=== PATIENT | male | born 1950 | race Caucasian/White ===

== ENCOUNTER 2018-07-25 18:10 | Emergency (ER) | payer MEDICARE, MEDICAID, SELFPAY ==
[2018-07-25 18:01] VITALS: BP 102/68; PULSE 92; RESP 14; TEMP 36.3; O2SAT 98
--- NOTE | 2018-07-25 18:26 | DI.RAD_ITS ---
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 Question permeative process of the humeral diaphysis, correlation with known multiple myeloma or other malignancy requested.
--- NOTE | 2018-07-25 18:26 | DI.RAD_ITS ---
SYMPTOM/DIAGNOSIS: S/P FALL, R/O ACUTE FRACTURE RIGHT WRIST: 07/25 Three views were obtained. No acute fracture seen.
--- NOTE | 2018-07-25 18:26 | DI.COMBO_ITS ---
SYMPTOM/DIAGNOSIS: S/P FALL, R/O ACUTE FRACTURE RIGHT ELBOW: 07/25 Three views were obtained. Note is again made of question permeative lucencies of the distal humerus and to a lesser degree radius and ulnar diaphyses. No acute fracture seen. Correlation requested regarding any history of multiple myeloma or other neoplastic disease. RIGHT HAND: 07/25 Three views were obtained. There are degenerative changes at the greater multangular first metacarpal joint. No acute fracture identified.
--- NOTE | 2018-07-25 18:28 | W.ED.GENAD ---
Discharge Plan Disposition Patient Disposition: HOME Condition: Stable Discharge Details Chief Complaint: Orthopedic Clinical Impression: Contusion of right shoulder, Skin tear of hand without complication, Contusion of hand, Abrasion of elbow Reason For Visit: SONYA Primary Care Provider: Edwar Ortiz ED Provider: Anthony Porter [place] Meds and New Rx's Prescriptions: Continue nitroglycerin 0.4 MG tablet, sublingual 0.4 mg Sublingual PRN PRNRF: 0 trazodone 100 MG tablet 200 mg PO HS RF: 0 duloxetine [Cymbalta] 20 MG capsule,delayed release(DR/EC) 60 mg PO DAILY RF: 0 aspirin [Aspir-Low] 81 MG tablet,delayed release (DR/EC) 81 mg PO DAILY RF: 0 thiamine mononitrate (vit B1) [Vitamin B-1 (mononitrate)] 100 MG tablet 100 mg PO DAILY RF: 0 acetaminophen [Mapap Extra Strength] 500 MG tablet 1,000 mg PO TID PRN PRNRF: 0 folic acid 1 MG tablet 1 mg PO DAILY RF: 0 gabapentin 600 MG tablet 600 mg PO TID RF: 0 tamsulosin 0.4 MG capsule 0.4 mg PO BID RF: 0 phenazopyridine 100 MG tablet 200 mg PO TID RF: 0 promethazine 25 MG tablet 25 mg PO QID RF: 0 ipratropium bromide [Atrovent] 15 ML spray,non-aerosol 15 ml NS Q6H PRN PRNRF: 0 multivitamin with iron-mineral [Compete] 1 EACH tablet 1 ea PO DAILY RF: 0 albuterol sulfate [ProAir RespiClick] 90 MCG aerosol powdr breath activated 90 mcg Inhalation Q4H PRN PRNRF: 0 Discharge Instructions Instructions: Contusion in Adults (ED), Abrasion (ED), Skin Tear (ED) Additional Instructions: Rest, ice, elevate right upper extremity is much as possible. Keep right hand wound clean, dry and covered. Follow-up with your primary care doctor in 1 week for reevaluation and with orthopedics if symptoms persist or worsen. Return to the emergency department any worsening or new concerning symptoms. Referrals: Figueroa Kamara MD [ [facility] STAFF PHYSICIAN] - Discharge Data Discharge Date/Time-TO BE ENTERED AT DEPARTURE: 07/25/18 20:40 Discharge Physician: Leslie Brady Medical Decision Making <Leslie Brady DO - Last Filed: 07/26/18 23:44> 67-year-old male who presents with right hand skin tear, right hand pain, and right shoulder pain status post fall at home prior to arrival. Patient is an alcoholic and his frequent admissions for falls. Patient denies head injury, neck pain, chest pain, abdominal pain, back pain, left upper extremity or bilateral lower extremity pain. Family member is present and also endorses that patient did not hit his head. Patient is acting appropriate at baseline per family member. Vitals within normal limits. Patient appears nontoxic and in no acute distress. He does appear mildly intoxicated. His chest and abdomen are nontender. He has no C-spine/T-spine/L-spine tenderness. He has chronic right shoulder pain due to previous right shoulder surgeries and has a known chronic right shoulder deformity per family member who states that this appears no different than usual. He has some pain with range of motion at the right shoulder. He has an extensive skin tear on the right dorsal hand with no active bleeding. Tetanus up-to-date 2013. At this point in time, I do not see any indication for CT head, C-spine, chest abdomen pelvis. I will obtain a right shoulder, right elbow, right wrist and hand x-rays. Will irrigate right hand and attempt to close over skin tear with skin flap and cover with nonadherent dressings. 2019 --right hand x-ray notes a questionable area of the proximal phalanx of the second finger of the right hand x-ray. He has chronic deformities noted in the right shoulder x-ray which do not appear significantly different but will wait on the right shoulder xray. Overall, most likely xrays appears negative for acute fracture. Case endorsed to Dr. Porter to follow-up on imaging. HPI <Leslie Brady DO - Last Filed: 07/26/18 23:44> General Mode of arrival: ambulatory. Date/Time Provider Initiated Documentation: 07/25/18 18:26. Limitations to Documentation: no limitations. Information obtained by: patient. HPI Narrative: Patient is a 67-year-old male with history of alcoholism who presents for fall at home prior to arrival. States he drank 1 beer today. Patient states he tripped while walking and fell at standing height onto his right upper extremity. He is complaining of pain in his right hand and right shoulder. He denies head injury, neck pain, back pain, chest pain, abdominal pain, hip pain, left upper extremity pain. Past medical history: Alcohol abuse, OA, Asthma, CAD, COPD, Depression, GERD, [place] Surgical history: Cholecystectomy, Hernia repair, Knee Replacement, Shoulder surgery, Tonsillectomy, AC joint repair, Back surgery Social history: Daily ETOH, Smokes tobacco, Denies drugs Meds: See list, daily 81mg aspirin, no other anticoagulants Allergies: See list Related Data Home Medications Medication Instructions Recorded Confirmed nitroglycerin 0.4 mg SUBLINGUAL PRN PRN 12/20/13 03/30/18 duloxetine [Cymbalta] 60 mg PO DAILY 07/24/16 03/30/18 trazodone 200 mg PO HS 07/24/16 03/30/18 aspirin [Aspir-Low] 81 mg PO DAILY 12/02/16 03/30/18 acetaminophen [Mapap Extra 1,000 mg PO TID PRN PRN tab 06/05/17 03/30/18 Strength] folic acid 1 mg PO DAILY tab 06/05/17 03/30/18 thiamine mononitrate (vit B1) 100 mg PO DAILY tab 06/05/17 03/30/18 [Vitamin B-1 (mononitrate)] albuterol sulfate [ProAir 90 mcg INHALATION Q4H PRN PRN 08/28/17 03/30/18 RespiClick] gabapentin 600 mg PO TID 08/28/17 03/30/18 ipratropium bromide [Atrovent] 15 ml NS Q6H PRN PRN 08/28/17 03/30/18 multivitamin with iron-mineral 1 ea PO DAILY 08/28/17 03/30/18 [Compete] phenazopyridine 200 mg PO TID 08/28/17 03/30/18 promethazine 25 mg PO QID 08/28/17 03/30/18 tamsulosin 0.4 mg PO BID 08/28/17 03/30/18 Previous Rx's Medication Instructions Recorded acetaminophen [Mapap Extra 1,000 mg PO TID PRN PRN tab 06/05/17 Strength] folic acid 1 mg PO DAILY tab 06/05/17 thiamine mononitrate (vit B1) 100 mg PO DAILY tab 06/05/17 [Vitamin B-1 (mononitrate)] Allergies Allergy/AdvReac Type Severity Reaction Status Date / Time Penicillins Allergy Severe Anaphylaxsi Unverified 03/30/18 10:32 s cephalexin monohydrate Allergy Unverified 03/30/18 10:32 [From Keflex] meperidine HCl [From Demerol] Allergy Skin Rash Unverified 03/30/18 10:32 clindamycin HCl AdvReac Severe see note Unverified 03/30/18 10:32 [From Cleocin] clindamycin palmitate HCl AdvReac Severe see comment Unverified 03/30/18 10:32 [From Cleocin] clindamycin phosphate AdvReac Severe see note Unverified 03/30/18 10:32 [From Cleocin] ketorolac tromethamine AdvReac Intermediate vomiting Unverified 03/30/18 10:32 [From Toradol] NSAIDS (Non-Steroidal AdvReac Intermediate Nausea Unverified 03/30/18 10:32 Anti-Inflamma propoxyphene HCl AdvReac Intermediate vomiting Unverified 03/30/18 10:32 [From Darvon] tramadol HCl [From Ultram] AdvReac Intermediate vomiting Unverified 03/30/18 10:32 General Stated Complaint: Orthopedic THEODORE: 4 Review of Systems <Leslie Brady DO - Last Filed: 07/26/18 23:44> Review of Systems All systems reviewed & are unremarkable except as noted in HPI and below Constitutional Denies chills, Denies excessive sweating, Denies fatigue, Denies fever(s), Denies weakness and Denies weight loss Eyes Reports system reviewed and no additional complaints, except as docu and Denies blurry vision ENT Denies vertigo, Denies dizziness, Denies otalgia, Denies nasal congestion, Denies sore throat and Denies throat swelling Cardiovascular Denies chest pain, Denies syncope, Denies rapid heart rate and Denies dyspnea Respiratory Denies dyspnea Gastrointestinal Denies abdominal pain, Denies diarrhea and Denies vomiting Genitourinary Denies hematuria, Denies dysuria and Denies flank pain Musculoskeletal Reports other (Right shoulder, right hand) Integumentary/Breasts Denies lesions and Denies rash Neurologic Denies behavioral changes, Denies confusion, Denies vertigo, Denies dizziness, Denies syncope and Denies weakness Psychiatric Denies behavioral changes, Denies confusion and Denies depression Endocrine Denies excessive sweating and Denies fatigue Hematologic/Lymphatic Denies easy bruising and Denies lymphadenopathy Allergic/Immunologic Denies throat swelling Exam <Leslie Brady, - Last Filed: 07/26/18 23:44> Const General: cooperative, intoxicated appearing (mild, smells of alcohol ) and other (able to answer questions appropriately) Orientation: alert, awake and oriented x3 HENMT Head: normal to inspection, normocephalic and atraumatic Ears: hearing grossly normal bilaterally, external ears normal and TM's normal bilaterally General nose exam: external nose normal Face and sinus: normal facial exam Mouth: oral mucosae normal Teeth and gingiva: dentition normal Throat: posterior oropharynx normal Eyes General: appearance normal, both eyes and all related structures Eyelids: eyelids normal Pupils: PERRL EOM: EOM intact bilaterally Neck Neck: normal visual inspection Lymphatic: no lymphadenopathy noted Chest Chest: normal inspection of the chest (No evidence of trauma) Resp Effort & Inspection: normal respiratory effort and able to speak in complete sentences Auscultation: clear to auscultation bilaterally Cardio Rate: regular rate Rhythm: regular rhythm GI Inspection: normal to inspection (No evidence of trauma) Palpation: soft, not firm, no guarding, no hepatosplenomegaly, no masses and nontender Auscultation: normal bowel sounds Back/Spine/Pelvis Cervical Spine: No cervical spinal tenderness Thoracic/Lumbar Spine: No thoracic spinal tenderness and No lumbar spinal tenderness Pelvis: no pain with anterior-posterior compression and other Coccyx: other Skin General skin exam: no rashes or lesions noted Neuro General: alert and awake Cognition: normal cognition Speech: speech normal Motor: muscle tone normal throughout Sensory Exam: no sensory deficits noted Extrem Right upper extremity: shoulder/upper arm (Chronic right shoulder deformity due to previous surgeries. No acute trauma noted. Pain in right shoulder with range of motion which patient states is chronic.), elbow/forearm (2 cm superficial laceration to right elbow overlying right lateral epicondyle. No tenderness palpation of right elbow or right forearm), wrist (No tenderness palpation of right wrist. No right snuffbox tenderness.) and hand (Extensive right dorsal hand skin tear approximately 4 x 7 cm extending from just below right wrist down to right fourth MCP joint) Right lower extremity: full ROM Left lower extremity: full ROM Psych Appearance: grossly normal Mental Status: mental status grossly normal Speech and Movement: speech and movement normal Affect: normal affect Thought Process: normal Course <Leslie Brady DO - Last Filed: 07/26/18 23:44> Vital Signs Temperature 97.3 F L 07/25/18 18:01 Pulse 92 H 07/25/18 18:01 Respiratory Rate 14 07/25/18 18:01 Blood Pressure 102/68 07/25/18 18:01 Pulse Oximetry 98 07/25/18 18:01 Temperature 97.3 F L 07/25/18 18:01 Temperature Source Temporal Artery Scan 07/25/18 18:01 Pulse 92 H 07/25/18 18:01 Respiratory Rate 14 07/25/18 18:01 Blood Pressure 102/68 07/25/18 18:01 Blood Pressure Position Sitting 07/25/18 18:01 Pulse Oximetry 98 07/25/18 18:01 Oxygen Delivery Method Room Air 07/25/18 18:01 Oxygen Flow Rate 0 07/25/18 18:01 Pain Level 10 07/25/18 18:01 Sign Out <Leslie Brady DO - Last Filed: 07/26/18 23:44> Sign Out Data: Sign Out Comment: Follow up on imaging results. Last updated by Leslie Brady DO at 07/25/18 20:30 Post-Handoff Eval: Patient signed out pending prelim read of films by radiology. Discharge papers completed, but discharge held until reads done. X-rays read as negative for acute fractures. Chronic fractures/changes and demineralization. Patient discharged home.
[2018-07-25] MEDS: Acetaminophen 325 MG TAB 650 MG PO (18:33)
--- NOTE | 2018-07-25 20:30 | DI.VRAD_ITS ---
EXAM: XR Right Hand Complete, 3 or More Views CLINICAL HISTORY: 67 years old, male; Injury or trauma; Fall; Initial encounter; Blunt trauma (contusions or hematomas; Hand; Right; Patient HX: S/P fall; Additional info: R/O acute FX TECHNIQUE: Frontal, lateral and oblique views of the right hand. COMPARISON: CR RIGHT HAND COMPLETE 05/23/2017 10:39 PM FINDINGS: Bones/joints: First carpometacarpal degenerative changes. First metacarpophalangeal degenerative changes. The bones are demineralized. Scattered mild interphalangeal degenerative changes. No acute fracture. No dislocation. Soft tissues: Dorsal hand soft tissue swelling. IMPRESSION: No acute bony pathology. Dictated and Authenticated by: Melba Mejias MD. Ordering:STEPHANE FUNG MD
--- NOTE | 2018-07-25 20:31 | DI.VRAD_ITS ---
EXAM: XR Right Wrist Complete, 3 or More Views CLINICAL HISTORY: 67 years old, male; Injury or trauma; Fall; Initial encounter; Blunt trauma (contusions or hematomas; Wrist; Right; Patient HX: S/P fall; Additional info: R/O acute FX TECHNIQUE: Frontal, lateral and oblique views of the right wrist. COMPARISON: CR RIGHT HAND COMPLETE 05/23/2017 10:39 PM FINDINGS: Bones/joints: Subcentimeter hazy calcification projecting along the radial base of the second metacarpal, most likely chronic soft tissue calcification, avulsion fracture considered unlikely. First carpal metacarpal degenerative changes. No displaced fractures are seen. No dislocation. Soft tissues: Distal forearm and wrist soft tissue swelling. IMPRESSION: Subcentimeter hazy calcification projecting along the radial base of the second metacarpal, most likely chronic soft tissue calcification, avulsion fracture considered unlikely. Dictated and Authenticated by: Melba Mejias MD. Ordering:STEPHANE FUNG MD
--- NOTE | 2018-07-25 20:33 | DI.VRAD_ITS ---
EXAM: XR Right Elbow Complete, 3 or More Views CLINICAL HISTORY: 67 years old, male; Injury or trauma; Fall; Initial encounter; Blunt trauma (contusions or hematomas; Elbow; Right; Patient HX: S/P fall; Additional info: R/O acute FX TECHNIQUE: Frontal, lateral and oblique views of the right elbow. COMPARISON: CR RIGHT HUMERUS 08/28/2017 11:52 AM FINDINGS: Bones/joints: A somewhat permeative appearance of demineralization particularly in the humeral diaphysis. No acute fracture. No dislocation. Soft tissues: Unremarkable. IMPRESSION: 1. No acute bony pathology. 2. A somewhat permeative appearance of demineralization particularly in the humeral diaphysis. Please correlate as to any clinical concern for myeloma, lymphoma or other entity other than heterogeneous senile demineralization. Dictated and Authenticated by: Melba Mejias MD. Ordering:STEPHANE FUNG MD
--- NOTE | 2018-07-25 20:38 | DI.VRAD_ITS ---
EXAM: XR Right Shoulder Complete, 2 or More Views CLINICAL HISTORY: 67 years old, male; Injury or trauma; Fall; Initial encounter; Blunt trauma (contusions or hematomas; Shoulder; Right; Patient HX: S/P fall; Additional info: R/O acute FX TECHNIQUE: Two or more views of the right shoulder. COMPARISON: CR RIGHT SHOULDER COMPLETE 02/04/2017 9:58 AM FINDINGS: Bones/joints: Permeative appearance of demineralization in the mid right humeral diaphysis. Given appearance of the right shoulder this could be related to chronic nonuse. Please correlate as to any history of underlying malignancy. Old appearing right rib fractures. Chronic appearing diastases of the right acromioclavicular interval, chronic posterior matter changes in the distal right clavicle. Chronic, ununited proximal right humeral fracture with medial override of the diaphysis and surrounding heterotopic ossification. The lateral view is suboptimal due to obliquity and demineralization however there is no definite dislocation of the humeral head. The femoral head appears somewhat high riding. The glenoid is difficult to assess due to overlap. Soft tissues: Unremarkable. IMPRESSION: 1. Extensive chronic posterior matter changes in the right shoulder. No definite acute fractures are seen. 2. Permeative appearance of demineralization in the mid right humeral diaphysis. Given appearance of the right shoulder this could be related to chronic nonuse. Please correlate as to any history of underlying malignancy. Dictated and Authenticated by: Melba Mejias MD. Ordering:STEPHANE FUNG MD
== END 2018-07-25 20:40 | disposition home or self-care (01) ==
PROVIDERS: Emergency Provider Emergency Medicine; PCP Family Medicine
DX: S61.411A Laceration without foreign body of right hand, initial encounter (principal); S50.311A Abrasion of right elbow, initial encounter; S40.011A Contusion of right shoulder, initial encounter; W18.30XA Fall on same level, unspecified, initial encounter; F10.20 Alcohol dependence, uncomplicated; J44.9 Chronic obstructive pulmonary disease, unspecified; F17.210 Nicotine dependence, cigarettes, uncomplicated
CPT/HCPCS: 99284; 73030; 73080; 73110; 73130; 99285

== ENCOUNTER 2018-08-08 17:48 | Emergency (ER) | payer MEDICARE, MEDICAID, SELFPAY ==
[2018-08-08 17:48] VITALS: BP 135/83; PULSE 85; RESP 18; TEMP 36.4; O2SAT 98
--- NOTE | 2018-08-08 18:05 | DI.RAD_ITS ---
SYMPTOMS/DIAGNOSIS: PAIN S/P FALL RIGHT HAND: Three views were obtained. There are degenerative changes involving the joints of the hand and wrist. No acute fracture identified.
--- NOTE | 2018-08-08 18:09 | W.ED.GENAD ---
Discharge Plan Disposition Patient Disposition: AGAINST MEDICAL ADVICE Condition: Stable Discharge Details Chief Complaint: RashLesion Clinical Impression: Contusion of hand, right Reason For Visit: loy Primary Care Provider: Edwar Ortiz ED Provider: Calvin Orlando Home Meds and New Rx's Prescriptions: No Action nitroglycerin 0.4 MG tablet, sublingual 0.4 mg Sublingual PRN PRNRF: 0 trazodone 100 MG tablet 200 mg PO HS RF: 0 duloxetine [Cymbalta] 20 MG capsule,delayed release(DR/EC) 60 mg PO DAILY RF: 0 aspirin [Aspir-Low] 81 MG tablet,delayed release (DR/EC) 81 mg PO DAILY RF: 0 thiamine mononitrate (vit B1) [Vitamin B-1 (mononitrate)] 100 MG tablet 100 mg PO DAILY RF: 0 acetaminophen [Mapap Extra Strength] 500 MG tablet 1,000 mg PO TID PRN PRNRF: 0 folic acid 1 MG tablet 1 mg PO DAILY RF: 0 gabapentin 600 MG tablet 600 mg PO TID RF: 0 tamsulosin 0.4 MG capsule 0.4 mg PO BID RF: 0 phenazopyridine 100 MG tablet 200 mg PO TID RF: 0 promethazine 25 MG tablet 25 mg PO QID RF: 0 ipratropium bromide [Atrovent] 15 ML spray,non-aerosol 15 ml NS Q6H PRN PRNRF: 0 multivitamin with iron-mineral [Compete] 1 EACH tablet 1 ea PO DAILY RF: 0 albuterol sulfate [ProAir RespiClick] 90 MCG aerosol powdr breath activated 90 mcg Inhalation Q4H PRN PRNRF: 0 Medical Decision Making 67 yo male comes in with a large scab on the right posterior hand that he sustained after a mechanical fall 3 days ago and did not hit his head or have loc per pt. Has no fevers or surrounding ereythema to suggest cellulitis and no severe pain or cerpitus to suggest nec fasc at this time. Will xray to eval for possible fx I do not see any fractures on my read. Pt remains stable. He doesn't want to stay for the read and is leaving against my medical advise as I do not have an official read to eval for fx or other acutepathology. He is clinically sober and has capacity to make his own decisions and understands the risks of leaving including becoming disabled from missed radiological abnormalities. He left without his paperwork but does know he can return if he changes his mind Differential Diagnosis scab, skin tear, fx, contusion HPI General Mode of arrival: EMS. Date/Time Provider Initiated Documentation: 08/08/18 18:01. Limitations to Documentation: no limitations. Information obtained by: patient. History of Present Illness 67 year old M presents to the emergency department with the chief complaint of right hand pain, described as moderate, Patient started experiencing this day(s) (3) and it has been constant. No relieving factors improve symptom(s), No exacerbating factors reported . Related Data Home Medications Medication Instructions Recorded Confirmed nitroglycerin 0.4 mg SUBLINGUAL PRN PRN 12/20/13 03/30/18 duloxetine [Cymbalta] 60 mg PO DAILY 07/24/16 03/30/18 trazodone 200 mg PO HS 07/24/16 03/30/18 aspirin [Aspir-Low] 81 mg PO DAILY 12/02/16 03/30/18 acetaminophen [Mapap Extra 1,000 mg PO TID PRN PRN tab 06/05/17 03/30/18 Strength] folic acid 1 mg PO DAILY tab 06/05/17 03/30/18 thiamine mononitrate (vit B1) 100 mg PO DAILY tab 06/05/17 03/30/18 [Vitamin B-1 (mononitrate)] albuterol sulfate [ProAir 90 mcg INHALATION Q4H PRN PRN 08/28/17 03/30/18 RespiClick] gabapentin 600 mg PO TID 08/28/17 03/30/18 ipratropium bromide [Atrovent] 15 ml NS Q6H PRN PRN 08/28/17 03/30/18 multivitamin with iron-mineral 1 ea PO DAILY 08/28/17 03/30/18 [Compete] phenazopyridine 200 mg PO TID 08/28/17 03/30/18 promethazine 25 mg PO QID 08/28/17 03/30/18 tamsulosin 0.4 mg PO BID 08/28/17 03/30/18 Previous Rx's Medication Instructions Recorded acetaminophen [Mapap Extra 1,000 mg PO TID PRN PRN tab 06/05/17 Strength] folic acid 1 mg PO DAILY tab 06/05/17 thiamine mononitrate (vit B1) 100 mg PO DAILY tab 06/05/17 [Vitamin B-1 (mononitrate)] Allergies Allergy/AdvReac Type Severity Reaction Status Date / Time Penicillins Allergy Severe Anaphylaxsi Unverified 08/08/18 17:52 s cephalexin monohydrate Allergy Unverified 08/08/18 17:52 [From Keflex] meperidine HCl [From Demerol] Allergy Skin Rash Unverified 08/08/18 17:52 clindamycin HCl AdvReac Severe see note Unverified 08/08/18 17:52 [From Cleocin] clindamycin palmitate HCl AdvReac Severe see comment Unverified 08/08/18 17:52 [From Cleocin] clindamycin phosphate AdvReac Severe see note Unverified 08/08/18 17:52 [From Cleocin] ketorolac tromethamine AdvReac Intermediate vomiting Unverified 08/08/18 17:52 [From Toradol] NSAIDS (Non-Steroidal AdvReac Intermediate Nausea Unverified 08/08/18 17:52 Anti-Inflamma propoxyphene HCl AdvReac Intermediate vomiting Unverified 08/08/18 17:52 [From Darvon] tramadol HCl [From Ultram] AdvReac Intermediate vomiting Unverified 08/08/18 17:52 General Stated Complaint: RashLesion THEODORE: 4 Review of Systems Review of Systems All systems reviewed & are unremarkable except as noted in HPI and below Constitutional Denies chills, Denies fever(s) and Denies weakness Eyes Denies loss of vision ENT Denies change in voice Cardiovascular Denies chest pain and Denies dyspnea Respiratory Denies dyspnea Gastrointestinal Denies abdominal pain, Denies nausea and Denies vomiting Genitourinary Denies dysuria Musculoskeletal Denies joint swelling Neurologic Denies loss of vision and Denies weakness Psychiatric Denies depression Endocrine Denies cold intolerance and Denies heat intolerance Allergic/Immunologic Reports urticaria Exam Const General: no acute distress Orientation: alert HENAL Head: normal to inspection Ears: external ears normal General nose exam: external nose normal Mouth: moist mucous membranes Eyes General: appearance normal, both eyes and all related structures Neck Neck: normal visual inspection Resp Effort & Inspection: normal respiratory effort and able to speak in complete sentences Cardio Rate: regular rate Skin General skin exam: no rashes or lesions noted Neuro General: alert and oriented x3 Extrem General: full ROM, normal capillary refill and other (posterior right large scab on the hand where he had a skin jacob, no warmth or surrounding redness, no crepitus) Psych Mental Status: mental status grossly normal Course Vital Signs Temperature 36.4 C L 08/08/18 17:48 Pulse 85 08/08/18 17:48 Respiratory Rate 18 08/08/18 17:48 Blood Pressure 135/83 08/08/18 17:48 Pulse Oximetry 98 08/08/18 17:48 Temperature 36.4 C L 08/08/18 17:48 Temperature Source Temporal Artery Scan 08/08/18 17:48 Pulse 85 08/08/18 17:48 Respiratory Rate 18 08/08/18 17:48 Respiratory Effort Non-Labored 08/08/18 17:51 Blood Pressure 135/83 08/08/18 17:48 Pulse Oximetry 98 08/08/18 17:48 Oxygen Delivery Method Room Air 08/08/18 17:48 Oxygen Flow Rate 0 08/08/18 17:48 Pain Level 10 08/08/18 17:48
--- NOTE | 2018-08-08 18:12 | ED.GENADUL_ITS ---
Discharge Plan Disposition Patient Disposition: AGAINST MEDICAL ADVICE Condition: Stable Discharge Details Chief Complaint: RashLesion Clinical Impression: Contusion of hand, right Reason For Visit: loy Primary Care Provider: Edwar Ortiz ED Provider: Calvin Orlando Home Meds and New Rx's Prescriptions: No Action nitroglycerin 0.4 MG tablet, sublingual 0.4 mg Sublingual PRN PRNRF: 0 trazodone 100 MG tablet 200 mg PO HS RF: 0 duloxetine [Cymbalta] 20 MG capsule,delayed release(DR/EC) 60 mg PO DAILY RF: 0 aspirin [Aspir-Low] 81 MG tablet,delayed release (DR/EC) 81 mg PO DAILY RF: 0 thiamine mononitrate (vit B1) [Vitamin B-1 (mononitrate)] 100 MG tablet 100 mg PO DAILY RF: 0 acetaminophen [Mapap Extra Strength] 500 MG tablet 1,000 mg PO TID PRN PRNRF: 0 folic acid 1 MG tablet 1 mg PO DAILY RF: 0 gabapentin 600 MG tablet 600 mg PO TID RF: 0 tamsulosin 0.4 MG capsule 0.4 mg PO BID RF: 0 phenazopyridine 100 MG tablet 200 mg PO TID RF: 0 promethazine 25 MG tablet 25 mg PO QID RF: 0 ipratropium bromide [Atrovent] 15 ML spray,non-aerosol 15 ml NS Q6H PRN PRNRF: 0 multivitamin with iron-mineral [Compete] 1 EACH tablet 1 ea PO DAILY RF: 0 albuterol sulfate [ProAir RespiClick] 90 MCG aerosol powdr breath activated 90 mcg Inhalation Q4H PRN PRNRF: 0 Medical Decision Making 67 yo male comes in with a large scab on the right posterior hand that he sustained after a mechanical fall 3 days ago and did not hit his head or have loc per pt. Has no fevers or surrounding ereythema to suggest cellulitis and no severe pain or cerpitus to suggest nec fasc at this time. Will xray to eval for possible fx I do not see any fractures on my read. Pt remains stable. He doesn't want to stay for the read and is leaving against my medical advise as I do not have an official read to eval for fx or other acutepathology. He is clinically sober and has capacity to make his own decisions and understands the risks of leaving including becoming disabled from missed radiological abnormalities. He left without his paperwork but does know he can return if he changes his mind Differential Diagnosis scab, skin tear, fx, contusion HPI General Mode of arrival: EMS . Date/Time Provider Initiated Documentation: 08/08/18 18:01 . Limitations to Documentation: no limitations . Information obtained by: patient . History of Present Illness 67 year old M presents to the emergency department with the chief complaint of right hand pain, described as moderate, Patient started experiencing this day(s) (3) and it has been constant. No relieving factors improve symptom(s) , No exacerbating factors reported . Related Data Home Medications Medication Instructions Recorded Confirmed nitroglycerin 0.4 mg SUBLINGUAL PRN PRN 12/20/13 03/30/18 duloxetine [Cymbalta] 60 mg PO DAILY 07/24/16 03/30/18 trazodone 200 mg PO HS 07/24/16 03/30/18 aspirin [Aspir-Low] 81 mg PO DAILY 12/02/16 03/30/18 acetaminophen [Mapap Extra 1,000 mg PO TID PRN PRN tab 06/05/17 03/30/18 Strength] folic acid 1 mg PO DAILY tab 06/05/17 03/30/18 thiamine mononitrate (vit B1) 100 mg PO DAILY tab 06/05/17 03/30/18 [Vitamin B-1 (mononitrate)] albuterol sulfate [ProAir 90 mcg INHALATION Q4H PRN PRN 08/28/17 03/30/18 RespiClick] gabapentin 600 mg PO TID 08/28/17 03/30/18 ipratropium bromide [Atrovent] 15 ml NS Q6H PRN PRN 08/28/17 03/30/18 multivitamin with iron-mineral 1 ea PO DAILY 08/28/17 03/30/18 [Compete] phenazopyridine 200 mg PO TID 08/28/17 03/30/18 promethazine 25 mg PO QID 08/28/17 03/30/18 tamsulosin 0.4 mg PO BID 08/28/17 03/30/18 Previous Rx's Medication Instructions Recorded acetaminophen [Mapap Extra 1,000 mg PO TID PRN PRN tab 06/05/17 Strength] folic acid 1 mg PO DAILY tab 06/05/17 thiamine mononitrate (vit B1) 100 mg PO DAILY tab 06/05/17 [Vitamin B-1 (mononitrate)] Allergies Allergy/AdvReac Type Severity Reaction Status Date / Time Penicillins Allergy Severe Anaphylaxsi Unverified 08/08/18 17:52 s cephalexin monohydrate Allergy Unverified 08/08/18 17:52 [From Keflex] meperidine HCl [From Demerol] Allergy Skin Rash Unverified 08/08/18 17:52 clindamycin HCl AdvReac Severe see note Unverified 08/08/18 17:52 [From Cleocin] clindamycin palmitate HCl AdvReac Severe see comment Unverified 08/08/18 17:52 [From Cleocin] clindamycin phosphate AdvReac Severe see note Unverified 08/08/18 17:52 [From Cleocin] ketorolac tromethamine AdvReac Intermediate vomiting Unverified 08/08/18 17:52 [From Toradol] NSAIDS (Non-Steroidal AdvReac Intermediate Nausea Unverified 08/08/18 17:52 Anti-Inflamma propoxyphene HCl AdvReac Intermediate vomiting Unverified 08/08/18 17:52 [From Darvon] tramadol HCl [From Ultram] AdvReac Intermediate vomiting Unverified 08/08/18 17: 52 General Stated Complaint: RashLesion THEODORE: 4 Review of Systems Review of Systems All systems reviewed & are unremarkable except as noted in HPI and below Constitutional Denies chills, Denies fever(s) and Denies weakness Eyes Denies loss of vision ENT Denies change in voice Cardiovascular Denies chest pain and Denies dyspnea Respiratory Denies dyspnea Gastrointestinal Denies abdominal pain, Denies nausea and Denies vomiting Genitourinary Denies dysuria Musculoskeletal Denies joint swelling Neurologic Denies loss of vision and Denies weakness Psychiatric Denies depression Endocrine Denies cold intolerance and Denies heat intolerance Allergic/Immunologic Reports urticaria Exam Const General: no acute distress Orientation: alert HENMO Head: normal to inspection Ears: external ears normal General nose exam: external nose normal Mouth: moist mucous membranes Eyes General: appearance normal, both eyes and all related structures Neck Neck: normal visual inspection Resp Effort & Inspection: normal respiratory effort and able to speak in complete sentences Cardio Rate: regular rate Skin General skin exam: no rashes or lesions noted Neuro General: alert and oriented x3 Extrem General: full ROM, normal capillary refill and other (posterior right large scab on the hand where he had a skin jacob, no warmth or surrounding redness, no crepitus) Psych Mental Status: mental status grossly normal Course Vital Signs Temperature 36.4 C L 08/08/18 17:48 Pulse 85 08/08/18 17:48 Respiratory Rate 18 08/08/18 17:48 Blood Pressure 135/83 08/08/18 17:48 Pulse Oximetry 98 08/08/18 17:48 Temperature 36.4 C L 08/08/18 17:48 Temperature Source Temporal Artery Scan 08/08/18 17:48 Pulse 85 08/08/18 17:48 Respiratory Rate 18 08/08/18 17:48 Respiratory Effort Non-Labored 08/08/18 17:51 Blood Pressure 135/83 08/08/18 17:48 Pulse Oximetry 98 08/08/18 17:48 Oxygen Delivery Method Room Air 08/08/18 17:48 Oxygen Flow Rate 0 08/08/18 17:48 Pain Level 10 08/08/18 17:48
--- NOTE | 2018-08-08 19:17 | DI.VRAD_ITS ---
EXAM: XR Right Hand Complete, 3 or More Views CLINICAL HISTORY: 67 years old, male; Pain; Hand and other: S/P fall; Bilateral TECHNIQUE: Frontal, lateral and oblique views of the right hand. COMPARISON: CR XR hand RT complete 07/25/2018 6:59 PM FINDINGS: Bones/joints: First carpal metacarpal degenerative changes. First metacarpal phalangeal degenerative changes. Scattered interphalangeal degenerative changes. The bones are demineralized. No acute fracture. No dislocation. Soft tissues: Dorsal hand swelling. IMPRESSION: No acute bony pathology. Dictated and Authenticated by: Melba Mejias MD. Ordering:VALERIA SALAMANCA MD
== END 2018-08-08 19:04 | disposition left against medical advice (07) ==
PROVIDERS: Emergency Provider Emergency Medicine; PCP Family Medicine
DX: S60.221A Contusion of right hand, initial encounter (principal); W01.0XXA Fall on same level from slipping, tripping and stumbling without subsequent striking against object, initial encounter
CPT/HCPCS: 99283; 73130; 99282

== ENCOUNTER 2018-09-04 19:53 | Emergency (ER) | payer MEDICARE, MEDICAID, SELFPAY ==
[2018-09-04 19:55] VITALS: BP 106/68; PULSE 87; RESP 15; TEMP 36.5; O2SAT 98
[2018-09-04 20:07] VITALS: RESP 15
--- NOTE | 2018-09-04 20:21 | W.ED.GENAD ---
Discharge Plan Disposition Patient Disposition: HOME Discharge Details Chief Complaint: Orthopedic Clinical Impression: Chronic pain in right shoulder, Right leg swelling Primary Care Provider: Edwar Ortiz ED Provider: Isma Duong Home Meds and New Rx's Prescriptions: Continue nitroglycerin 0.4 MG tablet, sublingual 0.4 mg Sublingual PRN PRNRF: 0 trazodone 100 MG tablet 200 mg PO HS RF: 0 duloxetine [Cymbalta] 20 MG capsule,delayed release(DR/EC) 60 mg PO DAILY RF: 0 aspirin [Aspir-Low] 81 MG tablet,delayed release (DR/EC) 81 mg PO DAILY RF: 0 thiamine mononitrate (vit B1) [Vitamin B-1 (mononitrate)] 100 MG tablet 100 mg PO DAILY RF: 0 acetaminophen [Mapap Extra Strength] 500 MG tablet 1,000 mg PO TID PRN PRNRF: 0 folic acid 1 MG tablet 1 mg PO DAILY RF: 0 gabapentin 600 MG tablet 600 mg PO TID RF: 0 tamsulosin 0.4 MG capsule 0.4 mg PO BID RF: 0 phenazopyridine 100 MG tablet 200 mg PO TID RF: 0 promethazine 25 MG tablet 25 mg PO QID RF: 0 ipratropium bromide [Atrovent] 15 ML spray,non-aerosol 15 ml NS Q6H PRN PRNRF: 0 multivitamin with iron-mineral [Compete] 1 EACH tablet 1 ea PO DAILY RF: 0 albuterol sulfate [ProAir RespiClick] 90 MCG aerosol powdr breath activated 90 mcg Inhalation Q4H PRN PRNRF: 0 Discharge Instructions Instructions: Shoulder Pain (ED) Additional Instructions: Please follow up with your lean specialist. Call friday. You should have a right lower leg ultrasound as soon as possible. This study has been ordered. Please contact diagnostic radiology Friday to schedule: . Please contact your primary care physician to arrange follow-up. Return to the ER for any worsening or new concerning symptoms. Referrals: Edwar Ortiz [Primary Care Provider] - Medical Decision Making 67-year-old male with history of remote injury to his right shoulder, has chronic pain and deformity of the right shoulder, here with right shoulder pain exacerbation. Neurovascular intact. No signs of infection. I offered tylenol and he accepted. I recommended sling and lidocaine patch and he declined. Patient is here specifically requesting an opioid injection. I advised that I do not feel comfortable administering an opioid injection given the chronic nature of his pain, fall risk, and recent etoh use. Patient was recently seen by an lean specialist. He has no new injury. I do not think imaging studies at this point would be beneficial. I have encouraged him to follow-up with his lean specialist. Given his chronic intermittent right lower extremity swelling, there is a slight chance of DVT. Unfortunately ultrasound capability is not available at this time. Given chronic nature, I think it is appropriate for him to has as outpatient bonifacio. I considered starting anticoagulation and discussed this with the patient and patient provided informed refusal. He is a fall risk and I beleive the risk of treatment are greater than benefit at this point. Will order outpatient ultrasound for him to have as soon as possible in order to expedite this workup. Usual and customary discharge instructions were provided the patient. HPI General Mode of arrival: ambulatory. Date/Time Provider Initiated Documentation: 09/04/18 20:09. Limitations to Documentation: no limitations. Information obtained by: patient. HPI Narrative: 67-year-old male with multiple medical problems presents with chief complaint of shoulder pain. Patient notes that he had a traumatic event 3-1/2 years ago and sustained comminuted fracture to his right shoulder. Since this injury he has had right shoulder pain. Pain waxes and wanes and is severe at times. Pain is currently moderate to severe. Worse with movement of the shoulder. No associated numbness or weakness. Of note patient was seen by an lean specialist yesterday and there is plan for potential surgical correction. Pt denies new trauma. Also patient notes that he has intermittent right lower leg swelling. He denies pain in his calf. This is been going on for months to years. Past medical history: Alcohol abuse, OA, Asthma, CAD, COPD, Depression, GERD, [place] Surgical history: Cholecystectomy, Hernia repair, Knee Replacement, Shoulder surgery, Tonsillectomy, AC joint repair, Back surgery Social history: Daily ETOH, Smokes tobacco, Denies drugs Meds: See list, daily 81mg aspirin, no other anticoagulants Allergies: See list Related Data Home Medications Medication Instructions Recorded Confirmed nitroglycerin 0.4 mg SUBLINGUAL PRN PRN 12/20/13 09/04/18 duloxetine [Cymbalta] 60 mg PO DAILY 07/24/16 09/04/18 trazodone 200 mg PO HS 07/24/16 09/04/18 aspirin [Aspir-Low] 81 mg PO DAILY 12/02/16 09/04/18 acetaminophen [Mapap Extra 1,000 mg PO TID PRN PRN tab 06/05/17 09/04/18 Strength] folic acid 1 mg PO DAILY tab 06/05/17 09/04/18 thiamine mononitrate (vit B1) 100 mg PO DAILY tab 06/05/17 09/04/18 [Vitamin B-1 (mononitrate)] albuterol sulfate [ProAir 90 mcg INHALATION Q4H PRN PRN 08/28/17 09/04/18 RespiClick] gabapentin 600 mg PO TID 08/28/17 09/04/18 ipratropium bromide [Atrovent] 15 ml NS Q6H PRN PRN 08/28/17 09/04/18 multivitamin with iron-mineral 1 ea PO DAILY 08/28/17 09/04/18 [Compete] phenazopyridine 200 mg PO TID 08/28/17 09/04/18 promethazine 25 mg PO QID 08/28/17 09/04/18 tamsulosin 0.4 mg PO BID 08/28/17 09/04/18 Previous Rx's Medication Instructions Recorded acetaminophen [Mapap Extra 1,000 mg PO TID PRN PRN tab 06/05/17 Strength] folic acid 1 mg PO DAILY tab 06/05/17 thiamine mononitrate (vit B1) 100 mg PO DAILY tab 06/05/17 [Vitamin B-1 (mononitrate)] Allergies Allergy/AdvReac Type Severity Reaction Status Date / Time Penicillins Allergy Severe Anaphylaxsi Unverified 09/04/18 20:03 s cephalexin monohydrate Allergy Unverified 09/04/18 20:03 [From Keflex] meperidine HCl [From Demerol] Allergy Skin Rash Unverified 09/04/18 20:03 clindamycin HCl AdvReac Severe see note Unverified 09/04/18 20:03 [From Cleocin] clindamycin palmitate HCl AdvReac Severe see comment Unverified 09/04/18 20:03 [From Cleocin] clindamycin phosphate AdvReac Severe see note Unverified 09/04/18 20:03 [From Cleocin] ketorolac tromethamine AdvReac Intermediate vomiting Unverified 09/04/18 20:03 [From Toradol] NSAIDS (Non-Steroidal AdvReac Intermediate Nausea Unverified 09/04/18 20:03 Anti-Inflamma propoxyphene HCl AdvReac Intermediate vomiting Unverified 09/04/18 20:03 [From Darvon] tramadol HCl [From Ultram] AdvReac Intermediate vomiting Unverified 09/04/18 20:03 General Stated Complaint: Orthopedic THEODORE: 3 Review of Systems Constitutional Denies fever(s) Cardiovascular Denies chest pain and Denies dyspnea Respiratory Denies dyspnea Exam Const General: cooperative and no acute distress Other: smells of etoh HENMT Head: normocephalic and atraumatic Mouth: moist mucous membranes Eyes Conjunctivae: normal conjunctivae Sclera: normal sclerae EOM: EOM intact bilaterally Neck Neck: trachea midline and supple Resp Auscultation: clear to auscultation bilaterally, no rales, no rhonchi and no wheezes Cardio Jugular venous pressure: no JVD Rate: regular rate and not tachycardic Rhythm: regular rhythm GI Palpation: soft, not firm, no guarding, no masses, not rigid and nontender Skin General skin exam: no rashes or lesions noted Neuro General: alert, awake, oriented x3 and tone normal Extrem General: no calf tenderness and edema Laterality: right (foot and lower leg moderate, nonpitting) Right upper extremity: shoulder/upper arm (deformity noted to proximal humerus, no swelling, no erythema, no warmth) Details: axillary nerve sensory function normal and wrist Details: normal vascular exam Other: 1+ DP rt Psych Appearance: grossly normal Mental Status: mental status grossly normal Speech and Movement: speech and movement normal Course Vital Signs Temperature 36.5 C 09/04/18 19:55 Pulse 87 09/04/18 19:55 Respiratory Rate 15 09/04/18 19:55 Blood Pressure 106/68 09/04/18 19:55 Pulse Oximetry 98 09/04/18 19:55 Temperature 36.5 C 09/04/18 19:55 Temperature Source Temporal Artery Scan 09/04/18 19:55 Pulse 87 09/04/18 19:55 Respiratory Rate 15 09/04/18 20:07 Respiratory Effort Non-Labored 09/04/18 20:07 Respiratory Depth Normal 09/04/18 20:07 Respiratory Pattern Normal 09/04/18 20:07 Blood Pressure 106/68 09/04/18 19:55 Blood Pressure Position Supine 09/04/18 19:55 Pulse Oximetry 98 09/04/18 19:55 Oxygen Delivery Method Room Air 09/04/18 19:55 Oxygen Flow Rate 0 09/04/18 19:55 Pain Level 8 09/04/18 20:07
--- NOTE | 2018-09-04 20:30 | ED.GENADUL_ITS ---
Discharge Plan Disposition Patient Disposition: HOME Discharge Details Chief Complaint: Orthopedic Clinical Impression: Chronic pain in right shoulder, Right leg swelling Primary Care Provider: Edwar Ortiz ED Provider: Isma Duong Home Meds and New Rx's Prescriptions: Continue nitroglycerin 0.4 MG tablet, sublingual 0.4 mg Sublingual PRN PRNRF: 0 trazodone 100 MG tablet 200 mg PO HS RF: 0 duloxetine [Cymbalta] 20 MG capsule,delayed release(DR/EC) 60 mg PO DAILY RF: 0 aspirin [Aspir-Low] 81 MG tablet,delayed release (DR/EC) 81 mg PO DAILY RF: 0 thiamine mononitrate (vit B1) [Vitamin B-1 (mononitrate)] 100 MG tablet 100 mg PO DAILY RF: 0 acetaminophen [Mapap Extra Strength] 500 MG tablet 1,000 mg PO TID PRN PRNRF: 0 folic acid 1 MG tablet 1 mg PO DAILY RF: 0 gabapentin 600 MG tablet 600 mg PO TID RF: 0 tamsulosin 0.4 MG capsule 0.4 mg PO BID RF: 0 phenazopyridine 100 MG tablet 200 mg PO TID RF: 0 promethazine 25 MG tablet 25 mg PO QID RF: 0 ipratropium bromide [Atrovent] 15 ML spray,non-aerosol 15 ml NS Q6H PRN PRNRF: 0 multivitamin with iron-mineral [Compete] 1 EACH tablet 1 ea PO DAILY RF: 0 albuterol sulfate [ProAir RespiClick] 90 MCG aerosol powdr breath activated 90 mcg Inhalation Q4H PRN PRNRF: 0 Discharge Instructions Instructions: Shoulder Pain (ED) Additional Instructions: Please follow up with your resident program specialist. Call friday. You should have a right lower leg ultrasound as soon as possible. This study has been ordered. Please contact diagnostic radiology Friday to schedule: . Please contact your primary care physician to arrange follow-up. Return to the ER for any worsening or new concerning symptoms. Referrals: Edwar Ortiz [Primary Care Provider] - Medical Decision Making 67-year-old male with history of remote injury to his right shoulder, has chronic pain and deformity of the right shoulder, here with right shoulder pain exacerbation. Neurovascular intact. No signs of infection. I offered tylenol and he accepted. I recommended sling and lidocaine patch and he declined. Patient is here specifically requesting an opioid injection. I advised that I do not feel comfortable administering an opioid injection given the chronic nature of his pain, fall risk, and recent etoh use. Patient was recently seen by an resident program specialist. He has no new injury. I do not think imaging studies at this point would be beneficial. I have encouraged him to follow-up with his resident program specialist. Given his chronic intermittent right lower extremity swelling, there is a slight chance of DVT. Unfortunately ultrasound capability is not available at this time. Given chronic nature, I think it is appropriate for him to has as outpatient bonifacio. I considered starting anticoagulation and discussed this with the patient and patient provided informed refusal. He is a fall risk and I beleive the risk of treatment are greater than benefit at this point. Will order outpatient ultrasound for him to have as soon as possible in order to expedite this workup. Usual and customary discharge instructions were provided the patient. HPI General Mode of arrival: ambulatory . Date/Time Provider Initiated Documentation: 09/04/18 20:09 . Limitations to Documentation: no limitations . Information obtained by: patient . HPI Narrative: 67-year-old male with multiple medical problems presents with chief complaint of shoulder pain. Patient notes that he had a traumatic event 3 -1/2 years ago and sustained comminuted fracture to his right shoulder. Since this injury he has had right shoulder pain. Pain waxes and wanes and is severe at times. Pain is currently moderate to severe. Worse with movement of the shoulder. No associated numbness or weakness. Of note patient was seen by an resident program specialist yesterday and there is plan for potential surgical correction. Pt denies new trauma. Also patient notes that he has intermittent right lower leg swelling. He denies pain in his calf. This is been going on for months to years. Past medical history: Alcohol abuse, OA, Asthma, CAD, COPD, Depression, GERD, [place] Surgical history: Cholecystectomy, Hernia repair, Knee Replacement, Shoulder surgery, Tonsillectomy, AC joint repair, Back surgery Social history: Daily ETOH, Smokes tobacco, Denies drugs Meds: See list, daily 81mg aspirin, no other anticoagulants Allergies: See list Related Data Home Medications Medication Instructions Recorded Confirmed nitroglycerin 0.4 mg SUBLINGUAL PRN PRN 12/20/13 09/04/18 duloxetine [Cymbalta] 60 mg PO DAILY 07/24/16 09/04/18 trazodone 200 mg PO HS 07/24/16 09/04/18 aspirin [Aspir-Low] 81 mg PO DAILY 12/02/16 09/04/18 acetaminophen [Mapap Extra 1,000 mg PO TID PRN PRN tab 06/05/17 09/04/18 Strength] folic acid 1 mg PO DAILY tab 06/05/17 09/04/18 thiamine mononitrate (vit B1) 100 mg PO DAILY tab 06/05/17 09/04/18 [Vitamin B-1 (mononitrate)] albuterol sulfate [ProAir 90 mcg INHALATION Q4H PRN PRN 08/28/17 09/04/18 RespiClick] gabapentin 600 mg PO TID 08/28/17 09/04/18 ipratropium bromide [Atrovent] 15 ml NS Q6H PRN PRN 08/28/17 09/04/18 multivitamin with iron-mineral 1 ea PO DAILY 08/28/17 09/04/18 [Compete] phenazopyridine 200 mg PO TID 08/28/17 09/04/18 promethazine 25 mg PO QID 08/28/17 09/04/18 tamsulosin 0.4 mg PO BID 08/28/17 09/04/18 Previous Rx's Medication Instructions Recorded acetaminophen [Mapap Extra 1,000 mg PO TID PRN PRN tab 06/05/17 Strength] folic acid 1 mg PO DAILY tab 06/05/17 thiamine mononitrate (vit B1) 100 mg PO DAILY tab 06/05/17 [Vitamin B-1 (mononitrate)] Allergies Allergy/AdvReac Type Severity Reaction Status Date / Time Penicillins Allergy Severe Anaphylaxsi Unverified 09/04/18 20:03 s cephalexin monohydrate Allergy Unverified 09/04/18 20:03 [From Keflex] meperidine HCl [From Demerol] Allergy Skin Rash Unverified 09/04/18 20:03 clindamycin HCl AdvReac Severe see note Unverified 09/04/18 20:03 [From Cleocin] clindamycin palmitate HCl AdvReac Severe see comment Unverified 09/04/18 20:03 [From Cleocin] clindamycin phosphate AdvReac Severe see note Unverified 09/04/18 20:03 [From Cleocin] ketorolac tromethamine AdvReac Intermediate vomiting Unverified 09/04/18 20:03 [From Toradol] NSAIDS (Non-Steroidal AdvReac Intermediate Nausea Unverified 09/04/18 20:03 Anti-Inflamma propoxyphene HCl AdvReac Intermediate vomiting Unverified 09/04/18 20:03 [From Darvon] tramadol HCl [From Ultram] AdvReac Intermediate vomiting Unverified 09/04/18 20: 03 General Stated Complaint: Orthopedic THEODORE: 3 Review of Systems Constitutional Denies fever(s) Cardiovascular Denies chest pain and Denies dyspnea Respiratory Denies dyspnea Exam Const General: cooperative and no acute distress Other: smells of etoh HENMT Head: normocephalic and atraumatic Mouth: moist mucous membranes Eyes Conjunctivae: normal conjunctivae Sclera: normal sclerae EOM: EOM intact bilaterally Neck Neck: trachea midline and supple Resp Auscultation: clear to auscultation bilaterally, no rales, no rhonchi and no wheezes Cardio Jugular venous pressure: no JVD Rate: regular rate and not tachycardic Rhythm: regular rhythm GI Palpation: soft, not firm, no guarding, no masses, not rigid and nontender Skin General skin exam: no rashes or lesions noted Neuro General: alert, awake, oriented x3 and tone normal Extrem General: no calf tenderness and edema Laterality: right (foot and lower leg moderate, nonpitting) Right upper extremity: shoulder/upper arm (deformity noted to proximal humerus, no swelling, no erythema, no warmth) Details: axillary nerve sensory function normal and wrist Details: normal vascular exam Other: 1+ DP rt Psych Appearance: grossly normal Mental Status: mental status grossly normal Speech and Movement: speech and movement normal Course Vital Signs Temperature 36.5 C 09/04/18 19:55 Pulse 87 09/04/18 19:55 Respiratory Rate 15 09/04/18 19:55 Blood Pressure 106/68 09/04/18 19:55 Pulse Oximetry 98 09/04/18 19:55 Temperature 36.5 C 09/04/18 19:55 Temperature Source Temporal Artery Scan 09/04/18 19:55 Pulse 87 09/04/18 19:55 Respiratory Rate 15 09/04/18 20:07 Respiratory Effort Non-Labored 09/04/18 20:07 Respiratory Depth Normal 09/04/18 20:07 Respiratory Pattern Normal 09/04/18 20:07 Blood Pressure 106/68 09/04/18 19:55 Blood Pressure Position Supine 09/04/18 19:55 Pulse Oximetry 98 09/04/18 19:55 Oxygen Delivery Method Room Air 09/04/18 19:55 Oxygen Flow Rate 0 09/04/18 19:55 Pain Level 8 09/04/18 20:07
[2018-09-04 20:44] VITALS: BP 106/68; PULSE 87; RESP 15; TEMP 36.5; O2SAT 98
--- NOTE | 2018-09-08 10:19 | NUR.NOTE ---
Addendum entered by Gordon Landers 09/08/18 11:43: Spoke with Peri Palma RN at [facility]. They have also been attempting to reach him and will continue to do so re: ED visit. LP Original Note: Nursing Note: Notified by DI that they are unable to set up the US of his RLE because his phone number on file is not accepting voicemails and he has not contacted them about scheduling the US. Noted that his PCP is JENNIFER Ortiz for triage nurse about this issue, asked for call back with updated contact information, and to let PCP office know that he has this test ordered.
== END 2018-09-04 20:37 | disposition home or self-care (01) ==
LOC: ER 20:44
PROVIDERS: Emergency Provider Student in an Organized Health Care Education/Training Program; PCP Family Medicine
DX: M25.511 Pain in right shoulder (principal); G89.29 Other chronic pain; R60.0 Localized edema; J44.9 Chronic obstructive pulmonary disease, unspecified; F17.210 Nicotine dependence, cigarettes, uncomplicated
CPT/HCPCS: 99283

== ENCOUNTER 2019-02-19 02:16 | Outpatient (CLI) | payer MEDICARE, MEDICAID, SELFPAY ==
--- NOTE | 2019-02-19 09:32 | DI.US_ITS ---
SYMPTOM/DIAGNOSIS: LOCALIZED SWELLING RT LEG, R22.41 RIGHT LOWER EXTREMITY ULTRASOUND: There is a Doll's cyst measuring 3.4 by 2.5 by 0.6 cm. There is some edema in the medial calf. The femoral and popliteal veins as well as visualized calf veins are freely compressible. No thrombus is visible. No superficial thrombosis is seen. IMPRESSION: Small Doll's cyst. No evidence of DVT.
== END 2019-02-19 02:36 ==
PROVIDERS: PCP Family Medicine; Visit Provider Nurse Practitioner Family
DX: R22.41 Localized swelling, mass and lump, right lower limb (principal); M71.21 Synovial cyst of popliteal space [Baker], right knee; R60.0 Localized edema
CPT/HCPCS: 93971

== ENCOUNTER 2019-02-22 14:40 | Emergency (ER) | payer MEDICARE, MEDICAID, SELFPAY ==
[2019-02-22 14:41] VITALS: BP 115/67; PULSE 80; RESP 16; TEMP 36.5; O2SAT 93
--- NOTE | 2019-02-22 15:25 | W.ED.GENAD ---
Discharge Plan Disposition Patient Disposition: AGAINST MEDICAL ADVICE Condition: Stable Discharge Details Chief Complaint: Orthopedic Clinical Impression: Chronic pain in right shoulder Primary Care Provider: Edwar Ortiz ED Provider: Calvin Orlando Home Meds and New Rx's Prescriptions: New lidocaine 5 % adhesive patch,medicated 1 patch TP DAILY Qty: 15 RF: 0 No Action nitroglycerin 0.4 MG tablet, sublingual 0.4 mg Sublingual PRN PRNRF: 0 trazodone 100 MG tablet 200 mg PO HS RF: 0 duloxetine [Cymbalta] 20 MG capsule,delayed release(DR/EC) 60 mg PO DAILY RF: 0 aspirin [Aspir-Low] 81 MG tablet,delayed release (DR/EC) 81 mg PO DAILY RF: 0 thiamine mononitrate (vit B1) [Vitamin B-1 (mononitrate)] 100 MG tablet 100 mg PO DAILY RF: 0 acetaminophen [Mapap Extra Strength] 500 MG tablet 1,000 mg PO TID PRN PRNRF: 0 folic acid 1 MG tablet 1 mg PO DAILY RF: 0 gabapentin 600 MG tablet 600 mg PO TID RF: 0 tamsulosin 0.4 MG capsule 0.4 mg PO BID RF: 0 phenazopyridine 100 MG tablet 200 mg PO TID RF: 0 promethazine 25 MG tablet 25 mg PO QID RF: 0 ipratropium bromide [Atrovent] 15 ML spray,non-aerosol 15 ml NS Q6H PRN PRNRF: 0 multivitamin with iron-mineral [Compete] 1 EACH tablet 1 ea PO DAILY RF: 0 albuterol sulfate [ProAir RespiClick] 90 MCG aerosol powdr breath activated 90 mcg Inhalation Q4H PRN PRNRF: 0 Discharge Instructions Instructions: Shoulder Pain (ED) Additional Instructions: follow up with your primary care provider in 1-2 weeks if you develop high fevers or change your mind on the xray you can always return to the emergency department Medical Decision Making 68 yo male comes in with 4 years of right shoulder pain. Denies fevers, rashes, or recent falls. On exam she has no palpable or visible deformity. STates rom is limited due to pain but when I distract him I hable to fully range the shoulder. Given no fevers, erythema, swelling or warmth doubt septic joint. Will xray to eval for possible fx though I suspect his pain is due to his chronic shoulder pain. Pt refused xray and was demanding opiates. I advised I can't give opiates for chronic pain but would be happy to if I found something acute. He still declined xray and wants to leave. He has capacity to make his own decisions and understands risks of missing something on an xray like a fx/dislocation that could lead to possible disability permanently, and less likely . He is willing to accept these risks and is still demanding to go home. I will prescribe lidocaine patches and advised f/u with pcp and that he could return if he changes his mind Differential Diagnosis chronic shoulder pain, oa, ac injury HPI General Mode of arrival: wheelchair. Date/Time Provider Initiated Documentation: 02/22/19 15:02. Limitations to Documentation: no limitations. Information obtained by: patient. History of Present Illness 68 year old M presents to the emergency department with the chief complaint of right shoulder pain, described as moderate, Quality is described as aching, and is localized to the right and upper extremity. Patient reports no radiation. Patient started experiencing this year(s) (4) and it has been constant. Rest improves symptom(s), Movement worsens symptoms . Patient did receive the following treatments prior to arrival, none Related Data Home Medications Medication Instructions Recorded Confirmed nitroglycerin 0.4 mg SUBLINGUAL PRN PRN 12/20/13 09/04/18 duloxetine [Cymbalta] 60 mg PO DAILY 07/24/16 09/04/18 trazodone 200 mg PO HS 07/24/16 09/04/18 aspirin [Aspir-Low] 81 mg PO DAILY 12/02/16 09/04/18 acetaminophen [Mapap Extra 1,000 mg PO TID PRN PRN tab 06/05/17 09/04/18 Strength] folic acid 1 mg PO DAILY tab 06/05/17 09/04/18 thiamine mononitrate (vit B1) 100 mg PO DAILY tab 06/05/17 09/04/18 [Vitamin B-1 (mononitrate)] albuterol sulfate [ProAir 90 mcg INHALATION Q4H PRN PRN 08/28/17 09/04/18 RespiClick] gabapentin 600 mg PO TID 08/28/17 09/04/18 ipratropium bromide [Atrovent] 15 ml NS Q6H PRN PRN 08/28/17 09/04/18 multivitamin with iron-mineral 1 ea PO DAILY 08/28/17 09/04/18 [Compete] phenazopyridine 200 mg PO TID 08/28/17 09/04/18 promethazine 25 mg PO QID 08/28/17 09/04/18 tamsulosin 0.4 mg PO BID 08/28/17 09/04/18 lidocaine 1 patch TP DAILY #15 each 02/22/19 Previous Rx's Medication Instructions Recorded acetaminophen [Mapap Extra 1,000 mg PO TID PRN PRN tab 06/05/17 Strength] folic acid 1 mg PO DAILY tab 06/05/17 thiamine mononitrate (vit B1) 100 mg PO DAILY tab 06/05/17 [Vitamin B-1 (mononitrate)] lidocaine 1 patch TP DAILY #15 each 02/22/19 Allergies Allergy/AdvReac Type Severity Reaction Status Date / Time Penicillins Allergy Severe Anaphylaxsi Unverified 02/22/19 14:59 s cephalexin monohydrate Allergy Unverified 02/22/19 14:59 [From Keflex] meperidine HCl [From Demerol] Allergy Skin Rash Unverified 02/22/19 14:59 clindamycin HCl AdvReac Severe see note Unverified 02/22/19 14:59 [From Cleocin] clindamycin palmitate HCl AdvReac Severe see comment Unverified 02/22/19 14:59 [From Cleocin] clindamycin phosphate AdvReac Severe see note Unverified 02/22/19 14:59 [From Cleocin] ketorolac tromethamine AdvReac Intermediate vomiting Unverified 02/22/19 14:59 [From Toradol] NSAIDS (Non-Steroidal AdvReac Intermediate Nausea Unverified 02/22/19 14:59 Anti-Inflamma propoxyphene HCl AdvReac Intermediate vomiting Unverified 02/22/19 14:59 [From Darvon] tramadol HCl [From Ultram] AdvReac Intermediate vomiting Unverified 02/22/19 14:59 General Stated Complaint: Orthopedic THEODORE: 3 Review of Systems Review of Systems All systems reviewed & are unremarkable except as noted in HPI and below Constitutional Denies chills, Denies fever(s) and Denies weakness Eyes Denies loss of vision ENT Denies change in voice Cardiovascular Denies chest pain and Denies dyspnea Respiratory Denies cough and Denies dyspnea Gastrointestinal Denies abdominal pain, Denies nausea and Denies vomiting Integumentary/Breasts Denies rash Neurologic Denies loss of vision and Denies weakness Psychiatric Denies depression [facility] Social History Smoking/Tobacco Use Status: Current every day Drug use: Never Do you feel safe at home: Yes Do you feel safe in your relationship?: Yes Exam Const General: no acute distress Orientation: alert HENMT Head: normal to inspection Ears: external ears normal General nose exam: external nose normal Mouth: moist mucous membranes Eyes General: appearance normal, both eyes and all related structures Neck Neck: normal visual inspection Resp Effort & Inspection: normal respiratory effort and able to speak in complete sentences Cardio Rate: regular rate Skin General skin exam: no rashes or lesions noted Neuro General: alert and oriented x3 Extrem General: normal capillary refill Psych Mental Status: mental status grossly normal Course Vital Signs Temperature 36.5 C 02/22/19 14:41 Pulse 80 02/22/19 14:41 Respiratory Rate 16 02/22/19 14:41 Blood Pressure 115/67 02/22/19 14:41 Pulse Oximetry 93 L 02/22/19 14:41 Temperature 36.5 C 02/22/19 14:41 Temperature Source Skin 02/22/19 14:41 Pulse 80 02/22/19 14:41 Respiratory Rate 16 02/22/19 14:41 Respiratory Effort 02/22/19 15:00 Blood Pressure 115/67 02/22/19 14:41 Pulse Oximetry 93 L 02/22/19 14:41 Oxygen Delivery Method Room Air 02/22/19 14:41 Oxygen Flow Rate 0 02/22/19 14:41 Pain Level 10 02/22/19 14:41
[2019-02-22] MEDS: Lidocaine 5% Patch 1 PATCH TP (15:34)
[2019-02-22] MEDS: Lidocaine 5% Patch 1 PATCH (15:40)
== END 2019-02-22 15:49 | disposition left against medical advice (07) ==
LOC: ER 15:43
PROVIDERS: Emergency Provider Emergency Medicine; PCP Family Medicine
DX: M25.511 Pain in right shoulder (principal); Z53.29 Procedure and treatment not carried out because of patient's decision for other reasons
CPT/HCPCS: 99283

== ENCOUNTER 2019-02-25 16:45 | Outpatient (REF) | payer MEDICARE, MEDICAID, SELFPAY ==
[2019-02-25 21:01] LABS: HCT 44.6 % (40.0-50.0); HGB 15.2 g/dL (13.5-17.5); Mean Corp. HGB Concentration 34.1 g/dL (32.0-36.0); Mean Corpuscular Hemoglobin 36.4 pg (27.0-33.0); Mean Corpuscular Volume 106.7 fL (80-95); Mean Platelet Volume 9.3 fL (8.0-11.0); Platelet Count 268 x1000/uL (130-400); RBC 4.18 m/cumm (4.50-6.00); White Blood Cell Count 7.16 k/cumm (4.4-10.8)
[2019-02-25 21:26] LABS: ALT 27 U/L (12-78); AST 34 U/L (15-37); Albumin 3.5 g/dL (3.4-5.0); Alkaline Phosphatase 75 U/L (46-116); Anion Gap 7.3 mmol/L (3-11); BUN 8 mg/dL (7-18); Bilirubin, Total 0.4 mg/dL (0.2-1.0); CO2 32.7 mmol/L (21.0-32.0); CREATININE 0.66 mg/dL (0.70-1.30); Calcium 9.6 mg/dL (8.5-10.1); Chloride 101 mmol/L (98-107); Glucose 81 mg/dL (70-100); Potassium 4.3 mmol/L (3.5-5.1); Sodium 141 mmol/L (136-145)
[2019-02-25 22:13] LABS: NT-proBNP 68 pg/mL; Total Protein 7.2 g/dL (6.4-8.2)
== END 2019-02-25 17:05 ==
LOC: NCHCN 16:45
PROVIDERS: PCP Family Medicine; Visit Provider Nurse Practitioner Family
DX: R60.0 Localized edema (principal); I50.9 Heart failure, unspecified; Z76.89 Persons encountering health services in other specified circumstances
CPT/HCPCS: 80053; 85027; 83880

== ENCOUNTER 2019-03-02 17:50 | Emergency (ER) | payer MEDICARE, MEDICAID, SELFPAY ==
[2019-03-02 18:02] VITALS: BP 116/57; PULSE 90; RESP 21; TEMP 36.5; O2SAT 98
[2019-03-02 18:07] VITALS: RESP 16
--- NOTE | 2019-03-02 18:42 | ED.GENADUL_ITS ---
Discharge Plan Disposition Patient Disposition: AGAINST MEDICAL ADVICE Condition: Poor Discharge Details Chief Complaint: Chest Pain Clinical Impression: Chest pain Primary Care Provider: Edwar Ortiz ED Provider: Tiana Woodall Home Meds and New Rx's Prescriptions: No Action nitroglycerin 0.4 MG tablet, sublingual 0.4 mg Sublingual PRN PRNRF: 0 trazodone 100 MG tablet 200 mg PO HS RF: 0 duloxetine [Cymbalta] 20 MG capsule,delayed release(DR/EC) 60 mg PO DAILY RF: 0 aspirin [Aspir-Low] 81 MG tablet,delayed release (DR/EC) 81 mg PO DAILY RF: 0 thiamine mononitrate (vit B1) [Vitamin B-1 (mononitrate)] 100 MG tablet 100 mg PO DAILY RF: 0 acetaminophen [Mapap Extra Strength] 500 MG tablet 1,000 mg PO TID PRN PRNRF: 0 folic acid 1 MG tablet 1 mg PO DAILY RF: 0 lidocaine 5 % adhesive patch,medicated 1 patch TP DAILY Qty: 15 RF: 0 gabapentin 600 MG tablet 600 mg PO TID RF: 0 tamsulosin 0.4 MG capsule 0.4 mg PO BID RF: 0 phenazopyridine 100 MG tablet 200 mg PO TID RF: 0 promethazine 25 MG tablet 25 mg PO QID RF: 0 ipratropium bromide [Atrovent] 15 ML spray,non-aerosol 15 ml NS Q6H PRN PRNRF: 0 Compete 1 EACH tablet 1 ea PO DAILY RF: 0 ProAir RespiClick 90 MCG aerosol powdr breath activated 90 mcg Inhalation Q4H PRN PRNRF: 0 Discharge Instructions Instructions: Chest Pain (ED) Additional Instructions: You are leaving AGAINST MEDICAL ADVICE. Your laboratory evaluation has not yet been completed, including labs suggestive of heart attack. You may return at any time for further evaluation and treatment. Please follow-up with your primary care as soon as possible. Referrals: Edwar Ortiz [Primary Care Provider] - Medical Decision Making Patient is 68-year-old male, brought in via EMS, with chief complaint of chest pain. Patient has history of alcohol abuse, arthritis, asthma, anxiety, CAD, COPD, depression, GERD, hernia, MS, UTI. Patient reports that he has had 3 cardiac catheterizations historically, last was presently 3 to 4 years ago. States he began having chest pain 2 days ago and has been constant since that time. He denies any waxing or waning of the pain. Exertion does not worsen the pain. Pain does not radiate. Is indicating primarily the epigastric and left upper quadrant area as point of maximal pain. He denies any fevers or chills. Reports nausea. Pain does not radiate to the back. Patient reports that he has had one beer today, patient does smell of alcohol, appears disheveled and intoxicated. Has urinated on himself. He is tender in the left upper quadrant on exam. Does have bilateral lower extremity edema which patient reports is chronic no change. No posterior calf tenderness. No recent travel. Considered cardiac, pulmonary or abdominal source. Given patients EToh abuse and area of discomfort, I am primarily concerned for pancreatitis. Will obtain cxr, labs, ekg. EKG was reviewed by Dr. Brady. Normal sinus rhythm at rate of 94 with no ischemic findings noted Chest XR reviewed by radiologist: FINDINGS: Lungs: Lungs are hyperinflated with diffuse coarsening of the interstitial markings. No focal consolidation or pulmonary edema. Pleural space: No pleural effusion. No pneumothorax. Heart/Mediastinum: Cardiomediastinal contours within normal limits. Upper abdomen: Cholecystectomy clips are present. Bones/joints: Redemonstrated severe fracture deformity of the right shoulder with chronic posttraumatic change. Redemonstrated are multiple old healed bilateral rib fractures. Posterior spinal fixation hardware of the thoracolumbar spine is unchanged. Again noted is severe compression deformity of the T8 vertebral body. Soft tissues: No focal soft tissue abnormailty. IMPRESSION: 1. No focal consolidative airspace disease. 2. Hyperinflation with diffuse coarsening of the interstitial markings. 3. Severe posttraumatic changes of the right shoulder with several old healed bilateral rib fractures and chronic severe compression deformity of the T8 vertebra. Labs are still pending. Patient has frequently asked for narcotics, this seems to be primarily want in treatment thus far. He was given multiple doses of nitro prior to arrival without any alleviation of his discomfort. Hesitant at this time to give him any narcotics given his intoxicated state, and concerned that with his appearance, this may put him at risk for respiratory depression. We will hold off and wait for labs at this time. EKG is reassuring for no STEMI. Alcohol 314. Lipase 89. Chemistries and troponin are still pending. Patient is requesting discharge. He is very frustrated that he is not receiving narcotics. I discussed with him why I was not dosing him with narcotics. Offered non-narcotic therapies which he is refusing. He reports he is anticoagulated. He does not appear uncomfortable, moving about well, does not appear SOB, VS WNL. Patient demanding discharge. I advised this is AMA. Advised that he stay in the event he is having cardiac event. No evidence of STEMI, no mediastinal widening, no evidence of infection. Lipase normal. Advised he may be having NSTEMI and encouraged he stay for results which he is refusing. While patient has alcohol on board, he is appropriate at this time and appears able to make cognitive decisions for himself. He is accompanied by his significant other who will monitor him and seek care urgently for him once again should worsening symptoms develop. I advised he may return at any point for further evaluation and treatment. Advised f/u WILLIAM with PCP. HPI General Mode of arrival: EMS . Date/Time Provider Initiated Documentation: 03/02/19 18:17 . Limitations to Documentation: no limitations . Information obtained by: patient, EMS and RN notes reviewed . History of Present Illness 68 year old M presents to the emergency department with the chief complaint of chest pain, described as severe, with intensity rated at 10. Quality is described as sharp, and is localized to the chest. Patient reports no radiation. Patient started experiencing this day(s) (2) and it has been constant. No relieving factors improve symptom(s), No exacerbating factors reported . Patient notes chest pain and shortness of breath; denies cough, diaphoresis, fever/chills, headaches, loss of appetite, malaise, nausea/vomiting, rash, syncope and weakness. Patient did receive the following treatments prior to arrival, none Related Data Home Medications Medication Instructions Recorded Confirmed nitroglycerin 0.4 mg SUBLINGUAL PRN PRN 12/20/13 03/02/19 duloxetine [Cymbalta] 60 mg PO DAILY 07/24/16 03/02/19 trazodone 200 mg PO HS 07/24/16 03/02/19 aspirin [Aspir-Low] 81 mg PO DAILY 12/02/16 03/02/19 acetaminophen [Mapap Extra 1,000 mg PO TID PRN PRN tab 06/05/17 03/02/19 Strength] folic acid 1 mg PO DAILY tab 06/05/17 03/02/19 thiamine mononitrate (vit B1) 100 mg PO DAILY tab 06/05/17 03/02/19 [Vitamin B-1 (mononitrate)] Compete 1 ea PO DAILY 08/28/17 03/02/19 ProAir RespiClick 90 mcg INHALATION Q4H PRN PRN 08/28/17 03/02/19 gabapentin 600 mg PO TID 08/28/17 03/02/19 ipratropium bromide [Atrovent] 15 ml NS Q6H PRN PRN 08/28/17 03/02/19 phenazopyridine 200 mg PO TID 08/28/17 03/02/19 promethazine 25 mg PO QID 08/28/17 03/02/19 tamsulosin 0.4 mg PO BID 08/28/17 03/02/19 lidocaine 1 patch TP DAILY #15 each 02/22/19 03/02/19 Previous Rx's Medication Instructions Recorded acetaminophen [Mapap Extra 1,000 mg PO TID PRN PRN tab 06/05/17 Strength] folic acid 1 mg PO DAILY tab 06/05/17 thiamine mononitrate (vit B1) 100 mg PO DAILY tab 06/05/17 [Vitamin B-1 (mononitrate)] lidocaine 1 patch TP DAILY #15 each 02/22/19 Allergies Allergy/AdvReac Type Severity Reaction Status Date / Time Penicillins Allergy Severe Anaphylaxsi Unverified 02/22/19 14:59 s cephalexin monohydrate Allergy Unverified 02/22/19 14:59 [From Keflex] meperidine HCl [From Demerol] Allergy Skin Rash Unverified 02/22/19 14:59 clindamycin HCl AdvReac Severe see note Unverified 02/22/19 14:59 [From Cleocin] clindamycin palmitate HCl AdvReac Severe see comment Unverified 02/22/19 14:59 [From Cleocin] clindamycin phosphate AdvReac Severe see note Unverified 02/22/19 14:59 [From Cleocin] ketorolac tromethamine AdvReac Intermediate vomiting Unverified 02/22/19 14:59 [From Toradol] NSAIDS (Non-Steroidal AdvReac Intermediate Nausea Unverified 02/22/19 14:59 Anti-Inflamma propoxyphene HCl AdvReac Intermediate vomiting Unverified 02/22/19 14:59 [From Darvon] tramadol HCl [From Ultram] AdvReac Intermediate vomiting Unverified 02/22/19 14:59 General Stated Complaint: Chest Pain THEODORE: 3 Review of Systems Constitutional Reports as per HPI, Denies chills, Denies fever(s), Denies headache(s), Denies lethargy and Denies poor appetite Eyes Denies change in vision ENT Denies dizziness and Denies headache(s) Cardiovascular Reports as per HPI, Reports chest pain, Reports chest pain at rest, Reports chest pain with activity, Denies diaphoresis, Denies syncope, Denies claudication, Reports leg edema, Denies lightheadedness, Denies radiating jaw, neck or arm pain, Denies palpitations, Reports dyspnea and Denies dyspnea on exertion (reports that dyspnea is constant and unchanged) Respiratory Reports as per HPI, Denies chest congestion, Denies cough, Denies pain on inspiration, Denies pain with cough, Reports dyspnea, Denies dyspnea on exertion (reports that dyspnea is constant and unchanged) and Denies wheezing Gastrointestinal Reports as per HPI, Denies abdominal pain, Denies diarrhea, Denies nausea and Denies vomiting Genitourinary Denies system reviewed and no additional complaints, except as docu (denies change in urinary habits) Musculoskeletal Reports as per HPI and Denies back pain Integumentary/Breasts Reports as per HPI and Denies rash Neurologic Reports as per HPI, Denies dizziness, Denies syncope and Denies headache(s) Endocrine Denies palpitations Allergic/Immunologic Denies wheezing [facility] Social History Smoking/Tobacco Use Status: Current every day Drug use: Never Do you feel safe at home: Yes Do you feel safe in your relationship?: Yes Exam Const General: cooperative, healthy appearing, comfortable, no acute distress, well developed, disheveled and intoxicated appearing Nutritional Appearance: average body habitus and well nourished Orientation: alert, awake and oriented x3 HENMT Head: normal to inspection Ears: hearing grossly normal bilaterally Mouth: moist mucous membranes Chest Chest: normal inspection of the chest, normal palpation of entire chest wall and no crepitus Resp Effort & Inspection: normal respiratory effort, able to speak in complete sentences and no respiratory distress Auscultation: clear to auscultation bilaterally, no rales, no rhonchi and no wheezes Cardio Rate: regular rate Rhythm: regular rhythm Heart Sounds: S1 normal and S2 normal GI Inspection: normal to inspection, no edema and non-distended Palpation: soft, no hepatosplenomegaly, not firm, no guarding, not rigid and tender in the epigastrum and in the LUQ Auscultation: normal bowel sounds Back/Spine/Pelvis Back: no CVA tenderness Thoracic/Lumbar Spine: thoracic and lumbar spine normal to inspection Skin General skin exam: no rashes or lesions noted Trauma: no lacerations or abrasions Neuro General: alert, awake and oriented x3 Cognition: normal cognition Speech: speech normal Gait: normal gait Extrem General: normal to inspection, normal capillary refill, no calf tenderness, normal gait and pedal edema bilaterally Psych Appearance: grossly normal and well kempt Mental Status: mental status grossly normal Speech and Movement: speech and movement normal Course Vital Signs Temperature 36.5 C 03/02/19 18:02 Pulse 90 03/02/19 18:02 Respiratory Rate 21 03/02/19 18:02 Blood Pressure 116/57 L 03/02/19 18:02 Pulse Oximetry 98 03/02/19 18:02 Temperature 36.5 C 03/02/19 18:02 Temperature Source Temporal Artery Scan 03/02/19 18:02 Pulse 90 03/02/19 18:02 Respiratory Rate 16 03/02/19 18:07 Respiratory Effort Non-Labored 03/02/19 18:07 Respiratory Depth Normal 03/02/19 18:07 Respiratory Pattern Normal 03/02/19 18:07 Blood Pressure 116/57 L 03/02/19 18:02 Blood Pressure Position Sitting 03/02/19 18:02 Pulse Oximetry 98 03/02/19 18:02 Oxygen Delivery Method Nasal Cannula 03/02/19 18:02 Oxygen Flow Rate 2 03/02/19 18:02 Pain Level 10 03/02/19 18:07
[2019-03-02 18:57] LABS: Abs Immature Grans 0.02 k/cumm (0.0-0.09); Absolute Basophil Count 0.02 k/cumm (0.0-0.2); Absolute Eosinophil Count 0.18 k/cumm (0.0-0.7); Absolute Lymphocyte Count 1.86 k/cumm (1.2-3.4); Absolute Neutrophil Count 3.67 k/cumm (1.2-6.7); Basophils % 0.3; Eosinophils % 2.8; HCT 44.1 % (40.0-50.0); HGB 15.9 g/dL (13.5-17.5); Immature Grans % 0.3; Lymphocytes % 28.8; Mean Corp. HGB Concentration 36.1 g/dL (32.0-36.0); Mean Corpuscular Hemoglobin 36.9 pg (27.0-33.0); Mean Corpuscular Volume 102.3 fL (80-95); Mean Platelet Volume 8.7 fL (8.0-11.0); Monocytes % 10.9; Neutrophils % 56.9; Platelet Count 192 x1000/uL (130-400); RBC 4.31 m/cumm (4.50-6.00); RBC Distribution Width 12.7 % (11.8-14.1); White Blood Cell Count 6.45 k/cumm (4.4-10.8)
[2019-03-02 19:12] LABS: Lipase 89 U/L (73-393)
--- NOTE | 2019-03-02 19:12 | DI.RAD_ITS ---
SYMPTOM/DIAGNOSIS: CHEST PAIN FRONTAL AND LATERAL CHEST: Comparison is made with 07/04/17. Heart size and pulmonary vasculature are within normal limits. The lungs show no focal consolidating infiltrates, effusions or pneumothoraces. Chronic appearing interstitial fibrotic changes are present. There are old fracture deformities involving ribs bilaterally, the right humerus and thoracic spine. Posterior spinal fixation hardware is seen in the lower thoracic and upper lumbar spine. IMPRESSION: No acute pulmonary process.
--- NOTE | 2019-03-02 19:18 | DI.VRAD_ITS ---
EXAM: XR Chest, 2 Views EXAM DATE/TIME: 03/02/2019 6:18 PM CLINICAL HISTORY: 68 years old, male; Chest pain; Type not specified TECHNIQUE: Imaging protocol: XR of the chest, 2 views. COMPARISON: CR CHEST 2 VIEWS PA,LAT 07/04/2017 2:07 PM FINDINGS: Lungs: Lungs are hyperinflated with diffuse coarsening of the interstitial markings. No focal consolidation or pulmonary edema. Pleural space: No pleural effusion. No pneumothorax. Heart/Mediastinum: Cardiomediastinal contours within normal limits. Upper abdomen: Cholecystectomy clips are present. Bones/joints: Redemonstrated severe fracture deformity of the right shoulder with chronic posttraumatic change. Redemonstrated are multiple old healed bilateral rib fractures. Posterior spinal fixation hardware of the thoracolumbar spine is unchanged. Again noted is severe compression deformity of the T8 vertebral body. Soft tissues: No focal soft tissue abnormailty. IMPRESSION: 1. No focal consolidative airspace disease. 2. Hyperinflation with diffuse coarsening of the interstitial markings. 3. Severe posttraumatic changes of the right shoulder with several old healed bilateral rib fractures and chronic severe compression deformity of the T8 vertebra. Dictated and Authenticated by: George Dye MD. Ordering:STEPHANE Nelson MD
[2019-03-02 19:47] LABS: ALT 29 U/L (12-78); AST 45 U/L (15-37); Albumin 3.6 g/dL (3.4-5.0); Alkaline Phosphatase 85 U/L (46-116); Anion Gap 12.1 mmol/L (3-11); BUN 8 mg/dL (7-18); Bilirubin, Total 0.4 mg/dL (0.2-1.0); CO2 26.9 mmol/L (21.0-32.0); CREATININE 0.64 mg/dL (0.70-1.30); Calcium 8.6 mg/dL (8.5-10.1); Chloride 94 mmol/L (98-107); Glucose 93 mg/dL (70-100); Magnesium 1.9 mg/dL (1.8-2.4); Potassium 4.1 mmol/L (3.5-5.1); Sodium 133 mmol/L (136-145)
[2019-03-02 19:48] LABS: Troponin I < 0.02 ng/mL (0.00-0.06)
== END 2019-03-02 19:56 | disposition left against medical advice (07) ==
PROVIDERS: Physician Assistant; Emergency Provider Physician Assistant; PCP Family Medicine
DX: R07.9 Chest pain, unspecified (principal); R10.13 Epigastric pain; R11.0 Nausea; Z98.61 Coronary angioplasty status; I50.9 Heart failure, unspecified; F41.8 Other specified anxiety disorders; J44.9 Chronic obstructive pulmonary disease, unspecified; Z79.01 Long term (current) use of anticoagulants; F17.210 Nicotine dependence, cigarettes, uncomplicated
CPT/HCPCS: 36410; 80053; 83690; 93005; 99285; 71046; 80320; 83735; 84484; 85025; 93010

== ENCOUNTER 2019-04-08 00:41 | Inpatient (IN) | payer MEDICARE, MEDICAID, SELFPAY ==
[2019-04-08] VITALS (134 sets, daily range): BP systolic 85–151; BP diastolic 58–87; PULSE 66–129; RESP 12–29; TEMP 36.2–36.6; O2SAT 70–100
--- NOTE | 2019-04-08 00:48 | W.ED.GENAD ---
Discharge Plan Disposition Patient Disposition: [facility] INPATIENT Condition: Serious Discharge Details Chief Complaint: ETOHWithdr Clinical Impression: Alcohol withdrawal, Alcohol withdrawal seizure Primary Care Provider: Edwar Ortiz ED Provider: Anthony Porter [place] Meds and New Rx's Prescriptions: No Action nitroglycerin 0.4 MG tablet, sublingual 0.4 mg Sublingual PRN PRNRF: 0 trazodone 100 MG tablet 300 mg PO HS RF: 0 duloxetine [Cymbalta] 20 MG capsule,delayed release(DR/EC) 60 mg PO DAILY RF: 0 aspirin [Aspir-Low] 81 MG tablet,delayed release (DR/EC) 81 mg PO DAILY RF: 0 thiamine mononitrate (vit B1) [Vitamin B-1 (mononitrate)] 100 MG tablet 100 mg PO DAILY RF: 0 folic acid 1 MG tablet 1 mg PO DAILY RF: 0 gabapentin 600 MG tablet 600 mg PO TID RF: 0 tamsulosin 0.4 MG capsule 0.4 mg PO BID RF: 0 phenazopyridine 100 MG tablet 200 mg PO TID RF: 0 promethazine 25 MG tablet 25 mg PO QID RF: 0 ipratropium bromide [Atrovent] 15 ML spray,non-aerosol 15 ml NS Q6H PRN PRNRF: 0 Compete 1 EACH tablet 1 ea PO DAILY RF: 0 ProAir RespiClick 90 MCG aerosol powdr breath activated 90 mcg Inhalation Q4H PRN PRNRF: 0 multivitamin Tablet 1 tab PO DAILY RF: 0 mirtazapine 15 mg Tablet 15 mg PO HS RF: 0 Medical Decision Making Patient arrives postictal after tonic-clonic seizure at home. History of alcohol withdrawal seizures in the past. Has not drank for 3 days now. He is mildly tachycardic and hypertensive. IV is established here. Laboratory studies sent. Fluids, thiamine, Ativan ordered. Just prior to the patient getting Ativan he had another tonic-clonic seizure. Lasted less than 5 minutes and resolved after the IV Ativan. Blood sugar is fine. Laboratory studies show a normal white count and hemoglobin. He does have hyponatremia as well as anion gap. Kidney function is normal. Potassium and magnesium are normal. Liver function normal. Alcohol level 0. Patient is sent to CT to rule out any acute pathology such as subdural. Will need admission for alcohol withdrawal and alcohol withdrawal seizures. CT scan is negative. Patient heart rate and blood pressure down after Ativan. Mental status seems a little better. Case discussed with hospitalist, Dr. Darby. Patient will be admitted to ICU for further management of alcohol withdrawal and alcohol withdrawal seizures. Medical Records Medical records reviewed: Yes I reviewed the patient's medical records. Lab Data Lab results reviewed: Yes I reviewed the patient's lab results. HPI General Mode of arrival: EMS. Date/Time Provider Initiated Documentation: 04/08/19 00:42. Limitations to Documentation: altered mental status. Information obtained by: patient, family, EMS and old records reviewed. HPI Narrative: Patient is brought in by EMS after grand mal seizure at home. He has history of same whenever he abstained from alcohol. He is postictal on arrival. He is unable to provide significant history. His significant other reports that he has not drank in the last 3 days. She has not had money in her account to buy him alcohol. He does not use drugs. There is no report of trauma. He drinks both liquor and beer. Related Data Home Medications Medication Instructions Recorded Confirmed nitroglycerin 0.4 mg SUBLINGUAL PRN PRN 12/20/13 04/08/19 duloxetine [Cymbalta] 60 mg PO DAILY 07/24/16 04/08/19 trazodone 300 mg PO HS 07/24/16 04/08/19 aspirin [Aspir-Low] 81 mg PO DAILY 12/02/16 04/08/19 folic acid 1 mg PO DAILY tab 06/05/17 04/08/19 thiamine mononitrate (vit B1) 100 mg PO DAILY tab 06/05/17 04/08/19 [Vitamin B-1 (mononitrate)] Compete 1 ea PO DAILY 08/28/17 03/02/19 ProAir RespiClick 90 mcg INHALATION Q4H PRN PRN 08/28/17 04/08/19 gabapentin 600 mg PO TID 08/28/17 04/08/19 ipratropium bromide [Atrovent] 15 ml NS Q6H PRN PRN 08/28/17 04/08/19 phenazopyridine 200 mg PO TID 08/28/17 03/02/19 promethazine 25 mg PO QID 08/28/17 04/08/19 tamsulosin 0.4 mg PO BID 08/28/17 04/08/19 mirtazapine 15 mg PO HS 04/08/19 04/08/19 multivitamin 1 tab PO DAILY 04/08/19 04/08/19 Previous Rx's Medication Instructions Recorded folic acid 1 mg PO DAILY tab 06/05/17 thiamine mononitrate (vit B1) 100 mg PO DAILY tab 06/05/17 [Vitamin B-1 (mononitrate)] Allergies Allergy/AdvReac Type Severity Reaction Status Date / Time Penicillins Allergy Severe Anaphylaxsi Unverified 04/08/19 02:02 s cephalexin monohydrate Allergy Unverified 04/08/19 02:02 [From Keflex] meperidine HCl [From Demerol] Allergy Skin Rash Unverified 04/08/19 02:02 clindamycin HCl AdvReac Severe see note Unverified 04/08/19 02:02 [From Cleocin] clindamycin palmitate HCl AdvReac Severe see comment Unverified 04/08/19 02:02 [From Cleocin] clindamycin phosphate AdvReac Severe see note Unverified 04/08/19 02:02 [From Cleocin] ketorolac tromethamine AdvReac Intermediate vomiting Unverified 04/08/19 02:02 [From Toradol] NSAIDS (Non-Steroidal AdvReac Intermediate Nausea Unverified 04/08/19 02:02 Anti-Inflamma propoxyphene HCl AdvReac Intermediate vomiting Unverified 04/08/19 02:02 [From Darvon] tramadol HCl [From Ultram] AdvReac Intermediate vomiting Unverified 04/08/19 02:02 General Stated Complaint: ETOHWithdr THEODORE: 2 Review of Systems Review of Systems Unobtainable due to mental status [facility] Medical History Anxiety (Chronic) CAD (coronary artery disease) (Chronic) COPD (chronic obstructive pulmonary disease) (Chronic) Depression (Chronic) GERD (gastroesophageal reflux disease) (Chronic) Surgical History Previous back surgery (Chronic) S/P TKR (total knee replacement) (Chronic) S/P cholecystectomy (Chronic) S/P hernia repair (Chronic) Social History Smoking/Tobacco Use Status: Current every day Tobacco: How many years used: 50 Alcohol Intake: current Alcohol Intake frequency: 0-2 drinks per day Alcohol type: beer Drug use: Never Substance use type: does not use Do you feel safe at home: Yes Do you feel safe in your relationship?: Yes Exam Narrative Exam Narrative: Vitals: Afebrile. Mildly tachycardic and hypertensive. Const: WDWN male who appears older than stated age who is confused but awake and alert. HEENT: NC/AT. Normal facial exam. Eyes: Normal conjunctiva and sclera. Neck: Supple. Trachea midline. Lungs: Normal respiratory effort. Lungs are clear. Cor: RRR without murmur/gallop. Mildly tachy. Good radial pulses. GI: Soft. NT/ND. No guarding or rebound. Back: Neuro: Awake and alert but confused. CN grossly in tact. Equal strength in all four extremities. No sensory deficit. Ext: No C/C/E. No deformity or tenderness. Skin: Warm and dry. Old ecchymosis on right anterior chest wall. Course Vital Signs Temperature 97.2 F L 04/08/19 00:41 Pulse 103 H 04/08/19 00:41 Respiratory Rate 22 04/08/19 00:41 Blood Pressure 151/87 H 04/08/19 00:41 Pulse Oximetry 98 04/08/19 00:41 Temperature 97.2 F L 04/08/19 00:41 Temperature Source Skin 04/08/19 00:41 Pulse 103 H 04/08/19 00:41 Respiratory Rate 22 04/08/19 00:41 Blood Pressure 151/87 H 04/08/19 00:41 Blood Pressure Position Sitting 04/08/19 00:41 Pulse Oximetry 98 04/08/19 00:41 Oxygen Delivery Method Room Air 04/08/19 00:41 Oxygen Flow Rate 0 04/08/19 00:41 Critical Care Time Critical Care Time: Yes Total Critical Care Time: 60 Attestation: alcohol withdrawal
[2019-04-08] MEDS: Lactated Ringers 1,000 ML 1000 ML IV (01:00)
[2019-04-08] MEDS: LORazepam 2 MG/ML VIAL 1 MG IVP (01:05)
[2019-04-08] MEDS: THIAMINE 100 MG in Normal Saline 100 ML 200 MG IVPB (01:06)
[2019-04-08 01:10] LABS: Abs Immature Grans 0.04 k/cumm (0.0-0.09); Absolute Basophil Count 0.03 k/cumm (0.0-0.2); Absolute Eosinophil Count 0.27 k/cumm (0.0-0.7); Absolute Lymphocyte Count 2.27 k/cumm (1.2-3.4); Absolute Monocyte Count 1.22 k/cumm (0.11-0.7); Basophils % 0.4; Eosinophils % 3.2; HCT 46.5 % (40.0-50.0); HGB 16.6 g/dL (13.5-17.5); Immature Grans % 0.5; Lymphocytes % 27.3; Mean Corp. HGB Concentration 35.7 g/dL (32.0-36.0); Mean Corpuscular Hemoglobin 36.4 pg (27.0-33.0); Mean Platelet Volume 9.3 fL (8.0-11.0); Monocytes % 14.6; Platelet Count 183 x1000/uL (130-400); RBC 4.56 m/cumm (4.50-6.00); RBC Distribution Width 12.6 % (11.8-14.1); White Blood Cell Count 8.33 k/cumm (4.4-10.8)
[2019-04-08 01:20] LABS: Lipase 119 U/L (73-393)
[2019-04-08 01:21] LABS: INR 1.1 (0.9-1.1); Prothrombin Time 10.9 sec (9.3-11.0)
[2019-04-08 01:25] LABS: ETHANOL BLOOD < 3.0 mg/dL (<3)
[2019-04-08 01:27] LABS: ALT 37 U/L (12-78); AST 37 U/L (15-37); Albumin 4.3 g/dL (3.4-5.0); Alkaline Phosphatase 99 U/L (46-116); Anion Gap 17.9 mmol/L (3-11); BUN 8 mg/dL (7-18); Bilirubin, Total 1.1 mg/dL (0.2-1.0); CO2 23.1 mmol/L (21.0-32.0); CREATININE 0.96 mg/dL (0.70-1.30); Calcium 10.2 mg/dL (8.5-10.1); Chloride 89 mmol/L (98-107); Glucose 134 mg/dL (70-100); Magnesium 2.1 mg/dL (1.8-2.4); Potassium 3.9 mmol/L (3.5-5.1); Sodium 130 mmol/L (136-145); Total Protein 8.2 g/dL (6.4-8.2); Troponin I < 0.02 ng/mL (0.00-0.06)
--- NOTE | 2019-04-08 01:50 | DI.CT_ITS ---
SYMPTOM/DIAGNOSIS: SEIZURE CRANIAL CT: The study was carried out without contrast enhancement. Atrophic changes consistent with age are demonstrated. There is no evidence of an intra or extra axial hemorrhage. There is nothing to suggest a territorial infarct. The ventricles are unremarkable. There is no skull fracture . The sinuses are unremarkable. There is no mastoid effusion. Soft tissues are intact. SUMMARY: No acute intracranial abnormality is demonstrated.
--- NOTE | 2019-04-08 02:01 | DI.VRAD_ITS ---
EXAM: CT Head Without Contrast EXAM DATE/TIME: 04/08/2019 12:54 AM CLINICAL HISTORY: 68 years old, male; Signs and symptoms; Other: Seizure TECHNIQUE: Imaging protocol: Axial computed tomography images of the head without contrast. Coronal and sagittal reformatted images were created and reviewed. Radiation optimization: All CT scans at this facility use at least one of these dose optimization techniques: automated exposure control; mA and/or kV adjustment per patient size (includes targeted exams where dose is matched to clinical indication); or iterative reconstruction. COMPARISON: CT HEAD AND CSPINE W/O CONTRAST 08/28/2017 11:32 AM FINDINGS: Brain: Typical for age. No hemorrhage. No evidence of acute infarct. No mass. Ventricles: No ventriculomegaly. Bones/joints: Unremarkable. Sinuses: No sinus fluid. Mastoid air cells: Unremarkable. Soft tissues: Unremarkable. IMPRESSION: No acute intracranial abnormality. Dictated and Authenticated by: Raul Dawson MD. Ordering:RAMILA Cruz MD
[2019-04-08] MEDS: Normal Saline Flush 10 ML SYR IVP (02:10)
--- NOTE | 2019-04-08 02:20 | W.PM.HP.N ---
Date of service: 04/08/19 Time of Service: 02:20 Assessment and Plan (1) Alcohol withdrawal seizure: Current visit: Yes Status: Acute admit for acute alcohol withdrawal protocol, monitor in ICU overnight and begin scheduled benzodiazepines, thiamine, folic acid, iv fluids; give additional iv benzodiazepines on prn basis per [facility] protocol Qualifiers: Complication of substance-induced condition: uncomplicated Qualified Code(s): F10.230 - Alcohol dependence with withdrawal, uncomplicated History of Present Illness Chief Complaint: alcohol withdrawal seizure Narrative: 68 yr old male w/ PMH of alcohol abuse, BPH, smoker and 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 Upon arrival to the ER he was post ictal and initally could not contribute any history. His girlfriend indicated that they ran out of money and he quit drinking 3 days prior. After arrival to the ER he had a second tonic-clonic seizure witnessed by the ER staff. He was given Ativan 1 mg IVP and further workup was performed including CT head non-contrast (no acute intracranial pathology), labs (CBC, CMP, UDS, UA, P.T.), Labs were remarkable for macrocytosis changes in his red cells w/out anemia or leukocytosis or leukopenia, normal platelets, normal protime, mild hyponatramia of 130 and mild AG of 17 but normal BUN, creatinine, liver transaminases, normal troponin and normal lipase. He is admitted to ICU for treatment of acute alcohol withdrawal with seizures. Review of Systems Constitutional Reports system reviewed and no additional complaints, except as docu [facility] Medical History Depression (Chronic) Chronic back pain (Chronic) Osteoarthritis (Chronic) Alcoholism (Chronic) BPH (benign prostatic hyperplasia) (Chronic) History of myocardial infarction (Resolved) Anxiety (Chronic) CAD (coronary artery disease) (Chronic) COPD (chronic obstructive pulmonary disease) (Chronic) Depression (Chronic) GERD (gastroesophageal reflux disease) (Chronic) Prostatitis (Resolved 06/04/17) Surgical History Previous back surgery (Chronic) S/P TKR (total knee replacement) (Chronic) S/P cholecystectomy (Chronic) S/P hernia repair (Chronic) H/O bilateral inguinal hernia repair (Resolved) History of bilateral knee replacement (Resolved) History of cholecystectomy (Resolved) S/P tonsillectomy and adenoidectomy (Resolved) Social History Smoking/Tobacco Use Status: Current every day Tobacco Type: cigarettes Smoking cigarettes per day: 6 Tobacco: How many years used: 50 Alcohol Intake: current Alcohol Intake frequency: 0-2 drinks per day Alcohol type: beer Drug use: Never Substance use type: does not use Do you feel safe at home: Yes Do you feel safe in your relationship?: Yes Meds Home Medications Medication Instructions Recorded Confirmed Type nitroglycerin 0.4 mg SUBLINGUAL PRN PRN 12/20/13 04/08/19 History duloxetine [Cymbalta] 60 mg PO DAILY 07/24/16 04/08/19 History trazodone 300 mg PO HS 07/24/16 04/08/19 History aspirin [Aspir-Low] 81 mg PO DAILY 12/02/16 04/08/19 History folic acid 1 mg PO DAILY tab 06/05/17 04/08/19 Rx thiamine mononitrate (vit B1) 100 mg PO DAILY tab 06/05/17 04/08/19 Rx [Vitamin B-1 (mononitrate)] Compete 1 ea PO DAILY 08/28/17 03/02/19 History ProAir RespiClick 90 mcg INHALATION Q4H PRN PRN 08/28/17 04/08/19 History gabapentin 600 mg PO TID 08/28/17 04/08/19 History ipratropium bromide [Atrovent] 15 ml NS Q6H PRN PRN 08/28/17 04/08/19 History phenazopyridine 200 mg PO TID 08/28/17 03/02/19 History promethazine 25 mg PO QID 08/28/17 04/08/19 History tamsulosin 0.4 mg PO BID 08/28/17 04/08/19 History mirtazapine 15 mg PO HS 04/08/19 04/08/19 History multivitamin 1 tab PO DAILY 04/08/19 04/08/19 History Allergies Allergy/AdvReac Type Severity Reaction Status Date / Time Penicillins Allergy Severe Anaphylaxsi Unverified 04/08/19 02:02 s cephalexin monohydrate Allergy Unverified 04/08/19 02:02 [From Keflex] meperidine HCl [From Demerol] Allergy Skin Rash Unverified 04/08/19 02:02 clindamycin HCl AdvReac Severe see note Unverified 04/08/19 02:02 [From Cleocin] clindamycin palmitate HCl AdvReac Severe see comment Unverified 04/08/19 02:02 [From Cleocin] clindamycin phosphate AdvReac Severe see note Unverified 04/08/19 02:02 [From Cleocin] ketorolac tromethamine AdvReac Intermediate vomiting Unverified 04/08/19 02:02 [From Toradol] NSAIDS (Non-Steroidal AdvReac Intermediate Nausea Unverified 04/08/19 02:02 Anti-Inflamma propoxyphene HCl AdvReac Intermediate vomiting Unverified 04/08/19 02:02 [From Darvon] tramadol HCl [From Ultram] AdvReac Intermediate vomiting Unverified 04/08/19 02:02 Exam Const General: cooperative, disheveled and ill appearing chronically Nutritional Appearance: average body habitus Orientation: alert, awake and oriented x3 HENMT Head: normal to inspection, no palpable skull fracture, normocephalic and atraumatic Face and sinus: normal facial exam and sinuses nontender Mouth: oral mucosae normal, lip normal, tongue normal and oropharynx normal Teeth and gingiva: edentulous Throat: posterior oropharynx normal Neck Neck: normal visual inspection, full ROM, no lymphadenopathy, trachea midline, supple and no JVD Carotids: normal carotid upstroke Chest Chest: abnormal inspection of the chest scar (sternal surgical scar) Resp Effort & Inspection: normal respiratory effort and able to speak in complete sentences Auscultation: wheezes scattered wheezes Percussion: percussion normal Cardio Jugular venous pressure: no JVD Palpation: normal PMI Rate: regular rate Rhythm: regular rhythm Heart Sounds: S1 normal, S2 normal and normal, physiologic split S2 Pulses: posterior tibial pulses present bilaterally diminished and dorsalis pedis pulses present bilaterally diminished GI Inspection: normal to inspection Palpation: soft and no hepatosplenomegaly Percussion: normal to percussion Auscultation: normal bowel sounds Back/Spine/Pelvis Back: no CVA tenderness Cervical Spine: normal cervical lordosis Thoracic/Lumbar Spine: thoracic and lumbar spine normal to inspection Skin General skin exam: other (mulitple tatoos over both shoulders, arms, back) Neuro General: alert, oriented x3, moves all extremities and no focal motor deficits Cognition: normal cognition Speech: speech normal Extrem General: normal to inspection, full ROM, no joint enlargement and no clubbing, cyanosis or edema Psych Appearance: disheveled Mental Status: mental status grossly normal Speech and Movement: speech and movement normal Mood: congruent mood Affect: normal affect Attitude: cooperative Thought Process: normal Thought Content: normal Insight: fair Judgment: fair Results Labs : 04/08/19 00:45 04/08/19 00:45 Laboratory Results - last 24 hr 04/08/19 04/08/19 04/08/19 00:45 00:45 00:45 WBC RBC Hgb Hct MCV MCH MCHC RDW Plt Count MPV Immature Gran % Neutrophils % Lymphocytes % Monocytes % Eosinophils % Basophils % Absolute Neutrophils Absolute Lymphocytes Absolute Monocytes Absolute Eosinophils Absolute Basophils PT 10.9 INR 1.1 Sodium 130 L Potassium 3.9 Chloride 89 L Carbon Dioxide 23.1 Anion Gap 17.9 H BUN 8 Creatinine 0.96 Estimated GFR/1.73 m2 >= 60.00 Glucose 134 H Calcium 10.2 H Magnesium 2.1 Total Bilirubin 1.1 H AST 37 ALT 37 Alkaline Phosphatase 99 Troponin I < 0.02 Total Protein 8.2 Albumin 4.3 Lipase 119 Ethyl Alcohol < 3.0 04/08/19 00:45 WBC 8.33 RBC 4.56 Hgb 16.6 Hct 46.5 MCV 102.0 H MCH 36.4 H MCHC 35.7 RDW 12.6 Plt Count 183 MPV 9.3 Immature Gran % 0.5 Neutrophils % 54.0 Lymphocytes % 27.3 Monocytes % 14.6 Eosinophils % 3.2 Basophils % 0.4 Absolute Neutrophils 4.50 Absolute Lymphocytes 2.27 Absolute Monocytes 1.22 H Absolute Eosinophils 0.27 Absolute Basophils 0.03 PT INR Sodium Potassium Chloride Carbon Dioxide Anion Gap BUN Creatinine Estimated GFR/1.73 m2 Glucose Calcium Magnesium Total Bilirubin AST ALT Alkaline Phosphatase Troponin I Total Protein Albumin Lipase Ethyl Alcohol Last Vital Signs Temp 36.2 C L 04/08/19 00:41 Pulse 95 H 04/08/19 02:00 Resp 19 04/08/19 02:01 BP 120/68 04/08/19 02:00 Pulse Ox 95 04/08/19 02:01
[2019-04-08] MEDS: Acetaminophen 325 MG TAB 650 MG PO (02:27)
[2019-04-08 03:57] LABS: Bilirubin Small (Negative); Blood Negative (Negative); Clarity Clear; Glucose Negative (Negative); Ketones 40 mg/dL (Negative); Leukocyte Esterase Negative (Negative); Nitrite Negative (Negative)
[2019-04-08 04:05] LABS: Bacteria Rare HPF (Negative); Crystals Negative HPF (Negative); Epithelial Cells Many HPF (Negative); Mucus Negative (Negative); RBC 0-2 (0-2); WBC 0-2 HPF (0-5)
[2019-04-08 04:06] LABS: C & S Indicated? No/Sq. Contamination; Casts 0-2 Coarse Granular LPF (Negative)
[2019-04-08 05:32] LABS: *AMPHETAMINES SCREEN URINE Negative (Negative); *BARBITURATES SCREEN URINE Negative (Negative); *BENZODIAZEPINES SCREEN URINE POSITIVE (Negative); Cannabinoids THC Negative (Negative); Cocaine Screen,Urine Negative (Negative); METHADONE URINE SCREEN Negative (Negative); OPIATES URINE SCREEN Negative (Negative)
[2019-04-08 05:34] LABS: Tricyclic Antidepressants Negative (Negative)
[2019-04-08 07:01] LABS: Abs Immature Grans 0.02 k/cumm (0.0-0.09); Absolute Basophil Count 0.02 k/cumm (0.0-0.2); Absolute Eosinophil Count 0.08 k/cumm (0.0-0.7); Absolute Monocyte Count 1.01 k/cumm (0.11-0.7); Anion Gap 7.9 mmol/L (3-11); BUN 8 mg/dL (7-18); Basophils % 0.3; CO2 28.1 mmol/L (21.0-32.0); CREATININE 0.57 mg/dL (0.70-1.30); Calcium 8.8 mg/dL (8.5-10.1); Chloride 95 mmol/L (98-107); Eosinophils % 1.2; Glucose 138 mg/dL (70-100); HCT 38.8 % (40.0-50.0); HGB 13.7 g/dL (13.5-17.5); Immature Grans % 0.3; Lymphocytes % 16.6; Mean Corp. HGB Concentration 35.3 g/dL (32.0-36.0); Mean Corpuscular Hemoglobin 36.1 pg (27.0-33.0); Mean Corpuscular Volume 102.4 fL (80-95); Mean Platelet Volume 9.4 fL (8.0-11.0); Monocytes % 15.2; Neutrophils % 66.4; Platelet Count 153 x1000/uL (130-400); Potassium 3.8 mmol/L (3.5-5.1); RBC 3.79 m/cumm (4.50-6.00); RBC Distribution Width 12.4 % (11.8-14.1); Sodium 131 mmol/L (136-145); White Blood Cell Count 6.63 k/cumm (4.4-10.8)
[2019-04-08] MEDS: Enoxaparin 40 MG/0.4 ML SYR SC (08:07)
[2019-04-08] MEDS: Tamsulosin 0.4 MG CAPCR PO ×2 (08:08→20:52)
[2019-04-08] MEDS: Aspirin E.C. 81 MG TABEC PO (08:08)
[2019-04-08] MEDS: DULoxetine 20 MG CAP 60 MG PO (08:08)
[2019-04-08] MEDS: Folic Acid 1 MG TAB PO (08:08)
[2019-04-08] MEDS: Multivitamin TAB 1 TAB PO (08:08)
[2019-04-08] MEDS: Thiamine 100 MG TAB PO (08:08)
[2019-04-08] MEDS: Gabapentin 600 MG TAB PO ×3 (08:08→20:52)
--- NOTE | 2019-04-08 10:23 | PDOC.CMIN ---
- If Service Date Differs Date of service: 04/08/19 Time of Service: 10:23 Care Management Initial Assess REASON FOR HOSPITALIZATION:: ETOH r/t seizure and withdrawal PAST MEDICAL HISTORY/PAST SURGICAL HISTORY:: Depression (Chronic). Chronic back pain (Chronic). Osteoarthritis (Chronic). Alcoholism (Chronic). BPH (benign prostatic hyperplasia) (Chronic). History of myocardial infarction (Resolved). Anxiety (Chronic). CAD (coronary artery disease) (Chronic). COPD (chronic obstructive pulmonary disease) (Chronic). Depression (Chronic). GERD (gastroesophageal reflux disease) (Chronic). Prostatitis (Resolved 06/04/17). Surgical History. Previous back surgery (Chronic). S/P TKR (total knee replacement) (Chronic). S/P cholecystectomy (Chronic). S/P hernia repair (Chronic). H/O bilateral inguinal hernia repair (Resolved). History of bilateral knee replacement (Resolved). History of cholecystectomy (Resolved). S/P tonsillectomy and adenoidectomy (Resolved) PREVIOUS FUNCTIONAL STATUS/SOCIAL/FAMILY SUPPORTS:: Errol River) is a 68 year old male that lives in [place], [place] with his SO Nikki. He reports 6 grown children that live out of the area one son and six daughters. He states that he had back surgery abour 6 years ago and he uses a wheelchair and walker for mobility. He states that he is disabled and has a history of being in the [employer]. CM [facility] with the [facility] he was in the [employer] from 1970 thru 1972 and served [place]. He reports that he receives a non-service connected pension through the [facility]. 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 He reports he has chronic pain in his back and his legs are weak which make it difficult for him to complete ADL's. Errol River) did have choices for care moderate need in the past however he fired most of them and is not able to enroll back in the program due to high risk behaviors [facility] staff. Gareth states that his SO helps him at home, and that he has been with her for the past 11 years. Gareth states he uses alcohol everyday at least 4 tall boys a day for least the past 10 years. He reports multiple falls related to his alcohol use. CURRENT FUNCTIONAL STATUS:: Gareth is engaged in conversation [facility] during assessment. He does state that he stopped drinking about 4 days prior to his seizure. He reports he did not have the finanical resources to continue drinking. Gareth reports that he is insterested in meeting with a recovery unit operator and CM will coordinate. Gareth has several complaints related to his health. He states that he has been having chest pain everyday it is worse when he awakes. He reports it is on the left side of his chest and he is taking his Nitro daily. He reports sometimes he tries to drink soda to burp it up in case its his stomach. He also complains of intermintant left upper quadrant pain which he describes as sharp stabbing. CM reviewed the risk of continuing to use alcohol excessivley every day, including liver disease and poor nutrition. ADVANCE DIRECTIVES:: None on file patient states he has a DNR. CM to follow up. Has patient been provided with information about the portal?: Yes Did the patient sign up for the portal?: No CODE STATUS:: Full Code INSURANCE COVERAGE / FINANCIAL ISSUES:: Medicare and Medicaid CURRENT HOME/COMMUNITY SERVICES/EQUIPMENT:: He has no current services he did have Moderate needs in the past however he lost services due to inappropiate behaviors per [facility] agency. He does have a wheelchair, and walker in the home. He denies any additional equipment. PRIMARY CARE PHYSICIAN:: Daija Rubalcava APRN [facility] POTENTIAL DISCHARGE NEEDS:: Referral to community substance abuse services. recovery center, and recovery unit operator. Follow up appointment with primary care provider. PATIENT/FAMILY EDUCATION NEEDS:: Discharge education, limitations and follow up plan of care includng substance abuse treatment and services through recovery unit operator and [facility] for [facility]. ANTICIPATED BARRIERS TO DISCHARGE:: Alcohol withdrawal treatment and substance abuse services. Access to community resources based on past experiances. TRANSPORTATION:: Via private car with family at time of discharge vs RCT PLAN:: Errol is currently receiving care in the ICU status post seizure r/t alcohol withdrawal. He continues to be monitored on telemtry. CIWA scores have been 8 or less per report. CM has contacted cider press operator in [place] and the [place], awaiting records from [facility] for history of cardiac cath. CM provided information related to local substance abuse services including the recovery unit operator through the center. Gareth states he wants to stop using alcohol. CM to continue to provide support to patient ongoing discharge planning and disposition.
--- NOTE | 2019-04-08 10:41 | INITIAL_ITS ---
- If Service Date Differs Date of service: 04/08/19 Time of Service: 10:23 Care Management Initial Assess REASON FOR HOSPITALIZATION:: ETOH r/t seizure and withdrawal PAST MEDICAL HISTORY/PAST SURGICAL HISTORY:: Depression (Chronic). Chronic back pain (Chronic). Osteoarthritis (Chronic). Alcoholism (Chronic). BPH (benign prostatic hyperplasia) (Chronic). History of myocardial infarction (Resolved). Anxiety (Chronic). CAD (coronary artery disease) (Chronic). COPD (chronic obstructive pulmonary disease) (Chronic). Depression (Chronic). GERD (gastroesophageal reflux disease) (Chronic). Prostatitis (Resolved 06/04/17). Surgical History. Previous back surgery (Chronic). S/P TKR (total knee replacement) (Chronic). S/P cholecystectomy (Chronic). S/P hernia repair (Chronic). H/O bilateral inguinal hernia repair (Resolved). History of bi lateral knee replacement (Resolved). History of cholecystectomy (Resolved). S/P tonsillectomy and adenoidectomy (Resolved) PREVIOUS FUNCTIONAL STATUS/SOCIAL/FAMILY SUPPORTS:: Errol River) is a 68 year old male that lives in [place], [place] with his SO Nikki. He reports 6 grown children that live out of the area one son and six daughters. He states that he had back surgery abour 6 years ago and he uses a wheelchair and walker for mobility. He states that he is disabled and has a history of being in the [employer]. CM confirmed with the [facility] he was in the [employer] from 1970 thru 1972 and served [place]. He reports that he receives a non-service connected pension through the [facility]. 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 He reports he has chronic pain in his back and his legs are weak which make it difficult for him to complete ADL's. Errol River) did have choices for care moderate need in the past however he fired most of them and is not able to enroll back in the program due to high risk behaviors [facility] staff. Gareth states that his SO helps him at home, and that he has been with her for the past 11 years. Gareth states he uses alcohol everyday at least 4 tall boys a day for least the past 10 years. He reports multiple falls related to his alcohol use. CURRENT FUNCTIONAL STATUS:: Gareth is engaged in conversation wtih CM during assessment. He does state that he stopped drinking about 4 days prior to his seizure. He reports he did not have the finanical resources to continue drinking. Gareth reports that he is insterested in meeting with a swim coach and CM will coordinate. Gareth has several complaints related to his health. He states that he has been having chest pain everyday it is worse when he awakes. He reports it is on the left side of his chest and he is taking his Nitro daily. He reports sometimes he tries to drink soda to burp it up in case its his stomach. He also complains of intermintant left upper quadrant pain which he describes as sharp stabbing. CM reviewed the risk of continuing to use alcohol excessivley every day, including liver disease and poor nutrition. ADVANCE DIRECTIVES:: None on file patient states he has a DNR. CM to follow up. Has patient been provided with information about the portal?: Yes Did the patient sign up for the portal?: No CODE STATUS:: Full Code INSURANCE COVERAGE / FINANCIAL ISSUES:: Medicare and Medicaid CURRENT HOME/COMMUNITY SERVICES/EQUIPMENT:: He has no current services he did have Moderate needs in the past however he lost services due to inappropiate behaviors per [facility] agency. He does have a wheelchair, and walker in the home. He denies any additional equipment. PRIMARY CARE PHYSICIAN:: Daija Rubalcava APRN [facility] POTENTIAL DISCHARGE NEEDS:: Referral to community substance abuse services. recovery center, and swim coach. Follow up appointment with primary care provider. PATIENT/FAMILY EDUCATION NEEDS:: Discharge education, limitations and follow up plan of care includng substance abuse treatment and services through swim coach and the [facility] for [facility]. ANTICIPATED BARRIERS TO DISCHARGE:: Alcohol withdrawal treatment and substance abuse services. Access to community resources based on past experiances. TRANSPORTATION:: Via private car with family at time of discharge vs RCT PLAN:: Errol is currently receiving care in the ICU status post seizure r/t alcohol withdrawal. He continues to be monitored on telemtry. CIWA scores have been 8 or less per report. CM has contacted [employer] attendant in [place] and [facility], awaiting records from [facility] for history of cardiac cath. CM provided information related to local substance abuse services including the swim coach through the center. Gareth states he wants to stop using alcohol. CM to continue to provide support to patient ongoing discharge planning and disposition.
[2019-04-08] MEDS: Pantoprazole 40 MG TABCR PO (12:15)
[2019-04-08] MEDS: Metoprolol 12.5 MG TAB PO ×2 (12:15→21:45)
--- NOTE | 2019-04-08 14:42 | PHARADMIT ---
Admission Pharmacy Clinical Review alcohol withdrawal Code Status Full Code Current Weight Wgt-64.3 kg Renally Cleared and Narrow Therapeutic Index Meds CrCl~ 82mL/min Meds-OK QTc Value / Action Taken QTs-438 (in February 2019) NA BP Control, Fever BP- 102/68 Tmax- 36.6C Electrolytes reviewed Na-131 K+3..8 Mag- 2.1 DVT Prophylaxis Lovenox 40mg ASA Opiate Usage / Scheduled Bowel Regimen Ordered No Yes Plt/SCr for Heparin / Enoxaparin Plts-153 SCr-0.57 INR for Warfarin inr-1.1 H/H stable, WBC/Bands H&H- 13.7/38.8 WBC- 6.63 Antibiotic appropriateness NONE Cultures and SensitivitiesNA none Surgical ABX d/c within 24 hr NA DM control / Insulin Dosing BG- 138 Heart Failure (Check EF%) (KAREN's, B-Block, Diuretics) Lopressor, NTG, IV to PO Switch No Home Meds Reviewed Yes Home Meds Not Ordered Pyridium, Phenergan, Multi-M Comments
--- NOTE | 2019-04-08 17:39 | NUR.NOTE ---
[facility] med reconciliation in Summary now represents what the patient is currently taking per [facility] and patient's report. Nursing Note:
[2019-04-08] MEDS: Nystatin CREAM 15 GM TUBE TP (20:53)
[2019-04-08] MEDS: traZODone 100 MG TAB 300 MG PO (21:44)
[2019-04-08] MEDS: Mirtazapine 15 MG TAB PO (21:44)
[2019-04-09] VITALS (68 sets, daily range): BP systolic 75–117; BP diastolic 48–70; PULSE 54–95; RESP 12–31; TEMP 36.4–36.7; O2SAT 95–99
[2019-04-09] MEDS: Acetaminophen 325 MG TAB PO (05:20)
[2019-04-09 07:13] LABS: Anion Gap 6.9 mmol/L (3-11); BUN 8 mg/dL (7-18); CO2 28.1 mmol/L (21.0-32.0); CREATININE 0.72 mg/dL (0.70-1.30); Calcium 9.3 mg/dL (8.5-10.1); Chloride 104 mmol/L (98-107); Glucose 108 mg/dL (70-100); Potassium 4.3 mmol/L (3.5-5.1); Sodium 139 mmol/L (136-145)
[2019-04-09] MEDS: Metoprolol 12.5 MG TAB PO (08:09)
[2019-04-09] MEDS: Thiamine 100 MG TAB PO (08:09)
[2019-04-09] MEDS: Aspirin E.C. 81 MG TABEC PO (08:09)
[2019-04-09] MEDS: Tamsulosin 0.4 MG CAPCR PO (08:10)
[2019-04-09] MEDS: Gabapentin 600 MG TAB PO (08:10)
[2019-04-09] MEDS: Multivitamin TAB 1 TAB PO (08:10)
[2019-04-09] MEDS: Folic Acid 1 MG TAB PO (08:10)
[2019-04-09] MEDS: DULoxetine 20 MG CAP 60 MG PO (08:10)
[2019-04-09] MEDS: Enoxaparin 40 MG/0.4 ML SYR SC (08:11)
--- NOTE | 2019-04-09 08:18 | W.PM.DS.N ---
Date of service: 04/09/19 Time of Service: 08:19 DS: Diagnosis Discharge Diagnosis (1) Alcohol withdrawal seizure: Status: Acute Asessment and Plan: By history and witness in the ER, generalized seizure responsive to low-dose lorazepam. No recurrent seizures since admission. CT scan negative for any acute bleed or mass. He did not have any focal neurologic deficit following this. No impairment of cognition from baseline perceived. No anticonvulsants prescribed and he was counseled on the risks of recurrence with further alcohol use. (2) Alcoholism: Status: Chronic Asessment and Plan: Patient recognized that alcohol is a problem and states that he will stop drinking but declines any assistance through counseling or medication. States that he was successful maintaining sobriety for 14 years on his own in the past. (3) CAD (coronary artery disease), [place] coronary artery: Status: Acute Asessment and Plan: Past records received indicating last catheterization in 2007 showing single-vessel (circumflex first diagonal) disease with recommendations by director commercial sales then of medical management. Vague chest discomfort nonexertional during hospitalization. Did not recur after nitroglycerin x1. Being discharged on beta-ladonna and statin for secondary prevention. He had been on beta-ldaonna and statin over 10 years ago, none for many years with no apparent change in his chest pain complaints. Recommendation for outpatient stress test. (4) Hyponatremia: Status: Acute Asessment and Plan: Mild hyponatremia on admission that resolved during hospitalization with normal saline infusion. Discharge Plan Disposition Patient Disposition: HOME Condition: Good Discharge Details Reason For Visit: ALCOHOL WITHDRAWAL Admit Date/Time: 04/08/19 02:12 Admit Provider: Gaetano Darby Attending Provider: Gaetano Darby Primary Care Provider: Edwar Ortiz [facility] Course Hospital Course: 68-year-old man with a history of alcohol abuse admitted after generalized seizure at home and another witnessed seizure in the emergency room that resolved after 1 mg of lorazepam. Last drink about 3 days prior to presentation. Nonfocal exam in the emergency room other than being confused postictal. No evidence of acute bleed, stroke or mass on noncontrast head CT and no significant metabolic problems identified other than a slightly depressed sodium at 130. No history or physical findings to suggest meningitis. His seizure was attributed to alcohol withdrawal and he was admitted to the hospital for continued monitoring. He had no further seizures. His sensorium cleared promptly and he was appropriate and without significant alcohol withdrawal symptoms throughout his hospitalization. He had no cardiac dysrhythmias. He did complain of chest pain stating it was a chronic problem, described as sometimes sharp, sometimes achy sometimes pressure-like, left upper chest. Investigation of past cardiac work-up found old records from 2007 and earlier indicating single-vessel coronary artery disease. He reports being on no beta-ladonna statin for many years and use nitroglycerin as needed. He did receive nitroglycerin once which was helpful. He was started on low-dose metoprolol and is being discharged with metoprolol and atorvastatin for secondary prevention. No changes were made to any of his medications for his chronic mood disorder. His sodium corrected with IV fluids. He was informed that his seizure was likely due to alcohol withdrawal and that I was concerned about his alcohol consumption. He acknowledges that his alcohol has been a problem but declined any referral, inpatient or outpatient, for alcohol treatment. He was discharged in good condition, with follow-up planned in about 2 weeks with his PCP. I do not have a follow-up date for his mental health provider, Jyothi Hernández. Home Meds and New Rx's Prescriptions: New metoprolol succinate 25 mg tablet extended release 24 hr 25 mg PO DAILY Qty: 30 RF: 0 atorvastatin 40 mg tablet 40 mg PO QHS Qty: 30 RF: 0 Continued nitroglycerin 0.4 MG tablet, sublingual 0.4 mg Sublingual PRN PRNRF: 0 trazodone 100 MG tablet 250 mg PO HS RF: 0 duloxetine [Cymbalta] 20 MG capsule,delayed release(DR/EC) 60 mg PO BID RF: 0 aspirin [Aspir-Low] 81 MG tablet,delayed release (DR/EC) 81 mg PO DAILY RF: 0 gabapentin 600 MG tablet 600 mg PO TID RF: 0 promethazine 25 MG tablet 25 mg PO QID PRNRF: 0 ipratropium bromide [Atrovent] 15 ML spray,non-aerosol 15 ml NS Q6H PRN PRNRF: 0 Compete 1 EACH tablet 1 ea PO DAILY RF: 0 ProAir RespiClick 90 MCG aerosol powdr breath activated 90 mcg Inhalation Q4H PRN PRNRF: 0 mirtazapine 15 mg Tablet 15 mg PO HS RF: 0 zolpidem [Ambien] 10 mg Tablet 10 mg PO HS RF: 0 cholecalciferol (vitamin D3) [Vitamin D3] 1,000 unit Capsule 2,000 unit PO DAILY RF: 0 spironolactone 100 mg Tablet 100 mg PO DAILY RF: 0 clonazepam [Klonopin] 0.5 mg Tablet 0.5 mg PO BID RF: 0 Discharge Instructions Instructions: Angina (DC), Abuse of Alcohol (DC), Alcohol Withdrawal (DC) Additional Instructions: The following appointment has been scheduled for you: [facility] (Daija Rubalcava) April 22 at 2:15 PM. You can reach their office at [phone] with any questions. Return to the hospital if you feel like you are going to faint, or have another seizure. It is very important to avoid all alcohol. Activity:: Activity as Tolerated Equipment/Supplies:: No Equipment Needed Diet:: As Tolerated Discharge Orders Discharge Orders: Discharge Order (Routine); Ordered 04/09/19 Ordered By: Raul Miller Discharge Data Discharge Date/Time-TO BE ENTERED AT DEPARTURE: 04/09/19 11:08 Exam Narrative Exam Narrative: On the morning of discharge he is in good spirits, no complaints of pain anywhere. His lungs have a few faint expiratory wheezes in the lower lung thompson are clear after a cough. The heart rhythm without murmur S3 or S4. Soft abdomen with active bowel sounds. 1+ pulses distally with no edema. He has a bruise on the right upper chest otherwise no bruises or petechiae noted. He sits up unassisted. Oriented x4. DS: Data Vitals/I&O Vitals and I&O: Vital Signs Temperature 36.4 C L 04/09/19 07:02 Temperature Source Temporal Artery Scan 04/09/19 07:02 Pulse 77 04/09/19 06:01 Pulse 66 04/09/19 07:10 Respiratory Rate 19 04/09/19 07:10 Respiratory Effort Non-Labored 04/09/19 07:02 Respiratory Depth Shallow 04/09/19 07:02 Respiratory Pattern Normal 04/09/19 07:02 Blood Pressure 114/70 04/09/19 06:01 Blood Pressure Mean 81 04/09/19 06:01 Blood Pressure Position Supine 04/09/19 03:02 Pulse Oximetry 99 04/09/19 03:02 Oxygen Delivery Method Room Air 04/09/19 03:02 Oxygen Flow Rate 0 04/09/19 03:02 Pain Level 0 04/09/19 07:02 Intake & Output 04/08/19 04/08/19 04/09/19 11:59 23:59 11:59 Intake Total 2025 / 3986 2252.5 / 2252.5 Output Total 640 / 1465 825 / 1465 2100 / 2100 Balance 1386 / 2522 1136 / 2522 152.5 / 152.5 Weight 64.3 kg 70.8 kg Intake: IV 2025 1000 / 3026 1772.5 / 1772.5 Oral 961 / 961 480 / 480 Output: Urine 640 / 1465 825 / 1465 2099 / 2100 Other: Urine Color Light Siomara Light Siomara Pale Yellow Urine Appearance Clear Clear Clear Urine Odor None None None Comment Pt reports he has urinary incontinence when sleeping has hx BPH. wears brief. voids in urinal Pt urinated over 2,000ml in the last 12 hours Voiding Methods Urinal Urinal Urinal Diaper Diaper Labs on day of discharge: Labs from last 24 hours 04/09/19 06:23 Sodium 139 Potassium 4.3 Chloride 104 Carbon Dioxide 28.1 Anion Gap 6.9 BUN 8 Creatinine 0.72 Estimated GFR/1.73 m2 >= 60.00 Glucose 108 H Calcium 9.3 Transaminase levels normal during hospitalization. Troponin below level of detection. Sodium 130 on admission 139 the day of discharge. PFSH Medical History Depression (Chronic) Chronic back pain (Chronic) Osteoarthritis (Chronic) Alcoholism (Chronic) BPH (benign prostatic hyperplasia) (Chronic) Anxiety (Chronic) CAD (coronary artery disease) (Chronic) COPD (chronic obstructive pulmonary disease) (Chronic) Depression (Chronic) GERD (gastroesophageal reflux disease) (Chronic) History of myocardial infarction (Resolved) Prostatitis (Resolved 06/04/17) Surgical History Previous back surgery (Chronic) S/P TKR (total knee replacement) (Chronic) S/P cholecystectomy (Chronic) S/P hernia repair (Chronic) H/O bilateral inguinal hernia repair (Resolved) History of bilateral knee replacement (Resolved) History of cholecystectomy (Resolved) S/P tonsillectomy and adenoidectomy (Resolved) Social History Smoking/Tobacco Use Status: Current every day Tobacco Type: cigarettes Smoking cigarettes per day: 6 Tobacco: How many years used: 50 Alcohol Intake: current Alcohol Intake frequency: 0-2 drinks per day Alcohol type: beer Drug use: Never Substance use type: does not use Do you feel safe at home: Yes Do you feel safe in your relationship?: Yes
--- NOTE | 2019-04-09 14:18 | PDOC.CMDIS ---
- If Service Date Differs Date of service: 04/09/19 Time of Service: 14:19 LACE Index Scoring Tool - Questions: Length of Stay (in days): 3 Acuity (Admit via E.D.?): Yes E.D. Visits: 7 - Answers: Total Score: 10 Risk of Readmission: High Risk Care Management Discharge Reason for Hospitalization: ETOH r/t seizure and withdrawal Discharge Plan: Errol is beign discharge home today. He does not meet home health level of care however CM did provide resources for substance abuse services [facility] as [facility] CM faxed a [facility] referral and [facility] for options servcies. Errol feels he is ready to be discharged he states that he has been sober before and will do it again. CM offered to contact recovery services he states he can handle it is on. He would like a follow up call to ensure services contacted him by CM. CM coordianted RCT for time of discharge. Patient/Family Education Needs: Discharge education, limitations and follow up plan of care including ask me three and self management. Services Needed at Discharge: Transportation
--- NOTE | 2019-04-09 14:24 | CMDISCH_ITS ---
- If Service Date Differs Date of service: 04/09/19 Time of Service: 14:19 LACE Index Scoring Tool - Questions: Length of Stay (in days): 3 Acuity (Admit via E.D.?): Yes E.D. Visits: 7 - Answers: Total Score: 10 Risk of Readmission: High Risk Care Management Discharge Reason for Hospitalization: ETOH r/t seizure and withdrawal Discharge Plan: Errol is beign discharge home today. He does not meet home health level of care however CM did provide resources for substance abuse services through [facility]. CM faxed a [facility] referral and [facility] for options servcies. Errol feels he is ready to be discharged he states that he has been sober before and will do it again. CM offered to contact recovery services he states he can handle it is on. He would like a follow up call to ensure services contacted him by CM. CM coordianted RCT for time of discharge. Patient/Family Education Needs: Discharge education, limitations and follow up plan of care including ask me three and self management. Services Needed at Discharge: Transportation
== END 2019-04-09 11:08 | disposition home or self-care (01) | DRG 897 ==
LOC: ER 02:21 → ICU 03:10
PROVIDERS: Admitting Provider Internal Medicine; Emergency Provider Emergency Medicine; PCP Family Medicine; Visit Provider Internal Medicine
DX: F10.239 Alcohol dependence with withdrawal, unspecified (principal); E87.1 Hypo-osmolality and hyponatremia; R56.9 Unspecified convulsions; I25.10 Atherosclerotic heart disease of native coronary artery without angina pectoris; F17.210 Nicotine dependence, cigarettes, uncomplicated; N40.0 Benign prostatic hyperplasia without lower urinary tract symptoms; J44.9 Chronic obstructive pulmonary disease, unspecified
CPT/HCPCS: 36415; 80048; 80053; 80307; 83690; 96361; 96365; 96375; 99223; 99238; 99285; J1650; 70450; 80320; 81003; 81015; 83735; 84484; 85025; 85610; 99284; J2060; J3490

== ENCOUNTER 2019-04-29 16:41 | Emergency (ER) | payer MEDICARE, MEDICAID, SELFPAY ==
[2019-04-29 16:43] VITALS: BP 132/87; PULSE 89; RESP 18; TEMP 36.9; O2SAT 94
--- NOTE | 2019-04-29 16:55 | DI.RAD_ITS ---
SYMPTOM/DIAGNOSIS: PAIN, INJURY LEFT TIBIA, FIBULA: There is a total knee prosthesis. No fracture or bony erosions are seen. The bones appear osteopenic. Knee prosthesis appears intact. No abnormality is seen of the ankle. IMPRESSION: No acute abnormality.
[2019-04-29] MEDS: oxyCODONE 5 MG TAB PO (17:18)
--- NOTE | 2019-04-29 17:22 | DI.VRAD_ITS ---
EXAM: XR Left Tibia and Fibula EXAM DATE/TIME: 04/29/2019 5:14 PM CLINICAL HISTORY: 68 years old, male; Injury or trauma; Injury history: No specified; Initial encounter; Blunt trauma; Lower leg; Left; Injury details: Bruising medial calf TECHNIQUE: Imaging protocol: XR Left tibia and fibula. Views: 2 views. COMPARISON: No relevant prior studies available. FINDINGS: Prior total knee replacement in anatomic alignment. No acute fracture. Soft tissues unremarkable. Mild vascular calcification. IMPRESSION: No acute bony abnormality. Dictated and Authenticated by: Vishal Cabrera MD. Ordering:GLADYS Ashby MD
--- NOTE | 2019-04-29 17:25 | W.ED.GENAD ---
Discharge Plan Disposition Patient Disposition: HOME Discharge Details Chief Complaint: Orthopedic Clinical Impression: Contusion of left lower leg Primary Care Provider: Edwar Ortiz ED Provider: Isma Duong Home Meds and New Rx's Prescriptions: Continued nitroglycerin 0.4 MG tablet, sublingual 0.4 mg Sublingual PRN PRNRF: 0 trazodone 100 MG tablet 250 mg PO HS RF: 0 duloxetine [Cymbalta] 20 MG capsule,delayed release(DR/EC) 60 mg PO BID RF: 0 aspirin [Aspir-Low] 81 MG tablet,delayed release (DR/EC) 81 mg PO DAILY RF: 0 gabapentin 600 MG tablet 600 mg PO TID RF: 0 promethazine 25 MG tablet 25 mg PO QID PRNRF: 0 ipratropium bromide [Atrovent] 15 ML spray,non-aerosol 15 ml NS Q6H PRN PRNRF: 0 Compete 1 EACH tablet 1 ea PO DAILY RF: 0 ProAir RespiClick 90 MCG aerosol powdr breath activated 90 mcg Inhalation Q4H PRN PRNRF: 0 mirtazapine 15 mg Tablet 15 mg PO HS RF: 0 zolpidem [Ambien] 10 mg Tablet 10 mg PO HS RF: 0 cholecalciferol (vitamin D3) [Vitamin D3] 1,000 unit Capsule 2,000 unit PO DAILY RF: 0 spironolactone 100 mg Tablet 100 mg PO DAILY RF: 0 clonazepam [Klonopin] 0.5 mg Tablet 0.5 mg PO BID RF: 0 atorvastatin 40 mg tablet 40 mg PO QHS Qty: 30 RF: 0 Discharge Instructions Instructions: Contusion in Adults (ED) Additional Instructions: Please take acetaminophen (tylenol) - 650mg every 6 hours by mouth as needed for pain. Please take ibuprofen over the counter. Take 600mg by mouth every 6 hours as needed for pain. Apply ice to your lower leg a few times a day to reduce inflammation. Keep leg elevated. Use wheelchair. Please contact your primary care physician to arrange follow-up. Return to the ER for any worsening or new concerning symptoms. Referrals: Edwar Ortiz [Primary Care Provider] - Medical Decision Making 68-year-old male here with injury to his left lower extremity after rolling out of bed last night. Patient has swelling and tenderness proximal to mid anterior medial lower leg. Neurovascular intact distally. No signs of compartment syndrome. X-ray of the left tib-fib reviewed and interpreted by me: No fracture, proximal tibial knee hardware intact. Patient provided ice. I advised Tylenol and continued wheelchair use. Usual and customary discharge instructions were provided and reviewed with the patient. HPI General Mode of arrival: EMS. Date/Time Provider Initiated Documentation: 04/29/19 16:55. Limitations to Documentation: no limitations. Information obtained by: EMS. HPI Narrative: 68-year-old male with multiple medical problems presents after fall from his bed last night with chief complaint of left lower leg injury. Patient notes he fell getting out of his bed and hit his leg on portable commode next to his bed. He said persistent pain anterior proximal left lower extremity with associated swelling. Symptoms have worsened today. No associated numbness or tingling. No other injury. Patient requesting pain medication. Related Data Home Medications Medication Instructions Recorded Confirmed nitroglycerin 0.4 mg SUBLINGUAL PRN PRN 12/20/13 04/29/19 duloxetine [Cymbalta] 60 mg PO BID 07/24/16 04/29/19 trazodone 250 mg PO HS 07/24/16 04/29/19 aspirin [Aspir-Low] 81 mg PO DAILY 12/02/16 04/29/19 Compete 1 ea PO DAILY 08/28/17 03/02/19 ProAir RespiClick 90 mcg INHALATION Q4H PRN PRN 08/28/17 04/29/19 gabapentin 600 mg PO TID 08/28/17 04/29/19 ipratropium bromide [Atrovent] 15 ml NS Q6H PRN PRN 08/28/17 04/08/19 promethazine 25 mg PO QID PRN 08/28/17 04/29/19 cholecalciferol (vitamin D3) 2,000 unit PO DAILY 04/08/19 04/29/19 [Vitamin D3] clonazepam [Klonopin] 0.5 mg PO BID 04/08/19 04/29/19 mirtazapine 15 mg PO HS 04/08/19 04/29/19 spironolactone 100 mg PO DAILY 04/08/19 04/29/19 zolpidem [Ambien] 10 mg PO HS 04/08/19 04/29/19 atorvastatin 40 mg PO QHS #30 tab 04/09/19 04/29/19 Previous Rx's Medication Instructions Recorded atorvastatin 40 mg PO QHS #30 tab 04/09/19 Allergies Allergy/AdvReac Type Severity Reaction Status Date / Time Penicillins Allergy Severe Anaphylaxsi Unverified 04/08/19 02:02 s cephalexin monohydrate Allergy Unverified 04/08/19 02:02 [From Keflex] meperidine HCl [From Demerol] Allergy Skin Rash Unverified 04/08/19 02:02 clindamycin HCl AdvReac Severe see note Unverified 04/08/19 02:02 [From Cleocin] clindamycin palmitate HCl AdvReac Severe see comment Unverified 04/08/19 02:02 [From Cleocin] clindamycin phosphate AdvReac Severe see note Unverified 04/08/19 02:02 [From Cleocin] ketorolac tromethamine AdvReac Intermediate vomiting Unverified 04/08/19 02:02 [From Toradol] NSAIDS (Non-Steroidal AdvReac Intermediate Nausea Unverified 04/08/19 02:02 Anti-Inflamma propoxyphene HCl AdvReac Intermediate vomiting Unverified 04/08/19 02:02 [From Darvon] tramadol HCl [From Ultram] AdvReac Intermediate vomiting Unverified 04/08/19 02:02 General Stated Complaint: Orthopedic THEODORE: 4 Review of Systems Cardiovascular Denies chest pain and Denies dyspnea Respiratory Denies dyspnea Gastrointestinal Denies abdominal pain Musculoskeletal Reports as per HPI and Reports other (Chronic back) Neurologic Reports as per HPI [facility] Medical History Depression (Chronic) Chronic back pain (Chronic) Osteoarthritis (Chronic) Alcoholism (Chronic) BPH (benign prostatic hyperplasia) (Chronic) Anxiety (Chronic) CAD (coronary artery disease) (Chronic) COPD (chronic obstructive pulmonary disease) (Chronic) Depression (Chronic) GERD (gastroesophageal reflux disease) (Chronic) History of myocardial infarction (Resolved) Prostatitis (Resolved 06/04/17) Surgical History Previous back surgery (Chronic) S/P TKR (total knee replacement) (Chronic) S/P cholecystectomy (Chronic) S/P hernia repair (Chronic) H/O bilateral inguinal hernia repair (Resolved) History of bilateral knee replacement (Resolved) History of cholecystectomy (Resolved) S/P tonsillectomy and adenoidectomy (Resolved) Social History Smoking/Tobacco Use Status: Current every day Tobacco Type: cigarettes Tobacco: How many years used: 50 Alcohol Intake: current Alcohol Intake frequency: a few times a week Alcohol type: beer Drug use: Never Substance use type: does not use Do you feel safe at home: Yes Do you feel safe in your relationship?: Yes Exam Const General: cooperative and healthy appearing Orientation: alert and awake HENMT Head: normocephalic and atraumatic Cardio Rate: regular rate Rhythm: regular rhythm Pulses: posterior tibial pulses present on the left 2+ Neuro General: alert and awake Motor: other (Motor intact distal left lower extremity) Sensory Exam: no sensory deficits noted (Distal left lower extremity) Extrem Left lower extremity: lower leg Details: tenderness Location: of the proximal tibia, localized swelling Location: of the proximal lower leg and ecchymosis Course Vital Signs Temperature 36.9 C 04/29/19 16:43 Pulse 89 04/29/19 16:43 Respiratory Rate 18 04/29/19 16:43 Blood Pressure 132/87 04/29/19 16:43 Pulse Oximetry 94 L 04/29/19 16:43 Temperature 36.9 C 04/29/19 16:43 Temperature Source Skin 04/29/19 16:43 Pulse 89 04/29/19 16:43 Respiratory Rate 18 04/29/19 16:43 Respiratory Effort Non-Labored 04/29/19 16:43 Blood Pressure 132/87 04/29/19 16:43 Pulse Oximetry 94 L 04/29/19 16:43 Oxygen Delivery Method Room Air 04/29/19 16:43 Oxygen Flow Rate 0 04/29/19 16:43
[2019-04-29 17:39] VITALS: BP 103/62; PULSE 90; RESP 16; O2SAT 97
[2019-04-29] MEDS: Ibuprofen 600 MG TAB PO (17:45)
[2019-04-29 19:05] VITALS: BP 106/59; PULSE 89; RESP 18
== END 2019-04-29 18:43 | disposition home or self-care (01) ==
LOC: ER 18:03
PROVIDERS: Emergency Provider Student in an Organized Health Care Education/Training Program; PCP Family Medicine
DX: S80.12XA Contusion of left lower leg, initial encounter (principal); W01.190A Fall on same level from slipping, tripping and stumbling with subsequent striking against furniture, initial encounter; J44.9 Chronic obstructive pulmonary disease, unspecified; F17.210 Nicotine dependence, cigarettes, uncomplicated
CPT/HCPCS: 99283; 73590

== ENCOUNTER 2019-05-22 00:02 | Emergency (ER) | payer MEDICARE, MEDICAID, SELFPAY ==
[2019-05-22 00:04] VITALS: BP 106/82; PULSE 84; RESP 18; TEMP 36.5; O2SAT 96
--- NOTE | 2019-05-22 00:34 | ED.GENADUL_ITS ---
Discharge Plan Disposition Patient Disposition: HOME Condition: Good Discharge Details Chief Complaint: Orthopedic Clinical Impression: Injury of right shoulder Primary Care Provider: Daija Rubalcava ED Provider: Anthony Porter [place] Meds and New Rx's Prescriptions: New ibuprofen 600 mg tablet 600 mg PO Q8H PRN (Reason: pain) Qty: 20 RF: 0 lidocaine 5 % adhesive patch,medicated 1 patch TP DAILY Qty: 15 RF: 0 Continued nitroglycerin 0.4 MG tablet, sublingual 0.4 mg Sublingual PRN PRNRF: 0 trazodone 100 MG tablet 250 mg PO HS RF: 0 duloxetine [Cymbalta] 20 MG capsule,delayed release(DR/EC) 60 mg PO BID RF: 0 aspirin [Aspir-Low] 81 MG tablet,delayed release (DR/EC) 81 mg PO DAILY RF: 0 gabapentin 600 MG tablet 600 mg PO TID RF: 0 promethazine 25 MG tablet 25 mg PO QID PRNRF: 0 ipratropium bromide [Atrovent] 15 ML spray,non-aerosol 15 ml NS Q6H PRN PRNRF: 0 Compete 1 EACH tablet 1 ea PO DAILY RF: 0 ProAir RespiClick 90 MCG aerosol powdr breath activated 90 mcg Inhalation Q4H PRN PRNRF: 0 mirtazapine 15 mg Tablet 15 mg PO HS RF: 0 zolpidem [Ambien] 10 mg Tablet 10 mg PO HS RF: 0 cholecalciferol (vitamin D3) [Vitamin D3] 1,000 unit Capsule 2,000 unit PO DAILY RF: 0 spironolactone 100 mg Tablet 100 mg PO DAILY RF: 0 clonazepam [Klonopin] 0.5 mg Tablet 0.5 mg PO BID RF: 0 atorvastatin 40 mg tablet 40 mg PO QHS Qty: 30 RF: 0 Discharge Instructions Additional Instructions: There is significant chronic change related to the old fracture with demineralization of your bone. There may be a new acute fracture of the distal clavicle. Please use ice, ibuprofen, Lidoderm patches over the weekend for pain. Wear the sling for comfort. Follow-up with primary care next week and contact orthopedics at [facility] for next available appointment. Return to ED for worsening pain, difficulty breathing, neurologic changes, other concerns. Referrals: [facility] [Provider Group] Daija Rubalcava [Primary Care Provider] - Medical Decision Making Patient here with acute complaint of right shoulder pain status post fall. He does have an alcohol problem. He denies striking his head, having loss of consciousness, having any neurologic symptoms. Spine is cleared clinically as his mental status and sensorium are clear despite him admitting to drinking alcohol today. Lungs are clear with no chest wall tenderness. Previous fracture of the right shoulder with no repair 6 years ago. Neurovascularly intact distally. Is asking for pain medication. Because of his history of alcohol abuse I would like to avoid narcotics. His stated allergy to nonsteroidals is nausea and vomiting. Patient is given Zofran ODT. He will the n be given Toradol IM. He will then go for x-ray of the right shoulder and chest. 02:15 -x-ray of the right shoulder shows the chronic fracture of the humerus and humeral head. There appears to possibly be a new fragment of bone off the right distal clavicle. Preliminary radiology read cannot rule out an acute fracture. There is a lot of demineralization of the humerus and humeral head from the previous unrepaired fracture. Chest x-ray is unremarkable. Patient reports little relief with Toradol. He does have bruising appearing at the area of the distal clavicle. Lidoderm patch applied in this area. He seems more comfortable. He will be placed in a sling. We will give prescriptions for ibuprofen and Lidoderm patches. Will refer back to primary care as well as [facility] orthopedics for follow-up. Return to ED for any new or worsening pain, shortness of breath, neurologic changes. HPI General Mode of arrival: EMS . Date/Time Provider Initiated Documentation: 05/22/19 00:20 . Limitations to Documentation: no limitations . Information obtained by: patient and family . HPI Narrative: [facility] with complaint of right shoulder pain. Patient has a history of alcohol abuse. He has a history of falls. By his report he has only had a beer today. However, he lost his balance and fell into a door jam [facility]. He did not strike his head. He did not have loss of consciousness. He has no neck pain. He has shoulder pain that is worse than his usual chronic pain from previous injury. He denies chest pain or shortness of breath. He denies injury to his lower extremities or left upper extremity. He is brought in by EMS for evaluation. Related Data Home Medications Medication Instructions Recorded Confirmed nitroglycerin 0.4 mg SUBLINGUAL PRN PRN 12/20/13 05/22/19 duloxetine [Cymbalta] 60 mg PO BID 07/24/16 05/22/19 trazodone 250 mg PO HS 07/24/16 05/22/19 aspirin [Aspir-Low] 81 mg PO DAILY 12/02/16 05/22/19 Compete 1 ea PO DAILY 08/28/17 05/22/19 ProAir RespiClick 90 mcg INHALATION Q4H PRN PRN 08/28/17 05/22/19 gabapentin 600 mg PO TID 08/28/17 05/22/19 ipratropium bromide [Atrovent] 15 ml NS Q6H PRN PRN 08/28/17 05/22/19 promethazine 25 mg PO QID PRN 08/28/17 05/22/19 cholecalciferol (vitamin D3) 2,000 unit PO DAILY 04/08/19 05/22/19 [Vitamin D3] clonazepam [Klonopin] 0.5 mg PO BID 04/08/19 05/22/19 mirtazapine 15 mg PO HS 04/08/19 05/22/19 spironolactone 100 mg PO DAILY 04/08/19 05/22/19 zolpidem [Ambien] 10 mg PO HS 04/08/19 05/22/19 atorvastatin 40 mg PO QHS #30 tab 04/09/19 05/22/19 ibuprofen 600 mg PO Q8H PRN #20 tab 05/22/19 lidocaine 1 patch TP DAILY #15 each 05/22/19 Previous Rx's Medication Instructions Recorded atorvastatin 40 mg PO QHS #30 tab 04/09/19 ibuprofen 600 mg PO Q8H PRN #20 tab 05/22/19 lidocaine 1 patch TP DAILY #15 each 05/22/19 Allergies Allergy/AdvReac Type Severity Reaction Status Date / Time Penicillins Allergy Severe Anaphylaxsi Unverified 05/22/19 00:12 s cephalexin monohydrate Allergy Unverified 05/22/19 00:12 [From Keflex] meperidine HCl [From Demerol] Allergy Skin Rash Unverified 05/22/19 00:12 clindamycin HCl AdvReac Severe see note Unverified 05/22/19 00:12 [From Cleocin] clindamycin palmitate HCl AdvReac Severe see comment Unverified 05/22/19 00:12 [From Cleocin] clindamycin phosphate AdvReac Severe see note Unverified 05/22/19 00:12 [From Cleocin] ketorolac tromethamine AdvReac Intermediate vomiting Unverified 05/22/19 00:12 [From Toradol] NSAIDS (Non-Steroidal AdvReac Intermediate Nausea Unverified 05/22/19 00:12 Anti-Inflamma propoxyphene HCl AdvReac Intermediate vomiting Unverified 05/22/19 00:12 [From Darvon] tramadol HCl [From Ultram] AdvReac Intermediate vomiting Unverified 05/22/19 00:12 General Stated Complaint: Orthopedic THEODORE: 3 Review of Systems Review of Systems As documented in HPI otherwise negative as below. Const: no fever, chills, weakness Resp: no cough, SOB, pleuritic pain CV: no CP, diaphoresis, edema, syncope GI: no abdominal pain, nausea, vomiting, diarrhea Neuro: no headache, numbness, focal weakness, confusion PFSH Medical History Alcoholism (Chronic) Anxiety (Chronic) BPH (benign prostatic hyperplasia) (Chronic) CAD (coronary artery disease) (Chronic) Chronic back pain (Chronic) COPD (chronic obstructive pulmonary disease) (Chronic) Depression (Chronic) GERD (gastroesophageal reflux disease) (Chronic) History of myocardial infarction (Resolved) Osteoarthritis (Chronic) Prostatitis (Resolved 06/04/17) Surgical History H/O bilateral inguinal hernia repair (Resolved) History of bilateral knee replacement (Resolved) History of cholecystectomy (Resolved) Previous back surgery (Chronic) S/P tonsillectomy and adenoidectomy (Resolved) Social History Smoking/Tobacco Use Status: Current every day Tobacco Type: cigarettes Tobacco: How many years used: 50 Alcohol Intake: current Alcohol Intake frequency: a few times a week Alcohol type: beer Drug use: Never Substance use type: does not use Do you feel safe at home: Yes Do you feel safe in your relationship?: Yes Exam Narrative Exam Narrative: Vitals: Afebrile with normal vitals and pulse ox. Const: Older appearing than stated age male in NAD. HEENT: NC/AT. Normal facial exam. Eyes: Normal conjunctiva and sclera. Neck: Supple. Trachea midline. No cervical spine tenderness. Lungs: Normal respiratory effort. Lungs are clear. No chest wall pain. Cor: RRR without murmur/gallop. Good radial pulses. GI: Soft. NT/ND. No guarding or rebound. Back: No TLS spine tenderness. Neuro: A+O x 3. CN grossly in tact. Mental status, speech, strength and sensation normal. Ext: Pain and decreased ROM of right shoulder. Tenderness over AC joint on right. NVI distal of the RUE. LUE and BLE normal ROM. Large old hematoma noted left proximal/medial barron. Skin: Warm and dry without rash. No lacerations. Old incision into the hematoma of left leg reportedly made by PCP. No erythema or pus. Course Vital Signs Temperature 97.7 F 05/22/19 00:04 Pulse 84 05/22/19 00:04 Respiratory Rate 18 05/22/19 00:04 Blood Pressure 106/82 05/22/19 00:04 Pulse Oximetry 96 05/22/19 00:04 Temperature 97.7 F 05/22/19 00:04 Temperature Source Temporal Artery Scan 05/22/19 00:04 Pulse 84 05/22/19 00:04 Respiratory Rate 18 05/22/19 00:04 Respiratory Effort 05/22/19 00:04 Blood Pressure 106/82 05/22/19 00:04 Pulse Oximetry 96 05/22/19 00:04 Pain Level 10 05/22/19 00:09
[2019-05-22] MEDS: Ondansetron O.D.T. 4 MG TABEF PO (00:42)
[2019-05-22] MEDS: Ketorolac 30 MG/ML VIAL IM (00:53)
--- NOTE | 2019-05-22 01:35 | DI.RAD_ITS ---
SYMPTOM/DIAGNOSIS: TRAUMA/FALL RIGHT SHOULDER: Four views. Comparison 07/25/18 There is an acute fracture of the distal right clavicle. There is displacement of the distal fracture on shaft's width. There is an old non-united fracture involving the proximal right humerus. This is stable. The bones appear osteopenic. Old right rib fractures are noted. IMPRESSION: Acute displaced distal right clavicular fracture. Results were discussed with Tiana Woodall of the Emergency Department on
--- NOTE | 2019-05-22 01:35 | DI.RAD_ITS ---
SYMPTOM/DIAGNOSIS : TRAUMA, FALL CHEST: AP lateral. Comparison 03/02/19 Heart size and pulmonary vasculature are within normal limits The lungs are clear. No effusions or pneumothoraces are identified. There are old bilateral healed rib fractures. IMPRESSION: No acute pulmonary process.
[2019-05-22] MEDS: Lidocaine 5% Patch 1 PATCH TP (02:01)
--- NOTE | 2019-05-22 02:06 | DI.VRAD_ITS ---
EXAM: XR Chest, 2 Views EXAM DATE/TIME: 05/22/2019 12:37 AM CLINICAL HISTORY: 68 years old, male; Injury or trauma; Initial encounter; Blunt trauma (contusions or hematomas); Injury date: 05/22/2019; Injury details: Fall in home TECHNIQUE: Imaging protocol: XR of the chest, 2 views. COMPARISON: SC XR CHEST 2V PA LATERAL 03/02/2019 7:06 PM FINDINGS: Lungs: Unremarkable. No consolidation. Pleural space: Unremarkable. No evidence of pneumothorax. Heart/Mediastinum: Unremarkable. Heart size within normal limits for technique. Bones/joints: Unremarkable. IMPRESSION: No acute findings. Dictated and Authenticated by: Raul Dawson MD. Ordering:RAMILA Cruz MD
--- NOTE | 2019-05-22 02:06 | DI.VRAD_ITS ---
EXAM: XR Right Shoulder EXAM DATE/TIME: 05/22/2019 12:37 AM CLINICAL HISTORY: 68 years old, male; Injury or trauma; Fall; Initial encounter; Blunt trauma (contusions or hematomas; Shoulder; Right; Injury date: 05/22/2019; Injury details: Fell in home; Prior surgery TECHNIQUE: Imaging protocol: XR Right shoulder. Views: 2 or more views. COMPARISON: No relevant prior studies available. FINDINGS: Bones/joints: Old humeral head and neck fracture deformity. Underlying acute fracture not excluded. Old rib fracture deformities. Soft tissues: Unremarkable. IMPRESSION: Old humeral head and neck fracture. Possible acute component. Dictated and Authenticated by: Raul Dawson MD. Ordering:RAMILA Cruz MD
== END 2019-05-22 02:40 | disposition home or self-care (01) ==
PROVIDERS: Emergency Provider Emergency Medicine; PCP Nurse Practitioner Family
DX: M25.511 Pain in right shoulder (principal); F10.20 Alcohol dependence, uncomplicated; J44.9 Chronic obstructive pulmonary disease, unspecified; W01.0XXA Fall on same level from slipping, tripping and stumbling without subsequent striking against object, initial encounter; F17.210 Nicotine dependence, cigarettes, uncomplicated
CPT/HCPCS: 96372; 99284; 71046; 73030; J1885; L3650

== ENCOUNTER 2019-05-25 12:07 | Emergency (ER) | payer MEDICARE, MEDICAID, SELFPAY ==
[2019-05-25 12:05] VITALS: BP 101/61; PULSE 84; RESP 14; TEMP 36.7; O2SAT 99
--- NOTE | 2019-05-25 12:24 | ED.GENADUL_ITS ---
Discharge Plan Disposition Patient Disposition: AGAINST MEDICAL ADVICE Discharge Details Chief Complaint: GenMedical Clinical Impression: Fall Primary Care Provider: Daija Rubalcava ED Provider: Tiana Woodall Home Meds and New Rx's Prescriptions: No Action nitroglycerin 0.4 MG tablet, sublingual 0.4 mg Sublingual PRN PRNRF: 0 trazodone 100 MG tablet 250 mg PO HS RF: 0 duloxetine [Cymbalta] 20 MG capsule,delayed release(DR/EC) 60 mg PO BID RF: 0 aspirin [Aspir-Low] 81 MG tablet,delayed release (DR/EC) 81 mg PO DAILY RF: 0 gabapentin 600 MG tablet 600 mg PO TID RF: 0 promethazine 25 MG tablet 25 mg PO QID PRNRF: 0 ipratropium bromide [Atrovent] 15 ML spray,non-aerosol 15 ml NS Q6H PRN PRNRF: 0 Compete 1 EACH tablet 1 ea PO DAILY RF: 0 ProAir RespiClick 90 MCG aerosol powdr breath activated 90 mcg Inhalation Q4H PRN PRNRF: 0 mirtazapine 15 mg Tablet 15 mg PO HS RF: 0 zolpidem [Ambien] 10 mg Tablet 10 mg PO HS RF: 0 cholecalciferol (vitamin D3) [Vitamin D3] 1,000 unit Capsule 2,000 unit PO DAILY RF: 0 spironolactone 100 mg Tablet 100 mg PO DAILY RF: 0 clonazepam [Klonopin] 0.5 mg Tablet 0.5 mg PO BID RF: 0 atorvastatin 40 mg tablet 40 mg PO QHS Qty: 30 RF: 0 ibuprofen 600 mg tablet 600 mg PO Q8H PRN (Reason: pain) Qty: 20 RF: 0 lidocaine 5 % adhesive patch,medicated 1 patch TP DAILY Qty: 15 RF: 0 Discharge Data Discharge Date/Time-TO BE ENTERED AT DEPARTURE: 05/25/19 13:10 Medical Decision Making Patient is 68-year-old male presenting today with chief complaint of right shoulder and right hand pain. He reports a prior to arrival, he was standing from his commode when he lost his balance and fell landing on his right shoulder. Patient was recently diagnosed with a right clavicular fracture and states that when pushing off the commode to the right arm this arm gave out causing him to lose his balance and fall. Does not appear to have been using sling provided for him at the time of his last visit. States he landed on the right shoulder, has severe pain over the fractured clavicle. Has ecchymosis and skin tear to the dorsal ulnar side of the right hand which is also painful for the patient. The ecchymosis is very dark, concerned for the age of the wound, patient reports that this happen just moments prior to EMS arrival. He denies any altered sensation. Did not strike his head. Loss of consciousness. Denies feeling presyncopal. Denies any chest pain, shortness of breath. Denies other injury the time of the incident. On exam, he is a disheveled elderly gentleman that smells of alcohol, he has yellow ecchymosis over the superior aspect of the right shoulder consistent with recent diagnosis of clavicular fracture. Ecchymosis and abrasion to the dorsal ulnar side of the right hand, I am concerned for possible boxer's fracture given location and severity of pain. No palpable defect. Will obtain imagings of the right shoulder and right hand. I am hesitant to use narcotics given his history of alcoholism and that he has been drinking already today. He only endorses one drink thus far today. He is requesting pain medication. Will give Tylenol and Lidoderm patch. Patient allergic to NSAIDS. Skin tear berhane benefit from cleansing and dressing. The skin does not appear to be able to tolerate sutures, deep structures intact. Plan to place a mepelex over the wound. Nursing staff offered the patient the Lidoderm patch and Tylenol to help with his discomfort and patient refused. He got very angry and is demanding to be discharged. Patient does endorse alcohol use today, he does seem clinically appropriate and is at the patient's baseline for my exam historically. I believe that this is the patient's typical consumption for the day thus far and feel that he is clinically appropriate to make this decision. His is with him. He will be going home via [facility]. He is now moving much better, is able to leave the department with his . Reported at the time of discharge to nursing staff that I will go to [place] and get 90 Percocet for my pain. I again examined [facility] patient and expressed my concern for possible hand fracture, worsening of the right shoulder injury and advised that wound should be addressed. Patient continues to refuse and has eloped the department. HPI General Mode of arrival: EMS . Date/Time Provider Initiated Documentation: 05/25/19 12:15 . Limitations to Documentation: no limitations . Information obtained by: patient, family (significant other), EMS and RN notes reviewed . History of Present Illness 68 year old M presents to the emergency department with the chief complaint of right shoulder and right hand pain, described as severe, with intensity rated at >10. Quality is described as sharp, and is localized to the right and upper extremity. Patient reports no radiation. Patient started experiencing this minute(s) and it has been con stant. No relieving factors improve symptom(s), Movement worsens symptoms . Patient notes no other symptoms.. Patient did receive the following treatments prior to arrival, none Related Data Home Medications Medication Instructions Recorded Confirmed nitroglycerin 0.4 mg SUBLINGUAL PRN PRN 12/20/13 05/22/19 duloxetine [Cymbalta] 60 mg PO BID 07/24/16 05/22/19 trazodone 250 mg PO HS 07/24/16 05/22/19 aspirin [Aspir-Low] 81 mg PO DAILY 12/02/16 05/22/19 Compete 1 ea PO DAILY 08/28/17 05/22/19 ProAir RespiClick 90 mcg INHALATION Q4H PRN PRN 08/28/17 05/22/19 gabapentin 600 mg PO TID 08/28/17 05/22/19 ipratropium bromide [Atrovent] 15 ml NS Q6H PRN PRN 08/28/17 05/22/19 promethazine 25 mg PO QID PRN 08/28/17 05/22/19 cholecalciferol (vitamin D3) 2,000 unit PO DAILY 04/08/19 05/22/19 [Vitamin D3] clonazepam [Klonopin] 0.5 mg PO BID 04/08/19 05/22/19 mirtazapine 15 mg PO HS 04/08/19 05/22/19 spironolactone 100 mg PO DAILY 04/08/19 05/22/19 zolpidem [Ambien] 10 mg PO HS 04/08/19 05/22/19 atorvastatin 40 mg PO QHS #30 tab 04/09/19 05/22/19 ibuprofen 600 mg PO Q8H PRN #20 tab 05/22/19 lidocaine 1 patch TP DAILY #15 each 05/22/19 Previous Rx's Medication Instructions Recorded atorvastatin 40 mg PO QHS #30 tab 04/09/19 ibuprofen 600 mg PO Q8H PRN #20 tab 05/22/19 lidocaine 1 patch TP DAILY #15 each 05/22/19 Allergies Allergy/AdvReac Type Severity Reaction Status Date / Time Penicillins Allergy Severe Anaphylaxsi Unverified 05/22/19 00:12 s cephalexin monohydrate Allergy Unverified 05/22/19 00:12 [From Keflex] meperidine HCl [From Demerol] Allergy Skin Rash Unverified 05/22/19 00:12 clindamycin HCl AdvReac Severe see note Unverified 05/22/19 00:12 [From Cleocin] clindamycin palmitate HCl AdvReac Severe see comment Unverified 05/22/19 00:12 [From Cleocin] clindamycin phosphate AdvReac Severe see note Unverified 05/22/19 00:12 [From Cleocin] ketorolac tromethamine AdvReac Intermediate vomiting Unverified 05/22/19 00:12 [From Toradol] NSAIDS (Non-Steroidal AdvReac Intermediate Nausea Unverified 05/22/19 00:12 Anti-Inflamma propoxyphene HCl AdvReac Intermediate vomiting Unverified 05/22/19 00:12 [From Darvon] tramadol HCl [From Ultram] AdvReac Intermediate vomiting Unverified 05/22/19 00:12 General Stated Complaint: Trauma THEODORE: 3 Review of Systems Constitutional Reports as per HPI, Denies chills, Denies fatigue, Denies fever(s), Denies headache(s) and Denies weakness Eyes Reports as per HPI, Denies blurry vision, Denies change in vision and Denies loss of vision ENT Denies headache(s) Cardiovascular Reports as per HPI Respiratory Reports as per HPI and Denies cough Gastrointestinal Reports as per HPI, Denies abdominal pain, Denies nausea and Denies vomiting Genitourinary Reports as per HPI and Denies urinary incontinence Musculoskeletal Reports as per HPI and Denies tingling Integumentary/Breasts Reports as per HPI, Denies rash and Reports wounds (ecchymosis right shoulder, s kin tear right hand) Neurologic Reports as per HPI, Denies headache(s), Denies loss of vision, Denies tingling, Denies paresthesias and Denies weakness Endocrine Denies fatigue [facility] Medical History Alcoholism (Chronic) Anxiety (Chronic) BPH (benign prostatic hyperplasia) (Chronic) CAD (coronary artery disease) (Chronic) Chronic back pain (Chronic) COPD (chronic obstructive pulmonary disease) (Chronic) Depression (Chronic) GERD (gastroesophageal reflux disease) (Chronic) History of myocardial infarction (Resolved) Osteoarthritis (Chronic) Prostatitis (Resolved 06/04/17) Surgical History H/O bilateral inguinal hernia repair (Resolved) History of bilateral knee replacement (Resolved) History of cholecystectomy (Resolved) Previous back surgery (Chronic) S/P tonsillectomy and adenoidectomy (Resolved) Social History Smoking/Tobacco Use Status: Current every day Tobacco Type: cigarettes Tobacco: How many years used: 50 Alcohol Intake: current Alcohol Intake frequency: a few times a week Alcohol type: beer Drug use: Never Substance use type: does not use Do you feel safe at home: Yes Do you feel safe in your relationship?: Yes Exam Const General: cooperative, comfortable, no acute distress, well developed, No well groomed (patient is disheveled, smells of ETOH) and disheveled Nutritional Appearance: well nourished and overweight Orientation: alert and awake [facility] Head: normal to inspection, no palpable skull fracture, normocephalic and atraumatic Ears: hearing grossly normal bilaterally General nose exam: external nose normal Mouth: oral mucosae normal, lip normal and tongue normal Throat: posterior oropharynx normal Eyes General: appearance normal, both eyes and all related structures Visual Harper: normal visual harper by confrontation Alignment and Position: alignment normal Periorbital: periorbital findings normal Eyelids: eyelids normal Conjunctivae: conjunctivae normal Pupils: PERRL EOM: EOM intact bilaterally Neck Neck: normal visual inspection, full ROM, no lymphadenopathy, no meningeal signs, trachea midline and supple Chest Chest: normal inspection of the chest, normal palpation of entire chest wall, no crepitus and no localized rib tenderness Resp Effort & Inspection: normal respiratory effort, able to speak in complete sentences and no respiratory distress Auscultation: clear to auscultation bilaterally, no rales, no rhonchi and no wheezes Cardio Rate: regular rate Rhythm: regular rhythm Heart Sounds: S1 normal and S2 normal GI Inspection: normal to inspection, no abdominal wall ecchymosis, no edema and non-distended Palpation: soft, no hepatosplenomegaly, not firm, no guarding, no pulsatile masses, not rigid and nontender Auscultation: normal bowel sounds Back/Spine/Pelvis Back: no CVA tenderness Cervical Spine: normal cervical lordosis and cervical ROM normal Thoracic/Lumbar Spine: thoracic and lumbar spine normal to inspection, thoraco- lumbar ROM normal, No thoraco-lumbar ROM limited, No thoraco-lumbar spasm and No thoracic spinal tenderness Pelvis: no pain with anterior-posterior compression and no pain with lateral compression Skin General skin exam: ecchymosis (yellowed ecchymosis right superior shoulder. Dark ecchymotic right hand) Trauma: laceration (skin tear to dorsal ulnar side of right hand) Neuro General: alert and awake Cranial Nerves: CN's II-XI intact bilaterally Cognition: normal cognition Speech: speech normal Gait: normal gait (baseline for patient, he reprots he is weak at baseline, unchanged since fa) Motor: muscle tone normal throughout Sensory Exam: no sensory deficits noted Extrem General: normal capillary refill, no pedal edema and no calf tenderness Right upper extremity: normal capillary refill, shoulder/upper arm Details: tenderness Location: of the clavicle (entire length); not of the proximal humerus, not of the scapula and not of the mid-shaft humerus, swelling (over distal clavicle) and axillary nerve sensory function normal; ROM limited (will not move shoulder), elbow/forearm Details: normal to inspection and normal ROM; no tenderness, no swelling and no unusual warmth, wrist Details: normal to inspection and normal ROM; no tenderness and no swelling and hand (2cm skin tear ulnar side dorsal hand); abnormal to inspection, ROM limited (will not move righ shoulder) and no edema Left upper extremity: normal to inspection Hand/finger images: 1. skin tear, deep structures intact 2. area of ecchymosis, very deep shade of purple, associated swelling. No palpable deformity. Right lower extremity: normal to inspection Left lower extremity: lower leg (swelling laterally, patient states from old wound) Psych Appearance: grossly normal and well kempt Mental Status: mental status grossly normal Speech and Movement: speech and movement normal Course Vital Signs Temperature 36.7 C 05/25/19 12:05 Pulse 84 05/25/19 12:05 Respiratory Rate 14 05/25/19 12:05 Blood Pressure 101/61 05/25/19 12:05 Pulse Oximetry 99 05/25/19 12:05 Temperature 36.7 C 05/25/19 12:05 Temperature Source Temporal Artery Scan 05/25/19 12:05 Pulse 84 05/25/19 12:05 Respiratory Rate 14 05/25/19 12:05 Blood Pressure 101/61 05/25/19 12:05 Blood Pressure Position Sitting 05/25/19 12:05 Pulse Oximetry 99 05/25/19 12:05 Oxygen Delivery Method Room Air 05/25/19 12:05 Oxygen Flow Rate 0 05/25/19 12:05 Pain Level 10 05/25/19 12:05
[2019-05-25 13:00] VITALS: RESP 16
--- NOTE | 2019-05-25 13:00 | NUR.NOTE ---
Nursing Note: PT refused lidocaine patch and Tylenol.
[2019-05-25 13:09] VITALS: BP 99/62; PULSE 91; RESP 16; TEMP 36.8; O2SAT 92
== END 2019-05-25 13:10 | disposition left against medical advice (07) ==
LOC: ER 13:19
PROVIDERS: Emergency Provider Physician Assistant; PCP Nurse Practitioner Family
DX: M25.511 Pain in right shoulder (principal); S60.511A Abrasion of right hand, initial encounter; S42.031D Displaced fracture of lateral end of right clavicle, subsequent encounter for fracture with routine healing; W18.11XA Fall from or off toilet without subsequent striking against object, initial encounter; F10.10 Alcohol abuse, uncomplicated; J44.9 Chronic obstructive pulmonary disease, unspecified; Z53.29 Procedure and treatment not carried out because of patient's decision for other reasons
CPT/HCPCS: 99282

== ENCOUNTER 2019-06-14 00:56 | Outpatient (CLI) | payer MEDICARE, MEDICAID, SELFPAY ==
--- NOTE | 2019-06-14 13:00 | DI.RAD_ITS ---
SYMPTOM/DIAGNOSIS: HAND PAIN, M79.641, SHOULDER PAIN, M25.511 RIGHT SHOULDER: Four views were obtained and show previously noted fractures of the distal clavicle and proximal humerus. Allowing for differences in projection, there has been no gross interval change in alignment of the fracture fragments in comparison with the examination of 05/22/19. These fractures appear ununited at this time. RIGHT HAND: Three views were obtained. There is mild narrowing of the cartilaginous joint spaces of the IP joints. Minimal hypertrophic spurring noted involving greater multangular first metacarpal joint. No other significant bony abnormality is seen. CONCLUSION: Findings consistent with mild degenerative changes as described above.
[2019-06-14] MEDS: Omnipaque 350 MG/ML 100 ML BTL IJ (13:52)
--- NOTE | 2019-06-14 13:57 | DI.CT_ITS ---
SYMPTOM/DIAGNOSIS: SKIN ABSCESS, L02.[address]: CT examination of the leg was performed with scanning from the proximal to mid tibia. The patient reportedly has a skin abscess and a marker is placed at the site of the presumed abscess. There is an area of low to intermediate attenuation which is fairly well circumscribed and ellipsoid and which measures about 10 by 35 mm. in transaxial scanning. This has an appearance consistent with abscess. The abscess does lie against the anteromedial surface of the tibia. No definite underlying bony abnormality is seen. The bones of the leg appear somewhat demineralized which is a nonspecific finding. No additional abscess identified. CONCLUSION: Findings consistent with localized abscess which extends from the skin to the periosteal layer without evidence of gross bony involvement of the anteromedial surface of the tibia. If there is a clinical suspicion of osteomyelitis, additional evaluation with MRI would be recommended.
== END 2019-06-14 01:16 ==
PROVIDERS: PCP Nurse Practitioner Family; Visit Provider Nurse Practitioner Family
DX: M79.641 Pain in right hand (principal); M25.511 Pain in right shoulder; S42.031D Displaced fracture of lateral end of right clavicle, subsequent encounter for fracture with routine healing; M18.11 Unilateral primary osteoarthritis of first carpometacarpal joint, right hand; L02.416 Cutaneous abscess of left lower limb
CPT/HCPCS: 73030; 73130; 73701; J3490

== ENCOUNTER 2019-06-14 22:52 | Observation (INO) | payer MEDICARE, MEDICAID, SELFPAY ==
[2019-06-14] VITALS (13 sets, daily range): BP systolic 89–104; BP diastolic 59–66; PULSE 72–86; RESP 15–25; TEMP 37.2; O2SAT 91–96
--- NOTE | 2019-06-14 22:47 | ED.GENADUL_ITS ---
Discharge Plan Disposition Patient Disposition: [facility] INPATIENT Condition: Stable Discharge Details Chief Complaint: Chest Pain Clinical Impression: Chest pain, Alcoholism, Chronic back pain Primary Care Provider: Daija Rubalcava ED Provider: Javi Padilla Home Meds and New Rx's Prescriptions: No Action nitroglycerin 0.4 MG tablet, sublingual 0.4 mg Sublingual PRN PRNRF: 0 trazodone 100 MG tablet 200 mg PO HS RF: 0 duloxetine [Cymbalta] 20 MG capsule,delayed release(DR/EC) 60 mg PO DAILY RF: 0 aspirin [Aspir-Low] 81 MG tablet,delayed release (DR/EC) 81 mg PO DAILY RF: 0 gabapentin 600 MG tablet 600 mg PO TID RF: 0 promethazine 25 MG tablet 25 mg PO QID PRNRF: 0 ipratropium bromide [Atrovent] 15 ML spray,non-aerosol 15 ml NS Q6H PRN PRNRF: 0 Compete 1 EACH tablet 1 ea PO DAILY RF: 0 ProAir RespiClick 90 MCG aerosol powdr breath activated 90 mcg Inhalation Q4H PRN PRNRF: 0 mirtazapine 15 mg Tablet 15 mg PO HS RF: 0 zolpidem [Ambien] 10 mg Tablet 10 mg PO HS RF: 0 cholecalciferol (vitamin D3) [Vitamin D3] 1,000 unit Capsule 2,000 unit PO DAILY RF: 0 clonazepam [Klonopin] 0.5 mg Tablet 0.5 mg PO HS RF: 0 atorvastatin 40 mg tablet 40 mg PO QHS Qty: 30 RF: 0 ibuprofen 600 mg tablet 600 mg PO Q8H PRN (Reason: pain) Qty: 20 RF: 0 lidocaine 5 % adhesive patch,medicated 1 patch TP DAILY Qty: 15 RF: 0 acetaminophen 500 mg Tablet 500 mg PO Q6H PRN PRNRF: 0 ketorolac 10 mg Tablet 10 mg PO Q6H PRNRF: 0 albuterol sulfate [Ventolin HFA] 90 mcg/actuation Hfa Aerosol Inhaler 2 puff INHALATION QID PRNRF: 0 Medical Decision Making 68-year-old male with a past medical history of notable COPD, cardiac disease with stents, alcoholism, previous back surgeries. He presents today for evaluation of chest heaviness. Patient states that earlier today he received a CT scan of his left lower extremity for evaluation of potential abscess versus soft tissue abnormality. Roughly 20 to 30 minutes after that he developed what he describes as chest heaviness going from his sternum to the back of his chest. States that this is atypical from his normal IL-like symptoms as that related to shortness of breath. Symptoms have continued throughout the day, unrelieved by anything. He has not taken a home nitroglycerin. Upon arrival patient demonstrated a relatively benign exam aside for coarse breath sounds mild wheeze. He was given some breathing treatments. His blood pressure was mildly soft in the low 100s to mid 90s because of this we have held off on additional nitroglycerin here. Patient refuses to take aspirin secondary to a self- proclaimed allergy. At this time differential is broad but includes ACS, atypical pneumonia, dissection less likely in potential PE as well. We will get a d-dimer, gently rehydrate, evaluate for cardiac abnormalities, and reassess. We will start with Ofirmev and Toradol for pain. Of notes in regards to the patient's lower extremity CT scan that he received today the results state that there is potential abscess, with questionable periosteal involvement but no evidence of osteomyelitis. Clinically on exam the area is nontender, near non-erythematous, normal temperature throughout, no fluctuance. It honestly feels more like a soft tissue abnormality rather than an infection. We will hold off on additional antibiotics at this time as he denies any fever chills or pain in the area 1:15 AM Laboratory work-up has returned, no evidence of elevated white count, hemoglobin stable, platelets normal. No left shift, renal function normal, electrolytes normal, proBNP benign, troponin less than 0.05, alcohol slightly elevated at 163. D-dimer notably elevated at 1274. CT scan was ordered, per virtual radiology no evidence of pulmonary embolism or dissection. No evidence of significant pneumonia. He does have the evidence of known chronic rib fracture distal clavicular fracture, and proximal humerus fracture. Blood pressure is currently 100 systolic. We will still hold off on nitroglycerin. Pain is unchanged after ofirmev. No evidence of dissection or PE I do feel that he is stable for admission here. With his continued pain, notable cardiac risk factors, I do feel that he would benefit from admission, serial troponins, further cardiac evaluation. I discussed the case with the hospitalist , he agrees with the assessment and plan. I have extensively reviewed the treatment plan with the patient. I have addressed all patient concerns at this time. I have also discussed the plan with the admitting physician and they agree with the current assessment and plan and have agreed to assume responsibility for the patient. All parties demonstrate verbal understanding and agreement with our assessment and plan at this time. Because of the patient's slightly soft blood pressures with 100 systolic, I do feel that as a precaution admission to the ICU is certainly reasonable to start with, then he can be transitioned to regular MedSurg with telemetry if he continues to show unchanged stability. EKG 22: 59 Rate 82, intervals normal, sinus rhythm, no significant ST elevations or depressions, no T wave inversions, no Q waves. HPI General Date/Time Provider Initiated Documentation: 06/14/19 23:03 . HPI Narrative: This is a 68-year-old male with a past medical history of coronary artery disease and 3 stents, COPD who still smokes, chronic alcoholism, who presents today for evaluation of chest pain. Patient states that he had a CT scan of his lower extremity earlier today about 20 to 30 minutes afterwards while he was riding back in the car he developed some mild chest pain. The pain went from his chest to his back. He described it as an achy heavy-like sensation. No radiation to his arm neck or shoulder. Of note he does have a notable history of chronic right shoulder pain secondary to previous injuries and fractures. He states this is unchanged. He denies any tearing sensation in his chest, he denies any pleuritic chest pain. He denies any recent cough aside for his chronic cough from his COPD. He states that this pain is notably atypical from his previous MIs for which he states he had significant shortness of breath. Patient denies any history of PEs. He denies any recent long trips surgeries or procedures. He denies any fever or chills. Patient denies any other complaints at this time. Related Data Home Medications Medication Instructions Recorded Confirmed nitroglycerin 0.4 mg SUBLINGUAL PRN PRN 12/20/13 06/15/19 duloxetine [Cymbalta] 60 mg PO DAILY 07/24/16 06/15/19 trazodone 200 mg PO HS 07/24/16 06/15/19 aspirin [Aspir-Low] 81 mg PO DAILY 12/02/16 06/15/19 Compete 1 ea PO DAILY 08/28/17 05/22/19 ProAir RespiClick 90 mcg INHALATION Q4H PRN PRN 08/28/17 05/22/19 gabapentin 600 mg PO TID 08/28/17 06/15/19 ipratropium bromide [Atrovent] 15 ml NS Q6H PRN PRN 08/28/17 05/22/19 promethazine 25 mg PO QID PRN 08/28/17 05/22/19 cholecalciferol (vitamin D3) 2,000 unit PO DAILY 04/08/19 06/15/19 [Vitamin D3] clonazepam [Klonopin] 0.5 mg PO HS 04/08/19 06/15/19 mirtazapine 15 mg PO HS 04/08/19 06/15/19 zolpidem [Ambien] 10 mg PO HS 04/08/19 06/15/19 atorvastatin 40 mg PO QHS #30 tab 04/09/19 05/22/19 ibuprofen 600 mg PO Q8H PRN #20 tab 05/22/19 lidocaine 1 patch TP DAILY #15 each 05/22/19 acetaminophen 500 mg PO Q6H PRN PRN 06/15/19 06/15/19 albuterol sulfate [Ventolin HFA] 2 puff INHALATION QID PRN 06/15/19 06/15/19 ketorolac 10 mg PO Q6H PRN 06/15/19 06/15/19 Previous Rx's Medication Instructions Recorded atorvastatin 40 mg PO QHS #30 tab 04/09/19 ibuprofen 600 mg PO Q8H PRN #20 tab 05/22/19 lidocaine 1 patch TP DAILY #15 each 05/22/19 Allergies Allergy/AdvReac Type Severity Reaction Status Date / Time Penicillins Allergy Severe Anaphylaxsi Unverified 05/22/19 00:12 s cephalexin monohydrate Allergy Unverified 05/22/19 00:12 [From Keflex] meperidine HCl [From Demerol] Allergy Skin Rash Unverified 05/22/19 00:12 clindamycin HCl AdvReac Severe see note Unverified 05/22/19 00:12 [From Cleocin] clindamycin palmitate HCl AdvReac Severe see comment Unverified 05/22/19 00:12 [From Cleocin] clindamycin phosphate AdvReac Severe see note Unverified 05/22/19 00:12 [From Cleocin] ketorolac tromethamine AdvReac Intermediate vomiting Unverified 05/22/19 00:12 [From Toradol] NSAIDS (Non-Steroidal AdvReac Intermediate Nausea Unverified 05/22/19 00:12 Anti-Inflamma propoxyphene HCl AdvReac Intermediate vomiting Unverified 05/22/19 00:12 [From Darvon] tramadol HCl [From Ultram] AdvReac Intermediate vomiting Unverified 05/22/19 00:12 General THEODORE: 3 Review of Systems Review of Systems All systems reviewed & are unremarkable except as noted in HPI and below PFSH Social History Smoking/Tobacco Use Status: Current every day Tobacco Type: cigarettes Tobacco: How many years used: 50 Alcohol Intake: current Alcohol Intake frequency: a few times a week Alcohol type: beer Drug use: Never Substance use type: does not use Do you feel safe at home: Yes Do you feel safe in your relationship?: Yes Exam Narrative Exam Narrative: 1.Const: Well-nourished, Well-developed, appearing stated age 2.Eyes: PERRL, no conjunctival injection, and symmetrical lids. 3.ENT: Atraumatic external nose and ears. Moist MM. Neck: Symmetric, trachea midline, No thyromegaly. 4.CVS: +S1/S2, No murmurs or gallops. Peripheral pulses 2+ and equal in all extremities. Brisk capillary refill in all extremities. Radial pulses +2 bilaterally 5.RESP: Unlabored respiratory effort. Coarse breath sounds throughout, mild wheezes throughout. Mild crackles in the bases bilaterally. 6.GI: Soft, Nontender/Nondistended, No hepatosplenomegaly. No guarding or tammy ound. 7.MSK: Normocephalic/Atraumatic, Extremities w/o deformity or ttp No cyanosis or clubbing, Normal movement of all extremities. Patient does demonstrate a small area on his left anterior barron that is slightly more firm and does feel similar to a lipoma. No evidence of fluctuance. No erythema or warmth. No active drainage. 8.Skin: Warm, Dry. No rashes or lesions. Please see musculoskeletal for review of the left lower externa 9.Neuro: cattle knocker II-XII grossly intact. Sensation grossly intact, no focal neurologic deficits. 10.Psych: (AAO) x3. Appropriate mood and affect
[2019-06-14] MEDS: Normal Saline 500 ML 1000 ML IV (23:09)
[2019-06-14] MEDS: methylPREDNISolone SUCC 125 MG VIAL IVP (23:11)
[2019-06-14] MEDS: ACETAMINOPHEN 1,000 MG/100 ML BTL 400 MG IVPB (23:12)
[2019-06-14] MEDS: Albuterol/Ipratropium 3 ML UPD VIAL 6 ML UPD (23:13)
[2019-06-14 23:15] LABS: Abs Immature Grans 0.03 k/cumm (0.0-0.09); Absolute Basophil Count 0.02 k/cumm (0.0-0.2); Absolute Monocyte Count 0.77 k/cumm (0.11-0.7); Absolute Neutrophil Count 2.06 k/cumm (1.2-6.7); Basophils % 0.4; Eosinophils % 5.3; HCT 36.7 % (40.0-50.0); HGB 12.5 g/dL (13.5-17.5); Immature Grans % 0.5; Mean Corp. HGB Concentration 34.1 g/dL (32.0-36.0); Mean Corpuscular Hemoglobin 36.4 pg (27.0-33.0); Mean Platelet Volume 8.5 fL (8.0-11.0); Monocytes % 13.6; Neutrophils % 36.2; Platelet Count 258 x1000/uL (130-400); RBC 3.43 m/cumm (4.50-6.00); RBC Distribution Width 14.2 % (11.8-14.1); White Blood Cell Count 5.68 k/cumm (4.4-10.8)
--- NOTE | 2019-06-14 23:30 | DI.CT_ITS ---
SYMPTOM/DIAGNOSIS: CP, ELEVATED DIMER CT ANGIOGRAPHY CHEST: 06/14 CT angiography was performed with multi slice acquisition and multi planar and 3D reconstruction. CT angiography of the chest was performed with a bolus infusion of 64 cc Omnipaque 350. Note is made of old healed rib fractures bilaterally as well as chronic T-8 vertebral body compression fracture. There is fixation hardware which appears to be Mclean rods positioned at the inferior border of the imaging field with previously noted L-1 compression fracture treated with ORIF. Thoracic aorta is unremarkable in appearance apart from some mild atheromatous calcifications. No aortic aneurysm or dissection. No evidence of pulmonary embolus. There are chronic bulla and calcific scarring present in the lung apices bilaterally consistent with healed granulomatous disease and COPD. No acute consolidation. No pleural effusion. Scanning of the upper abdomen shows unremarkable appearance of visualized portions of liver, spleen, pancreas, adrenals and kidneys. CONCLUSION: No evidence of pulmonary embolic disease. Chronic skeletal and pulmonary changes as described above. Previously noted right clavicular fracture also seen.
[2019-06-14 23:37] LABS: ALT 31 U/L (12-78); AST 27 U/L (15-37); Alkaline Phosphatase 57 U/L (46-116); Anion Gap 10.2 mmol/L (3-11); BUN 5 mg/dL (7-18); Bilirubin, Total 0.3 mg/dL (0.2-1.0); CO2 23.8 mmol/L (21.0-32.0); CREATININE 0.67 mg/dL (0.70-1.30); Calcium 8.4 mg/dL (8.5-10.1); Chloride 101 mmol/L (98-107); Diff Comment Diff Reviewed; ETHANOL BLOOD 163.7 mg/dL (<3); Glucose 89 mg/dL (70-100); NT-proBNP 383 pg/mL; Potassium 3.6 mmol/L (3.5-5.1); Sodium 135 mmol/L (136-145); Total Protein 6.6 g/dL (6.4-8.2)
[2019-06-14 23:38] LABS: Macrocytosis 2+
[2019-06-14 23:40] LABS: Troponin I < 0.05 ng/mL (0.00-0.06)
--- NOTE | 2019-06-14 23:40 | DI.RAD_ITS ---
SYMPTOM/DIAGNOSIS: CHEST PAIN, SOB PORTABLE AP CHEST: 06/14 The heart is not enlarged. The lungs are grossly clear and well expanded. CONCLUSION: No evidence of acute process. Please see accompanying CTA chest.
[2019-06-14 23:44] LABS: D-Dimer 1274 ng/mlFEU (<500)
[2019-06-15] VITALS (55 sets, daily range): BP systolic 89–143; BP diastolic 56–91; PULSE 48–81; RESP 9–25; TEMP 36.6–36.8; O2SAT 91–98
--- NOTE | 2019-06-15 00:06 | DI.VRAD_ITS ---
EXAM: XR Chest, 1 View EXAM DATE/TIME: 06/14/2019 11:03 PM CLINICAL HISTORY: 68 years old, male; Shortness of breath; Prior surgery; Surgery date: 6+ months; Surgery type: Back; Patient HX: Copd; Additional info: SOB TECHNIQUE: Imaging protocol: XR of the chest, 1 view. COMPARISON: CR XR CHEST 2V PA LATERAL 05/22/2019 1:09 AM FINDINGS: Lungs: Hyperinflation of the lungs. Emphysema suspected. Pleural space: Unremarkable. No pleural effusion. No pneumothorax. Heart/Mediastinum: Unremarkable. No cardiomegaly. Bones/joints: Chronic right humerus fracture. Subacute distal right clavicle fracture. Healed rib fractures. Prior spine surgery. IMPRESSION: 1. No acute findings on single view the chest. 2. Emphysema suspected. Dictated and Authenticated by: Alireza Monge MD. Ordering:YANELY Caldwell MD
[2019-06-15 00:24] LABS: PTT Activated 25.4 sec (21.0-31.4); Prothrombin Time 10.3 sec (9.3-11.0)
[2019-06-15] MEDS: Omnipaque 350 MG/ML 100 ML BTL IJ (00:34)
[2019-06-15] MEDS: Normal Saline 500 ML 1000 ML IV (00:38)
--- NOTE | 2019-06-15 00:53 | DI.VRAD_ITS ---
EXAM: CT Angiography Chest With Contrast EXAM DATE/TIME: 06/14/2019 11:50 PM CLINICAL HISTORY: 68 years old, male; Type not specified; Prior surgery; Surgery date: 6+ months; Surgery type: Back surgery; Patient HX: Chest pain, pressure, elevated d-dimer; Additional info: SOB TECHNIQUE: Imaging protocol: Axial computed tomographic angiography images of the chest with intravenous contrast using CT angiography protocol. Coronal and sagittal reformatted images were created and reviewed. 3D rendering: MIP reconstructed images were created and reviewed. Radiation optimization: All CT scans at this facility use at least one of these dose optimization techniques: automated exposure control; mA and/or kV adjustment per patient size (includes targeted exams where dose is matched to clinical indication); or iterative reconstruction. Contrast material: OMNIPAQUE 350;Contrast volume: 64 ml;Contrast route: IV; COMPARISON: CT CHEST ABD PELVIS WITH CONTRAST 08/28/2017 11:41 AM FINDINGS: Pulmonary arteries: No pulmonary artery filling defects. Aorta: Unremarkable. No aortic aneurysm. No aortic dissection. Lungs: Chronic biapical parenchymal scarring with bullous disease. Associated calcifications or surgical material in affected portion of apical right lung. Appearance is unchanged. Mild upper lobe emphysema. Pleural space: Unremarkable. No pneumothorax. No pleural effusion. Heart: There are coronary artery calcifications. Gallbladder and bile ducts: Insert cholecystectomy. Lymph nodes: Calcified periportal lymph nodes. Bones/joints: Prior spine surgery. Chronic right proximal humerus fracture. Distal right clavicular fracture. Healed rib fractures. Chronic T8 vertebral body compression fracture. Soft tissues: Unremarkable. IMPRESSION: 1. No pulmonary embolism demonstrated. 2. Emphysema. 3. Coronary artery disease. 4. Subacute right clavicular fracture. Dictated and Authenticated by: Alireza Monge MD. Ordering:YANELY Caldwell MD
[2019-06-15] MEDS: Ketorolac 30 MG/ML VIAL IVP (02:16)
[2019-06-15] MEDS: Normal Saline Flush 10 ML SYR IVP ×2 (02:16→05:57)
[2019-06-15 03:20] LABS: Troponin I < 0.05 ng/mL (0.00-0.06)
--- NOTE | 2019-06-15 03:31 | HPE_ITS ---
Date of service: 06/15/19 Time of Service: 03:31 Assessment and Plan (1) Atypical chest pain: Current visit: Yes Status: Acute his chest pain has persisted all day and all night and without EKG or troponin changes. This did not merit hospitalization for a rule out for ACS. He should be discharged today for outpatient stress MPI and he needs treated for his costochondritis and his shoulder and clavicular pains from his fractures. He has no PE on his CTA. As for his left leg abscess, I think that he probably had a hematoma and developed some localized phlegmon or venous willett. He says that when it was incised at the [facility] that it shot out blood. It appears to be self contained now. The CT reading suggests abscess yet he denies any purulent material, just blood clots when he would squeeze it. He has no fever or leukocytosis. I will check an ESR and CRP but I doubt that this is an infection and furthermore can be treated as an outpatient anyway. As for his shoulder fracture and clavicle fracture, this is being handled by Dr. Galindo and being referred to [facility] in [place], [place]. History of Present Illness Chief Complaint: chest pain Narrative: 68 yr old male w/ PMH alcohol abuse, alcoholic seizures, BPH s/p multiple TURP, smoker and reported CAD s/p stent over 10 yr ago who was having CT scan of his left leg to evaluate possible abscess of the left medial tibia after sustaining hematoma from injury caused by picnic table that fell on it several weeks ago. After his CT scan he noted some chest pains that he describes as a heaviness from his sternum to his back. This continued all day long. There has been no diaphoresis, nausea or vomiting with this. He has not had any more dyspnea than his usual from his COPD. Nothing has relieved his CP. His CP is reproducible w/ palpation of his chest wall. He has a notable hx of repeated soft tissue and bony injuries sustained from falls. He had a severe fall down 18 stairs 6 yrs ago that left him with vertebral fr actures and fractured left shoulder and more recently he had a fall a few weeks ago tripping over a doorway threshold. He had xrays earlier in the day of his left hand, left shoulder in addition to his CT of his leg. The xrays of his shoulder demonstrate left proximal humerus and distal clavicle fracture. He has been seeing Dr. Galindo about his shoulder but is being referred to the [facility] in [facility]. There has been no exertional component to his CP. Workup of his CP in the ER consisted of routine labs ( troponin, BNP, CBC, CMP, d-dimer), CXR and CT of his chest and EKG. His labs showed normal BNP and troponin but elevated d-dimer of 1274 which led to the CTA of his chest which showed emphysema but no PE, subacute right clavicle fracture and coronary artery calcifications. CXR demonstrated emphysema but no acute findings. EKG SR and low voltage in limb leads but otherwise normal. Dr. Padilla recommended overnight observation for serial troponins d/t his prior CAD, however, his CP really seems to be more chest wall pain. The patient has refused any trial of NTG d/t it causes him to have migraine headaches. Review of Systems Review of Systems All systems reviewed & are unremarkable except as noted in HPI and below Cardiovascular Reports as per HPI Respiratory Reports as per HPI Gastrointestinal Denies abdominal pain and Denies nausea Musculoskeletal Reports back pain, Reports arthralgias and Reports limited range of motion (right arm and shoulder) Integumentary/Breasts Reports wounds (left medial tibia; says that it drains blood when he squeezes it; no pus) [facility] Medical History Alcoholism (Chronic) Anxiety (Chronic) BPH (benign prostatic hyperplasia) (Chronic) CAD (coronary artery disease) (Chronic) Chronic back pain (Chronic) COPD (chronic obstructive pulmonary disease) (Chronic) Depression (Chronic) GERD (gastroesophageal reflux disease) (Chronic) History of myocardial infarction (Resolved) Osteoarthritis (Chronic) Prostatitis (Resolved 06/04/17) Surgical History H/O bilateral inguinal hernia repair (Resolved) History of bilateral knee replacement (Resolved) History of cholecystectomy (Resolved) Previous back surgery (Chronic) S/P tonsillectomy and adenoidectomy (Resolved) Social History Smoking/Tobacco Use Status: Current every day Tobacco Type: cigarettes Tobacco: How many years used: 50 Alcohol Intake: current Alcohol Intake frequency: a few times a week Alcohol type: beer Drug use: Never Substance use type: does not use Do you feel safe at home: Yes Do you feel safe in your relationship?: Yes Meds Home Medications Medication Instructions Recorded Confirmed Type nitroglycerin 0.4 mg SUBLINGUAL PRN PRN 12/20/13 06/15/19 History duloxetine [Cymbalta] 60 mg PO DAILY 07/24/16 06/15/19 History trazodone 200 mg PO HS 07/24/16 06/15/19 History aspirin [Aspir-Low] 81 mg PO DAILY 12/02/16 06/15/19 History ProAir RespiClick 90 mcg INHALATION Q4H PRN PRN 08/28/17 06/15/19 History gabapentin 600 mg PO TID 08/28/17 06/15/19 History ipratropium bromide [Atrovent] 15 ml NS Q6H PRN PRN 08/28/17 06/15/19 History cholecalciferol (vitamin D3) 2,000 unit PO DAILY 04/08/19 06/15/19 History [Vitamin D3] clonazepam [Klonopin] 0.5 mg PO HS 04/08/19 06/15/19 History mirtazapine 15 mg PO HS 04/08/19 06/15/19 History zolpidem [Ambien] 10 mg PO HS 04/08/19 06/15/19 History atorvastatin 40 mg PO QHS #30 tab 04/09/19 06/15/19 Rx ibuprofen 600 mg PO Q8H PRN #20 tab 05/22/19 06/15/19 Rx acetaminophen 500 mg PO Q6H PRN PRN 06/15/19 06/15/19 History albuterol sulfate [Ventolin HFA] 2 puff INHALATION QID PRN 06/15/19 06/15/19 History ketorolac 10 mg PO Q6H PRN 06/15/19 06/15/19 History multivitamin 1 tab PO DAILY 06/15/19 06/15/19 History Allergies Allergy/AdvReac Type Severity Reaction Status Date / Time Penicillins Allergy Severe Anaphylaxsi Unverified 05/22/19 00:12 s cephalexin monohydrate Allergy Unverified 06/15/19 01:34 [From Keflex] meperidine HCl [From Demerol] Allergy Skin Rash Unverified 06/15/19 01:34 clindamycin HCl AdvReac Severe see note Unverified 06/15/19 01:34 [From Cleocin] clindamycin palmitate HCl AdvReac Severe see comment Unverified 06/15/19 01:34 [From Cleocin] clindamycin phosphate AdvReac Severe see note Unverified 06/15/19 01:34 [From Cleocin] ketorolac tromethamine AdvReac Intermediate vomiting Unverified 05/22/19 00:12 [From Toradol] NSAIDS (Non-Steroidal AdvReac Intermediate Nausea Unverified 05/22/19 00:12 Anti-Inflamma propoxyphene HCl AdvReac Intermediate vomiting Unverified 06/15/19 01:34 [From Darvon] tramadol HCl [From Ultram] AdvReac Intermediate vomiting Unverified 06/15/19 01:34 Exam Const General: cooperative, no acute distress, disheveled and ill appearing chronically Nutritional Appearance: underweight Orientation: alert, awake and oriented x3 HENMT Teeth and gingiva: edentulous Neck Neck: normal visual inspection, full ROM, trachea midline and no JVD Chest Chest: localized rib tenderness with anteroposterior compression left anterior- axillary line involving the 4th rib and involving the 5th rib Resp Effort & Inspection: normal respiratory effort, able to speak in complete sentences and prolonged expiratory phase Auscultation: wheezes scattered wheezes Cardio Jugular venous pressure: no JVD Palpation: normal PMI Rate: regular rate Rhythm: regular rhythm Heart Sounds: S1 normal, S2 normal, normal, physiologic split S2, no gallops, no murmurs and no rubs Pulses: posterior tibial pulses present bilaterally diminished and dorsalis pedis pulses present bilaterally diminished GI Inspection: normal to inspection Palpation: soft, no hepatosplenomegaly and nontender Percussion: normal to percussion Auscultation: normal bowel sounds Skin Lesions: lesion noted (soft tissue swelling over medial mid left tibia w/ central eschar/scab) left mid lower leg size (approx. 5 cm), borders well- defined, consistency soft, morphology oval and surface indurated Nails: yellow and thickened Neuro General: alert, awake, oriented x3, moves all extremities and no focal motor deficits Cognition: normal cognition Speech: speech normal Motor: muscle tone normal throughout and no movement abnormalities noted Sensory Exam: no sensory deficits noted Extrem Left lower extremity: lower leg (see above under skin description) Details: localized swelling Location: of the mid lower leg; no erythema and no unusual warmth Results Imaging Chest x-ray: report reviewed CT scan - chest: report reviewed EKG: image reviewed Labs : 06/14/19 23:04 06/14/19 23:04 Laboratory Results - last 24 hr 06/14/19 06/14/19 06/14/19 23:04 23:04 23:04 WBC 5.68 RBC 3.43 L Hgb 12.5 L Hct 36.7 L MCV 107.0 H MCH 36.4 H MCHC 34.1 RDW 14.2 H Plt Count 258 MPV 8.5 Immature Gran % 0.5 Neutrophils % 36.2 Lymphocytes % 44.0 Monocytes % 13.6 Eosinophils % 5.3 Basophils % 0.4 Absolute Neutrophils 2.06 Absolute Lymphocytes 2.50 Absolute Monocytes 0.77 H Absolute Eosinophils 0.30 Absolute Basophils 0.02 Differential Comment Diff reviewed RBC Morphology See below Macrocytosis 2+ PT 10.3 INR 1.0 APTT 25.4 D-Dimer 1274 H Sodium 135 L Potassium 3.6 Chloride 101 Carbon Dioxide 23.8 Anion Gap 10.2 BUN 5 L Creatinine 0.67 L Estimated GFR/1.73 m2 >= 60.00 Glucose 89 Calcium 8.4 L Total Bilirubin 0.3 AST 27 ALT 31 Alkaline Phosphatase 57 Troponin I < 0.05 NT-Pro-B Natriuret Pep 383 H Total Protein 6.6 Albumin 3.0 L Ethyl Alcohol 163.7 06/15/19 02:55 WBC RBC Hgb Hct MCV MCH MCHC RDW Plt Count MPV Immature Gran % Neutrophils % Lymphocytes % Monocytes % Eosinophils % Basophils % Absolute Neutrophils Absolute Lymphocytes Absolute Monocytes Absolute Eosinophils Absolute Basophils Differential Comment RBC Morphology Macrocytosis PT INR APTT D-Dimer Sodium Potassium Chloride Carbon Dioxide Anion Gap BUN Creatinine Estimated GFR/1.73 m2 Glucose Calcium Total Bilirubin AST ALT Alkaline Phosphatase Troponin I < 0.05 NT-Pro-B Natriuret Pep Total Protein Albumin Ethyl Alcohol Last Vital Signs Temp 36.6 C 06/15/19 02:35 Pulse 71 06/15/19 01:47 Resp 18 06/15/19 02:40 BP 97/59 L 06/15/19 01:47 Pulse Ox 91 L 06/15/19 02:40
[2019-06-15] MEDS: ALPRAZolam 0.25 MG TAB PO (04:30)
[2019-06-15] MEDS: ACETAMINOPHEN 1,000 MG/100 ML BTL 400 MG IVPB ×2 (04:30→09:51)
[2019-06-15 07:22] LABS: C-Reactive Protein 0.36 mg/dL (0.0-0.3)
[2019-06-15 07:31] LABS: Troponin I < 0.05 ng/mL (0.00-0.06)
[2019-06-15 07:48] LABS: ESR 24 mm/hr (1-20)
--- NOTE | 2019-06-15 09:31 | W.PM.DS.N ---
Date of service: 06/15/19 Time of Service: 09:32 DS: Diagnosis Discharge Diagnosis (1) Atypical chest pain: Status: Acute Discharge Plan Disposition Patient Disposition: HOME Condition: Stable Discharge Details Chief Complaint: Chest Pain Clinical Impression: Chest pain, Alcoholism, Chronic back pain Reason For Visit: CHEST PAIN Admit Date/Time: 06/15/19 01:06 Admit Provider: Gaetano Darby Attending Provider: Gaetano Darby Primary Care Provider: Daija Rubalcava ED Provider: Javi Padilla Hospital Course Hospital Course: For details of Mr. Chaudhari's initial admission, please see in-depth History & Physical performed earlier this morning by Dr. Gerald Darby. In short, Mr. Chaudhari is an alcohol gentlemen with a prior history of tobacco use and CAD with prior stenting over a decade ago who reported chest pain while having outpatient ordered imaging of his leg. The pain was felt to be reproducible, with CXR and CT of the chest that were pertinent for emphysema, Coronary Artery Calcifications, and a subacute right clavicular fracture. His ECG was non-ischemic, and he has ruled out for ACS with serial cardiac biomarkers. Unfortunately Stress testing and cardiology consultation are not available today. Mr. Chaudhari does have a known history of CAD and with coronary calcifications by CT, but currentl symptoms appears to be musculoskeletal as opposed to cardiac in nature. As his EKG has been non-ischemic, telemetry without events, and troponins undetectable he will be discharged with plans for an outpatient nuclear stress test to be performed, with follow-up with PCP later this week. Mr. Chaudhari was encouraged to return to the hospital if his symptoms changed, accelerated, or failed to nikki. Of note, Mr. Chaudhari CT showed evidence of possible abscess in his lower extremity. There is a palpable area of concern, resulted from hitting his leg on a picnic table. Apparent prior attempt at I&D yielded blood, and he verbally reports expressing 'blood clots' and no purulent drainage from the area. On exam his leg is without warmth, erythema, or other signs of infection. He is also afebrile and without leukocytosis. Discussed with interpreting radiologist who reports that this may also represent a hematoma - This likely represents a hematoma, but needs to be monitored closely for any signs of developing infection. Home Meds and New Rx's Prescriptions: Continued nitroglycerin 0.4 MG tablet, sublingual 0.4 mg Sublingual PRN PRNRF: 0 trazodone 100 MG tablet 200 mg PO HS RF: 0 duloxetine [Cymbalta] 20 MG capsule,delayed release(DR/EC) 60 mg PO DAILY RF: 0 aspirin [Aspir-Low] 81 MG tablet,delayed release (DR/EC) 81 mg PO DAILY RF: 0 gabapentin 600 MG tablet 600 mg PO TID RF: 0 ipratropium bromide [Atrovent] 15 ML spray,non-aerosol 15 ml NS Q6H PRN PRNRF: 0 ProAir RespiClick 90 MCG aerosol powdr breath activated 90 mcg Inhalation Q4H PRN PRNRF: 0 mirtazapine 15 mg Tablet 15 mg PO HS RF: 0 zolpidem [Ambien] 10 mg Tablet 10 mg PO HS RF: 0 cholecalciferol (vitamin D3) [Vitamin D3] 1,000 unit Capsule 2,000 unit PO DAILY RF: 0 clonazepam [Klonopin] 0.5 mg Tablet 0.5 mg PO HS RF: 0 atorvastatin 40 mg tablet 40 mg PO QHS Qty: 30 RF: 0 ibuprofen 600 mg tablet 600 mg PO Q8H PRN (Reason: pain) Qty: 20 RF: 0 acetaminophen 500 mg Tablet 500 mg PO Q6H PRN PRNRF: 0 ketorolac 10 mg Tablet 10 mg PO Q6H PRNRF: 0 albuterol sulfate [Ventolin HFA] 90 mcg/actuation Hfa Aerosol Inhaler 2 puff INHALATION QID PRNRF: 0 multivitamin Tablet 1 tab PO DAILY RF: 0 Discharge Instructions Activity:: No strenuous activity Equipment/Supplies:: No Equipment Needed Diet:: Low Sodium Discharge Orders Discharge Orders: Discharge Order (Routine); Ordered 06/15/19 Ordered By: Franki Brunner Other Ambulatory Orders: Nuclear Medicine Stress Test (Outpt) (ONCE) Timeframe: [id number] Location: None Selected Ordered By: Franki Brunner DS: Data Vitals/I&O Vitals and I&O: Vital Signs Temperature 36.8 C 06/15/19 03:05 Temperature Source Temporal Artery Scan 06/15/19 08:24 Pulse 48 L 06/15/19 07:30 Pulse 49 L 06/15/19 07:30 Respiratory Rate 20 06/15/19 07:30 Respiratory Effort Splinting 06/15/19 08:24 Respiratory Depth Normal 06/15/19 08:24 Respiratory Pattern Normal 06/15/19 08:24 Blood Pressure 137/71 06/15/19 07:30 Blood Pressure Mean 88 06/15/19 07:30 Blood Pressure Position Supine 06/15/19 08:24 Pulse Oximetry 95 06/15/19 07:30 Oxygen Delivery Method Room Air 06/15/19 08:24 Oxygen Flow Rate 0 06/15/19 08:24 Pain Level 9 06/15/19 03:05 Intake & Output 06/14/19 06/14/19 06/15/19 11:59 23:59 11:59 Intake Total 100 / 100 1600 / 1600 Output Total 500 / 500 Balance 100 / 100 1100 / 1100 Weight 69.4 kg 69.4 kg Intake: IV 100 / 100 1600 / 1600 Output: Urine 500 / 500 Other: Urine Color Yellow Urine Appearance Clear Urine Odor None Completed studies during hospitalization [Text1]: Exam(s) 06/14/2019 a RAD:XR hand RT complete a RAD:XR shoulder RT complete 2+V SYMPTOM/DIAGNOSIS: HAND PAIN, M79.641, SHOULDER PAIN, M25.511 RIGHT SHOULDER: Four views were obtained and show previously noted fractures of the distal clavicle and proximal humerus. Allowing for differences in projection, there has been no gross interval change in alignment of the fracture fragments in comparison with the examination of 05/22/19. These fractures appear ununited at this time. RIGHT HAND: Three views were obtained. There is mild narrowing of the cartilaginous joint spaces of the IP joints. Minimal hypertrophic spurring noted involving greater multangular first metacarpal joint. No other significant bony abnormality is seen. CONCLUSION: Findings consistent with mild degenerative changes as described above. Exam(s) 06/14/[address]:CT lower extremity LT w SYMPTOM/DIAGNOSIS: SKIN ABSCESS, L02.[address]: CT examination of the leg was performed with scanning from the proximal to mid tibia. The patient reportedly has a skin abscess and a marker is placed at the site of the presumed abscess. There is an area of low to intermediate attenuation which is fairly well circumscribed and ellipsoid and which measures about 10 by 35 mm. in transaxial scanning. This has an appearance consistent with abscess. The abscess does lie against the anteromedial surface of the tibia. No definite underlying bony abnormality is seen. The bones of the leg appear somewhat demineralized which is a nonspecific finding. No additional abscess identified. CONCLUSION: Findings consistent with localized abscess which extends from the skin to the periosteal layer without evidence of gross bony involvement of the anteromedial surface of the tibia. If there is a clinical suspicion of osteomyelitis, additional evaluation with MRI would be recommended. Exam(s) 06/14/[address]:CT chest PE CTA SYMPTOM/DIAGNOSIS: CP, ELEVATED DIMER CT ANGIOGRAPHY CHEST: 06/14 CT angiography was performed with multi slice acquisition and multi planar and 3D reconstruction. CT angiography of the chest was performed with a bolus infusion of 64 cc Omnipaque 350. Note is made of old healed rib fractures bilaterally as well as chronic T-8 vertebral body compression fracture. There is fixation hardware which appears to be Mclean rods positioned at the inferior border of the imaging field with previously noted L-1 compression fracture treated with ORIF. Thoracic aorta is unremarkable in appearance apart from some mild atheromatous calcifications. No aortic aneurysm or dissection. No evidence of pulmonary embolus. There are chronic bulla and calcific scarring present in the lung apices bilaterally consistent with healed granulomatous disease and COPD. No acute consolidation. No pleural effusion. Scanning of the upper abdomen shows unremarkable appearance of visualized portions of liver, spleen, pancreas, adrenals and kidneys. CONCLUSION: No evidence of pulmonary embolic disease. Chronic skeletal and pulmonary changes as described above. Previously noted right clavicular fracture also seen. --------- Exam(s) 06/14/2019 a RAD:XR portable chest AP SYMPTOM/DIAGNOSIS: CHEST PAIN, SOB PORTABLE AP CHEST: 06/14 The heart is not enlarged. The lungs are grossly clear and well expanded. CONCLUSION: No evidence of acute process. Please see accompanying CTA chest. --------- EXAM: CT Angiography Chest With Contrast EXAM DATE/TIME: 06/14/2019 11:50 PM CLINICAL HISTORY: 68 years old, male; Type not specified; Prior surgery; Surgery date: 6+ months; Surgery type: Back surgery; Patient HX: Chest pain, pressure, elevated d-dimer; Additional info: SOB COMPARISON: CT CHEST ABD PELVIS WITH CONTRAST 08/28/2017 11:41 AM FINDINGS: Pulmonary arteries: No pulmonary artery filling defects. Aorta: Unremarkable. No aortic aneurysm. No aortic dissection. Lungs: Chronic biapical parenchymal scarring with bullous disease. Associated calcifications or surgical material in affected portion of apical right lung. Appearance is unchanged. Mild upper lobe emphysema. Pleural space: Unremarkable. No pneumothorax. No pleural effusion. Heart: There are coronary artery calcifications. Gallbladder and bile ducts: Insert cholecystectomy. Lymph nodes: Calcified periportal lymph nodes. Bones/joints: Prior spine surgery. Chronic right proximal humerus fracture. Distal right clavicular fracture. Healed rib fractures. Chronic T8 vertebral body compression fracture. Soft tissues: Unremarkable. IMPRESSION: 1. No pulmonary embolism demonstrated. 2. Emphysema. 3. Coronary artery disease. 4. Subacute right clavicular fracture. Labs on day of discharge: Labs from last 24 hours 06/15/19 06/15/19 06/15/19 06:15 06:15 06:15 WBC RBC Hgb Hct MCV MCH MCHC RDW Plt Count MPV Immature Gran % Neutrophils % Lymphocytes % Monocytes % Eosinophils % Basophils % Absolute Neutrophils Absolute Lymphocytes Absolute Monocytes Absolute Eosinophils Absolute Basophils Differential Comment RBC Morphology Macrocytosis ESR 24 H PT INR APTT D-Dimer Sodium Potassium Chloride Carbon Dioxide Anion Gap BUN Creatinine Estimated GFR/1.73 m2 Glucose Calcium Total Bilirubin AST ALT Alkaline Phosphatase Troponin I < 0.05 C-Reactive Protein 0.36 H NT-Pro-B Natriuret Pep Total Protein Albumin Ethyl Alcohol 06/15/19 06/14/19 06/14/19 02:55 23:04 23:04 WBC 5.68 RBC 3.43 L Hgb 12.5 L Hct 36.7 L MCV 107.0 H MCH 36.4 H MCHC 34.1 RDW 14.2 H Plt Count 258 MPV 8.5 Immature Gran % 0.5 Neutrophils % 36.2 Lymphocytes % 44.0 Monocytes % 13.6 Eosinophils % 5.3 Basophils % 0.4 Absolute Neutrophils 2.06 Absolute Lymphocytes 2.50 Absolute Monocytes 0.77 H Absolute Eosinophils 0.30 Absolute Basophils 0.02 Differential Comment Diff reviewed RBC Morphology See below Macrocytosis 2+ ESR PT 10.3 INR 1.0 APTT 25.4 D-Dimer 1274 H Sodium Potassium Chloride Carbon Dioxide Anion Gap BUN Creatinine Estimated GFR/1.73 m2 Glucose Calcium Total Bilirubin AST ALT Alkaline Phosphatase Troponin I < 0.05 C-Reactive Protein NT-Pro-B Natriuret Pep Total Protein Albumin Ethyl Alcohol 06/14/19 23:04 WBC RBC Hgb Hct MCV MCH MCHC RDW Plt Count MPV Immature Gran % Neutrophils % Lymphocytes % Monocytes % Eosinophils % Basophils % Absolute Neutrophils Absolute Lymphocytes Absolute Monocytes Absolute Eosinophils Absolute Basophils Differential Comment RBC Morphology Macrocytosis ESR PT INR APTT D-Dimer Sodium 135 L Potassium 3.6 Chloride 101 Carbon Dioxide 23.8 Anion Gap 10.2 BUN 5 L Creatinine 0.67 L Estimated GFR/1.73 m2 >= 60.00 Glucose 89 Calcium 8.4 L Total Bilirubin 0.3 AST 27 ALT 31 Alkaline Phosphatase 57 Troponin I < 0.05 C-Reactive Protein NT-Pro-B Natriuret Pep 383 H Total Protein 6.6 Albumin 3.0 L Ethyl Alcohol 163.7 PFSH Medical History Alcoholism (Chronic) Anxiety (Chronic) BPH (benign prostatic hyperplasia) (Chronic) CAD (coronary artery disease) (Chronic) Chronic back pain (Chronic) COPD (chronic obstructive pulmonary disease) (Chronic) Depression (Chronic) GERD (gastroesophageal reflux disease) (Chronic) History of myocardial infarction (Resolved) Osteoarthritis (Chronic) Prostatitis (Resolved 06/04/17) Surgical History H/O bilateral inguinal hernia repair (Resolved) History of bilateral knee replacement (Resolved) History of cholecystectomy (Resolved) Previous back surgery (Chronic) S/P tonsillectomy and adenoidectomy (Resolved) Social History Smoking/Tobacco Use Status: Current every day Tobacco Type: cigarettes Tobacco: How many years used: 50 Alcohol Intake: current Alcohol Intake frequency: a few times a week Alcohol type: beer Drug use: Never Substance use type: does not use Do you feel safe at home: Yes Do you feel safe in your relationship?: Yes
[2019-06-15] MEDS: Potassium Chloride 20 MEQ TABCR 40 MEQ PO (09:50)
--- NOTE | 2019-06-15 14:23 | NUR.NOTE ---
Nursing Note: Pt called after discharged. Pt said Can you mail me the lidocaine patches? I replied that There wasn't a prescription for home for the lidocaine patches. Pt replied God almighty and hung up before I could respond.
== END 2019-06-15 11:03 | disposition home or self-care (01) ==
LOC: ER 06-15 01:19 → ICU 06-15 09:35
PROVIDERS: Admitting Provider Internal Medicine; Emergency Provider Student in an Organized Health Care Education/Training Program; PCP Nurse Practitioner Family; Visit Provider Internal Medicine
DX: R07.89 Other chest pain (principal); F10.10 Alcohol abuse, uncomplicated; I25.10 Atherosclerotic heart disease of native coronary artery without angina pectoris; F17.210 Nicotine dependence, cigarettes, uncomplicated; J44.9 Chronic obstructive pulmonary disease, unspecified
CPT/HCPCS: 36415; 71275; 80053; 85652; 93005; 96361; 96374; 96375; 96376; 99217; 99220; 99285; 71045; 73030; 73130; 73701; 80320; 83880; 84484; 85025; 85379; 85610; 85730; 86140; 93010; G0378; J0131; J1885; J2930; J3490; J7620

== ENCOUNTER 2019-12-09 16:43 | Emergency (ER) | payer MEDICARE, MEDICAID, SELFPAY ==
[2019-12-09] VITALS (21 sets, daily range): BP systolic 107–141; BP diastolic 61–91; PULSE 67–109; RESP 11–21; TEMP 36.5; O2SAT 91–97
--- NOTE | 2019-12-09 17:07 | W.ED.GENAD ---
Discharge Plan Disposition Patient Disposition: HOME Condition: Stable Discharge Details Chief Complaint: GenMedical Clinical Impression: Right leg swelling, Chronic pain of right hip, Chronic cough, Smoker Primary Care Provider: Daija Rubalcava ED Provider: Leslie Brady Home Meds and New Rx's Prescriptions: Continued hydroxyzine HCl 25 mg tablet 25 mg PO QID PRN (Reason: itching) Qty: 30 RF: 0 nitroglycerin 0.4 MG tablet, sublingual 0.4 mg Sublingual PRN PRNRF: 0 trazodone 100 MG tablet 200 mg PO HS RF: 0 duloxetine [Cymbalta] 20 MG capsule,delayed release(DR/EC) 60 mg PO DAILY RF: 0 aspirin [Aspir-Low] 81 MG tablet,delayed release (DR/EC) 81 mg PO DAILY RF: 0 celecoxib [Celebrex] 100 mg Capsule 100 mg PO BID RF: 0 cyclobenzaprine 5 mg Tablet 5 mg PO TID PRNRF: 0 gabapentin 600 MG tablet 300 mg PO TID RF: 0 ipratropium bromide [Atrovent] 15 ML spray,non-aerosol 15 ml NS Q6H PRN PRNRF: 0 ProAir RespiClick 90 MCG aerosol powdr breath activated 90 mcg Inhalation Q4H PRN PRNRF: 0 mirtazapine 15 mg Tablet 15 mg PO HS RF: 0 cholecalciferol (vitamin D3) [Vitamin D3] 1,000 unit Capsule 2,000 unit PO DAILY RF: 0 clonazepam [Klonopin] 0.5 mg Tablet 0.5 mg PO HS RF: 0 atorvastatin 40 mg tablet 40 mg PO QHS Qty: 30 RF: 0 ibuprofen 600 mg tablet 600 mg PO Q8H PRN (Reason: pain) Qty: 20 RF: 0 acetaminophen 500 mg Tablet 500 mg PO Q6H PRN PRNRF: 0 albuterol sulfate [Ventolin HFA] 90 mcg/actuation Hfa Aerosol Inhaler 2 puff INHALATION QID PRNRF: 0 multivitamin Tablet 1 tab PO DAILY RF: 0 Discharge Instructions Instructions: Chronic Pain (ED), Chronic Cough (ED) Additional Instructions: Return to the hospital tomorrow morning for a right lower extremity ultrasound to rule out a blood clot in your leg. Call Sangeetha in the radiology department tomorrow morning after 7:30 AM at [phone] to schedule this ultrasound for tomorrow morning. Take caution when walking due to risk of serious head injury with falls when taking blood thinners. Return to the emergency department at any time if you develop any worsening or new concerning symptoms. Discharge Data Discharge Physician: Leslie Brady Medical Decision Making 69-year-old male with a history of alcohol abuse, COPD, coronary artery disease, depression, chronic back pain and right hip pain presents with right leg pain worsening over the last 5 months and even more over the last few days as well as intermittent cough. Patient states he feels like he has a chronic smoker's cough. Ex- and girlfriend are concerned about his cough as he can cough so forcefully that his face turns red . Patient denies any fever, shortness of breath or chest pain at any time. Patient states that he has had intermittent right hip pain for several years after he had a back fracture requiring surgery. He states it is been more constant over the past 5 months and is hurt more over the past few days. He has stairs at home which she traverses using a cane. He mainly tries to stay on 1 level due to the worsening pain over the last few days. He cannot take NSAIDs and denies any relief with Tylenol. Patient is a drinker and states he drinks 3 forty ounce beers daily. Girlfriend also admits to recent falls. They state he has had his right knee and also head but denies any history of LOC and states he has been acting appropriately. Patient has right lower extremity edema extending from proximal right leg down to foot. Skin appears dusky in color but he is neurovascular intact. Concern for possible DVT. We are unable to obtain an ultrasound at this time. History and presentation not consistent with PE, ACS. Will check screening labs, chest x-ray and check a d-dimer. We will give a dose of 2 mg morphine. Labs and imaging reviewed --white blood cell count 8. Troponin negative. D-dimer 11/03/2007. Alcohol 372. Patient is a daily drinker and I suspect this is his baseline as he is alert and oriented x3 and answering questions appropriately. Right hip x-ray negative. Chest x-ray negative for acute findings. 1919 --patient reassessed -he admitted to return of pain. He was given a dose of 4 mg morphine. He was able to ambulate with his cane and states this is better than his norm using his cane. Suspicion for right leg DVT. Patient has no signs of respiratory distress. He feels much better and is requesting to go home. Dose of Lovenox given here. An outpatient order was placed for right lower extremity ultrasound for patient to obtain in radiology tomorrow. 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 Patient is also complaining of right knee pain. He does admit to recent knee injury. There is some anterior ecchymosis with superficial abrasion but there is full range of motion and no obvious bony deformity or ligamentous laxity. He was offered a knee x-ray at this time but declined stating he can obtain this tomorrow if needed. Patient advised to take caution ambulating due to his history of alcohol with falls and a dose of anticoagulation. Medical Records Medical records reviewed: Yes I reviewed the patient's medical records. Imaging Data Radiologic Study: Radiologist's impression: XR Chest, 2 Views Exam date and time: 12/09/2019 6:27 PM Age: 69 years old Clinical indication: Pain; Other: Hip TECHNIQUE: Imaging protocol: XR of the chest Views: 2 views. COMPARISON: CR XR PORTABLE CHEST AP 06/14/2019 11:33 PM FINDINGS: Lungs: Hyperinflation suggesting COPD. Areas of lung scarring. Right apical linear scarring. No acute lung infiltrates or consolidation. A density over the left lower hemithorax appears to represent prominence of the costochondral junction. Pleural space: Unremarkable. No pleural effusion. No pneumothorax. Heart/Mediastinum: Normal heart size and mediastinal silhouette. Bones/joints: There is a lower thoracic near vertebral planum compression fracture which appears chronic. Upper lumbar fusion hardware is noted. Old right humeral neck fracture is suggested. Old right clavicle fracture. IMPRESSION: 1. COPD. 2. Right upper lobe scarring. 3. No acute infiltrates or edema. 4. Chronic skeletal changes. Old fractures. XR Right Hip with Pelvis when Performed Exam date and time: 12/09/2019 6:29 PM Age: 69 years old Clinical indication: Hip pain; Right hip TECHNIQUE: Imaging protocol: XR Right hip with pelvis 9 0 thank you performed. Views: 2 or 3 views. COMPARISON: No relevant prior studies available. FINDINGS: Bones/joints: Osteopenia. No acute fractures. No suspicious focal bone lesions. Bilateral uniform hip joint space narrowing consistent with arthritis. No erosions. Soft tissues: Surgical clips over the left inguinal region suggesting a previous hernia repair. Vasculature: Atherosclerotic aortoiliac calcifications. IMPRESSION: 1. Degenerative hip joint changes bilaterally. 2. No acute fracture or dislocation. 3. Lower lumbar spine degenerative disease. Lab Data Lab results reviewed: Yes I reviewed the patient's lab results. Labs: Laboratory Tests Range/Units 12/09/19 12/09/19 12/09/19 17:35 17:35 17:35 WBC (4.4-10.8) k/cumm 8.56 RBC (4.50-6.00) m/cumm 3.97 L Hgb (13.5-17.5) g/dL 15.5 Hct (40.0-50.0) % 43.0 MCV (80-95) fL 108.3 H MCH (27.0-33.0) pg 39.0 H MCHC (32.0-36.0) g/dL 36.0 RDW (11.8-14.1) % 13.1 Plt Count (130-400) x1000/uL 245 MPV (8.0-11.0) fL 8.9 Immature Gran % % 0.2 Neutrophils % 54.2 Lymphocytes % 31.5 Monocytes % 8.6 Eosinophils % 4.9 Basophils % 0.6 Absolute Neutrophils (1.2-6.7) k/cumm 4.63 Absolute Lymphocytes (1.2-3.4) k/cumm 2.70 Absolute Monocytes (0.11-0.7) k/cumm 0.74 H Absolute Eosinophils (0.0-0.7) k/cumm 0.42 Absolute Basophils (0.0-0.2) k/cumm 0.05 Differential Comment Rbc morph reviewed RBC Morphology See below Macrocytosis 2+ D-Dimer (<500) ng/mlFEU 1808 H Sodium (136-145) mmol/L 139 Potassium (3.5-5.1) mmol/L 3.4 L Chloride (98-107) mmol/L 101 Carbon Dioxide (21.0-32.0) mmol/L 23.8 Anion Gap (3-11) mmol/L 14.2 H BUN (7-18) mg/dL 3 L Creatinine (0.70-1.30) mg/dL 0.77 Estimated GFR/1.73 m2 (mL/min/1.73m2) >= 60.00 Glucose (74-106) mg/dL 133 H Calcium (8.5-10.1) mg/dL 8.1 L Magnesium (1.8-2.4) mg/dL 1.8 Total Bilirubin (0.2-1.0) mg/dL 0.3 AST (15-37) U/L 33 ALT (16-63) U/L 18 Alkaline Phosphatase (46-116) U/L 61 Troponin I (<0.06) ng/Ml < 0.05 Total Protein (6.4-8.2) g/dL 7.3 Albumin (3.4-5.0) g/dL 3.7 Ethyl Alcohol (<3) mg/dL Range/Units 12/09/19 17:35 WBC (4.4-10.8) k/cumm RBC (4.50-6.00) m/cumm Hgb (13.5-17.5) g/dL Hct (40.0-50.0) % MCV (80-95) fL MCH (27.0-33.0) pg MCHC (32.0-36.0) g/dL RDW (11.8-14.1) % Plt Count (130-400) x1000/uL MPV (8.0-11.0) fL Immature Gran % % Neutrophils % Lymphocytes % Monocytes % Eosinophils % Basophils % Absolute Neutrophils (1.2-6.7) k/cumm Absolute Lymphocytes (1.2-3.4) k/cumm Absolute Monocytes (0.11-0.7) k/cumm Absolute Eosinophils (0.0-0.7) k/cumm Absolute Basophils (0.0-0.2) k/cumm Differential Comment RBC Morphology Macrocytosis D-Dimer (<500) ng/mlFEU Sodium (136-145) mmol/L Potassium (3.5-5.1) mmol/L Chloride (98-107) mmol/L Carbon Dioxide (21.0-32.0) mmol/L Anion Gap (3-11) mmol/L BUN (7-18) mg/dL Creatinine (0.70-1.30) mg/dL Estimated GFR/1.73 m2 (mL/min/1.73m2) Glucose (74-106) mg/dL Calcium (8.5-10.1) mg/dL Magnesium (1.8-2.4) mg/dL Total Bilirubin (0.2-1.0) mg/dL AST (15-37) U/L ALT (16-63) U/L Alkaline Phosphatase (46-116) U/L Troponin I (<0.06) ng/Ml Total Protein (6.4-8.2) g/dL Albumin (3.4-5.0) g/dL Ethyl Alcohol (<3) mg/dL 372.9 HPI General Mode of arrival: wheelchair. Date/Time Provider Initiated Documentation: 12/09/19 16:49. Limitations to Documentation: no limitations. Information obtained by: patient and family. History of Present Illness 69 year old M presents to the emergency department with the chief complaint of Right leg pain, cough, Quality is described as aching and sharp, Patient started experiencing this month(s) (5 months, worse over the past few days) and it has been constant. No relieving factors improve symptom(s), Movement worsens symptoms . Patient notes cough; denies confusion, chest pain, fever/chills, headaches, loss of appetite, malaise, nausea/vomiting, rash, seizure, shortness of breath, syncope and weakness. Patient did receive the following treatments prior to arrival, none Related Data Home Medications Medication Instructions Recorded Confirmed nitroglycerin 0.4 mg SUBLINGUAL PRN PRN 12/20/13 12/09/19 duloxetine [Cymbalta] 60 mg PO DAILY 07/24/16 12/09/19 trazodone 200 mg PO HS 07/24/16 12/09/19 aspirin [Aspir-Low] 81 mg PO DAILY 12/02/16 12/09/19 ProAir RespiClick 90 mcg INHALATION Q4H PRN PRN 08/28/17 12/09/19 gabapentin 300 mg PO TID 08/28/17 12/09/19 ipratropium bromide [Atrovent] 15 ml NS Q6H PRN PRN 08/28/17 12/09/19 cholecalciferol (vitamin D3) 2,000 unit PO DAILY 04/08/19 12/09/19 [Vitamin D3] clonazepam [Klonopin] 0.5 mg PO HS 04/08/19 12/09/19 mirtazapine 15 mg PO HS 04/08/19 12/09/19 atorvastatin 40 mg PO QHS #30 tab 04/09/19 12/09/19 ibuprofen 600 mg PO Q8H PRN #20 tab 05/22/19 12/09/19 acetaminophen 500 mg PO Q6H PRN PRN 06/15/19 12/09/19 albuterol sulfate [Ventolin HFA] 2 puff INHALATION QID PRN 06/15/19 12/09/19 multivitamin 1 tab PO DAILY 06/15/19 12/09/19 hydroxyzine HCl 25 mg tablet 25 mg PO QID PRN #30 tab 07/04/19 12/09/19 celecoxib [Celebrex] 100 mg PO BID 12/09/19 12/09/19 cyclobenzaprine 5 mg PO TID PRN 12/09/19 12/09/19 Previous Rx's Medication Instructions Recorded atorvastatin 40 mg PO QHS #30 tab 04/09/19 ibuprofen 600 mg PO Q8H PRN #20 tab 05/22/19 hydroxyzine HCl 25 mg tablet 25 mg PO QID PRN #30 tab 07/04/19 Allergies Allergy/AdvReac Type Severity Reaction Status Date / Time Penicillins Allergy Severe Anaphylaxsi Unverified 12/09/19 17:02 s cephalexin monohydrate Allergy Unverified 12/09/19 17:02 [From Keflex] meperidine HCl [From Demerol] Allergy Skin Rash Unverified 12/09/19 17:02 clindamycin HCl AdvReac Severe see note Unverified 12/09/19 17:02 [From Cleocin] clindamycin palmitate HCl AdvReac Severe see comment Unverified 12/09/19 17:02 [From Cleocin] clindamycin phosphate AdvReac Severe see note Unverified 12/09/19 17:02 [From Cleocin] ketorolac tromethamine AdvReac Intermediate vomiting Unverified 12/09/19 17:02 [From Toradol] NSAIDS (Non-Steroidal AdvReac Intermediate Nausea Unverified 12/09/19 17:02 Anti-Inflamma propoxyphene HCl AdvReac Intermediate vomiting Unverified 12/09/19 17:02 [From Darvon] tramadol HCl [From Ultram] AdvReac Intermediate vomiting Unverified 12/09/19 17:02 General Stated Complaint: GenMedical THEODORE: 3 Review of Systems All systems reviewed & are unremarkable except as noted in HPI and below Constitutional Constitutional: Reports as per HPI, Denies chills and Denies fever(s) Eyes Eyes: Denies blurry vision ENT Ears, Nose, Mouth, and Throat: Denies dizziness, Denies sore throat and Denies throat swelling Cardiovascular Cardiovascular: Denies chest pain and Denies dyspnea Respiratory Respiratory: Reports cough and Denies dyspnea Gastrointestinal Gastrointestinal: Denies abdominal pain, Denies diarrhea and Denies vomiting Genitourinary Genitourinary: Denies hematuria and Denies dysuria Musculoskeletal Musculoskeletal: Denies back pain, Denies numbness and Reports other (Right leg pain extending from right hip to foot) Integumentary/Breasts Skin/Breast: Denies lesions and Denies rash Neurologic Neurologic: Denies dizziness, Denies focal weakness and Denies numbness Allergic/Immunologic Allergic/Immunologic: Denies throat swelling [facility] Medical History Alcoholism (Chronic) Anxiety (Chronic) BPH (benign prostatic hyperplasia) (Chronic) CAD (coronary artery disease) (Chronic) Chronic back pain (Chronic) COPD (chronic obstructive pulmonary disease) (Chronic) Depression (Chronic) GERD (gastroesophageal reflux disease) (Chronic) History of myocardial infarction (Resolved) Osteoarthritis (Chronic) Prostatitis (Resolved 06/04/17) Surgical History H/O bilateral inguinal hernia repair (Resolved) History of bilateral knee replacement (Resolved) History of cholecystectomy (Resolved) Previous back surgery (Chronic) S/P tonsillectomy and adenoidectomy (Resolved) Social History Smoking/Tobacco Use Status: Current every day Tobacco Type: cigarettes Smoking packs per day: 3 Smoking cigarettes per day: 60.0 Tobacco: How many years used: 50 Alcohol Intake: current Alcohol Intake frequency: 0-2 drinks per day Alcohol type: beer Drug use: Never Substance use type: does not use Details: 40oz beer Do you feel safe at home: Yes Do you feel safe in your relationship?: Yes Exam Const General: cooperative, no acute distress, disheveled and intoxicated appearing (minimal, at baseline) Orientation: alert, awake and oriented x3 [facility] Head: normal to inspection Face and sinus: normal facial exam Eyes General: appearance normal, both eyes and all related structures Pupils: PERRL EOM: EOM intact bilaterally Neck Neck: normal visual inspection and No submandibular swelling Lymphatic: no lymphadenopathy noted Chest Chest: normal inspection of the chest and no tenderness Resp Effort & Inspection: normal respiratory effort and able to speak in complete sentences Auscultation: clear to auscultation bilaterally Cardio Rate: regular rate Rhythm: regular rhythm GI Inspection: normal to inspection Palpation: soft, not firm, not rigid and nontender Auscultation: normal bowel sounds Back/Spine/Pelvis Thoracic/Lumbar Spine: thoracic and lumbar spine normal to inspection Pelvis: no pain with anterior-posterior compression Skin General skin exam: no rashes or lesions noted Neuro General: alert, awake and oriented x3 Cognition: normal cognition Speech: speech normal Motor: muscle tone normal throughout Sensory Exam: no sensory deficits noted Extrem Other: Pain in right hip with range of motion. No deformities noted. No ecchymosis or edema noted to right hip. Superficial abrasion noted to right anterior knee. No signs of infection. Moderate 2+ pitting edema and duskiness of skin noted to distal right lower extremity extending from proximal leg down to foot. Right PT and DP pulses intact. No left lower extremity edema. Left DP and PT pulses intact. Full range of motion of bilateral upper extremities without pain or obvious trauma. Normal range of motion left lower extremity without pain or evidence of trauma. Psych Appearance: grossly normal Mental Status: mental status grossly normal Speech and Movement: speech and movement normal Affect: normal affect Course Vital Signs Vital signs: Vital Signs Temperature 97.7 F 12/09/19 16:56 Pulse 108 H 12/09/19 16:56 Respiratory Rate 12/09/19 16:56 Blood Pressure 128/65 12/09/19 16:56 Pulse Oximetry 96 12/09/19 16:56 Temperature 97.7 F 12/09/19 16:56 Temperature Source Oral 12/09/19 16:56 Pulse 108 H 12/09/19 16:56 Respiratory Rate 20 12/09/19 16:56 Respiratory Effort 12/09/19 16:56 Blood Pressure 128/65 12/09/19 16:56 Blood Pressure Position Supine 12/09/19 16:56 Pulse Oximetry 96 12/09/19 16:56 Oxygen Delivery Method Room Air 12/09/19 16:56 Oxygen Flow Rate 0 12/09/19 16:56 Pain Level 10 12/09/19 16:56
--- NOTE | 2019-12-09 17:30 | DI.RAD_ITS ---
EXAM: XR CHEST 2V PA LATERAL INDICATION: cough, r/o pneumonia. COMPARISON: XR CHEST 2V PA LATERAL from 05/22/2019 XR PORTABLE CHEST AP from 06/14/2019 TECHNIQUE: 2D digital imaging was performed. FINDINGS: The heart size and pulmonary vasculature are stable and within normal limits. There is pulmonary sca rring which appears stable. No acute infiltrates, effusions or pneumothoraces are identified. There are old bilateral rib fractures. There is an old right humeral fracture. Old thoracic spine fractu re is again noted. Superior aspect of the spinal surgery is seen in the upper lumbar spine. The lung s are hyperinflated consistent with underlying COPD. IMPRESSION: No acute pulmonary process.
[2019-12-09 17:47] LABS: Abs Immature Grans 0.02 k/cumm (0.0-0.09); Absolute Basophil Count 0.05 k/cumm (0.0-0.2); Absolute Eosinophil Count 0.42 k/cumm (0.0-0.7); Absolute Monocyte Count 0.74 k/cumm (0.11-0.7); Absolute Neutrophil Count 4.63 k/cumm (1.2-6.7); Basophils % 0.6; Eosinophils % 4.9; HGB 15.5 g/dL (13.5-17.5); Immature Grans % 0.2 %; Lymphocytes % 31.5; Mean Corpuscular Volume 108.3 fL (80-95); Mean Platelet Volume 8.9 fL (8.0-11.0); Monocytes % 8.6; Neutrophils % 54.2; Platelet Count 245 x1000/uL (130-400); RBC 3.97 m/cumm (4.50-6.00); RBC Distribution Width 13.1 % (11.8-14.1); White Blood Cell Count 8.56 k/cumm (4.4-10.8)
[2019-12-09 18:01] LABS: ETHANOL BLOOD 372.9 mg/dL (<3)
[2019-12-09 18:03] LABS: ALT 18 U/L (16-63); AST 33 U/L (15-37); Albumin 3.7 g/dL (3.4-5.0); Alkaline Phosphatase 61 U/L (46-116); Anion Gap 14.2 mmol/L (3-11); BUN 3 mg/dL (7-18); Bilirubin, Total 0.3 mg/dL (0.2-1.0); CO2 23.8 mmol/L (21.0-32.0); CREATININE 0.77 mg/dL (0.70-1.30); Calcium 8.1 mg/dL (8.5-10.1); Chloride 101 mmol/L (98-107); Glucose 133 mg/dL (74-106); Magnesium 1.8 mg/dL (1.8-2.4); Potassium 3.4 mmol/L (3.5-5.1); Sodium 139 mmol/L (136-145); Total Protein 7.3 g/dL (6.4-8.2)
[2019-12-09 18:04] LABS: Diff Comment RBC Morph Reviewed; Macrocytosis 2+; Troponin I < 0.05 ng/Ml (<0.06)
--- NOTE | 2019-12-09 18:15 | DI.RAD_ITS ---
EXAM: XR HIP RT COMPLETE AP PELVIS INDICATION: R hip pain, r/o acute process. COMPARISON: No previous for comparison. TECHNIQUE: 2D digital imaging was performed. FINDINGS: No acute fracture or dislocation is seen in the right hip. Mild degenerative changes are seen in the hips bilaterally. The sacroiliac joints and symphysis pubis appear intact. Vascular calcifications are seen in the soft tissues. IMPRESSION: No acute abnormality.
[2019-12-09 18:25] LABS: D-Dimer 1808 ng/mlFEU (<500)
--- NOTE | 2019-12-09 18:35 | DI.VRAD_ITS ---
PROCEDURE INFORMATION: Exam: XR Chest, 2 Views Exam date and time: 12/09/2019 6:27 PM Age: 69 years old Clinical indication: Pain; Other: Hip TECHNIQUE: Imaging protocol: XR of the chest Views: 2 views. COMPARISON: CR XR PORTABLE CHEST AP 06/14/2019 11:33 PM FINDINGS: Lungs: Hyperinflation suggesting COPD. Areas of lung scarring. Right apical linear scarring. No acute lung infiltrates or consolidation. A density over the left lower hemithorax appears to represent prominence of the costochondral junction. Pleural space: Unremarkable. No pleural effusion. No pneumothorax. Heart/Mediastinum: Normal heart size and mediastinal silhouette. Bones/joints: There is a lower thoracic near vertebral planum compression fracture which appears chronic. Upper lumbar fusion hardware is noted. Old right humeral neck fracture is suggested. Old right clavicle fracture. IMPRESSION: 1. COPD. 2. Right upper lobe scarring. 3. No acute infiltrates or edema. 4. Chronic skeletal changes. Old fractures. Dictated and Authenticated by: Harry Lopez MD. Ordering:STEPHANE Nelson MD
--- NOTE | 2019-12-09 18:37 | DI.VRAD_ITS ---
PROCEDURE INFORMATION: Exam: XR Right Hip with Pelvis when Performed Exam date and time: 12/09/2019 6:29 PM Age: 69 years old Clinical indication: Hip pain; Right hip TECHNIQUE: Imaging protocol: XR Right hip with pelvis 9 0 thank you performed. Views: 2 or 3 views. COMPARISON: No relevant prior studies available. FINDINGS: Bones/joints: Osteopenia. No acute fractures. No suspicious focal bone lesions. Bilateral uniform hip joint space narrowing consistent with arthritis. No erosions. Soft tissues: Surgical clips over the left inguinal region suggesting a previous hernia repair. Vasculature: Atherosclerotic aortoiliac calcifications. IMPRESSION: 1. Degenerative hip joint changes bilaterally. 2. No acute fracture or dislocation. 3. Lower lumbar spine degenerative disease. Dictated and Authenticated by: Harry Lopez MD. Ordering:STEPHANE Nelson MD
--- NOTE | 2019-12-09 19:48 | NUR.NOTE ---
Nursing Note:1930- Pt ambulated from room into [facility] using cane and stand by assist of 2. Tolerated well. Pt states I usually don't walk this good. Denies increase in pain with ambulation.
[2019-12-09] MEDS: Enoxaparin 80 MG/0.8 ML SYR 70 MG SC (20:12)
[2019-12-09 20:35] LABS: PTT Activated 28.3 sec (21.0-31.4); Prothrombin Time 10.4 sec (9.3-11.0)
== END 2019-12-09 20:40 | disposition home or self-care (01) ==
PROVIDERS: Emergency Provider Physician Assistant; PCP Nurse Practitioner Family
DX: R60.0 Localized edema (principal); M25.551 Pain in right hip; G89.29 Other chronic pain; R05 Cough; J44.9 Chronic obstructive pulmonary disease, unspecified; F17.210 Nicotine dependence, cigarettes, uncomplicated; F10.220 Alcohol dependence with intoxication, uncomplicated; Y90.8 Blood alcohol level of 240 mg/100 ml or more
CPT/HCPCS: 36415; 80053; 96372; 96374; 96376; 99284; 71046; 73502; 80320; 83735; 84484; 85025; 85379; 85610; 85730; 99285; J1650

== ENCOUNTER 2020-01-28 18:27 | Emergency (ER) | payer MEDICARE, MEDICAID, SELFPAY ==
[2020-01-28] VITALS (15 sets, daily range): BP systolic 106–121; BP diastolic 59–67; PULSE 97–111; RESP 14–23; O2SAT 91–95
--- NOTE | 2020-01-28 18:30 | ED.GENADUL_ITS ---
Discharge Plan Disposition Patient Disposition: HOME Condition: Stable Discharge Details Chief Complaint: GenMedical Clinical Impression: Right leg swelling Primary Care Provider: Daija Rubalcava ED Provider: Gaetano Boggs Home Meds and New Rx's Prescriptions: No Action hydroxyzine HCl 25 mg tablet 25 mg PO QID PRN (Reason: itching) Qty: 30 RF: 0 nitroglycerin 0.4 MG tablet, sublingual 0.4 mg Sublingual PRN PRNRF: 0 trazodone 100 MG tablet 200 mg PO HS RF: 0 duloxetine [Cymbalta] 20 MG capsule,delayed release(DR/EC) 60 mg PO DAILY RF: 0 aspirin [Aspir-Low] 81 MG tablet,delayed release (DR/EC) 81 mg PO DAILY RF: 0 celecoxib [Celebrex] 100 mg Capsule 100 mg PO BID RF: 0 gabapentin 600 MG tablet 300 mg PO TID RF: 0 ipratropium bromide [Atrovent] 15 ML spray,non-aerosol 15 ml NS Q6H PRN PRNRF: 0 ProAir RespiClick 90 MCG aerosol powdr breath activated 90 mcg Inhalation Q4H PRN PRNRF: 0 mirtazapine 15 mg Tablet 15 mg PO HS RF: 0 cholecalciferol (vitamin D3) [Vitamin D3] 1,000 unit Capsule 2,000 unit PO DAILY RF: 0 clonazepam [Klonopin] 0.5 mg Tablet 0.5 mg PO HS RF: 0 atorvastatin 40 mg tablet 40 mg PO QHS Qty: 30 RF: 0 ibuprofen 600 mg tablet 600 mg PO Q8H PRN (Reason: pain) Qty: 20 RF: 0 acetaminophen 500 mg Tablet 500 mg PO Q6H PRN PRNRF: 0 albuterol sulfate [Ventolin HFA] 90 mcg/actuation Hfa Aerosol Inhaler 2 puff INHALATION QID PRNRF: 0 multivitamin Tablet 1 tab PO DAILY RF: 0 Discharge Instructions Instructions: Leg Edema (ED) Additional Instructions: Work-up in the ER this evening has been unremarkable for emergent process. A single dose of Lovenox was given this evening and I have set you up for an ultrasound tomorrow of your right lower extremity to rule out DVT. Recommend going to radiology registration at 9:45 AM. Wait for results, they will be given to you from the ER. Please watch for new or worsening symptoms and return to the ER for any concerns. Otherwise I recommend contacting your primary care provider first thing Friday morning for prompt outpatient reevaluation Medical Decision Making 69-year-old gentleman reporting increased right leg pain and swelling when compared to his baseline discomfort for the past 6-7 years. Denies any chest pain or shortness of breath. He actually had a very similar visit back in November however the following day did not get his ultrasound of his right lower extremity rule out DVT. He presents with tachycardia, given his noncompliance of ultrasound, will obtain chest CTA this evening to rule out PE. In the meantime will obtain routine laboratory values including cardiac work-up, BNP given the edema and to assess for possible heart strain. Patient will be given 1 mg IV morphine. Upon reevaluation patient is resting comfortably, heart rate of 92. He is requesting more pain medication however with an alcohol over 250 I am hesitant to give additional medication that may cause sedation. Patient is aware and agreeable to this. ER work-up reveals WBC 6.02, hemoglobin 14.3, hematocrit 41.7, MCV 109.7, d-dimer 1148, calcium 8.3. Troponin is less than 0.05, BNP of 63. CTA read by virtual radiology as no pulmonary emboli. Upon reevaluation patient is using the telephone talking to his significant other without difficulty. He was witnessed ambulating to the restroom without difficulty. I was able to set him up for an ultrasound tomorrow at 945 of his right lower extremity rule out DVT. In the meantime will give a single dose of Lovenox now. Patient will have ultrasound tomorrow and receive results afterward from the ER. We also discussed the importance of outpatient follow-up through his primary care provider especially if they are in the process of setting him up with a vascular specialist at [facility]. Patient has no additional questions or concerns and is comfortable discharge at this time. HPI General Mode of arrival: EMS . Date/Time Provider Initiated Documentation: 01/28/20 18:29 . Limitations to Documentation: no limitations . Information obtained by: patient and EMS . HPI Narrative: This is a 69-year-old gentleman with a history of chronic hip pain, chronic right leg swelling, smoker, hyponatremia, CAD, alcoholism, presenting to the ER today via EMS for what he describes as increased chronic right lower leg pain and swelling. Denies recent illness or trauma. Patient was seen what he describes roughly 1 month ago, never followed up to have his outpatient ultrasound to rule out DVT. He denies any chest pain or shortness of breath. He describes a dry chronic cough, no change whatsoever. Denies fever. Patient currently reports that his pain is a 10 out of 10 and requesting IV pain medication. He reports that he spoke with his primary care provider today, who subsequently spoke with a vascular specialist in [facility], and they will come up with a plan however the patient cannot give me much additional information. Related Data Home Medications Medication Instructions Recorded Confirmed nitroglycerin 0.4 mg SUBLINGUAL PRN PRN 12/20/13 01/28/20 duloxetine [Cymbalta] 60 mg PO DAILY 07/24/16 01/28/20 trazodone 200 mg PO HS 07/24/16 01/28/20 aspirin [Aspir-Low] 81 mg PO DAILY 12/02/16 01/28/20 ProAir RespiClick 90 mcg INHALATION Q4H PRN PRN 08/28/17 01/28/20 gabapentin 300 mg PO TID 08/28/17 01/28/20 ipratropium bromide [Atrovent] 15 ml NS Q6H PRN PRN 08/28/17 01/28/20 cholecalciferol (vitamin D3) 2,000 unit PO DAILY 04/08/19 01/28/20 [Vitamin D3] clonazepam [Klonopin] 0.5 mg PO HS 04/08/19 01/28/20 mirtazapine 15 mg PO HS 04/08/19 01/28/20 atorvastatin 40 mg PO QHS #30 tab 04/09/19 01/28/20 ibuprofen 600 mg PO Q8H PRN #20 tab 05/22/19 01/28/20 acetaminophen 500 mg PO Q6H PRN PRN 06/15/19 01/28/20 albuterol sulfate [Ventolin HFA] 2 puff INHALATION QID PRN 06/15/19 01/28/20 multivitamin 1 tab PO DAILY 06/15/19 01/28/20 hydroxyzine HCl 25 mg tablet 25 mg PO QID PRN #30 tab 07/04/19 01/28/20 celecoxib [Celebrex] 100 mg PO BID 12/09/19 01/28/20 Previous Rx's Medication Instructions Recorded atorvastatin 40 mg PO QHS #30 tab 04/09/19 ibuprofen 600 mg PO Q8H PRN #20 tab 05/22/19 hydroxyzine HCl 25 mg tablet 25 mg PO QID PRN #30 tab 07/04/19 Allergies Allergy/AdvReac Type Severity Reaction Status Date / Time Penicillins Allergy Severe Anaphylaxsi Unverified 01/28/20 18:30 s cephalexin monohydrate Allergy Unverified 01/28/20 18:30 [From Keflex] meperidine HCl [From Demerol] Allergy Skin Rash Unverified 01/28/20 18:30 clindamycin HCl AdvReac Severe see note Unverified 01/28/20 18:30 [From Cleocin] clindamycin palmitate HCl AdvReac Severe see comment Unverified 01/28/20 18:30 [From Cleocin] clindamycin phosphate AdvReac Severe see note Unverified 01/28/20 18:30 [From Cleocin] ketorolac tromethamine AdvReac Intermediate vomiting Unverified 01/28/20 18:30 [From Toradol] NSAIDS (Non-Steroidal AdvReac Intermediate Nausea Unverified 01/28/20 18:30 Anti-Inflamma propoxyphene HCl AdvReac Intermediate vomiting Unverified 01/28/20 18:30 [From Darvon] tramadol HCl [From Ultram] AdvReac Intermediate vomiting Unverified 01/28/20 18:30 General Stated Complaint: GenMedical THEODORE: 3 Review of Systems Constitutional Constitutional: Denies fatigue, Denies fever(s) and Denies weakness Eyes Eyes: Denies change in vision ENT Ears, Nose, Mouth, and Throat: Denies sore throat Cardiovascular Cardiovascular: Denies chest pain and Denies dyspnea Respiratory Respiratory: Reports cough (Chronic, dry) and Denies dyspnea Gastrointestinal Gastrointestinal: Denies abdominal pain, Denies nausea and Denies vomiting Genitourinary Genitourinary: Denies dysuria Musculoskeletal Musculoskeletal: Reports back pain (Chronic), Denies numbness and Denies tingling Integumentary/Breasts Skin/Breast: Denies rash Neurologic Neurologic: Denies numbness, Denies tingling and Denies weakness Endocrine Endocrine: Denies fatigue [facility] Medical History Alcoholism (Chronic) Anxiety (Chronic) BPH (benign prostatic hyperplasia) (Chronic) CAD (coronary artery disease) (Chronic) Chronic back pain (Chronic) COPD (chronic obstructive pulmonary disease) (Chronic) Depression (Chronic) GERD (gastroesophageal reflux disease) (Chronic) History of myocardial infarction (Resolved) Osteoarthritis (Chronic) Prostatitis (Resolved 06/04/17) Surgical History H/O bilateral inguinal hernia repair (Resolved) History of bilateral knee replacement (Resolved) History of cholecystectomy (Resolved) Previous back surgery (Chronic) S/P tonsillectomy and adenoidectomy (Resolved) Social History Smoking/Tobacco Use Status: Current every day Tobacco Type: cigarettes Smoking packs per day: 3 Smoking cigarettes per day: 60.0 Tobacco: How many years used: 50 Alcohol Intake: current Alcohol Intake frequency: 0-2 drinks per day Alcohol type: beer Drug use: Never Substance use type: does not use Details: 40oz beer Do you feel safe at home: Yes Do you feel safe in your relationship?: Yes Exam Const General: cooperative, healthy appearing, comfortable and no acute distress Orientation: alert, awake and oriented x3 HENMT Head: normal to inspection, normocephalic and atraumatic Mouth: moist mucous membranes Throat: posterior oropharynx normal Eyes Conjunctivae: conjunctivae normal Neck Neck: normal visual inspection, full ROM, trachea midline and supple Chest Chest: normal inspection of the chest and normal palpation of entire chest wall Resp Effort & Inspection: normal respiratory effort, able to speak in complete sentences and no cough Auscultation: clear to auscultation bilaterally Cardio Rate: bradycardic (Rate of 104) Rhythm: regular rhythm GI Inspection: normal to inspection Palpation: soft, not firm, no guarding and nontender Skin General skin exam: no rashes or lesions noted Neuro General: patient alert, patient awake, patient oriented x3, moves all extremities and no focal motor deficits Motor: muscle tone normal throughout and strength 5/5 throughout Sensory Exam: no sensory deficits noted Extrem Right lower extremity: full ROM and normal capillary refill; no cyanosis and joint enlargement noted Other: Right lower extremity distal to the knee with diffuse mild-moderate swelling, worse over the dorsum of the foot. There is no point tenderness. There is no warmth, erythema. Normal capillary refill. Normal dorsalis pedal pulse. Neuro, vascular, tendon intact Psych Appearance: grossly normal Mental Status: mental status grossly normal Course Vital Signs Vital signs: Vital Signs Pulse 108 H 01/28/20 18:25 Respiratory Rate 16 01/28/20 18:25 Blood Pressure 121/67 01/28/20 18:25 Pulse Oximetry 95 01/28/20 18:25 Pulse 108 H 01/28/20 18:25 Respiratory Rate 16 01/28/20 18:25 Respiratory Effort Non-Labored 01/28/20 18:28 Blood Pressure 121/67 01/28/20 18:25 Blood Pressure Position Sitting 01/28/20 18:25 Pulse Oximetry 95 01/28/20 18:25 Oxygen Delivery Method Room Air 01/28/20 18:25 Oxygen Flow Rate 0 01/28/20 18:25 Pain Level 10 01/28/20 18:25
--- NOTE | 2020-01-28 18:45 | DI.CT_ITS ---
EXAM: CT CHEST PE CTA CLINICAL HISTORY: Right leg swelling, tachycardia. TECHNIQUE: Imaging Protocol: Axial CT angiography was performed with multi-slice acquisition and mu lti-planar and/or 3D reconstructions. CONTRAST MATERIAL: Intravenous: Omnipaque 350 Contrast volume:63 ml COMPARISON: XR shoulder RT complete 2+V from 06/14/2019 CT CHEST PE CTA from 06/15/2019 FINDINGS: Pulmonary Arteries: No evidence of filling defect to suggest pulmonary emboli. Tracheobronchial tree: Patent where visualized. Mediastinum and Tiff: No dominant adenopathy or fluid collection. Pulmonary parenchyma: No consolidation or dominant measurable mass. Stable emphysematous changes are seen in the lungs bilaterally. Parenchymal calcifications are again seen in the right lung apex and are stable. Pleura: No effusion or pneumothorax. Heart: The heart is not dilated. Moderately severe coronary artery calcifications are present. No pe ricardial effusion. Aorta: Thoracic aorta non-dilated. No evidence of thoracic aortic dissection. Upper abdomen: Status post cholecystectomy. Bones: Old bilateral healed rib fractures. Stable T8 and L1 compression fracture deformities. Poste rior spinal instrumentation in the lower thoracic and upper lumbar spine.Old right proximal humeral f racture. Limitations: There is patient motion artifact. IMPRESSION: No evidence of pulmonary embolism, thoracic aortic dissection or aneurysm. DATA REPOSITORY: All CT scans at this facility are submitted to the National Radiology Data Registry (NRDR) Dose Index Registry (DIR) with the [employer] (ACR). RADIATION OPTIMIZATION: All CT scans at this facility use at least one of these dose optimization te chniques: automated exposure control; mA and/or kV adjustment per patient size (includes targeted exa ms where dose is matched to clinical indication); or iterative reconstruction.
[2020-01-28 19:04] LABS: Abs Immature Grans 0.03 k/cumm (0.0-0.09); Absolute Basophil Count 0.01 k/cumm (0.0-0.2); Absolute Eosinophil Count 0.39 k/cumm (0.0-0.7); Absolute Lymphocyte Count 2.44 k/cumm (1.2-3.4); Absolute Monocyte Count 0.93 k/cumm (0.11-0.7); Absolute Neutrophil Count 2.22 k/cumm (1.2-6.7); Basophils % 0.2; Eosinophils % 6.5; HCT 41.7 % (40.0-50.0); HGB 14.3 g/dL (13.5-17.5); Immature Grans % 0.5 %; Lymphocytes % 40.5; Mean Corp. HGB Concentration 34.3 g/dL (32.0-36.0); Mean Corpuscular Hemoglobin 37.6 pg (27.0-33.0); Mean Corpuscular Volume 109.7 fL (80-95); Monocytes % 15.4; Neutrophils % 36.9; Platelet Count 229 x1000/uL (130-400); RBC Distribution Width 13.4 % (11.8-14.1); White Blood Cell Count 6.02 k/cumm (4.4-10.8)
[2020-01-28 19:16] LABS: ETHANOL BLOOD 255.9 mg/dL (<3)
[2020-01-28 19:23] LABS: Prothrombin Time 10.4 sec (9.3-11.0)
[2020-01-28 19:27] LABS: ALT 32 U/L (16-63); AST 41 U/L (15-37); Albumin 3.6 g/dL (3.4-5.0); Alkaline Phosphatase 73 U/L (46-116); Anion Gap 9.8 mmol/L (3-11); BUN 8 mg/dL (7-18); Bilirubin, Total 0.2 mg/dL (0.2-1.0); CO2 26.2 mmol/L (21.0-32.0); CREATININE 0.83 mg/dL (0.70-1.30); Calcium 8.3 mg/dL (8.5-10.1); Chloride 107 mmol/L (98-107); Glucose 90 mg/dL (74-106); NT-proBNP 63 pg/mL (<300); Potassium 3.6 mmol/L (3.5-5.1); Sodium 143 mmol/L (136-145); Total Protein 7.4 g/dL (6.4-8.2)
[2020-01-28 19:28] LABS: Troponin I < 0.05 ng/Ml (<0.06)
[2020-01-28 19:53] LABS: D-Dimer 1148 ng/mlFEU (<500)
[2020-01-28] MEDS: Omnipaque 350 MG/ML 100 ML BTL IJ (20:06)
[2020-01-28] MEDS: Normal Saline - Diluent 50 ML VIAL IV (20:07)
[2020-01-28] MEDS: Normal Saline Flush 10 ML SYR IVP (20:07)
--- NOTE | 2020-01-28 20:29 | DI.VRAD_ITS ---
PROCEDURE INFORMATION: Exam: CT Angiography Chest With Contrast Exam date and time: 01/28/2020 8:07 PM Age: 69 years old Clinical indication: Other: RT leg swelling, tachycardia TECHNIQUE: Imaging protocol: Computed tomographic angiography of the chest with intravenous contrast. 3D rendering: MIP and/or 3D reconstructed images were created by the technologist. Radiation optimization: All CT scans at this facility use at least one of these dose optimization techniques: automated exposure control; mA and/or kV adjustment per patient size (includes targeted exams where dose is matched to clinical indication); or iterative reconstruction. Contrast material: OMNIPAQUE 350; Contrast volume: 63 ml; Contrast route: IV; COMPARISON: CT CHEST PE CTA 06/15/2019 12:15 AM FINDINGS: Pulmonary arteries: No pulmonary emboli. Aorta: No aortic aneurysm. No aortic dissection. Lungs: Motion artifact limits evaluation of the lungs. Paraseptal emphysema within the apices bilaterally. Pleural space: No pneumothorax. No pleural effusion. Heart: Coronary arterial calcifications. Gallbladder and bile ducts: Status post cholecystectomy. Lymph nodes: Calcified peripancreatic lymph nodes. Bones/joints: Right proximal humerus deformity, fracture of indeterminate chronicity. Deformities of healed rib fractures on the right. Status post posterior spinal instrumentation and fusion at the lower thoracic /upper lumbar spine level. Compression fracture, approximately T8 level, chronic. Chronic compression fracture, approximately L1 level. Soft tissues: Unremarkable. Other findings: Calcified granuloma at the right apex. IMPRESSION: No pulmonary emboli. Dictated and Authenticated by: Shahab Garcia MD. Ordering:JASON Salter MD
[2020-01-28] MEDS: Enoxaparin 80 MG/0.8 ML SYR 70 MG SC (20:52)
== END 2020-01-28 21:55 | disposition home or self-care (01) ==
LOC: ER 20:52
PROVIDERS: Emergency Provider Physician Assistant; PCP Nurse Practitioner Family
DX: R60.0 Localized edema (principal); R00.0 Tachycardia, unspecified; Z91.19 Patient's noncompliance with other medical treatment and regimen; J44.9 Chronic obstructive pulmonary disease, unspecified; F17.210 Nicotine dependence, cigarettes, uncomplicated; M79.604 Pain in right leg
CPT/HCPCS: 71275; 80053; 93005; 96374; 99285; 80320; 83880; 84484; 85025; 85379; 85610; 85730; 93010; J1650; J3490

== ENCOUNTER 2020-02-16 19:58 | Emergency (ER) | payer MEDICARE, MEDICAID, SELFPAY ==
[2020-02-16] VITALS (8 sets, daily range): BP systolic 119–140; BP diastolic 76–91; PULSE 91–108; RESP 21–29; TEMP 36.5; O2SAT 95–97
[2020-02-16] MEDS: Normal Saline Flush 10 ML SYR IVP (20:00)
--- NOTE | 2020-02-16 20:06 | ED.GENADUL_ITS ---
Discharge Plan Disposition Patient Disposition: HOME Condition: Stable Discharge Details Chief Complaint: Seizure Clinical Impression: Seizure Primary Care Provider: Daija Rubalcava ED Provider: Calvin Orlando Home Meds and New Rx's Prescriptions: Continued nitroglycerin 0.4 MG tablet, sublingual 0.4 mg Sublingual PRN PRNRF: 0 trazodone 100 MG tablet 250 mg PO HS RF: 0 duloxetine [Cymbalta] 60 mg Capsule,Delayed Release(Dr/Ec) 60 mg PO RF: 0 clonazepam [Klonopin] 0.5 mg Tablet 0.5 mg PO ONCE HS RF: 0 zolpidem 10 mg Tablet 10 mg PO HS RF: 0 atorvastatin 40 mg Tablet 40 mg PO DAILY RF: 0 celecoxib [Celebrex] 100 mg Capsule 100 mg PO DAILY RF: 0 mirtazapine 15 mg Tablet 30 mg PO HS RF: 0 albuterol sulfate [Ventolin HFA] 90 mcg/actuation Hfa Aerosol Inhaler 2 puff INHALATION QID PRNRF: 0 Discharge Instructions Instructions: Recurrent Seizures in Adults (ED) Additional Instructions: follow up with your primary care provider within 1 week Do not bathe/swim alone or drive any motor vehicle until cleared by your primary care provider return to the emergency department if you have multiple seizures with no return to baseline in between, high fevers or if you feel more ill Medical Decision Making 69 yo male with hx of cad, alcoholic withdrawal seizures in the past who states he has a few cans of beers every few days denies other drug use, who comes in with chief complaint of seizures. He apparently was feeling well and had a tonic clonic seizure witnessed by his girlfriend earlier today lasting a few minutes. EMS evaluated him and he declined transfer to the hospital. He then again this evening had another tonic clonic seizure per report again reportedly witnessed by girlfriend again and ems brought him here for an eval. He arrives caox4 without any complains feels well. Denies headaches, fevers, chills, cough, dyspnea, abdominal pain, has NIH of 0 on my exam speaking in full sentences without tremors. Suspect seizure disorder vs alcoholic withdrawal seizure though he doesn't show any other current evidence of alcohol withdrawal. Will obtain ct head to eval for possible ich, and evaluate for electrolyte abnormalities and monitor. labs and imaging shows no acute findings noted some occlusion of left auditory canal but I am able to visualize the TM does have some wax build up. Remains without any indication of alcohol withdrawal on exam and has no compalints. I did recommend admission for observation given 2 seizures but he declines as he feels well. HE has the capacity to make his own decisions and understands the risks of leaving including and disability and is willing to accept these risks. He is advised to not swim/bathe niru and not drive which he already doesn't do. Will have him f/u with pcp and return precautions given Differential Diagnosis Differential Diagnosis: seizure disorder, alcoholic seizures, hyponatremia Medical Records Medical records reviewed: Yes I reviewed the patient's medical records. Imaging Data Radiologic Study: Attestation: I personally reviewed and interpreted this imaging study as follows: Imaging: CT Scan Radiologist's impression: IMPRESSION: 1. No acute intracranial abnormality. 2. Debris occluding the left auditory canal. Patient could benefit from removal of the debris for improved tearing and balance. Lab Data Lab results reviewed: Yes I reviewed the patient's lab results. ECG Data Attestation: I personally reviewed and interpreted this ECG (s) as follows: Prior ECG tracings: not available for review Interpretation: sinus rhtyhm, rate of 99, pr 128, qtc 488, no acute st t wave ischemic findings HPI General Mode of arrival: EMS . Date/Time Provider Initiated Documentation: 02/16/20 20:04 . Limitations to Documentation: no limitations . Information obtained by: patient . History of Present Illness 69 year old M presents to the emergency department with the chief complaint of seizure, described as moderate, Patient started experiencing this day(s) (1) and it has been intermittent. No relieving factors improve symptom(s), No exacerbating factors reported . Patient notes no other symptoms.. Patient did receive the following treatments prior to arrival, none Related Data Home Medications Medication Instructions Recorded Confirmed nitroglycerin 0.4 mg SUBLINGUAL PRN PRN 12/20/13 02/16/20 trazodone 250 mg PO HS 07/24/16 02/16/20 mirtazapine 30 mg PO HS 04/08/19 02/16/20 albuterol sulfate [Ventolin HFA] 2 puff INHALATION QID PRN 06/15/19 02/16/20 atorvastatin 40 mg PO DAILY 02/16/20 02/16/20 celecoxib [Celebrex] 100 mg PO DAILY 02/16/20 02/16/20 clonazepam [Klonopin] 0.5 mg PO ONCE HS 02/16/20 02/16/20 duloxetine [Cymbalta] 60 mg PO 02/16/20 zolpidem 10 mg PO HS 02/16/20 02/16/20 Allergies Allergy/AdvReac Type Severity Reaction Status Date / Time Penicillins Allergy Severe Anaphylaxsi Unverified 02/16/20 20:26 s cephalexin monohydrate Allergy Unverified 02/16/20 20:26 [From Keflex] meperidine HCl [From Demerol] Allergy Skin Rash Unverified 02/16/20 20:26 clindamycin HCl AdvReac Severe see note Unverified 02/16/20 20:26 [From Cleocin] clindamycin palmitate HCl AdvReac Severe see comment Unverified 02/16/20 20:26 [From Cleocin] clindamycin phosphate AdvReac Severe see note Unverified 02/16/20 20:26 [From Cleocin] ketorolac tromethamine AdvReac Intermediate vomiting Unverified 02/16/20 20:26 [From Toradol] NSAIDS (Non-Steroidal AdvReac Intermediate Nausea Unverified 02/16/20 20:26 Anti-Inflamma propoxyphene HCl AdvReac Intermediate vomiting Unverified 02/16/20 20:26 [From Darvon] tramadol HCl [From Ultram] AdvReac Intermediate vomiting Unverified 02/16/20 20:26 General Stated Complaint: Seizure THEODORE: 3 Review of Systems All systems reviewed & are unremarkable except as noted in HPI and below Constitutional Constitutional: Denies chills, Denies fever(s) and Denies weakness Cardiovascular Cardiovascular: Denies chest pain and Denies dyspnea Respiratory Respiratory: Denies cough and Denies dyspnea Gastrointestinal Gastrointestinal: Denies abdominal pain, Denies nausea and Denies vomiting Musculoskeletal Musculoskeletal: Denies joint swelling Neurologic Neurologic: Denies weakness Psychiatric Psychiatric: Denies depression [facility] Social History Smoking/Tobacco Use Status: Current every day Tobacco Type: cigarettes Smoking packs per day: 3 Smoking cigarettes per day: 60.0 Tobacco: How many years used: 50 Alcohol Intake: current Alcohol Intake frequency: 0-2 drinks per day Alcohol type: beer Drug use: Never Substance use type: does not use Details: pt states 1/2 beer every other day last intake 2 days ago Do you feel safe at home: Yes Do you feel safe in your relationship?: Yes Exam Const General: no acute distress Orientation: alert HENMT Head: normal to inspection Ears: external ears normal General nose exam: external nose normal Mouth: moist mucous membranes Eyes General: appearance normal, both eyes and all related structures Neck Neck: normal visual inspection Resp Effort & Inspection: normal respiratory effort and able to speak in complete sentences Cardio Rate: regular rate Skin General skin exam: no rashes or lesions noted Neuro General: patient alert and patient oriented x3 Extrem General: normal to inspection Psych Mental Status: mental status grossly normal Course Vital Signs Vital signs: Vital Signs Temperature 36.5 C 02/16/20 19:43 Pulse 104 H 02/16/20 19:43 Pulse Oximetry 97 02/16/20 19:43 Temperature 36.5 C 02/16/20 19:43 Temperature Source Skin 02/16/20 19:43 Pulse 104 H 02/16/20 19:43 Respiratory Effort 02/16/20 19:51 Respiratory Depth Normal 02/16/20 19:51 Respiratory Pattern Normal 02/16/20 19:51 Pulse Oximetry 97 02/16/20 19:43 Oxygen Delivery Method Room Air 02/16/20 19:43 Oxygen Flow Rate 0 02/16/20 19:43 Pain Level 8 02/16/20 19:43 Comment 02/16/20 19:43
--- NOTE | 2020-02-16 20:21 | DI.CT_ITS ---
EXAM: CT HEAD WO CLINICAL HISTORY: seizure. TECHNIQUE: Imaging Protocol: Axial computed tomography images with coronal and sagittal reformatted images were created and reviewed COMPARISON: CT HEAD WO from 04/08/2019 FINDINGS: There is mild generalized cerebral atrophy.. No evidence of acute intracranial hemorrhage, mass effect, or midline shift. The orbital structures are unremarkable. The temporal bone structures appear intact. Calvarium: Normal. Visualized Paranasal sinuses/Mastoids: Clear. IMPRESSION: Normal cranial CT except for mild atrophy.. RADIATION DOSE DELIVERED: DATA REPOSITORY: All CT scans at this facility are submitted to the National Radiology Data Registry (NRDR) Dose Index Registry (DIR) with the [employer] (ACR). RADIATION OPTIMIZATION: All CT scans at this facility use at least one of these dose optimization te chniques: automated exposure control; mA and/or kV adjustment per patient size (includes targeted exa ms where dose is matched to clinical indication); or iterative reconstruction.
[2020-02-16 20:34] LABS: Abs Immature Grans 0.03 k/cumm (0.0-0.09); Absolute Basophil Count 0.01 k/cumm (0.0-0.2); Absolute Eosinophil Count 0.03 k/cumm (0.0-0.7); Absolute Lymphocyte Count 0.93 k/cumm (1.2-3.4); Absolute Monocyte Count 1.05 k/cumm (0.11-0.7); Absolute Neutrophil Count 7.28 k/cumm (1.2-6.7); Basophils % 0.1; Eosinophils % 0.3; HCT 44.9 % (40.0-50.0); HGB 15.5 g/dL (13.5-17.5); Immature Grans % 0.3 %; Mean Corp. HGB Concentration 34.5 g/dL (32.0-36.0); Mean Corpuscular Hemoglobin 36.1 pg (27.0-33.0); Mean Corpuscular Volume 104.7 fL (80-95); Mean Platelet Volume 10.3 fL (8.0-11.0); Monocytes % 11.3; Platelet Count 121 x1000/uL (130-400); RBC 4.29 m/cumm (4.50-6.00); RBC Distribution Width 12.6 % (11.8-14.1); White Blood Cell Count 9.33 k/cumm (4.4-10.8)
[2020-02-16 20:35] LABS: ALT 123 U/L (16-63); AST 194 U/L (15-37); Alkaline Phosphatase 83 U/L (46-116); Anion Gap 12.3 mmol/L (3-11); BUN 5 mg/dL (7-18); Bilirubin, Direct 0.56 mg/dL (0.00-0.20); Bilirubin, Total 1.3 mg/dL (0.2-1.0); CO2 27.7 mmol/L (21.0-32.0); CREATININE 0.92 mg/dL (0.70-1.30); Calcium 9.5 mg/dL (8.5-10.1); Chloride 95 mmol/L (98-107); Glucose 102 mg/dL (74-106); Lipase 87 U/L (73-393); Magnesium 1.9 mg/dL (1.8-2.4); Potassium 3.3 mmol/L (3.5-5.1); Sodium 135 mmol/L (136-145); Total Protein 8.4 g/dL (6.4-8.2)
[2020-02-16 20:39] LABS: ETHANOL BLOOD < 3.0 mg/dL (<3)
[2020-02-16 20:40] LABS: INR 1.1 (0.9-1.1); PTT Activated 25.2 sec (21.0-31.4); Prothrombin Time 10.9 sec (9.3-11.0)
--- NOTE | 2020-02-16 21:07 | DI.VRAD_ITS ---
PROCEDURE INFORMATION: Exam: CT Head Without Contrast Exam date and time: 02/16/2020 8:22 PM Age: 69 years old Clinical indication: Other: Seizure TECHNIQUE: Imaging protocol: Computed tomography of the head without contrast. Radiation optimization: All CT scans at this facility use at least one of these dose optimization techniques: automated exposure control; mA and/or kV adjustment per patient size (includes targeted exams where dose is matched to clinical indication); or iterative reconstruction. COMPARISON: CT HEAD WO 08/04/2019 01:37 FINDINGS: Brain: Unremarkable. No intracranial hemorrhage. Unremarkable white matter. No mass effect. Ventricles: Mild ventriculomegaly. Bones/joints: Unremarkable. No acute fracture. Sinuses: Visualized sinuses are unremarkable. No fluid levels. Mastoid air cells: Visualized mastoid air cells are well aerated. Auditory system: There is debris occluding the left auditory canal. Patient could benefit from removal of the debris. Soft tissues: Unremarkable. IMPRESSION: 1. No acute intracranial abnormality. 2. Debris occluding the left auditory canal. Patient could benefit from removal of the debris for improved tearing and balance. Dictated and Authenticated by: Lashanda Marin MD. Ordering:VALERIA Simpson MD
--- NOTE | 2020-02-18 11:16 | PDOC.ERCMACT ---
- If Service Date Differs Date of service: 02/18/20 Time of Service: 11:16 Care Management Activity Note Errol is seen in the ED for seizures and requires a 1 week follow-up appointment with his primary care physician at [facility]. CM contacts [facility] to confirm patient has a f/u appointment and is advised that he is being seen by his PCP next , February 24, 2020.
== END 2020-02-16 21:40 | disposition home or self-care (01) ==
PROVIDERS: Emergency Provider Emergency Medicine; PCP Nurse Practitioner Family
DX: G40.409 Other generalized epilepsy and epileptic syndromes, not intractable, without status epilepticus (principal); I25.10 Atherosclerotic heart disease of native coronary artery without angina pectoris
CPT/HCPCS: 80053; 83690; 93005; 99284; 70450; 80320; 82248; 83735; 85025; 85610; 85730; 93010

== ENCOUNTER 2020-06-18 12:21 | Observation (INO) | payer MEDICARE, MEDICAID, SELFPAY ==
[2020-06-18 12:22] VITALS: BP 106/70; PULSE 74; RESP 20; TEMP 36.7; O2SAT 94
--- NOTE | 2020-06-18 12:35 | ED.GENADUL_ITS ---
Discharge Plan Disposition Patient Disposition: [facility] INPATIENT Condition: Stable Discharge Details Chief Complaint: Cellulitis Clinical Impression: Cellulitis of hand, right, Leg edema, right Admit Date/Time: 06/18/20 16:22 Admit Provider: Gaetano Daryb Attending Provider: Gaetano Darby Primary Care Provider: Unknown,Unknown ED Provider: Leslie Brady Hospital Course Hospital Course: Errol Chaudhari is a 69 year old man, currently being treated for cellulitis of the right hand. He has been treated with Vancomycin with improvement. He is being monitored for alcohol withdrawal, his CIWA scores have been 4-5. He is leaving the hospital today against medical advice. He was advised that his blood cultures are still pending and that we do not have cultures to guide his antibiotic therapy at this point. He is adamant that he is leaving despite education this education. He is advised to return for fever, shaking, chills, nausea, vomiting, worsening of the cellulitis, or any other symptoms. He is also advised to follow up with his PCP as soon as possible. He is leaving AMA. Rx sent to pharmacy for Bactrim DS for one week, he will need to follow up with his PCP prior to the end of the antibiotic course, sooner if he has problems. He will need to be notified if his blood cultures are positive. Discharge Instructions Instructions: Cellulitis (DC) Additional Instructions: You are leaving against medical advice. Follow up with your PCP as soon as possible. Return to the ED for worsening symptoms as discussed. Discharge Data Discharge Date/Time-TO BE ENTERED AT DEPARTURE: 06/18/20 18:00 Medical Decision Making 1240 -- 69-year-old male presents with right hand swelling and pain after he sustained an abrasion to his right dorsal hand after cutting his hand on the wooden part of his bed a few days ago. Vitals within normal limits. He appears nontoxic. 2 healing excoriations to R dorsal hand. Right hand 2+ pitting edema extending from fingertips up to mid volar forearm. Neurovascularly intact. Does not appear c/w cellulitis but rather fluid. Wll check labs and CT hand to r/o abscess vs gas. Will start vancomycin for possible cellulitis. 1430 --labs and imaging reviewed. White blood cell count 4.28. Lactate 1.6. CT limited technically but no gross abscess or gas noted. Patient also complained of right lower extremity edema for the past several months. No evidence of cellulitis to the right lower extremity. He is neurovascular intact. Attempted to obtain ultrasound of right upper extremity to rule out DVT but ultrasound unavailable. Patient is right-handed and states he will have difficulty at home with ambulating using his cane. Will admit patient for observation, IV antibiotics with plan for ultrasound in the a.m. to rule out DVT. Case discussed with hospitalist service who accepts patient for admission. Medical Records Medical records reviewed: Yes I reviewed the patient's medical records. Imaging Data Radiologic Study: Radiologist's impression: CT UPPER EXTREMITY RT W CLINICAL HISTORY: abrasion R hand, r/o abscess TECHNIQUE: COMPARISON: CT CT LOWER EXTREMITY LT W from 06/14/2019 FINDINGS: CT examination was obtained with intravenous infusion of 100 cc of Omnipaque 350 with scanning from the level of the proximal forearm through the hand. The patient was unable to extend his upper extremity above his head and there is significant artifact from positioning next to the patient's abdomen and there is significant motion artifact as well. No gross enhancing lesion seen. No gross destructive bony lesion apart from severe degenerative changes of the joints of hand and wrist. No definite abscess seen but small abscess might not be appreciated due to the degree artifact on this scan. IMPRESSION: Technically limited examination. No gross abscess identified. Additional evalua tion with MRI may be obtained if there is clinical suspicion of abscess or bony destruction. Lab Data Lab results reviewed: Yes I reviewed the patient's lab results. Labs: 06/18/20 13:37 Blood Blood Culture - Pending 06/18/20 13:10 Blood Blood Culture - Pending Laboratory Tests Range/Units 06/18/20 06/18/20 06/18/20 13:15 13:15 13:15 WBC (4.4-10.8) 10^3/uL 4.28 L RBC (4.36-5.78) 10^6/uL 3.57 L Hgb (13.5-17.5) g/dL 12.9 L Hct (40.0-50.0) % 38.4 L MCV (80-95) fL 107.6 H MCH (27.0-33.0) pg 36.1 H MCHC (32.0-36.0) % 33.6 RDW (11.8-14.1) % 13.2 Plt Count (130-400) 10^3/uL 190 MPV (8.0-11.0) fL 8.8 Immature Gran % 0.2 Neutrophils % 49.8 Lymphocytes % 35.7 Monocytes % 10.3 Eosinophils % 3.3 Basophils % 0.7 Nucleated RBC % % 0 Absolute Neutrophils (1.2-6.7) 10^3/uL 2.13 Absolute Lymphocytes (1.2-3.4) 10^3/uL 1.53 Absolute Monocytes (0.1-0.8) 10^3/uL 0.44 Absolute Eosinophils (0.0-0.7) 10^3/uL 0.14 Absolute Basophils (0.0-0.2) 10^3/uL 0.03 RBC Morphology See below Macrocytosis 2+ Sodium (136-145) mmol/L 141 Potassium (3.5-5.1) mmol/L 3.7 Chloride (98-107) mmol/L 105 Carbon Dioxide (21.0-32.0) mmol/L 29.3 Anion Gap (3-11) mmol/L 6.7 BUN (7-18) mg/dL 7 Creatinine (0.70-1.30) mg/dL 0.72 Estimated GFR/1.73 m2 (mL/min/1.73m2) >= 60.00 Glucose (74-106) mg/dL 79 Lactate (0.6-1.4) mmol/L 1.6 H Calcium (8.5-10.1) mg/dL 8.3 L Total Bilirubin (0.2-1.0) mg/dL 0.3 AST (15-37) U/L 23 ALT (16-63) U/L 17 Alkaline Phosphatase (46-116) U/L 39 L Total Protein (6.4-8.2) g/dL 6.1 L Albumin (3.4-5.0) g/dL 2.6 L HPI General Mode of arrival: ambulatory . Date/Time Provider Initiated Documentation: 06/18/20 12:31 . Limitations to Documentation: no limitations . Information obtained by: patient . HPI Narrative: Patient is a 69-year-old male with a history of chronic alcoholism, coronary artery disease, COPD, CAD who pr esents with right hand pain and swelling after he sustained an abrasion to his right hand several days ago. Patient states he fell off his commode and sustained an abrasion to his right hand which then led to diffuse hand swelling and pain. He denies any known fever. He states he was able to express yellow pus drainage a few days ago. Related Data Home Medications Medication Instructions Recorded Confirmed nitroglycerin 0.4 mg SUBLINGUAL PRN PRN 12/20/13 06/18/20 albuterol sulfate [Ventolin HFA] 2 puff INHALATION QID PRN 06/15/19 06/18/20 atorvastatin 40 mg PO DAILY 02/16/20 06/18/20 zolpidem 10 mg PO HS 02/16/20 06/18/20 acetaminophen 500 mg tablet 500 mg PO Q6H PRN 03/01/20 06/18/20 duloxetine 60 mg capsule,delayed 60 mg PO BID 03/01/20 06/18/20 release mirtazapine 15 mg tablet 15 mg PO HS tab 03/01/20 06/18/20 miscellaneous medical supply each 03/01/20 miscellaneous medical supply each 03/01/20 nystatin 100,000 unit/gram topical 1 applic TP BID 03/01/20 06/18/20 cream trazodone 100 mg tablet 250 mg PO QHS tab 03/01/20 06/18/20 wheelchair #1 03/01/20 lorazepam 0.5 mg tablet 0.5 mg PO QHS 03/27/20 06/18/20 potassium chloride 10 mEq 10 meq PO DAILY #30 tab 03/27/20 06/18/20 tablet,extended release sulfamethoxazole-trimethoprim 1 tab PO BID #14 tab 06/19/20 [Bactrim DS] Previous Rx's Medication Instructions Recorded potassium chloride 10 mEq 10 meq PO DAILY #30 tab 03/27/20 tablet,extended release sulfamethoxazole-trimethoprim 1 tab PO BID #14 tab 06/19/20 [Bactrim DS] Allergies Allergy/AdvReac Type Severity Reaction Status Date / Time lactase [From Dairy Aid] Allergy Severe Verified 06/18/20 12:25 Penicillins Allergy Severe Anaphylaxsi Unverified 06/18/20 12:25 s ciprofloxacin [From Cipro] Allergy Intermediate Verified 06/18/20 12:25 ibuprofen Allergy Intermediate Verified 06/18/20 12:25 fentanyl Allergy Mild Verified 06/18/20 12:25 cephalexin monohydrate Allergy Unverified 06/18/20 12:25 [From Keflex] meperidine HCl [From Demerol] Allergy Skin Rash Unverified 06/18/20 12:25 clindamycin HCl AdvReac Severe see note Unverified 06/18/20 12:25 [From Cleocin] clindamycin palmitate HCl AdvReac Severe see comment Unverified 06/18/20 12:25 [From Cleocin] clindamycin phosphate AdvReac Severe see note Unverified 06/18/20 12:25 [From Cleocin] ketorolac tromethamine AdvReac Intermediate vomiting Unverified 06/18/20 12:25 [From Toradol] NSAIDS (Non-Steroidal AdvReac Intermediate Nausea Unverified 06/18/20 12:25 Anti-Inflamma propoxyphene HCl AdvReac Intermediate vomiting Unverified 06/18/20 12:25 [From Darvon] tramadol HCl [From Ultram] AdvReac Intermediate vomiting Unverified 06/18/20 12:25 General Stated Complaint: Cellulitis THEODORE: 4 Review of Systems All systems reviewed & are unremarkable except as noted in HPI and below Constitutional Constitutional: Reports as per HPI, Denies chills and Denies fever(s) Eyes Eyes: Denies blurry vision ENT Ears, Nose, Mouth, and Throat: Denies dizziness, Denies sore throat and Denies throat swelling Cardiovascular Cardiovascular: Denies chest pain and Denies dyspnea Respiratory Respiratory: Denies cough and Denies dyspnea Gastrointestinal Gastrointestinal: Denies abdominal pain, Denies diarrhea and Denies vomiting Genitourinary Genitourinary: Denies hematuria and Denies dysuria Musculoskeletal Musculoskeletal: Denies back pain and Denies numbness Integumentary/Breasts Skin/Breast: Denies lesions and Denies rash Neurologic Neurologic: Denies dizziness, Denies localized weakness and Denies numbness Allergic/Immunologic Allergic/Immunologic: Denies throat swelling [facility] Medical History Abscess (Acute) Alcoholic dependence syndrome (Acute) Alcoholic hepatitis (Acute) Alcoholism (Chronic) Anxiety (Chronic) Anxiety with depression (Acute) Apical lung scarring (Acute) BPH (benign prostatic hyperplasia) (Chronic) CAD (coronary artery disease) (Chronic) Candidal intertrigo (Acute) Chronic back pain (Chronic) Chronic pain syndrome (Chronic) Closed fracture of right humerus (Acute) Compression fracture of lumbar vertebra (Acute) COPD (chronic obstructive pulmonary disease) (Chronic) Depression (Chronic) Fatigue (Acute) Frequent falls (Acute) GERD (gastroesophageal reflux disease) (Chronic) Hand pain, right (Acute) Headache (Acute) History of myocardial infarction (Resolved) History of seizures (Acute) Hx of deep venous thrombosis (Acute) Localized swelling of right lower leg (Acute) Osteoarthritis (Chronic) Pedal edema (Acute) Polypharmacy (Acute) Prostatitis (Resolved 06/04/17) Right shoulder pain (Acute) Skin ulcer (Acute) Thoracic compression fracture (Acute) Tobacco dependence (Acute) Tremor (Acute) Urinary incontinence (Acute) Venous insufficiency of right leg (Acute) Surgical History H/O bilateral inguinal hernia repair (Resolved) History of bilateral knee replacement (Resolved) History of cholecystectomy (Resolved) Previous back surgery (Chronic) S/P coronary artery stent placement (Acute) S/P tonsillectomy and adenoidectomy (Resolved) Social History Smoking/Tobacco Use Status: Current every day Tobacco Type: cigarettes Smoking packs per day: 3 Smoking cigarettes per day: 60.0 Tobacco: How many years used: 50 Alcohol Intake: current Alcohol Intake frequency: 0-2 drinks per day Alcohol type: beer Drug use: Never Substance use type: does not use Details: pt states a few beers daily last intake 2 days ago Do you feel safe at home: Yes Do you feel safe in your relationship?: Yes Exam Const General: cooperative, healthy appearing and no acute distress HENMT Head: normal to inspection Mouth: oral mucosae normal Eyes General: appearance normal, both eyes and all related structures Neck Neck: normal visual inspection Resp Effort & Inspection: normal respiratory effort and able to speak in complete sentences Cardio Rate: regular rate Skin General skin exam: no rashes or lesions noted Neuro General: patient alert, patient awake and patient oriented x3 Motor: muscle tone normal throughout Extrem Hand/finger images: 1. Diffuse right hand edema extending to down to fingertips and up to right mid volar forearm. There is 1-2+ pitting. There is minimal erythema appears more consistent with dependent edema. 2. 3 x 3 cm abrasion with healing excoriation. 3. 4cm by 1 mm linear abrasion w/ healing excoriation. Other: Right radial and ulnar pulses intact. Psych Appearance: grossly normal Affect: normal affect Course Vital Signs Vital signs: Vital Signs Temperature 98.1 F 06/18/20 12:22 Pulse 74 06/18/20 12:22 Respiratory Rate 20 06/18/20 12:22 Blood Pressure 106/70 06/18/20 12:22 Pulse Oximetry 94 L 06/18/20 12:22 Temperature 98.1 F 06/18/20 12:22 Temperature Source Skin 06/18/20 12:22 Pulse 74 06/18/20 12:22 Respiratory Rate 20 06/18/20 12:22 Respiratory Effort Non-Labored 06/18/20 12:28 Blood Pressure 106/70 06/18/20 12:22 Blood Pressure Position Sitting 06/18/20 12:22 Pulse Oximetry 94 L 06/18/20 12:22 Oxygen Delivery Method Room Air 06/18/20 12:22 Oxygen Flow Rate 0 06/18/20 12:22 Pain Level 10 06/18/20 12:22
[2020-06-18] MEDS: ACETAMINOPHEN 1,000 MG/100 ML BTL 400 MG IVPB (13:27)
[2020-06-18] MEDS: Normal Saline Flush 10 ML SYR IVP ×7 (13:28→22:21)
[2020-06-18 13:31] LABS: Lactate 1.6 mmol/L (0.6-1.4)
[2020-06-18 13:33] LABS: Abs Immature Grans 0.01 10^3/uL (0.0-0.06); Absolute Basophil Count 0.03 10^3/uL (0.0-0.2); Absolute Eosinophil Count 0.14 10^3/uL (0.0-0.7); Absolute Lymphocyte Count 1.53 10^3/uL (1.2-3.4); Absolute Monocyte Count 0.44 10^3/uL (0.1-0.8); Absolute Neutrophil Count 2.13 10^3/uL (1.2-6.7); Basophils % 0.7; Eosinophils % 3.3; HCT 38.4 % (40.0-50.0); HGB 12.9 g/dL (13.5-17.5); Immature Grans % 0.2; Lymphocytes % 35.7; MCH 36.1 pg (27.0-33.0); MCHC 33.6 % (32.0-36.0); MCV 107.6 fL (80-95); MPV 8.8 fL (8.0-11.0); Monocytes % 10.3; Neutrophils % 49.8; Nucleated RBC 0 %; Platelet Count 190 10^3/uL (130-400); RBC 3.57 10^6/uL (4.36-5.78); RDW 13.2 % (11.8-14.1); RDW-SD 52.6 fL; WBC 4.28 10^3/uL (4.4-10.8)
[2020-06-18 13:46] LABS: ALT 17 U/L (16-63); AST 23 U/L (15-37); Albumin 2.6 g/dL (3.4-5.0); Alkaline Phosphatase 39 U/L (46-116); Anion Gap 6.7 mmol/L (3-11); BUN 7 mg/dL (7-18); Bilirubin, Total 0.3 mg/dL (0.2-1.0); CO2 29.3 mmol/L (21.0-32.0); CREATININE 0.72 mg/dL (0.70-1.30); Calcium 8.3 mg/dL (8.5-10.1); Chloride 105 mmol/L (98-107); Glucose 79 mg/dL (74-106); Potassium 3.7 mmol/L (3.5-5.1); Sodium 141 mmol/L (136-145); Total Protein 6.1 g/dL (6.4-8.2)
[2020-06-18 13:52] LABS: Diff Comment RBC Morph Reviewed; Macrocytosis 2+
[2020-06-18] MEDS: Omnipaque 350 MG/ML 100 ML BTL IJ (14:24)
[2020-06-18] MEDS: Normal Saline - Diluent 50 ML VIAL IV (14:25)
[2020-06-18] MEDS: Normal Saline 500 ML IV (14:32)
--- NOTE | 2020-06-18 14:40 | DI.CT_ITS ---
EXAM: CT UPPER EXTREMITY RT W CLINICAL HISTORY: abrasion R hand, r/o abscess TECHNIQUE: COMPARISON: CT CT LOWER EXTREMITY LT W from 06/14/2019 FINDINGS: CT examination was obtained with intravenous infusion of 100 cc of Omnipaque 350 with scanning from t he level of the proximal forearm through the hand. The patient was unable to extend his upper extrem ity above his head and there is significant artifact from positioning next to the patient's abdomen a nd there is significant motion artifact as well. No gross enhancing lesion seen. No gross destructi ve bony lesion apart from severe degenerative changes of the joints of hand and wrist. No definite a bscess seen but small abscess might not be appreciated due to the degree artifact on this scan. IMPRESSION: Technically limited examination. No gross abscess identified. Additional evaluation with MRI may be o btained if there is clinical suspicion of abscess or bony destruction. RADIATION DOSE DELIVERED: Total DLP
[2020-06-18 15:13] VITALS: BP 148/91; PULSE 77; RESP 16; O2SAT 96
--- NOTE | 2020-06-18 16:52 | W.PM.HP.N ---
Date of service: 06/18/20 Time of Service: 16:52 Assessment and Plan Assessment and plan (1) Cellulitis: Start date: 06/18/20 Start time: 17:26 Status: Acute Assessment and plan: States 3 mornings ago fell off commode, had to have EMS pick him up upon picking him up they tore his skin on his bed frame, it was swollen slight erythema with abrasion, draining clear fluid. CT limited exam, will obtain u/s of hand for better visualization, at this time do not feel he needs MRI, localized to abrasion. Will treat with vanco due to allergies, when cultures returned narrow antibiotics to regimen patient will be able to tolerate without reaction. Will give tylenol 3 for pain with morphine q 6 hours. Qualifiers: Site of cellulitis: extremity Site of cellulitis of extremity: upper extremity Laterality: right Qualified Code(s): L03.113 - Cellulitis of right upper limb (2) Alcoholism: Start date: 06/18/20 Start time: 17:28 Status: Chronic Assessment and plan: Last drink last night. He does have tremors which he states are normal however, last drink was last night and he does have a history of alcoholic siezure withdrawal. Placed on CIWA, ativan po QID prn and CIWA ativan for w/d. He does endorse 48 oz alcohol last night, will order Ethyl level (3) Smoker: Start date: 06/18/20 Start time: 17:31 Status: Chronic Assessment and plan: Current every day. Nicotine replacement prn (4) CAD (coronary artery disease), [place] coronary artery: Start date: 06/18/20 Start time: 17:31 Status: Chronic Assessment and plan: Non compliant with medications, will continue atorvastatin was going to place on asa but allergy to nsaid (5) Peripheral edema: Start date: 06/18/20 Start time: 17:32 Status: Chronic Assessment and plan: Edema to RLE, present for 5 years. Refuses to wear mal wrap, refuses to wear aisha stockings. Has agreed to take lasix, per ED nursing he was suppose to take lasix daily but has not picked up prescription in over a month. This appears to be a chronic condition. (6) DVT prophylaxis: Start date: 06/18/20 Start time: 17:34 Status: Acute Assessment and plan: Heparin subcu q 8 hours Above case discussed with Dr. Darby who is in agreement. History of Present Illness History of Present Illness Chief Complaint: Cellulitis, Edema Narrative: 69 y.o male with PMH of CAD, Depression, NE, OA, BPH, ETOH presents to [facility] ED after sustaining abrasion to right dorsal hand a couple of days ago. He cut his hand on the wooden part of bed, he states to ED provider that it had swelled up and he pushed on it getting pus out. It then proceeded to swell up worse prompting him to visit the ED today. WBC 4.28, Lactate 1.6, CT with limited exam no gross abscess identified, additional eval with MRI recommended. Afebrile, he has been asked to be admitted to m/s for IV antibiotics. Will obtain stat CRP, procalcitionin, am labs, vanco, due to limited exam from movement will order u/s of hand for am and r/o DVT. Review of Systems All systems reviewed & are unremarkable except as noted in HPI and below [facility] Medical History Abscess (Acute) Alcoholic dependence syndrome (Acute) Alcoholic hepatitis (Acute) Alcoholism (Chronic) Anxiety (Chronic) Anxiety with depression (Acute) Apical lung scarring (Acute) BPH (benign prostatic hyperplasia) (Chronic) CAD (coronary artery disease) (Chronic) Candidal intertrigo (Acute) Chronic back pain (Chronic) Chronic pain syndrome (Chronic) Closed fracture of right humerus (Acute) Compression fracture of lumbar vertebra (Acute) COPD (chronic obstructive pulmonary disease) (Chronic) Depression (Chronic) Fatigue (Acute) Frequent falls (Acute) GERD (gastroesophageal reflux disease) (Chronic) Hand pain, right (Acute) Headache (Acute) History of myocardial infarction (Resolved) History of seizures (Acute) Hx of deep venous thrombosis (Acute) Localized swelling of right lower leg (Acute) Osteoarthritis (Chronic) Pedal edema (Acute) Polypharmacy (Acute) Prostatitis (Resolved 06/04/17) Right shoulder pain (Acute) Skin ulcer (Acute) Thoracic compression fracture (Acute) Tobacco dependence (Acute) Tremor (Acute) Urinary incontinence (Acute) Venous insufficiency of right leg (Acute) Surgical History H/O bilateral inguinal hernia repair (Resolved) History of bilateral knee replacement (Resolved) History of cholecystectomy (Resolved) Previous back surgery (Chronic) S/P coronary artery stent placement (Acute) S/P tonsillectomy and adenoidectomy (Resolved) Social History Smoking/Tobacco Use Status: Current every day Tobacco Type: cigarettes Smoking packs per day: 3 Smoking cigarettes per day: 60.0 Tobacco: How many years used: 50 Alcohol Intake: current Alcohol Intake frequency: 0-2 drinks per day Alcohol type: beer Drug use: Never Substance use type: does not use Details: pt states a few beers daily last intake 2 days ago Do you feel safe at home: Yes Do you feel safe in your relationship?: Yes Meds Home Medications and Allergies Home Medications Medication Instructions Recorded Confirmed Type nitroglycerin 0.4 mg SUBLINGUAL PRN PRN 12/20/13 06/18/20 History albuterol sulfate [Ventolin HFA] 2 puff INHALATION QID PRN 06/15/19 06/18/20 History atorvastatin 40 mg PO DAILY 02/16/20 06/18/20 History zolpidem 10 mg PO HS 02/16/20 06/18/20 History acetaminophen 500 mg tablet 500 mg PO Q6H PRN 03/01/20 06/18/20 History duloxetine 60 mg capsule,delayed 60 mg PO BID 03/01/20 06/18/20 History release mirtazapine 15 mg tablet 15 mg PO HS tab 03/01/20 06/18/20 History miscellaneous medical supply each 03/01/20 History miscellaneous medical supply each 03/01/20 History nystatin 100,000 unit/gram topical 1 applic TP BID 03/01/20 06/18/20 History cream trazodone 100 mg tablet 250 mg PO QHS tab 03/01/20 06/18/20 History wheelchair #1 03/01/20 History lorazepam 0.5 mg tablet 0.5 mg PO QHS 03/27/20 06/18/20 History potassium chloride 10 mEq 10 meq PO DAILY #30 tab 03/27/20 06/18/20 Rx tablet,extended release Allergies Allergy/AdvReac Type Severity Reaction Status Date / Time lactase [From Dairy Aid] Allergy Severe Verified 06/18/20 12:25 Penicillins Allergy Severe Anaphylaxsi Unverified 06/18/20 12:25 s ciprofloxacin [From Cipro] Allergy Intermediate Verified 06/18/20 12:25 ibuprofen Allergy Intermediate Verified 06/18/20 12:25 fentanyl Allergy Mild Verified 06/18/20 12:25 cephalexin monohydrate Allergy Unverified 06/18/20 12:25 [From Keflex] meperidine HCl [From Demerol] Allergy Skin Rash Unverified 06/18/20 12:25 clindamycin HCl AdvReac Severe see note Unverified 06/18/20 12:25 [From Cleocin] clindamycin palmitate HCl AdvReac Severe see comment Unverified 06/18/20 12:25 [From Cleocin] clindamycin phosphate AdvReac Severe see note Unverified 06/18/20 12:25 [From Cleocin] ketorolac tromethamine AdvReac Intermediate vomiting Unverified 06/18/20 12:25 [From Toradol] NSAIDS (Non-Steroidal AdvReac Intermediate Nausea Unverified 06/18/20 12:25 Anti-Inflamma propoxyphene HCl AdvReac Intermediate vomiting Unverified 06/18/20 12:25 [From Darvon] tramadol HCl [From Ultram] AdvReac Intermediate vomiting Unverified 06/18/20 12:25 Exam Const General: cooperative and ill appearing chronically Nutritional Appearance: overweight Orientation: alert, awake and oriented x3 Other: pale HENMT Head: normocephalic and atraumatic Teeth and gingiva: poor dentition Eyes Eyelids: eyelids normal Conjunctivae: conjunctivae normal Sclera: sclerae normal Cornea: corneas normal Pupils: PERRL EOM: EOM intact bilaterally Neck Neck: full ROM and no JVD Lymphatic: no lymphadenopathy noted and no lymphedema noted Chest Chest: normal inspection of the chest Resp Effort & Inspection: normal respiratory effort Auscultation: rhonchi Cardio Jugular venous pressure: no JVD Rate: regular rate Rhythm: regular rhythm GI Palpation: soft and no hepatosplenomegaly General: deferred Back/Spine/Pelvis Back: no CVA tenderness Thoracic/Lumbar Spine: No thoraco-lumbar ROM normal Skin Wounds: wounds noted (to right ) Other: edema to right wrist with slight erythema and clear drainage. Neuro General: patient alert, patient awake and patient oriented x3 Cognition: normal cognition Speech: other (slightly slurred due to poor dentition) Extrem General: clubbing, cyanosis or edema noted and edema (RLE edema PV, chronic refusing wraps ) Laterality: right Right upper extremity: edema and hand Details: abnormal to inspection, warmth and swelling Location: of the dorsal hand Psych Appearance: disheveled Results Labs Result diagrams: 06/18/20 13:15 06/18/20 13:15 Labs: Laboratory Results - last 24 hr 06/18/20 06/18/20 06/18/20 13:15 13:15 13:15 WBC 4.28 L RBC 3.57 L Hgb 12.9 L Hct 38.4 L MCV 107.6 H MCH 36.1 H MCHC 33.6 RDW 13.2 Plt Count 190 MPV 8.8 Immature Gran % 0.2 Neutrophils % 49.8 Lymphocytes % 35.7 Monocytes % 10.3 Eosinophils % 3.3 Basophils % 0.7 Nucleated RBC % 0 Absolute Neutrophils 2.13 Absolute Lymphocytes 1.53 Absolute Monocytes 0.44 Absolute Eosinophils 0.14 Absolute Basophils 0.03 RBC Morphology See below Macrocytosis 2+ Sodium 141 Potassium 3.7 Chloride 105 Carbon Dioxide 29.3 Anion Gap 6.7 BUN 7 Creatinine 0.72 Estimated GFR/1.73 m2 >= 60.00 Glucose 79 Lactate 1.6 H Calcium 8.3 L Total Bilirubin 0.3 AST 23 ALT 17 Alkaline Phosphatase 39 L Total Protein 6.1 L Albumin 2.6 L Last Vital Signs Temp 36.7 C 06/18/20 12:22 Pulse 77 06/18/20 15:13 Resp 16 06/18/20 15:13 BP 148/91 H 06/18/20 15:13 Pulse Ox 96 06/18/20 15:13 COVID-19 Screening Have you,or household,traveled outside [place] in last 14 days?: No Had IN PERSON contact w/suspected or confirmed C-19 person: No
[2020-06-18 16:59] VITALS: BP 137/84; PULSE 80; RESP 16; TEMP 36.6; O2SAT 95
[2020-06-18 17:53] LABS: ETHANOL BLOOD 128.6 mg/dL (<3)
[2020-06-18 18:02] LABS: C-Reactive Protein 0.44 mg/dL (0.0-0.3)
[2020-06-18 18:22] VITALS: BP 133/87; PULSE 78; RESP 16; TEMP 36.1; O2SAT 94
[2020-06-18 18:35] LABS: Procalcitonin < 0.1 ng/mL
[2020-06-18] MEDS: oxyCODONE 5 MG TAB PO ×2 (19:04→23:04)
[2020-06-18] MEDS: Heparin 5,000 UNITS/ML VIAL 5000 UNITS SC (20:29)
[2020-06-18] MEDS: Furosemide 20 MG TAB PO (20:30)
[2020-06-18] MEDS: Zolpidem 10 MG TAB PO (22:21)
[2020-06-18] MEDS: LORazepam 0.5 MG TAB PO (22:21)
[2020-06-19 00:16] VITALS: BP 137/94; PULSE 76; RESP 18; TEMP 36.9; O2SAT 96
[2020-06-19] MEDS: Normal Saline Flush 10 ML SYR IVP ×2 (03:43→11:48)
[2020-06-19] MEDS: Heparin 5,000 UNITS/ML VIAL 5000 UNITS SC (05:13)
[2020-06-19] MEDS: oxyCODONE 5 MG TAB PO ×2 (05:25→11:47)
--- NOTE | 2020-06-19 06:30 | DI.US_ITS ---
EXAM: US SOFT TISSUE EXTREMITY CLINICAL HISTORY: swelling and edema, r/o abscess TECHNIQUE: Ultrasound performed using standard protocol. COMPARISON: US US lower extremity venous RT from 02/19/2019 FINDINGS: Ultrasound examination of the right forearm and wrist region was performed. There is diffuse soft ti ssue edema. No focal abscess identified. No solid mass identified. IMPRESSION: DATA REPOSITORY:
[2020-06-19 07:21] VITALS: BP 129/83; PULSE 74; RESP 18; TEMP 36.3; O2SAT 98
[2020-06-19 08:01] LABS: HCT 41.7 % (40.0-50.0); HGB 13.9 g/dL (13.5-17.5); MCHC 33.3 % (32.0-36.0); MPV 9.6 fL (8.0-11.0); Platelet Count 182 10^3/uL (130-400); RBC 3.86 10^6/uL (4.36-5.78); RDW 12.9 % (11.8-14.1); RDW-SD 51.3 fL; WBC 5.12 10^3/uL (4.4-10.8)
[2020-06-19 08:06] LABS: Anion Gap 4.6 mmol/L (3-11); BUN 5 mg/dL (7-18); CO2 33.4 mmol/L (21.0-32.0); CREATININE 0.75 mg/dL (0.70-1.30); Calcium 8.6 mg/dL (8.5-10.1); Chloride 99 mmol/L (98-107); Glucose 78 mg/dL (74-106); Magnesium 1.6 mg/dL (1.8-2.4); Potassium 3.2 mmol/L (3.5-5.1); Sodium 137 mmol/L (136-145)
--- NOTE | 2020-06-19 10:12 | INITIAL_ITS ---
- If Service Date Differs Date of service: 06/19/20 Time of Service: 14:12 Care Management Initial Assess REASON FOR HOSPITALIZATION:: R Hand Cellulitis and edema, R Leg edema PAST MEDICAL HISTORY/PAST SURGICAL HISTORY:: Absess, alcohol use disorder, alcoholic hepatitis, alchoholism, anxiety (with depression), apical lung scarring, BPH, CAD, candidal intertrigo, chronic back pain, right humerus fracture, compression fracture lumbar vertebra, COPD, Depression, fatigue, frequent falls, GERD, right hand pain, headache, [place], seizures, deep vein thrombosis, localized swelling of right lower leg, osteoarthritis, pedal edema, polypharmacy, h/o prostatitis, right shoulder pain, skin ulcer, thoracic compression fracture, tobacco dependence, tremor, urinary incontinence, venous insufficiency of right leg, bilat inguinal hernia repair, cholecystectomy, back surgery, coronary artery stent placement, T&A, current everyday smoker 3x/pk a day PREVIOUS FUNCTIONAL STATUS/SOCIAL/FAMILY SUPPORTS:: Errol River) is a 68 year old male that lives in [place], [place] with his SO Nikki. He reports 6 grown children that live out of the area one son and six daughters. He states that he had back surgery abour 6 years ago and he uses a wheelchair and walker for mobility. He states that he is disabled and has a history of being in the [employer]. CM confirmed with the [facility] he was in the [employer] from 1970 thru 1972 and served [place]. He reports that he receives a non-service connected pension through the [facility]. 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 He reports he has chronic pain in his back and his legs are weak which make it difficult for him to complete ADL's. Errol River) did have choices for care moderate need in the past however he fired most of them and is not able to enroll back in the program due to high risk behaviors [facility] staff. Gareth states that his SO helps him at home, and that he has been with her for the past 11 years. Gareth states he uses alcohol everyday at least 4 tall boys a day for least the past 10 years. He reports multiple falls related to his alcohol use. Has patient been provided with info about the portal/API?: Yes Did the patient sign up for the portal?: No CODE STATUS:: Full Code INSURANCE COVERAGE / FINANCIAL ISSUES:: Medicare. Medicaid CURRENT HOME/COMMUNITY SERVICES/EQUIPMENT:: W/C, FWW PRIMARY CARE PHYSICIAN:: Prior: Daija Rubalcava, appears now Robbi Roe POTENTIAL DISCHARGE NEEDS:: Referral to community substance abuse services. recovery center, and cost recovery technician. Follow up appointment with primary care provider. PATIENT/FAMILY EDUCATION NEEDS:: Review discharge instructions, discuss Ask Me Three. ANTICIPATED BARRIERS TO DISCHARGE:: None identified at this time. TRANSPORTATION:: Via private vehicle with family at time of discharge vs RCT PLAN:: Errol continues to be closely monitored on CIWA protocol at this time. CM will continue to provide support to patient ongoing discharge planning and disposition.
[2020-06-19] MEDS: Atorvastatin 40 MG TAB PO (11:40)
[2020-06-19] MEDS: Multivitamin TAB 1 TAB PO (11:40)
[2020-06-19] MEDS: Folic Acid 1 MG TAB PO (11:41)
[2020-06-19] MEDS: Potassium Chloride 10 MEQ TABCR PO (11:41)
[2020-06-19] MEDS: Thiamine 100 MG TAB PO (11:41)
[2020-06-19] MEDS: Magnesium Oxide 400 MG TAB PO (12:25)
[2020-06-19] MEDS: Potassium Chloride 20 MEQ TABCR PO (12:28)
[2020-06-19 13:36] LABS: Vancomycin, Trough 20.6 ug/mL (10.0-20.0)
[2020-06-19 14:47] LABS: COVID-19 RT-PCR UVMMC Result Negative (Negative)
--- NOTE | 2020-06-19 15:12 | DSE_ITS ---
DS: Diagnosis Discharge Diagnosis (1) Cellulitis: Status: Acute (2) Alcoholism: Status: Chronic (3) Smoker: Status: Chronic (4) CAD (coronary artery disease), [place] coronary artery: Status: Chronic (5) Peripheral edema: Status: Chronic (6) DVT prophylaxis: Status: Acute Discharge Plan Disposition Patient Disposition: AGAINST MEDICAL ADVICE Condition: Stable Discharge Details Chief Complaint: Cellulitis Clinical Impression: Cellulitis of hand, right, Leg edema, right Reason For Visit: R HAND CELLULITIS AND EDEMA, R LEG EDEMA Admit Date/Time: 06/18/20 16:22 Admit Provider: Gaetano Darby Attending Provider: Gaetano Darby Primary Care Provider: Seven,Unknown ED Provider: Leslie Brady Hospital Course Hospital Course: Errol Chaudhari is a 69 year old man, currently being treated for cellulitis of the right hand. He has been treated with Vancomycin with improvement. He is being monitored for alcohol withdrawal, his CIWA scores have been 4-5. He is leaving the hospital today against medical advice. He was advised that his blood cultures are still pending and that we do not have cultures to guide his antibiotic therapy at this point. He is adamant that he is leaving despite education this education. He is advised to return for fever, shaking, chills, nausea, vomiting, worsening of the cellulitis, or any other symptoms. He is also advised to follow up with his PCP as soon as possible. He is leaving [place]. Rx sent to pharmacy for Bactrim DS for one week, he will need to follow up with his PCP prior to the end of the antibiotic course, sooner if he has problems. He will need to be notified if his blood cultures are positive. Home Meds and New Rx's Prescriptions: New sulfamethoxazole-trimethoprim [Bactrim DS] 800-160 mg tablet 1 tab PO BID Qty: 14 RF: 0 Continued lorazepam [Ativan] 0.5 mg tablet 0.5 mg PO QHS RF: 0 potassium chloride 10 mEq tablet extended release 10 meq PO DAILY Qty: 30 RF: 1 miscellaneous medical supply [facility] RF: 0 nystatin 100,000 unit/gram cream 1 applic TP BID RF: 0 acetaminophen 500 mg tablet 500 mg PO Q6H PRNRF: 0 mirtazapine 15 mg tablet 15 mg PO HS RF: 0 duloxetine [Cymbalta] 60 mg capsule,delayed release(DR/EC) 60 mg PO BID RF: 0 trazodone 100 mg tablet 250 mg PO QHS RF: 0 miscellaneous medical supply [facility] RF: 0 (DME) wheelchair Device See Rx Instructions .ROUTE .MEDSUPPLY Qty: 1 RF: 0 nitroglycerin 0.4 MG tablet, sublingual 0.4 mg Sublingual PRN PRNRF: 0 zolpidem 10 mg Tablet 10 mg PO HS RF: 0 atorvastatin 40 mg Tablet 40 mg PO DAILY RF: 0 albuterol sulfate [Ventolin HFA] 90 mcg/actuation Hfa Aerosol Inhaler 2 puff INHALATION QID PRNRF: 0 Discharge Instructions Instructions: Cellulitis (DC) Additional Instructions: You are leaving against medical advice. Follow up with your PCP as soon as possible. Return to the ED for worsening symptoms as discussed. Activity:: Activity as Tolerated Equipment/Supplies:: No Equipment Needed Diet:: As Tolerated Discharge Orders Discharge Orders: Discharge Order (Routine); Ordered 06/19/20 Ordered By: Ary Gonzáles DS: Summary Status at Discharge Functional status at discharge: independent ambulation Overall status at discharge: patient is not back to baseline Mental Status: mental status grossly normal Speech and Movement: speech and movement normal Mood: anxious mood (agitated.) Affect: normal affect Exam Narrative Exam Narrative: Sitting up in bed, alert and oriented, agitated, stating that he cannot be held against his will. Right hand with skin tear, no active drainage, erythema and mild edema surrounding the site on the dorsal aspect of his hand. Psych Mental Status: mental status grossly normal Speech and Movement: speech and movement normal Mood: anxious mood (agitated.) Affect: normal affect DS: Data Vitals/I&O Vitals and I&O: Vital Signs Temperature 36.3 C L 06/19/20 07:21 Temperature Source Temporal Artery Scan 06/19/20 07:21 Pulse 74 06/19/20 07:21 Pulse Rhythm Regular 06/19/20 09:45 Respiratory Rate 18 06/19/20 07:21 Respiratory Effort 06/19/20 00:25 Respiratory Depth Normal 06/19/20 00:25 Respiratory Pattern Normal 06/19/20 00:25 Blood Pressure 129/83 06/19/20 07:21 Blood Pressure Position Sitting 06/18/20 12:22 Pulse Oximetry 98 06/19/20 07:21 Oxygen Delivery Method Room Air 06/19/20 07:21 Oxygen Flow Rate 0 06/19/20 07:21 Pain Level 4 06/19/20 11:47 Comment 06/19/20 00:16 Intake & Output 06/18/20 06/19/20 06/19/20 23:59 11:59 23:59 Intake Total 1060 / 1060 620 / 620 Output Total 950 / 950 2425 / 2425 Balance 110 / 110 -1805 / -1805 Weight 68.039 kg Intake: IV 1060 / 1060 250 / 250 Oral 370 / 370 Output: Urine 950 / 950 2425 / 2425 Other: Urine Color Yellow Urine Appearance Clear Clear Urine Odor None Stool Size Large Stool Characteristics Formed Voiding Methods Urinal # Voids 3 Data Completed and Pending Completed studies during hospitalization [Text1]: CT RUE: IMPRESSION: Technically limited examination. No gross abscess identified. Additional evaluation with MRI may be obtained if there is clinical suspicion of abscess or bony destruction. US soft tissue R hand: FINDINGS: Ultrasound examination of the right forearm and wrist region was performed. There is diffuse soft tissue edema. No focal abscess identified. No solid mass identified. Labs on day of discharge: Labs from last 24 hours 06/19/20 06/19/20 06/19/20 13:00 07:30 07:30 WBC 5.12 RBC 3.86 L Hgb 13.9 Hct 41.7 MCV 108.0 H MCH 36.0 H MCHC 33.3 RDW 12.9 Plt Count 182 MPV 9.6 Sodium 137 Potassium 3.2 L Chloride 99 Carbon Dioxide 33.4 H Anion Gap 4.6 BUN 5 L Creatinine 0.75 Estimated GFR/1.73 m2 >= 60.00 Glucose 78 Calcium 8.6 Magnesium 1.6 L C-Reactive Protein Procalcitonin Vancomycin Trough 20.6 H* Ethyl Alcohol COVID-19 PCR Nasopharyn COVID-19 PCR Ref Test Perform Site 06/18/20 06/18/20 06/18/20 16:30 13:15 13:15 WBC RBC Hgb Hct MCV MCH MCHC RDW Plt Count MPV Sodium Potassium Chloride Carbon Dioxide Anion Gap BUN Creatinine Estimated GFR/1.73 m2 Glucose Calcium Magnesium C-Reactive Protein 0.44 H Procalcitonin < 0.1 Vancomycin Trough Ethyl Alcohol COVID-19 PCR Negative Nasopharyn COVID-19 PCR Not Applicable Ref Test Perform Site [facility] 06/18/20 13:15 WBC RBC Hgb Hct MCV MCH MCHC RDW Plt Count MPV Sodium Potassium Chloride Carbon Dioxide Anion Gap BUN Creatinine Estimated GFR/1.73 m2 Glucose Calcium Magnesium C-Reactive Protein Procalcitonin Vancomycin Trough Ethyl Alcohol 128.6 COVID-19 PCR Nasopharyn COVID-19 PCR Ref Test Perform Site 06/18/20 13:37 Blood Blood Culture - Pending 06/18/20 13:10 Blood Blood Culture - Pending Preliminary micro results at discharge 06/18/20 13:37 Blood Culture - Pending Blood 06/18/20 13:10 Blood Culture - Pending Blood [facility] Medical History Abscess (Acute) Alcoholic dependence syndrome (Acute) Alcoholic hepatitis (Acute) Alcoholism (Chronic) Anxiety (Chronic) Anxiety with depression (Acute) Apical lung scarring (Acute) BPH (benign prostatic hyperplasia) (Chronic) CAD (coronary artery disease) (Chronic) Candidal intertrigo (Acute) Chronic back pain (Chronic) Chronic pain syndrome (Chronic) Closed fracture of right humerus (Acute) Compression fracture of lumbar vertebra (Acute) COPD (chronic obstructive pulmonary disease) (Chronic) Depression (Chronic) Fatigue (Acute) Frequent falls (Acute) GERD (gastroesophageal reflux disease) (Chronic) Hand pain, right (Acute) Headache (Acute) History of myocardial infarction (Resolved) History of seizures (Acute) Hx of deep venous thrombosis (Acute) Localized swelling of right lower leg (Acute) Osteoarthritis (Chronic) Pedal edema (Acute) Polypharmacy (Acute) Prostatitis (Resolved 06/04/17) Right shoulder pain (Acute) Skin ulcer (Acute) Thoracic compression fracture (Acute) Tobacco dependence (Acute) Tremor (Acute) Urinary incontinence (Acute) Venous insufficiency of right leg (Acute) Surgical History H/O bilateral inguinal hernia repair (Resolved) History of bilateral knee replacement (Resolved) History of cholecystectomy (Resolved) Previous back surgery (Chronic) S/P coronary artery stent placement (Acute) S/P tonsillectomy and adenoidectomy (Resolved) Social History Smoking/Tobacco Use Status: Current every day Tobacco Type: cigarettes Smoking packs per day: 3 Smoking cigarettes per day: 60.0 Tobacco: How many years used: 50 Alcohol Intake: current Alcohol Intake frequency: 0-2 drinks per day Alcohol type: beer Drug use: Never Substance use type: does not use Details: pt states a few beers daily last intake 2 days ago Do you feel safe at home: Yes Do you feel safe in your relationship?: Yes
--- NOTE | 2020-06-19 16:15 | CHAPLAIN ---
When I visited Errol this morning, he said he was feeling crappy. He was not interested in further discussion. According to Care Management notes, he left AMA this afternoon.
== END 2020-06-19 15:43 | disposition left against medical advice (07) ==
LOC: ER 12:31 → MS 18:02
PROVIDERS: Nurse Practitioner Family; Admitting Provider Internal Medicine; Emergency Provider Physician Assistant; Visit Provider Internal Medicine
DX: L03.113 Cellulitis of right upper limb (principal); F10.20 Alcohol dependence, uncomplicated; F17.210 Nicotine dependence, cigarettes, uncomplicated; I25.10 Atherosclerotic heart disease of native coronary artery without angina pectoris; J44.9 Chronic obstructive pulmonary disease, unspecified; Z79.899 Other long term (current) drug therapy; F41.8 Other specified anxiety disorders; N40.0 Benign prostatic hyperplasia without lower urinary tract symptoms; G89.29 Other chronic pain; M54.9 Dorsalgia, unspecified; K21.9 Gastro-esophageal reflux disease without esophagitis; I25.2 Old myocardial infarction; G40.909 Epilepsy, unspecified, not intractable, without status epilepticus; Z86.718 Personal history of other venous thrombosis and embolism; M19.90 Unspecified osteoarthritis, unspecified site; R60.0 Localized edema
CPT/HCPCS: 36415; 76881; 80048; 80053; 84145; 85027; 87040; 96361; 96365; 96366; 96367; 96375; 99223; 99239; 99285; U0003; 73201; 80202; 80320; 83605; 83735; 85025; 86140; 99217; 99220; G0378; J0131; J1644; J3370; J3490

== ENCOUNTER 2020-08-04 13:39 | Inpatient (IN) | payer OTHER, MEDICAID, SELFPAY ==
[2020-08-04] VITALS (114 sets, daily range): BP systolic 86–142; BP diastolic 54–96; PULSE 66–108; RESP 11–30; TEMP 36–36.7; O2SAT 90–100
--- NOTE | 2020-08-04 13:30 | RT.EKG_ITS ---
APPROVED REPORT Exam: Resting ECG Patient Location: E HR:93 bpm ECG Measurements Heart Rate 93 AXIS PA 148 P 87 QRSd 89 QRS 53 QT 405 T 75 QTc 503 Conclusion Sinus rhythm...normal P axis, V-rate 60- 99 Low voltage, extremity leads...all extremity leads <0.5mV Prolonged QT interval...QTc >500mS I have reviewed and interpreted ECG and agree with software generated interpretation.
[2020-08-04 14:03] LABS: Bilirubin Negative (Negative); Blood Negative (Negative); Clarity Sl Cloudy (Clear); Glucose Negative (Negative); Ketones 80 mg/dL (Negative); Leukocyte Esterase Negative (Negative); Nitrite Negative (Negative)
--- NOTE | 2020-08-04 14:09 | W.ED.GENAD ---
Discharge Plan Disposition Condition: Improving Discharge Details Chief Complaint: Seizure Admit Date/Time: 08/04/20 16:31 Admit Provider: Gaetano Darby Attending Provider: Gaetano Darby Primary Care Provider: Daija Rubalcava ED Provider: Tiana Woodall Home Meds and New Rx's Prescriptions: New levetiracetam [Keppra] 500 mg Tablet 500 mg PO BID Qty: 60 RF: 0 Therems-M 27-0.4 mg Tablet 1 tab PO DAILY Qty: 0 RF: 0 magnesium oxide 400 mg (241.3 mg magnesium) Tablet 400 mg PO DAILY Qty: 0 RF: 0 Continued potassium chloride 10 mEq tablet extended release 10 meq PO DAILY Qty: 30 RF: 1 miscellaneous medical supply [facility] RF: 0 nystatin 100,000 unit/gram cream 1 applic TP BID RF: 0 acetaminophen 500 mg tablet 500 mg PO Q6H PRNRF: 0 mirtazapine 15 mg tablet 30 mg PO HS RF: 0 duloxetine [Cymbalta] 60 mg capsule,delayed release(DR/EC) 60 mg PO BID RF: 0 trazodone 100 mg tablet 300 mg PO QHS RF: 0 miscellaneous medical supply [facility] RF: 0 nitroglycerin 0.4 MG tablet, sublingual 0.4 mg Sublingual PRN PRNRF: 0 zolpidem 10 mg Tablet 10 mg PO HS RF: 0 atorvastatin 40 mg Tablet 40 mg PO DAILY RF: 0 albuterol sulfate [Ventolin HFA] 90 mcg/actuation Hfa Aerosol Inhaler 2 puff INHALATION QID PRNRF: 0 No Action (DME) wheelchair Device See Rx Instructions .ROUTE .MEDSUPPLY Qty: 1 RF: 0 Discharge Instructions Activity:: Activity as Tolerated Equipment/Supplies:: No Equipment Needed Diet:: Normal Diet Discharge Orders Discharge Orders: Discharge Order (Routine); Ordered 08/06/20 Ordered By: Wayne Chamberlain Discharge Data Discharge Date/Time-TO BE ENTERED AT DEPARTURE: 08/04/20 17:47 Medical Decision Making Patient 69-year-old male presents today with chief complaint of seizure. He reports he is at 8 seizures since 11:00 today. Patient has had seizures in the past, typically associated alcohol withdrawal. EMS reports that when the girlfriend reported for tall drinks daily. However, patient is now reporting only has 1 beer per day. States he began seizing around 11 AM. He did have a small amount of alcohol in between his seizures but states there is only a few steps. He states that while seizing he never lost consciousness but instead was shaking. There was no postictal period. This was witnessed by EMS. Patient denies falling or injury during these episodes. He reports that he was lying in bed at the time that he had a seizures. He denies any head injury, visual changes, new weakness. Patient does report that he is chronically weak and has difficulty getting out of bed at baseline. Patient has b een here twice for this that I can see, both times he has had low EToh levls and seizures were thought to be from alcohol withdrawal. Neuro exam is intact at this time. No evidence of acute trauma. Patient does have difficulty moving the left arm secondary to injury to left shoulder. Strength is equal to the contralateral side otherwise. Contacted by nursing staff patient having tonic-clonic seizure. Patient did become hypoxic briefly. Pulse maintained. 2 mg of Ativan delivered. Entirety of seizure time was less than a minute. Patient does seem postictal at this point. Based on history, this event does sound much different. Patient had a brief postictal state, feels at baseline currently. Contacted by radiologist who advises prominent atrophy for age but no acute abnormality otherwise. Consulted with hospitalist who advised transitioning to phenobarbitol. He accepts the patient in admission to ICU for ETOH withdrawalseizures. He advised loading dose of phenobarbitol. He recommended between 10-15mg/kg loading dose. No further benzos will be given. Discussed plan with patient. He agrees to admission. Also contacted signifciant other. She states that she is not sure how to promote ETOH avoidance athome as patient isists on drinking even when she encourages avoidance. She states that even today, since his recent seizures, he called and asked that she save the drink he was currently consuming. Care management aware of this situation. HPI General Mode of arrival: EMS. Date/Time Provider Initiated Documentation: 08/04/20 14:08. Limitations to Documentation: no limitations. Information obtained by: patient, EMS, RN notes reviewed and old records reviewed. HPI Narrative: Patient is a 69 year old male brought in via EMS with c/c of seizures. He reports that he had a number of seizures this morning while in bed. Reprots no LOC, remembers the events but describes shaking uncontrolably. Did not have urinary incontinence, no tongue biting. States that he has had this previously. Drinks regularly, states he typically starts around 1pm. Reports drinking 1 beer daily, significant other told EMS that he has 4 daily. He reports feeling at baseline now. No known trauma. Denies recent illness. No fevers/chills. No rash. Related Data Home Medications Medication Instructions Recorded Confirmed nitroglycerin 0.4 mg SUBLINGUAL PRN PRN 12/20/13 08/04/20 albuterol sulfate [Ventolin HFA] 2 puff INHALATION QID PRN 06/15/19 08/04/20 atorvastatin 40 mg PO DAILY 02/16/20 08/04/20 zolpidem 10 mg PO HS 02/16/20 08/04/20 acetaminophen 500 mg tablet 500 mg PO Q6H PRN 03/01/20 08/04/20 duloxetine 60 mg capsule,delayed 60 mg PO BID 03/01/20 08/04/20 release mirtazapine 15 mg tablet 30 mg PO HS tab 03/01/20 08/04/20 miscellaneous medical supply each 03/01/20 miscellaneous medical supply each 03/01/20 nystatin 100,000 unit/gram topical 1 applic TP BID 03/01/20 08/04/20 cream trazodone 100 mg tablet 300 mg PO QHS tab 03/01/20 08/04/20 wheelchair #1 03/01/20 potassium chloride 10 mEq 10 meq PO DAILY #30 tab 03/27/20 08/04/20 tablet,extended release levetiracetam [Keppra] 500 mg PO BID #60 tab 08/06/20 magnesium oxide 400 mg PO DAILY #0 tab 08/06/20 multivitamin,[id number] 1 tab PO DAILY #0 tab 08/06/20 [Therems-M] Previous Rx's Medication Instructions Recorded potassium chloride 10 mEq 10 meq PO DAILY #30 tab 03/27/20 tablet,extended release levetiracetam [Keppra] 500 mg PO BID #60 tab 08/06/20 magnesium oxide 400 mg PO DAILY #0 tab 08/06/20 multivitamin,[id number]-[id number]-[id number] 1 tab PO DAILY #0 tab 08/06/20 [Therems-M] Allergies Allergy/AdvReac Type Severity Reaction Status Date / Time lactase [From Dairy Aid] Allergy Severe Verified 08/04/20 16:07 Penicillins Allergy Severe Anaphylaxsi Unverified 08/04/20 16:07 s ciprofloxacin [From Cipro] Allergy Intermediate Verified 08/04/20 16:07 ibuprofen Allergy Intermediate Verified 08/04/20 16:07 fentanyl Allergy Mild Verified 08/04/20 16:07 cephalexin monohydrate Allergy Unverified 08/04/20 16:07 [From Keflex] meperidine HCl [From Demerol] Allergy Skin Rash Unverified 08/04/20 16:07 clindamycin HCl AdvReac Severe see note Unverified 08/04/20 16:07 [From Cleocin] clindamycin palmitate HCl AdvReac Severe see comment Unverified 08/04/20 16:07 [From Cleocin] clindamycin phosphate AdvReac Severe see note Unverified 08/04/20 16:07 [From Cleocin] ketorolac tromethamine AdvReac Intermediate vomiting Unverified 08/04/20 16:07 [From Toradol] NSAIDS (Non-Steroidal AdvReac Intermediate Nausea Unverified 08/04/20 16:07 Anti-Inflamma propoxyphene HCl AdvReac Intermediate vomiting Unverified 08/04/20 16:07 [From Darvon] tramadol HCl [From Ultram] AdvReac Intermediate vomiting Unverified 08/04/20 16:07 General Stated Complaint: Seizure THEODORE: 3 Review of Systems Constitutional Constitutional: Reports as per HPI, Denies chills, Reports fatigue, Denies fever(s), Denies frequent falls, Denies headache(s), Denies snoring and Reports weakness (states difficulty getting out of bed at baseline) Eyes Eyes: Reports as per HPI, Denies blurry vision and Denies change in vision ENT Ears, Nose, Mouth, and Throat: Denies vertigo, Denies headache(s) and Denies neck pain Cardiovascular Cardiovascular: Reports as per HPI, Denies chest pain, Denies lightheadedness, Denies radiating jaw, neck or arm pain, Denies dyspnea and Denies dyspnea on exertion Respiratory Respiratory: Reports as per HPI, Denies chest congestion, Denies cough, Denies dyspnea, Denies dyspnea on exertion, Denies snoring, Denies stridor and Denies wheezing Gastrointestinal Gastrointestinal: Reports as per HPI, Denies abdominal pain, Denies change in bowel habits, Denies nausea and Denies vomiting Genitourinary Genitourinary: Reports system reviewed and no additional complaints, except as documented (denies change in urinary habits) Musculoskeletal Musculoskeletal: Reports as per HPI, Denies back pain, Denies myalgias, Denies muscle cramps, Denies neck pain and Denies numbness Integumentary/Breasts Skin/Breast: Reports as per HPI and Denies rash Neurologic Neurologic: Reports as per HPI, Denies abnormal movements, Denies abnormal speech, Denies behavioral changes, Denies confusion, Denies vertigo, Denies frequent falls, Denies headache(s), Denies localized weakness, Denies numbness, Reports convulsions, Denies sensory deficit and Reports weakness (states difficulty getting out of bed at baseline) Psychiatric Psychiatric: Denies behavioral changes and Denies confusion Endocrine Endocrine: Reports fatigue Allergic/Immunologic Allergic/Immunologic: Denies wheezing PFSH Medical History Abscess Alcoholic dependence syndrome Alcoholic hepatitis Alcoholism Anxiety Anxiety with depression Apical lung scarring BPH (benign prostatic hyperplasia) CAD (coronary artery disease) Candidal intertrigo Chronic back pain Chronic pain syndrome Closed fracture of right humerus Compression fracture of lumbar vertebra COPD (chronic obstructive pulmonary disease) Depression Fatigue Frequent falls GERD (gastroesophageal reflux disease) Hand pain, right Headache History of myocardial infarction History of seizures Hx of deep venous thrombosis Localized swelling of right lower leg Osteoarthritis Pedal edema Polypharmacy Prostatitis (06/04/17) Right shoulder pain Skin ulcer Thoracic compression fracture Tobacco dependence Tremor Urinary incontinence Venous insufficiency of right leg Surgical History H/O bilateral inguinal hernia repair History of bilateral knee replacement History of cholecystectomy Previous back surgery S/P coronary artery stent placement S/P tonsillectomy and adenoidectomy Social History Smoking/Tobacco Use Status: Current every day Tobacco Type: cigarettes Smoking packs per day: 3 Smoking cigarettes per day: 60.0 Tobacco: How many years used: 50 Alcohol Intake: current Alcohol Intake frequency: 0-2 drinks per day Alcohol type: beer Drug use: Never Substance use type: does not use Details: pt states a few beers daily last intake 2 days ago Do you feel safe at home: Yes Do you feel safe in your relationship?: Yes Exam Const General: cooperative, no acute distress, well developed and disheveled Nutritional Appearance: average body habitus and well nourished Orientation: alert, awake and oriented x3 [facility] Head: normal to inspection, no palpable skull fracture, normocephalic and atraumatic Ears: hearing grossly normal bilaterally, external ears normal and TM's normal bilaterally General nose exam: external nose normal Mouth: oral mucosae normal and moist mucous membranes Throat: posterior oropharynx normal Eyes General: appearance normal, both eyes and all related structures Alignment and Position: alignment normal Periorbital: periorbital findings normal Eyelids: eyelids normal Sclera: sclerae normal Cornea: corneas normal Pupils: PERRL EOM: EOM intact bilaterally Neck Neck: normal visual inspection, full ROM, no lymphadenopathy and no meningeal signs Resp Effort & Inspection: normal respiratory effort, able to speak in complete sentences and no respiratory distress Auscultation: clear to auscultation bilaterally, no rales, no rhonchi and no wheezes Cardio Rate: regular rate Rhythm: regular rhythm Heart Sounds: S1 normal and S2 normal GI Inspection: normal to inspection and non-distended Palpation: soft, no hepatosplenomegaly, not firm, no guarding, not rigid and nontender Percussion: normal to percussion Auscultation: normal bowel sounds Back/Spine/Pelvis Cervical Spine: normal cervical lordosis and cervical ROM normal Skin General skin exam: no rashes or lesions noted Neuro General: patient alert, patient awake and patient oriented x3 Cranial Nerves: CN's II-XI intact bilaterally Cognition: normal cognition Speech: speech normal Gait: gait abnormal (ifficulty with ambulation at baseline, patient has not ambulated in [facility]) Motor: muscle tone normal throughout, strength 5/5 throughout, no pronator drift, no movement abnormalities noted and no fasciculations Sensory Exam: no sensory deficits noted Coordination: [id number] test normal Extrem General: normal to inspection, capillary refill normal, no pedal edema and no calf tenderness Psych Appearance: grossly normal and well kempt Mental Status: mental status grossly normal Speech and Movement: speech and movement normal Course Vital Signs Vital signs: Vital Signs Temperature 36.6 C 08/04/20 13:39 Pulse 101 H 08/04/20 13:39 Blood Pressure 142/95 H 08/04/20 13:39 Pulse Oximetry 99 08/04/20 13:39 Temperature 36.6 C 08/04/20 13:39 Temperature Source Temporal Artery Scan 08/04/20 13:39 Pulse 101 H 08/04/20 13:39 Respiratory Effort Non-Labored 08/04/20 13:45 Blood Pressure 142/95 H 08/04/20 13:39 Blood Pressure Position Sitting 08/04/20 13:39 Pulse Oximetry 99 08/04/20 13:39 Oxygen Delivery Method Room Air 08/04/20 13:39 Oxygen Flow Rate 0 08/04/20 13:39 Pain Level 0 08/04/20 13:39 Lab/Test Results Lab/Test Results: Laboratory Tests Range/Units 08/04/20 13:50 Urine Color (Yellow) Yellow Urine Clarity (Clear) Sl cloudy Urine pH (5-8) 7.0 Ur Specific Massey (1.005-1.025) 1.020 Urine Protein (Negative) mg/dL 30 H Urine Ketones (Negative) mg/dL 80 H Urine Blood (Negative) Negative Urine Nitrite (Negative) Negative Urine Bilirubin (Negative) Negative Urine Urobilinogen (Up TO 0.2) EU/dL 2.0 H Ur Leukocyte Esterase (Negative) Negative Urine Glucose (Negative) mg/dL Negative
[2020-08-04 14:19] LABS: Bacteria Negative HPF (Negative); C & S Indicated? No; Casts Negative LPF (Negative); Crystals Negative HPF (Negative); Epithelial Cells Rare HPF (Negative); Mucus Trace (Negative); RBC 0-2 HPF (0-2)
--- NOTE | 2020-08-04 14:30 | RT.EKG_ITS ---
APPROVED REPORT Exam: Resting ECG Patient Location: E HR:91 bpm ECG Measurements Heart Rate 91 AXIS AK 203 P 74 QRSd 91 QRS 60 QT 390 T 69 QTc 480 Conclusion Sinus rhythm...normal P axis, V-rate 60- 99 Ventricular premature complex...V complex w/ short R-R interval Aberrant conduction of SV complex(es)...aberrant shape, AK 80-220 Low voltage, extremity leads...all extremity leads <0.5mV. No significant change from previous. PVCs. No STEMI. I have reviewed and interpreted ECG and agree with software generated interpretation.
[2020-08-04 14:43] LABS: Abs Immature Grans 0.05 10^3/uL (0.0-0.06); Absolute Basophil Count 0.02 10^3/uL (0.0-0.2); Absolute Eosinophil Count 0.02 10^3/uL (0.0-0.7); Absolute Lymphocyte Count 0.73 10^3/uL (1.2-3.4); Absolute Monocyte Count 0.58 10^3/uL (0.1-0.8); Absolute Neutrophil Count 4.35 10^3/uL (1.2-6.7); Basophils % 0.3; Eosinophils % 0.3; HCT 42.4 % (40.0-50.0); HGB 14.8 g/dL (13.5-17.5); Immature Grans % 0.9; Lymphocytes % 12.7; MCH 37.1 pg (27.0-33.0); MCHC 34.9 % (32.0-36.0); MCV 106.3 fL (80-95); Monocytes % 10.1; Neutrophils % 75.7; Nucleated RBC 0 %; Platelet Count 123 10^3/uL (130-400); RBC 3.99 10^6/uL (4.36-5.78); RDW 12.7 % (11.8-14.1); RDW-SD 50.1 fL; WBC 5.75 10^3/uL (4.4-10.8)
[2020-08-04] MEDS: Normal Saline Flush 10 ML SYR IVP ×3 (14:43→23:20)
[2020-08-04] MEDS: Normal Saline 1,000 ML 150 ML IV ×2 (14:44→23:19)
[2020-08-04] MEDS: LORazepam 2 MG/ML VIAL (14:44)
[2020-08-04 14:55] LABS: ALT 57 U/L (16-63); AST 147 U/L (15-37); Alkaline Phosphatase 66 U/L (46-116); BUN 4 mg/dL (7-18); CREATININE 0.64 mg/dL (0.70-1.30); Calcium 9.3 mg/dL (8.5-10.1); Chloride 94 mmol/L (98-107); ETHANOL BLOOD 4.1 mg/dL (<3); Glucose 80 mg/dL (74-106); Potassium 4.2 mmol/L (3.5-5.1); Sodium 133 mmol/L (136-145); Total Protein 7.8 g/dL (6.4-8.2)
--- NOTE | 2020-08-04 15:15 | DI.CT_ITS ---
EXAM: CT HEAD WO CLINICAL HISTORY: seizure. TECHNIQUE: Imaging Protocol: Axial computed tomography images with coronal and sagittal reformatted images were created and reviewed COMPARISON: CT CT HEAD WO from 02/16/2020 FINDINGS: There is moderate generalized cerebral atrophy. No evidence of acute intracranial hemorrhage, mass effect, or midline shift. The orbital structures are unremarkable. The temporal bone structures appear intact. Calvarium: Normal. Visualized Paranasal sinuses/Mastoids: Clear. IMPRESSION: Cerebral atrophy. Otherwise normal cranial CT. RADIATION DOSE DELIVERED: 697.68mGy.cm Total DLP 697.68mGy.cm Total DLP DATA REPOSITORY: All CT scans at this facility are submitted to the National Radiology Data Registry (NRDR) Dose Index Registry (DIR) with the [employer] ([employer]). RADIATION OPTIMIZATION: All CT scans at this facility use at least one of these dose optimization te chniques: automated exposure control; mA and/or kV adjustment per patient size (includes targeted exa ms where dose is matched to clinical indication); or iterative reconstruction.
[2020-08-04] MEDS: PHENobarbital 130 MG/ML VIAL 720 MG IVP (16:30)
[2020-08-04] MEDS: MULTIVITAMIN 10 ML, THIAMINE 100 MG, FOLIC ACID 1 MG in DEXTROSE 5%-0.45% SALINE 1,000 ML 42 ML IV (17:17)
[2020-08-04 17:35] LABS: *AMPHETAMINES SCREEN URINE Negative (Negative); *BARBITURATES SCREEN URINE Negative (Negative); *BENZODIAZEPINES SCREEN URINE Negative (Negative); Cannabinoids THC Negative (Negative); Cocaine Screen,Urine Negative (Negative); METHADONE URINE SCREEN Negative (Negative); OPIATES URINE SCREEN Negative (Negative)
[2020-08-04 17:36] LABS: Tricyclic Antidepressants Negative (Negative)
--- NOTE | 2020-08-04 19:08 | W.PM.HP.N ---
Date of service: 08/04/20 Time of Service: 19:08 Assessment and Plan Assessment and plan (1) Alcohol withdrawal seizure: Status: Acute Assessment and plan: Patient received a loading dose of phenobarbital 10 mg/kg IV. He will continue to receive phenobarbital 130 mg - 260 mg IV q. 30 minutes as needed agitation to control his alcohol withdrawal. Nursing is to monitor his RASS scale to maintain a sedation level of 0 to -1 (awake but calm to slightly sedated but arouseable to voice and able to open eyes and look at observer and sustain contact for over 10 seconds). Patient will be treated w/ banana bag of thiamine, folic acid and MVS along w/ magnesium. Qualifiers: Complication of substance-induced condition: uncomplicated Qualified Code(s): F10.230 - Alcohol dependence with withdrawal, uncomplicated (2) Alcoholism: Status: Chronic Assessment and plan: patient needs referral to outpatient alcohol abstinence program and possible medications to avoid further drinking i.e. acamprosate (3) Cervicalgia: Status: Acute Assessment and plan: will give Robaxin and ketorolac prn. Ketorolac is listed as an allergy but not true allergy. NSAID reportedly cause him nausea. When I asked about allergies to medications he did not recall any despite a list of numerous allergies. The only medication that appears to be true allergy is to PCN (anaphylaxis) and possibly meperidine (rash). It is not clear what keflex and cipro do to him. We can also try moist heat to his neck. History of Present Illness History of Present Illness Chief Complaint: Seizure Narrative: 69-year-old male with a past medical history significant for alcoholism and prior alcohol withdrawal with seizures, COPD, coronary artery disease, anxiety depression, who presents emergency department with allegedly having experienced 8 seizures since 11 AM. Allegedly he was awake throughout all the seizures. However he did experience a witnessed tonic-clonic seizure in the emergency department associated with urinary incontinence and postictal state. Patient reportedly cut down his drinking to 1 beer per day wears his girlfriend reports he drinks tall drink daily. Upon arrival to the emergency department routine labs demonstrate his blood alcohol level to be 4.1 mg/dL. Rest of his urine toxicology screen was negative for drugs of abuse. CMP showed a borderline low sodium of 133 otherwise rest of his electrolytes are normal. BUN and creatinine were normal. His AST is elevated at 147 with a normal ALT of 57 and a normal bilirubin of 1.0. CBC showed a normal white count and normal hemoglobin hematocrit but with macrocytic red cell changes with MCV of 106 and a low platelet count of 123,000. Patient was given Ativan 2 mg IV at the time of his seizure in the emergency department. DAVE Maher, called me for admission for acute alcohol withdrawal seizures. I recommended initiation of phenobarbital with a loading dose of 10 mg/kg IV and then to treat for withdrawal symptoms with as needed dosing of phenobarbital at 130-260 mg IV every 30 minutes to keep his RASS score at 0-negative 1. Phenobarbital has a smoother onset of action and reaches therapeutic levels whereas benzodiazepines its tricky determining what the appropriate dosing and there is really no therapeutic level to check. Maximum dose in a 24 to 48-hour period of phenobarbital is 20 to 25 mg/kg (absolute max. is 30 mg/kg). Review of Systems All systems reviewed & are unremarkable except as noted in HPI and below PFSH Medical History (Updated 08/04/20 @ 20:09 by Gaetano Darby) Abscess Alcoholic dependence syndrome Alcoholic hepatitis Alcoholism Anxiety Anxiety with depression Apical lung scarring BPH (benign prostatic hyperplasia) CAD (coronary artery disease) Candidal intertrigo Chronic back pain Chronic pain syndrome Closed fracture of right humerus Compression fracture of lumbar vertebra COPD (chronic obstructive pulmonary disease) Depression Fatigue Frequent falls GERD (gastroesophageal reflux disease) Hand pain, right Headache History of myocardial infarction History of seizures Hx of deep venous thrombosis Localized swelling of right lower leg Osteoarthritis Pedal edema Polypharmacy Prostatitis (06/04/17) Right shoulder pain Skin ulcer Thoracic compression fracture Tobacco dependence Tremor Urinary incontinence Venous insufficiency of right leg Surgical History H/O bilateral inguinal hernia repair History of bilateral knee replacement History of cholecystectomy Previous back surgery S/P coronary artery stent placement S/P tonsillectomy and adenoidectomy Social History Smoking/Tobacco Use Status: Current every day Tobacco Type: cigarettes Smoking packs per day: 3 Smoking cigarettes per day: 60.0 Tobacco: How many years used: 50 Alcohol Intake: current Alcohol Intake frequency: 0-2 drinks per day Alcohol type: beer Drug use: Never Substance use type: does not use Details: pt states a few beers daily last intake 2 days ago Do you feel safe at home: Yes Do you feel safe in your relationship?: Yes Meds Home Medications and Allergies Home Medications Medication Instructions Recorded Confirmed Type nitroglycerin 0.4 mg SUBLINGUAL PRN PRN 12/20/13 08/04/20 History albuterol sulfate [Ventolin HFA] 2 puff INHALATION QID PRN 06/15/19 08/04/20 History atorvastatin 40 mg PO DAILY 02/16/20 08/04/20 History zolpidem 10 mg PO HS 02/16/20 08/04/20 History acetaminophen 500 mg tablet 500 mg PO Q6H PRN 03/01/20 08/04/20 History duloxetine 60 mg capsule,delayed 60 mg PO BID 03/01/20 08/04/20 History release mirtazapine 15 mg tablet 30 mg PO HS tab 03/01/20 08/04/20 History miscellaneous medical supply each 03/01/20 History miscellaneous medical supply each 03/01/20 History nystatin 100,000 unit/gram topical 1 applic TP BID 03/01/20 08/04/20 History cream trazodone 100 mg tablet 300 mg PO QHS tab 03/01/20 08/04/20 History wheelchair #1 03/01/20 History potassium chloride 10 mEq 10 meq PO DAILY #30 tab 03/27/20 08/04/20 Rx tablet,extended release Allergies Allergy/AdvReac Type Severity Reaction Status Date / Time lactase [From Dairy Aid] Allergy Severe Verified 08/04/20 16:07 Penicillins Allergy Severe Anaphylaxsi Unverified 08/04/20 16:07 s ciprofloxacin [From Cipro] Allergy Intermediate Verified 08/04/20 16:07 ibuprofen Allergy Intermediate Verified 08/04/20 16:07 fentanyl Allergy Mild Verified 08/04/20 16:07 cephalexin monohydrate Allergy Unverified 08/04/20 16:07 [From Keflex] meperidine HCl [From Demerol] Allergy Skin Rash Unverified 08/04/20 16:07 clindamycin HCl AdvReac Severe see note Unverified 08/04/20 16:07 [From Cleocin] clindamycin palmitate HCl AdvReac Severe see comment Unverified 08/04/20 16:07 [From Cleocin] clindamycin phosphate AdvReac Severe see note Unverified 08/04/20 16:07 [From Cleocin] ketorolac tromethamine AdvReac Intermediate vomiting Unverified 08/04/20 16:07 [From Toradol] NSAIDS (Non-Steroidal AdvReac Intermediate Nausea Unverified 08/04/20 16:07 Anti-Inflamma propoxyphene HCl AdvReac Intermediate vomiting Unverified 08/04/20 16:07 [From Darvon] tramadol HCl [From Ultram] AdvReac Intermediate vomiting Unverified 08/04/20 16:07 Exam Narrative Exam Narrative: Elderly male lying in bed in semi-burt position in no acute distress. He is alert and oriented person place time circumstance. At present time he says he feels better except he has a severe headache and neck ache. HEENT is unremarkable. Neck is supple although he has some complaints of tenderness with range of motion testing. There is no meningismus. Carotid pulses are normal no bruits no JVD. Lungs with diffuse end expiratory wheezes no rhonchi or rales. Heart is regular rate and rhythm. Abdomen soft and nontender normal bowel sounds. Extremities without peripheral cyanosis or edema. Neurologic exam is grossly intact nonfocal. No facial asymmetry no dysarthric speech. He is alert and oriented person place time circumstance. Hands are tremulous but there is no hepatic flap. No ataxia with [id number] testing or [id number] testing Results Labs Result diagrams: 08/04/20 14:35 08/04/20 14:35 Labs: Laboratory Results - last 24 hr 08/04/20 08/04/20 08/04/20 13:50 13:50 14:35 WBC RBC Hgb Hct MCV MCH MCHC RDW Plt Count MPV Immature Gran % Neutrophils % Lymphocytes % Monocytes % Eosinophils % Basophils % Nucleated RBC % Absolute Neutrophils Absolute Lymphocytes Absolute Monocytes Absolute Eosinophils Absolute Basophils Sodium 133 L Potassium 4.2 Chloride 94 L Carbon Dioxide 25.0 Anion Gap 14.0 H BUN 4 L Creatinine 0.64 L Estimated GFR/1.73 m2 >= 60.00 Glucose 80 Calcium 9.3 Total Bilirubin 1.0 AST 147 H ALT 57 Alkaline Phosphatase 66 Total Protein 7.8 Albumin 3.0 L Urine Color Yellow Urine Clarity Sl cloudy Urine pH 7.0 Ur Specific [place] 1.020 Urine Protein 30 H Urine Ketones 80 H Urine Blood Negative Urine Nitrite Negative Urine Bilirubin Negative Urine Urobilinogen 2.0 H Ur Leukocyte Esterase Negative Urine RBC 0-2 Urine WBC 3-5 Ur Epithelial Cells Rare Urine Crystals Negative Urine Bacteria Negative Urine Casts Negative Urine Mucus Trace Ur Culture Indicated? No Urine Glucose Negative Urine Opiates Screen Negative Urine Methadone Screen Negative Ur Barbiturates Screen Negative Ur Tricyclics Screen Negative Ur Amphetamines Screen Negative U Benzodiazepines Scrn Negative Urine Cocaine Screen Negative Ur THC Screen Negative Ethyl Alcohol 4.1 08/04/20 14:35 WBC 5.75 RBC 3.99 L Hgb 14.8 Hct 42.4 MCV 106.3 H MCH 37.1 H MCHC 34.9 RDW 12.7 Plt Count 123 L MPV 10.0 Immature Gran % 0.9 Neutrophils % 75.7 Lymphocytes % 12.7 Monocytes % 10.1 Eosinophils % 0.3 Basophils % 0.3 Nucleated RBC % 0 Absolute Neutrophils 4.35 Absolute Lymphocytes 0.73 L Absolute Monocytes 0.58 Absolute Eosinophils 0.02 Absolute Basophils 0.02 Sodium Potassium Chloride Carbon Dioxide Anion Gap BUN Creatinine Estimated GFR/1.73 m2 Glucose Calcium Total Bilirubin AST ALT Alkaline Phosphatase Total Protein Albumin Urine Color Urine Clarity Urine pH Ur Specific [place] Urine Protein Urine Ketones Urine Blood Urine Nitrite Urine Bilirubin Urine Urobilinogen Ur Leukocyte Esterase Urine RBC Urine WBC Ur Epithelial Cells Urine Crystals Urine Bacteria Urine Casts Urine Mucus Ur Culture Indicated? Urine Glucose Urine Opiates Screen Urine Methadone Screen Ur Barbiturates Screen Ur Tricyclics Screen Ur Amphetamines Screen U Benzodiazepines Scrn Urine Cocaine Screen Ur THC Screen Ethyl Alcohol Last Vital Signs Temp 36.6 C 08/04/20 13:39 Pulse 75 08/04/20 18:23 Resp 16 08/04/20 18:23 BP 128/82 08/04/20 18:23 Pulse Ox 98 08/04/20 18:23 COVID-19 Screening Have you,or household,traveled outside [place] in last 14 days?: No Had IN PERSON contact w/suspected or confirmed C-19 person: No
[2020-08-04] MEDS: Acetaminophen 325 MG TAB PO (20:16)
[2020-08-04] MEDS: Enoxaparin 40 MG/0.4 ML SYR SC (20:18)
[2020-08-04] MEDS: Pantoprazole 40 MG TABCR PO (20:18)
[2020-08-04] MEDS: Mirtazapine 15 MG TAB 30 MG PO (23:15)
[2020-08-04] MEDS: traZODone 100 MG TAB 150 MG PO (23:15)
[2020-08-05] VITALS (24 sets, daily range): BP systolic 84–122; BP diastolic 43–76; PULSE 62–172; RESP 11–30; TEMP 36.5–37.1; O2SAT 96–99
[2020-08-05 02:12] LABS: COVID-19 RT-PCR UVMMC Result Negative (Negative)
[2020-08-05] MEDS: Normal Saline 1,000 ML 150 ML IV ×2 (06:17→20:11)
[2020-08-05 06:55] LABS: ALT 37 U/L (16-63); AST 68 U/L (15-37); Albumin 2.2 g/dL (3.4-5.0); Alkaline Phosphatase 48 U/L (46-116); Anion Gap 9.7 mmol/L (3-11); BUN 4 mg/dL (7-18); Bilirubin, Total 0.8 mg/dL (0.2-1.0); CO2 27.3 mmol/L (21.0-32.0); Calcium 8.1 mg/dL (8.5-10.1); Chloride 101 mmol/L (98-107); Glucose 103 mg/dL (74-106); Magnesium 1.7 mg/dL (1.8-2.4); PHOSPHORUS 2.9 mg/dL (2.6-4.7); Potassium 3.8 mmol/L (3.5-5.1); Sodium 138 mmol/L (136-145); Total Protein 5.7 g/dL (6.4-8.2)
[2020-08-05] MEDS: DULoxetine 30 MG CAP 60 MG PO (08:02)
[2020-08-05] MEDS: Atorvastatin 40 MG TAB PO (08:02)
[2020-08-05] MEDS: Potassium Chloride 10 MEQ TABCR PO (08:02)
[2020-08-05] MEDS: Pantoprazole 40 MG TABCR PO (08:03)
--- NOTE | 2020-08-05 09:23 | PDOC.CMIN ---
- If Service Date Differs Date of service: 08/05/20 Time of Service: 09:23 Care Management Initial Assess PAST MEDICAL HISTORY/PAST SURGICAL HISTORY:: Absess, alcohol use disorder, alcoholic hepatitis, alchoholism, anxiety (with depression), apical lung scarring, BPH, CAD, candidal intertrigo, chronic back pain, right humerus fracture, compression fracture lumbar vertebra, COPD, Depression, fatigue, frequent falls, GERD, right hand pain, headache, [place], seizures, deep vein thrombosis, localized swelling of right lower leg, osteoarthritis, pedal edema, polypharmacy, h/o prostatitis, right shoulder pain, skin ulcer, thoracic compression fracture, tobacco dependence, tremor, urinary incontinence, venous insufficiency of right leg, bilat inguinal hernia repair, cholecystectomy, back surgery, coronary artery stent placement, T&A, current everyday smoker 3x/pk a day PREVIOUS FUNCTIONAL STATUS/SOCIAL/FAMILY SUPPORTS:: [place]rol [place]) is a 68 year old male that lives in [place], [place] with his VENTURA Jordan. He has 6 grown children that live out of the area one son and six daughters. He states that he had back surgery abour 6 years ago and he uses a wheelchair and walker for mobility. He states that he is disabled and has a history of being in the [employer]. CM confirmed with the [facility] he was in the [employer] from 1970 thru 1972 and served [place]. He reports that he receives a non-service connected pension through the [facility]. 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 He reports he has chronic pain in his back and his legs are weak which make it difficult for him to complete ADL's. Errol River) did have choices for care moderate need in the past however he fired most of them and is not able to enroll back in the program due to high risk behaviors [facility] staff. Gareth has a history multiple falls related to his alcohol use. CURRENT FUNCTIONAL STATUS:: Gareth is alert and engaged during assessment. He states he is no longer receiving services in the home, he would like PT and OT. He reports that he has been to weak to go to go up and down his stairs. He lives with his VENTURA Simmons and reports that she helps him at home. He states he uses alcohol daily about 1.5 drinks per day. Gareth is interested in completing his advance directives, he would like to complete them this admission. Gareth's right arm shakes and he states that he cannot write with it and will need help completing the forms. ADVANCE DIRECTIVES:: None on file at [facility] CM to offer forms and guidence in completion Has patient been provided with info about the portal/API?: Yes Did the patient sign up for the portal?: No CODE STATUS:: Full Code INSURANCE COVERAGE / FINANCIAL ISSUES:: Medicaid and Medicare CURRENT HOME/COMMUNITY SERVICES/EQUIPMENT:: W/C and [facility] PRIMARY CARE PHYSICIAN:: POTENTIAL DISCHARGE NEEDS:: Pending Disposition, follow up with primary care and referral to [facility] if accepted by patient PATIENT/FAMILY EDUCATION NEEDS:: Dicharge education, limitations and follow up plan of care including ask me three and self management. ANTICIPATED BARRIERS TO DISCHARGE:: Gareth uses wheelchair van for transportation, he will need to use the wheelchair van when returning home, and borrow a w/c from [facility] to be returned by [facility]. TRANSPORTATION:: Via W/C van coordinated by CM his SO will meet him outside with his W/C upon returning home. PLAN:: Gareth will be discharged home when medically ready. He will need new home health services, for nursing, PT and OT. [facility] to be coordinated by CM upon discharge with W/C van. CM to complete advance directive with patient.
--- NOTE | 2020-08-05 09:42 | PHA.REVIEW ---
Pharmacy Admission Review - Admission Clinical Review (Last Updated 08/04/20 @ 20:04 by Gaetano Darby) Cervicalgia (Acute) Alcohol withdrawal seizure (Acute) lactase [From Dairy Aid] Allergy (Severe, Verified 08/04/20 16:07) Penicillins Allergy (Severe, Unverified 08/04/20 16:07) Anaphylaxsis ciprofloxacin [From Cipro] Allergy (Intermediate, Verified 08/04/20 16:07) ibuprofen Allergy (Intermediate, Verified 08/04/20 16:07) fentanyl Allergy (Mild, Verified 08/04/20 16:07) cephalexin monohydrate [From Keflex] Allergy (Unverified 08/04/20 16:07) meperidine HCl [From Demerol] Allergy (Unverified 08/04/20 16:07) Skin Rash clindamycin HCl [From Cleocin] Adverse Reaction (Severe, Unverified 08/04/20 16:07) see note clindamycin palmitate HCl [From Cleocin] Adverse Reaction (Severe, Unverified 08/04/20 16:07) see comment clindamycin phosphate [From Cleocin] Adverse Reaction (Severe, Unverified 08/04/20 16:07) see note ketorolac tromethamine [From Toradol] Adverse Reaction (Intermediate, Unverified 08/04/20 16:07) vomiting NSAIDS (Non-Steroidal Anti-Inflamma Adverse Reaction (Intermediate, Unverified 08/04/20 16:07) Nausea propoxyphene HCl [From Darvon] Adverse Reaction (Intermediate, Unverified 08/04/20 16:07) vomiting tramadol HCl [From Ultram] Adverse Reaction (Intermediate, Unverified 08/04/20 16:07) vomiting Height 6 ft Weight 71.6 kg - Renal Dosing Renal Dosing: BUN 4 mg/dL (7-18) L 08/05/20 06:00 Creatinine 0.70 mg/dL (0.70-1.30) 08/05/20 06:00 Medications needing adjustments: Reviewed (crcl ~90ml/min) - Anticoagulation Anticoagulation: Hgb 14.8 g/dL (13.5-17.5) 08/04/20 14:35 Hct 42.4 % (40.0-50.0) 08/04/20 14:35 Plt Count 123 10^3/uL (130-400) L 08/04/20 14:35 Creatinine 0.70 mg/dL (0.70-1.30) 08/05/20 06:00 DVT Prohphylaxis: Reviewed Medications: Enoxaparin Therapeutic Anticoagulation: N/A - Relevant Labs Sodium 138 mmol/L (136-145) 08/05/20 06:00 Potassium 3.8 mmol/L (3.5-5.1) 08/05/20 06:00 Chloride 101 mmol/L (98-107) 08/05/20 06:00 Phosphorus 2.9 mg/dL (2.6-4.7) 08/05/20 06:00 Magnesium 1.7 mg/dL (1.8-2.4) L 08/05/20 06:00 Electrolytes, C-Reactive P, ESR: Reviewed (Mag PO ordered) - DM Control DM Control: Glucose 103 mg/dL (74-106) 08/05/20 06:00 Insulin Dosing: N/A - BP Control BP Control: Blood Pressure [Right Arm] 118/74 Blood Pressure 84/58 Blood Pressure 112/65 Blood Pressure 122/70 Blood Pressure 114/65 Blood Pressure 107/74 Blood Pressure 99/68 Blood Pressure 99/68 If elevated: N/A - IV to PO Switch IV Medications: Reviewed (IV ketorolac, banana bag, phenobarb, ondansetron) - Home Meds Home Med List reviewed: Reviewed (will ask provider about lorazepam not ordered and duloxetine and trazodone ordered with different dosing than last filled pharmacy records) - Current meds Current Medication Order Review: Reviewed - Comments Comments/Follow Ups: phenobarb loading dose with ongoing order PRN. per md note: Maximum dose in a 24 to 48-hour period of phenobarbital is 20 to 25 mg/kg (absolute max. is 30 mg/kg).
[2020-08-05] MEDS: Magnesium Oxide 400 MG TAB PO ×2 (10:13→20:11)
--- NOTE | 2020-08-05 11:24 | PGE_ITS ---
Date of Service Date of service: 08/05/20 Time of Service: 11:24 Assessment and Plan Assessment and plan (1) Cervicalgia: Status: Acute Assessment and plan: Improved Cont methcarbomol prn and acetaminophen prn. PT consulted (2) Alcohol withdrawal seizure: Status: Acute Assessment and plan: Questionable whether this was alcohol withdrawal related seizure or not. According to patient he drinks only 1 -1 1/2 beers daily. He did receive a loading dose of phenobarbitol on admission for withdrawal and has not scored on CIWA protocol. I believe he would benefit from a neuro consult and an EEG to r/o seizure focus. No structural abnormalities seen on CT earlier this year. Keppra 500mg po BID. Qualifiers: Complication of substance-induced condition: uncomplicated Qualified Code(s): F10.230 - Alcohol dependence with withdrawal, uncomplicated (3) Alcoholism: Status: Chronic Assessment and plan: Cont thiamine, folate and MVI supplementation Encourage cessation; he does, though, refute drinking more than previously mentioned 1 - 1 1/2 beers daily. He appears to be sheba in his discussion of this subject. Subjective Subjective Patient reports: no new complaints and bowel movement; denies diarrhea, nausea, vomiting and fever Interval history since last seen: Mr Chaudhari has no complaints. No current SHETTY or neck ache. He requests a flu immunization He states that over the course of the last week + he has had only 1 beer daily. He endorses having a lesion behind the R eye that has been there for probably my whole life. He cannot give more details.CT head at [facility] on 02/16/2020 did not mention any brain lesions. He did not score on CIWA monitoring overnight. Exam Const General: cooperative and no acute distress Nutritional Appearance: average body habitus and thin Orientation: alert and oriented x3 Eyes Sclera: sclerae normal Pupils: PERRL Resp Effort & Inspection: normal respiratory effort Auscultation: clear to auscultation bilaterally Cardio Jugular venous pressure: no JVD Rate: regular rate Rhythm: regular rhythm Heart Sounds: S1 normal and S2 normal GI Palpation: soft Auscultation: normal bowel sounds Neuro General: patient alert, patient oriented x3, moves all extremities and not confused Speech: speech normal Motor: tremor bilateral upper extremity Extrem General: no clubbing, cyanosis or edema and no calf tenderness Psych Appearance: grossly normal Affect: normal affect Attitude: cooperative Objective Last Vital Signs Temp 36.5 C 08/05/20 07:30 Pulse 78 08/05/20 07:30 Resp 17 08/05/20 07:30 BP 118/74 08/05/20 07:30 Pulse Ox 98 08/05/20 07:30 Laboratory Results - last 24 hr 08/04/20 08/04/20 08/04/20 13:50 13:50 14:35 WBC RBC Hgb Hct MCV MCH MCHC RDW Plt Count MPV Immature Gran % Neutrophils % Lymphocytes % Monocytes % Eosinophils % Basophils % Nucleated RBC % Absolute Neutrophils Absolute Lymphocytes Absolute Monocytes Absolute Eosinophils Absolute Basophils Sodium 133 L Potassium 4.2 Chloride 94 L Carbon Dioxide 25.0 Anion Gap 14.0 H BUN 4 L Creatinine 0.64 L Estimated GFR/1.73 m2 >= 60.00 Glucose 80 Calcium 9.3 Phosphorus Magnesium Total Bilirubin 1.0 Conjugated Bilirubin AST 147 H ALT 57 Alkaline Phosphatase 66 Total Protein 7.8 Albumin 3.0 L Urine Color Yellow Urine Clarity Sl cloudy Urine pH 7.0 Ur Specific [place] 1.020 Urine Protein 30 H Urine Ketones 80 H Urine Blood Negative Urine Nitrite Negative Urine Bilirubin Negative Urine Urobilinogen 2.0 H Ur Leukocyte Esterase Negative Urine RBC 0-2 Urine WBC 3-5 Ur Epithelial Cells Rare Urine Crystals Negative Urine Bacteria Negative Urine Casts Negative Urine Mucus Trace Ur Culture Indicated? No Urine Glucose Negative Urine Opiates Screen Negative Urine Methadone Screen Negative Ur Barbiturates Screen Negative Ur Tricyclics Screen Negative Ur Amphetamines Screen Negative U Benzodiazepines Scrn Negative Urine Cocaine Screen Negative Ur THC Screen Negative Ethyl Alcohol 4.1 COVID-19 PCR Nasopharyn COVID-19 PCR Ref Test Perform Site 08/04/20 08/04/20 08/05/20 14:35 16:13 06:00 WBC 5.75 RBC 3.99 L Hgb 14.8 Hct 42.4 MCV 106.3 H MCH 37.1 H MCHC 34.9 RDW 12.7 Plt Count 123 L MPV 10.0 Immature Gran % 0.9 Neutrophils % 75.7 Lymphocytes % 12.7 Monocytes % 10.1 Eosinophils % 0.3 Basophils % 0.3 Nucleated RBC % 0 Absolute Neutrophils 4.35 Absolute Lymphocytes 0.73 L Absolute Monocytes 0.58 Absolute Eosinophils 0.02 Absolute Basophils 0.02 Sodium 138 Potassium 3.8 Chloride 101 Carbon Dioxide 27.3 Anion Gap 9.7 BUN 4 L Creatinine 0.70 Estimated GFR/1.73 m2 >= 60.00 Glucose 103 Calcium 8.1 L Phosphorus 2.9 Magnesium 1.7 L Total Bilirubin 0.8 Conjugated Bilirubin 0.30 H AST 68 H ALT 37 Alkaline Phosphatase 48 Total Protein 5.7 L Albumin 2.2 L Urine Color Urine Clarity Urine pH Ur Specific [place] Urine Protein Urine Ketones Urine Blood Urine Nitrite Urine Bilirubin Urine Urobilinogen Ur Leukocyte Esterase Urine RBC Urine WBC Ur Epithelial Cells Urine Crystals Urine Bacteria Urine Casts Urine Mucus Ur Culture Indicated? Urine Glucose Urine Opiates Screen Urine Methadone Screen Ur Barbiturates Screen Ur Tricyclics Screen Ur Amphetamines Screen U Benzodiazepines Scrn Urine Cocaine Screen Ur THC Screen Ethyl Alcohol COVID-19 PCR Negative Nasopharyn COVID-19 PCR Not Applicable Ref Test Perform Site [facility]
[2020-08-05] MEDS: levETIRAcetam 500 MG TAB PO ×2 (11:45→20:11)
--- NOTE | 2020-08-05 11:47 | PT.INIE ---
Date of service: 08/05/20 Time of Service: 11:30 PT Notes Visit Reasons: ALCOHOL WITHDRAWAL SEIZURE Inpatient Physical Therapy Evaluation Date: 08/05/20 Referring Doctor: Dr. Wayne Chamberlain PT Orders: PT CONSULT Precautions: fall, standard Patient Profile/Admitting Diagnosis: Patient admitted 08/04/20 for medical management of alcohol withdrawal with seizures. PMHX: Abscess Alcoholic dependence syndrome Alcoholic hepatitis Alcoholism Anxiety Anxiety with depression Apical lung scarring BPH (benign prostatic hyperplasia) CAD (coronary artery disease) Candidal intertrigo Chronic back pain Chronic pain syndrome Closed fracture of right humerus Compression fracture of lumbar vertebra COPD (chronic obstructive pulmonary disease) Depression Fatigue Frequent falls GERD (gastroesophageal reflux disease) Hand pain, right Headache History of myocardial infarction History of seizures Hx of deep venous thrombosis Localized swelling of right lower leg Osteoarthritis Pedal edema Polypharmacy Prostatitis (06/04/17) Right shoulder pain Skin ulcer Thoracic compression fracture Tobacco dependence Tremor Urinary incontinence Venous insufficiency of right leg Surgical History H/O bilateral inguinal hernia repair History of left knee replacement History of cholecystectomy Previous back surgery S/P coronary artery stent placement S/P tonsillectomy and adenoidectomy Social History/Home Situation: Patient lives with his SO in a 2-level apartment. He has a ramp to enter, but a full flight of stairs to his bedroom. He states that he manages these infrequently, typically remaining on the second floor of the apartment in his bedroom. He has a cane, FWW, and manual wheelchair, although typically ambulates only short distances around his bedroom with support from furniture. He admits to multiple falls, although unable to quantify. Equipment Owned/DME: FWW, cane, manual wheelchair, ramp to enter apartment Subjective: Errol states that he feels weak today. He admits that his mobility is quite limited at baseline, and states that he hadn't walked for about 2 weeks prior to admission. He had been receiving HH PT up until a couple of months ago when he decided he had had enough. States that he would consider HH services again when he returns home. Objective: General Observation: Resting in bed with IV in LUE, telemetry in place, and pulse oximeter. Mental Status: A&Ox3. Cooperative throughout session. Pain: reports chronic pain in right shoulder, right knee and in his back Vital Signs: monitored on telemetry throughout ROM: Right Upper Extremity: Refuses passive motion. Actively, he demonstrates only scapular motion on attempts to elevate, allowing for approx 30 degrees of forward motion. Elbow motion is full, although he lacks shoulder ER, allowing for deviation to midline with attempts to flex elbow. Left Upper Extremity: WFL Right Lower Extremity: Right knee extension allows approx -10 degrees. Flexion to 90 degrees or greater. He has obvious deformity of the right knee and multiple surgical scars. Left Lower Extremity: grossly WFL. Surgical scar consistent with TKA. Strength: Right Upper Extremity: Shoulder flexion and ER 0/5. Biceps 3/5 or greater. Left Upper Extremity: shoulder flexion 4/5. Biceps 4/5. Triceps 4/5. Right Lower Extremity: Hip flexion 4/5. Quads 4-/5. Ankle DF 4-/5. Left Lower Extremity:Hip flexion 4/5. Quads 4-/5. Ankle DF 4-/5. Bed Mobility/Transfers: supine-sit: supervision with HOB to 30 degrees sit-supine: supervision with HOB at 30 degrees sit-stand: CGA stand-sit: CGA Gait: Patient ambulates 5' x 2 with FWW and CGA. He refuses further distances, stating he's unable to do so at baseline. He demonstrates slow, shuffling gait, with heavy reliance on UE support to FWW. He also demonstrates tremor in RUE during WB to FWW. Balance: Static Sitting: good Dynamic Sitting: good Static Standing: fair Dynamic Standing: fair Special Tests: Mobility Limitations Standardized Measure [facility] 6 clicks Basic Mobility Inpatient Short Form: Raw Score: 17 CMS Score: 51% impairment Informed Consent/Education: Patient instructed in purpose of PT consult and plan of care. Assessment: Patient is a 69 year old male referred to physical therapy services with the diagnosis of decreased mobility d/t alcohol withdrawal with seizures. Patient presents with clinical signs and symptoms consistent with diagnosis, complicated by limited mobility at baseline, multiple orthopedic issues, and h/o multiple falls. He currently demonstrates the following impairment level findings: 1. decreased activity tolerance 2. decreased LE strength 3. decreased standing balance 4. h/o multiple falls 5. chronically diminished strength and ROM in RUE Impairments are contributing to the following functional limitations: 1. increased fall risk 2. decreased activity tolerance 3. unable to ambulate household distances 4. unable to manage stairs Patient is assessed as Moderate [id number] complexity based on the following: History: 69 year old male admitted for management of alcohol withdrawal. Patient has an extensive medical history, including right shoulder fx with malunion, right knee OA s/p multiple surgeries including patellectomy, and h/o spinal fusion with chronic back pain. Examination: functional limitations as noted above Presentation: evolving Decision Making: moderate complexity Goals: Goals X1 week 1. Supine-Sit : supervision 2. Sit-Supine : supervision 3. Sit-Stand: supervision 4. Stand-Sit : supervision 5. Bed-Chair : supervision with FWW 6. Chair-Bed : supervision with FWW 7. Gait : supervision with FWW x 15' 8. Stairs : ascending and descending x 5 with bilat rails, min A Plan of Care/Treatment Plan: 1-2x/day, 7 days/week x 1 week. Plan of care has been reviewed with the EVAPORATOR OPERATOR MOLASSES providing the service under Physical Therapy direction. Initiate Physical Therapy intervention for strengthening, bed mobility, transfers, gait, stairs, balance training, use of assistive device. DISCHARGE RECOMMENDATIONS: home with HH PT TREATMENT CODE/TIME: 11:30-11:50 ([id number]) Marti Dubon, PT, DPT [facility]
[2020-08-05] MEDS: Enoxaparin 40 MG/0.4 ML SYR SC (20:12)
[2020-08-05] MEDS: LORazepam 1 MG TAB PO/SL (21:06)
[2020-08-05] MEDS: Mirtazapine 15 MG TAB 30 MG PO (21:06)
[2020-08-05] MEDS: traZODone 100 MG TAB 150 MG PO (21:06)
[2020-08-06] MEDS: Normal Saline 1,000 ML 150 ML IV (03:20)
[2020-08-06 03:44] VITALS: BP 129/77; PULSE 86; RESP 18; TEMP 36.5; O2SAT 97
[2020-08-06 07:24] LABS: ALT 34 U/L (16-63); AST 48 U/L (15-37); Albumin 2.2 g/dL (3.4-5.0); Alkaline Phosphatase 45 U/L (46-116); Anion Gap 7.2 mmol/L (3-11); BUN 3 mg/dL (7-18); Bilirubin, Total 0.6 mg/dL (0.2-1.0); CO2 26.8 mmol/L (21.0-32.0); CREATININE 0.68 mg/dL (0.70-1.30); Calcium 7.8 mg/dL (8.5-10.1); Chloride 104 mmol/L (98-107); Glucose 86 mg/dL (74-106); Magnesium 1.4 mg/dL (1.8-2.4); Potassium 3.6 mmol/L (3.5-5.1); Sodium 138 mmol/L (136-145); Total Protein 5.7 g/dL (6.4-8.2)
[2020-08-06 07:55] VITALS: BP 133/86; PULSE 75; RESP 19; TEMP 37.1; O2SAT 99
[2020-08-06] MEDS: Pantoprazole 40 MG TABCR PO (07:59)
[2020-08-06] MEDS: Thiamine 100 MG TAB PO (07:59)
[2020-08-06] MEDS: levETIRAcetam 500 MG TAB PO (07:59)
[2020-08-06] MEDS: Potassium Chloride 10 MEQ TABCR PO (07:59)
[2020-08-06] MEDS: Folic Acid 1 MG TAB PO (07:59)
[2020-08-06] MEDS: DULoxetine 30 MG CAP 60 MG PO (07:59)
[2020-08-06] MEDS: Multivitamin w/Minerals TAB 1 TAB PO (08:00)
[2020-08-06] MEDS: Magnesium Oxide 400 MG TAB PO (08:00)
[2020-08-06] MEDS: Atorvastatin 40 MG TAB PO (08:00)
--- NOTE | 2020-08-06 10:35 | W.PM.DS.N ---
Date of service: 08/06/20 Time of Service: 10:41 DS: Diagnosis Discharge Diagnosis (1) Cervicalgia: Status: Acute (2) Alcohol withdrawal seizure: Status: Acute (3) Alcoholism: Status: Chronic (4) Chronic back pain: Status: Chronic (5) Chronic pain of right hip: Status: Acute Discharge Plan Disposition Patient Disposition: HOME W/HOME HEALTH SERVICE Condition: Improving Discharge Details Reason For Visit: ALCOHOL WITHDRAWAL SEIZURE Admit Date/Time: 08/04/20 16:31 Admit Provider: Gaetano Darby Attending Provider: Gaetano Darby Primary Care Provider: Daija Rubalcava Hospital Course Hospital Course: 69-year-old male with a past medical history significant for alcoholism and prior alcohol withdrawal with seizures, COPD, coronary artery disease, anxiety depression, who presents emergency department with allegedly having experienced 8 seizures since 11 AM. Allegedly he was awake throughout all the seizures. However he did experience a witnessed tonic-clonic seizure in the emergency department associated with urinary incontinence and postictal state. Patient reportedly cut down his drinking to 1 beer per day wears his girlfriend reports he drinks tall drink daily. He later intimated drinking 1 to 1 1/2 beers daily. Upon arrival to the emergency department routine labs demonstrate his blood alcohol level to be 4.1 mg/dL. Rest of his urine toxicology screen was negative for drugs of abuse. CMP showed a borderline low sodium of 133 otherwise rest of his electrolytes are normal. BUN and creatinine were normal. His AST is elevated at 147 with a normal ALT of 57 and a normal bilirubin of 1.0. CBC showed a normal white count and normal hemoglobin hematocrit but with macrocytic red cell changes with MCV of 106 and a low platelet count of 123,000. Patient was given Ativan 2 mg IV at the time of his seizure in the emergency department. Phenobarbital loading dose of 10 mg/kg IV and then to treat for withdrawal symptoms with as needed dosing of phenobarbital at 130-260 mg IV every 30 minutes to keep his RASS score at 0-negative 1. Maximum dose in a 24 to 48-hour period of phenobarbital is 20 to 25 mg/kg (absolute max. is 30 mg/kg). He did not score on CIWA protocol other than for an upper extremity tremor that is actually a chronic condition. Given his endorsement of drinking only 1 - 1 1/2 beers daily, it's questionable as to the etiology of his seizure. He will be referred to neurology as an outpt. He would likely benefit from an EEG, but that will be determined by neurology. Keppra 500mg po BID was initiated to cover for a possible seizure focus other than an alcohol withdrawal issue. His magnesium was low and supplementation of magnsesium oxide 400mg BID was initiated. He did have a very loose stool on the AM of discharge that would be related to the magnesium. I will suggest taking only one as an outpt. He was encouraged to eat a regular, proper diet and particularly including adequate protein. PCP follow up in 1-2 weeks. Home Meds and New Rx's Prescriptions: New levetiracetam [Keppra] 500 mg Tablet 500 mg PO BID Qty: 60 RF: 0 Therems-M 27-0.4 mg Tablet 1 tab PO DAILY Qty: 0 RF: 0 magnesium oxide 400 mg (241.3 mg magnesium) Tablet 400 mg PO DAILY Qty: 0 RF: 0 Continued potassium chloride 10 mEq tablet extended release 10 meq PO DAILY Qty: 30 RF: 1 miscellaneous medical supply [facility] RF: 0 nystatin 100,000 unit/gram cream 1 applic TP BID RF: 0 acetaminophen 500 mg tablet 500 mg PO Q6H PRNRF: 0 mirtazapine 15 mg tablet 30 mg PO HS RF: 0 duloxetine [Cymbalta] 60 mg capsule,delayed release(DR/EC) 60 mg PO BID RF: 0 trazodone 100 mg tablet 300 mg PO QHS RF: 0 miscellaneous medical supply [facility] RF: 0 nitroglycerin 0.4 MG tablet, sublingual 0.4 mg Sublingual PRN PRNRF: 0 zolpidem 10 mg Tablet 10 mg PO HS RF: 0 atorvastatin 40 mg Tablet 40 mg PO DAILY RF: 0 albuterol sulfate [Ventolin HFA] 90 mcg/actuation Hfa Aerosol Inhaler 2 puff INHALATION QID PRNRF: 0 No Action (DME) wheelchair Device See Rx Instructions .ROUTE .MEDSUPPLY Qty: 1 RF: 0 Discharge Instructions Instructions: Magnesium Oxide (By mouth) Referrals: Keena Lemus MD [ [facility]] - Activity:: Activity as Tolerated Equipment/Supplies:: No Equipment Needed Diet:: Normal Diet Discharge Orders Discharge Orders: Discharge Order (Routine); Ordered 08/06/20 Ordered By: Wayne Chamberlain DS: Summary Status at Discharge Functional status at discharge: uses cane/walker (Uses wheelchair for any distance greater than the size of an averge room.) Overall status at discharge: patient is progressing back to baseline Mental Status: mental status grossly normal Speech and Movement: other (speech normal. ) Mood: congruent mood Affect: normal affect Exam Const General: cooperative, no acute distress and frail appearing Nutritional Appearance: average body habitus Eyes Sclera: sclerae normal Pupils: PERRL Resp Effort & Inspection: normal respiratory effort Auscultation: clear to auscultation bilaterally Cardio Jugular venous pressure: no JVD Rate: regular rate Rhythm: regular rhythm Heart Sounds: S1 normal and S2 normal Skin General skin exam: no rashes or lesions noted Neuro General: patient alert and patient oriented x3 Speech: speech normal Motor: tremor Psych Mental Status: mental status grossly normal Mood: congruent mood Affect: normal affect DS: Data Vitals/I&O Vitals and I&O: Vital Signs Temperature 37.1 C 08/06/20 07:55 Temperature Source Tympanic 08/06/20 07:55 Pulse 75 08/06/20 07:55 Pulse Rhythm Regular 08/06/20 08:00 Pulse 71 08/05/20 13:24 Respiratory Rate 19 08/06/20 07:55 Respiratory Effort Non-Labored 08/06/20 08:00 Respiratory Depth Normal 08/06/20 08:00 Respiratory Pattern Normal 08/06/20 08:00 Blood Pressure 133/86 08/06/20 07:55 Blood Pressure Mean 78 08/05/20 13:24 Blood Pressure Position Supine 08/05/20 13:20 Pulse Oximetry 99 08/06/20 07:55 Respiratory End-tidal CO2 26 08/04/20 15:00 Oxygen Delivery Method Room Air 08/06/20 07:55 Oxygen Flow Rate 0 08/06/20 07:55 Pain Level 10 08/06/20 07:55 Comment 08/05/20 19:25 Intake & Output 08/05/20 08/05/20 08/06/20 11:59 23:59 11:59 Intake Total 1460 / 2720 1260 / 2720 1240 / 1240 Output Total 1290 / 2640 1350 / 2640 950 / 950 Balance 170 / 80 -90 / 80 290 / 290 Weight 71.6 kg Intake: IV 1000 / 1999 1000 / 2000 1000 / 1000 Oral 460 / 720 260 / 720 240 / 240 Output: Urine 1290 / 2640 1350 / 2640 950 / 950 Other: Urine Color Light Siomara Yellow Yellow Urine Appearance Clear Clear Clear Urine Odor Normal Normal Normal Comment voiding in frequent small amounts in urinal Pt urinated in urinal and in his brief Stool Size Large Stool Characteristics Liquid Brown Voiding Methods Urinal Urinal Urinal Data Completed and Pending Labs on day of discharge: Labs from last 24 hours 08/06/20 06:53 Sodium 138 Potassium 3.6 Chloride 104 Carbon Dioxide 26.8 Anion Gap 7.2 BUN 3 L Creatinine 0.68 L Estimated GFR/1.73 m2 >= 60.00 Glucose 86 Calcium 7.8 L Magnesium 1.4 L Total Bilirubin 0.6 AST 48 H ALT 34 Alkaline Phosphatase 45 L Total Protein 5.7 L Albumin 2.2 L PFSH Medical History Abscess Alcoholic dependence syndrome Alcoholic hepatitis Alcoholism Anxiety Anxiety with depression Apical lung scarring BPH (benign prostatic hyperplasia) CAD (coronary artery disease) Candidal intertrigo Chronic back pain Chronic pain syndrome Closed fracture of right humerus Compression fracture of lumbar vertebra COPD (chronic obstructive pulmonary disease) Depression Fatigue Frequent falls GERD (gastroesophageal reflux disease) Hand pain, right Headache History of myocardial infarction History of seizures Hx of deep venous thrombosis Localized swelling of right lower leg Osteoarthritis Pedal edema Polypharmacy Prostatitis (06/04/17) Right shoulder pain Skin ulcer Thoracic compression fracture Tobacco dependence Tremor Urinary incontinence Venous insufficiency of right leg Surgical History H/O bilateral inguinal hernia repair History of bilateral knee replacement History of cholecystectomy Previous back surgery S/P coronary artery stent placement S/P tonsillectomy and adenoidectomy Social History Smoking/Tobacco Use Status: Current every day Tobacco Type: cigarettes Smoking packs per day: 3 Smoking cigarettes per day: 60.0 Tobacco: How many years used: 50 Alcohol Intake: current Alcohol Intake frequency: 0-2 drinks per day Alcohol type: beer Drug use: Never Substance use type: does not use Details: pt states a few beers daily last intake 2 days ago Do you feel safe at home: Yes Do you feel safe in your relationship?: Yes
--- NOTE | 2020-08-06 10:35 | PDOC.HHF2F ---
Home Health Certification Home Health Certification: 1. Encounter Date and Reason I certify that IBETH CANSECO was seen by Wayne Chamberlain MD on 08/06/20 and that I had a [id number] encounter with this patient that meets the physician face to face encounter requirements. 2. Clinical Findings Supporting Skilled Need and Homebound Status I certify that home health services are medically necessary, include either intermittent long-term and/or physical/speech therapy, and that this patient is homebound in that absences from the home require considerable and taxing effort and are infrequent or of short duration, or are attributable to the need to receive medical care. [X] (a) Attached documentation from encounter provides clinical findings supporting skilled need and homebound status (including what assistance patient requires to leave the home). The encounter with the patient was in whole, or in part, for the following medical condition, which is the primary reason for home health care: ALCOHOL WITHDRAWAL SEIZURE [facility]: Physical Therapy and Occupational Therapy: Generalized weakness/gait instability of a long-standing nature. Has had multiple falls. Services for improvement of mobility. Speech Therapy: Homebound: Requires walker for short distance, short duration mobility and wheelchair for any mobility of a longer distance or duration. 3. Certification and Authentication I certify that I composed the above information based on my clinical judgement relating to this patient's medical condition and, if applicable, clinical findings communicated to me by the NPP or inpatient physician who performed the Home Health Referral. All further orders will be obtained through __Daija Rubalcava (Community Based Physician - PCP)
--- NOTE | 2020-08-06 11:00 | CMDISCH_ITS ---
- If Service Date Differs Date of service: 08/06/20 Time of Service: 11:00 LACE Index Scoring Tool - Questions: Length of Stay (in days): 3 Acuity (Admit via E.D.?): Yes Comorbidities: Previous M.I., Liver or Renal Disease E.D. Visits: 5 - Answers: Total Score: 15 Risk of Readmission: High Risk Care Management Discharge Reason for Hospitalization: Alcohol Withdrawal Seizure Discharge Plan: Errol was started on new medications to treat his seizure activity. He will need to follow up with neurology after discharge which he is aware of. Errol will also need a follow up with his primary care in [place]. CM will fax up this note and request follow up by chronic intensive care anaesthetist. Errol was able to complete his advance directives today, he is a DNR/DNI by his wishes. CM faxed it to [facility], [facility] and [place] registry. Errol will transport home via [facility] he will need to stop at pharmacy to obtain his new medications. Patient/Family Education Needs: Discharge education, limitations and follow up plan of care. Services Needed at Discharge: Home Health Care Services, Occupational Therapy, Physical Therapy, Transportation
--- NOTE | 2020-08-06 11:37 | PT.INTREAT ---
Date of service: 08/06/20 Time of Service: 11:20 PT Notes Visit Reasons: ALCOHOL WITHDRAWAL SEIZURE 08/06/2020 Made several attempts to see patient prior to discharge, but was unsuccessful for various reasons (needed garment change, IV needing attention and other staff members working with patient).
--- NOTE | 2020-08-07 13:52 | PT.INDS ---
Date of service: 08/07/20 PT Notes Visit Reasons: ALCOHOL WITHDRAWAL SEIZURE Inpatient Physical Therapy Discharge Summary Date: 08/07/20 Referring Doctor: Dr. Wayne Chamberlain PT Orders: PT CONSULT Precautions: fall, standard Patient Profile/Admitting Diagnosis: Patient admitted 08/04/20 for medical management of alcohol withdrawal with seizures. PMHX: Medical History Abscess Alcoholic dependence syndrome Alcoholic hepatitis Alcoholism Anxiety Anxiety with depression Apical lung scarring BPH (benign prostatic hyperplasia) CAD (coronary artery disease) Candidal intertrigo Chronic back pain Chronic pain syndrome Closed fracture of right humerus Compression fracture of lumbar vertebra COPD (chronic obstructive pulmonary disease) Depression Fatigue Frequent falls GERD (gastroesophageal reflux disease) Hand pain, right Headache History of myocardial infarction History of seizures Hx of deep venous thrombosis Localized swelling of right lower leg Osteoarthritis Pedal edema Polypharmacy Prostatitis (06/04/17) Right shoulder pain Skin ulcer Thoracic compression fracture Tobacco dependence Tremor Urinary incontinence Venous insufficiency of right leg Surgical History H/O bilateral inguinal hernia repair History of left knee replacement History of cholecystectomy Previous back surgery S/P coronary artery stent placement S/P tonsillectomy and adenoidectomy Social History/Home Situation: Patient lives with his SO in a 2-level apartment. He has a ramp to enter, but a full flight of stairs to his bedroom. He states that he manages these infrequently, typically remaining on the second floor of the apartment in his bedroom. He has a cane, FWW, and manual wheelchair, although typically ambulates only short distances around his bedroom with support from furniture. He admits to multiple falls, although unable to quantify. Equipment Owned/DME: FWW, cane, manual wheelchair, ramp to enter apartment Subjective: NT. See most recent RETAIL LOAN ORIGINATOR notes. Objective: General Observation: NT. See most recent RETAIL LOAN ORIGINATOR notes. Mental Status: NT. See most recent RETAIL LOAN ORIGINATOR notes. Pain: NT. See most recent RETAIL LOAN ORIGINATOR notes. ROM:(on evalaution) Right Upper Extremity: Refuses passive motion. Actively, he demonstrates only scapular motion on attempts to elevate, allowing for approx 30 degrees of forward motion. Elbow motion is full, although he lacks shoulder ER, allowing for deviation to midline with attempts to flex elbow. Left Upper Extremity: WFL Right Lower Extremity: Right knee extension allows approx -10 degrees. Flexion to 90 degrees or greater. He has obvious deformity of the right knee and multiple surgical scars. Left Lower Extremity: grossly WFL. Surgical scar consistent with TKA. Strength: (on evalaution) Right Upper Extremity: Shoulder flexion and ER 0/5. Biceps 3/5 or greater. Left Upper Extremity: shoulder flexion 4/5. Biceps 4/5. Triceps 4/5. Right Lower Extremity: Hip flexion 4/5. Quads 4-/5. Ankle DF 4-/5. Left Lower Extremity:Hip flexion 4/5. Quads 4-/5. Ankle DF 4-/5. Bed Mobility/Transfers: supine-sit: supervision with HOB to 30 degrees sit-supine: supervision with HOB at 30 degrees sit-stand: CGA stand-sit: CGA Gait: Patient ambulates 5' x 2 with FWW and CGA. He refuses further distances, stating he's unable to do so at baseline. He demonstrates slow, shuffling gait, with heavy reliance on UE support to FWW. He also demonstrates tremor in RUE during WB to FWW. Balance: Static Sitting: good Dynamic Sitting: good Static Standing: fair Dynamic Standing: fair Assessment: Patient is a 69 year old male referred to physical therapy services with the diagnosis of decreased mobility d/t alcohol withdrawal with seizures. Patient presents with clinical signs and symptoms consistent with diagnosis, complicated by limited mobility at baseline, multiple orthopedic issues, and h/o multiple falls. He continues to demonstrate the following impairment level findings: 1. decreased activity tolerance 2. decreased LE strength 3. decreased standing balance 4. h/o multiple falls 5. chronically diminished strength and ROM in RUE Impairments are continuing to contribute to the following functional limitations: 1. increased fall risk 2. decreased activity tolerance 3. unable to ambulate household distances 4. unable to manage stairs Goals: Goals X1 week 1. Supine-Sit : supervision MET 2. Sit-Supine : supervision MET 3. Sit-Stand: supervision NOT MET 4. Stand-Sit : supervision NOT MET 5. Bed-Chair : supervision with FWW NOT MET 6. Chair-Bed : supervision with FWW NOT MET 7. Gait : supervision with FWW x 15' NOT MET 8. Stairs : ascending and descending x 5 with bilat rails, min A NOT MET DISCHARGE RECOMMENDATIONS: home with PT TREATMENT CODE/TIME: NC Thank you for the opportunity to participate in the care of this patient. Na Ramirez PT, DPT, CLT [facility] [place], [place]
== END 2020-08-06 12:06 | disposition home health service (06) | DRG 897 ==
LOC: ER 16:43 → ICU 17:54 → MS 08-06 10:42
PROVIDERS: Family Medicine; Admitting Provider Internal Medicine; Emergency Provider Physician Assistant; PCP Nurse Practitioner Family; Visit Provider Internal Medicine
DX: F10.239 Alcohol dependence with withdrawal, unspecified (principal); G40.89 Other seizures; K70.10 Alcoholic hepatitis without ascites; F41.8 Other specified anxiety disorders; N40.0 Benign prostatic hyperplasia without lower urinary tract symptoms; I25.10 Atherosclerotic heart disease of native coronary artery without angina pectoris; G89.29 Other chronic pain; M54.9 Dorsalgia, unspecified; J44.9 Chronic obstructive pulmonary disease, unspecified; K21.9 Gastro-esophageal reflux disease without esophagitis; I25.2 Old myocardial infarction; R29.6 Repeated falls; Z86.718 Personal history of other venous thrombosis and embolism; M19.90 Unspecified osteoarthritis, unspecified site; F17.210 Nicotine dependence, cigarettes, uncomplicated; I87.2 Venous insufficiency (chronic) (peripheral); M54.2 Cervicalgia; M25.551 Pain in right hip; G25.2 Other specified forms of tremor
CPT/HCPCS: 36415; 80048; 80053; 80076; 80307; 90686; 93005; 96361; 96365; 96375; 97162; 99220; 99232; 99239; 99285; J1650; U0003; 70450; 80320; 81003; 81015; 83735; 84100; 85025; 93010; 99223; J2060; J2560

== ENCOUNTER 2021-01-16 15:15 | Outpatient (REF) | payer OTHER, MEDICAID, SELFPAY ==
[2021-01-16 16:03] LABS: ALT 17 U/L (16-63); AST 21 U/L (15-37); Albumin 3.3 g/dL (3.4-5.0); Alkaline Phosphatase 70 U/L (46-116); Anion Gap 9.2 mmol/L (3-11); BUN 5 mg/dL (7-18); Bilirubin, Total 0.3 mg/dL (0.2-1.0); CO2 27.8 mmol/L (21.0-32.0); CREATININE 0.8 mg/dL (0.70-1.30); Calcium 8.6 mg/dL (8.5-10.1); Calculated LDL 68 mg/dL (<100); Chloride 102 mmol/L (98-107); Cholesterol 149 mg/dL (<200); Glucose 72 mg/dL (74-106); HDL Cholesterol 64 mg/dL (40-60); Potassium 4.6 mmol/L (3.5-5.1); Sodium 139 mmol/L (136-145); Total Protein 6.9 g/dL (6.4-8.2); Triglyceride 89 mg/dL (<150)
[2021-01-16 16:19] LABS: Bilirubin, Direct 0.1 mg/dL (0.0-0.2)
== END 2021-01-16 15:16 | disposition home or self-care (01) ==
LOC: NCHCN 15:15
PROVIDERS: PCP Nurse Practitioner Family; Visit Provider Physician Assistant
DX: I25.10 Atherosclerotic heart disease of native coronary artery without angina pectoris (principal); F10.20 Alcohol dependence, uncomplicated
CPT/HCPCS: 80048; 80061; 80076; 85610

== ENCOUNTER 2021-02-14 11:28 | Outpatient (REF) | payer OTHER, MEDICAID, SELFPAY ==
[2021-02-14 11:54] LABS: Anion Gap 11.4 mmol/L (3-11); BUN 6 mg/dL (7-18); CO2 27.6 mmol/L (21.0-32.0); CREATININE 0.8 mg/dL (0.70-1.30); Calcium 8.9 mg/dL (8.5-10.1); Chloride 100 mmol/L (98-107); Glucose 129 mg/dL (74-106); Potassium 3.8 mmol/L (3.5-5.1); Sodium 139 mmol/L (136-145)
== END 2021-02-14 11:29 | disposition home or self-care (01) ==
LOC: NCHCN 11:28
PROVIDERS: PCP Physician Assistant; Visit Provider Physician Assistant
DX: I25.119 Atherosclerotic heart disease of native coronary artery with unspecified angina pectoris (principal)
CPT/HCPCS: 80048

== ENCOUNTER 2021-03-13 12:33 | Emergency (ER) | payer OTHER, MEDICAID, SELFPAY ==
--- NOTE | 2021-03-13 12:30 | DI.RAD_ITS ---
Exam(s) XR CHEST 2V PA LATERAL EXAM: XR CHEST 2V PA LATERAL CLINICAL HISTORY: SOB, suspect chf TECHNIQUE: 2D digital imaging was performed. COMPARISON: CR,XR XR CHEST 2V PA LATERAL from 12/09/2019 FINDINGS: MEDIASTINUM: Mildly ectatic aorta HEART: Normal. PULMONARY VASCULATURE: Normal. LUNGS: Apical scarring. Fibrotic changes. PLEURAL SPACE: No pleural effusion or pneumothorax. BONE:Stable midthoracic compression fracture. Old left rib fractures. Hardware at the thoracolumbar junction. IMPRESSION: No acute pulmonary findings. No findings to suggest CHF. DATA REPOSITORY: RADIATION DOSE DELIVERED:
--- NOTE | 2021-03-13 12:30 | RT.EKG_ITS ---
APPROVED REPORT Exam: Resting ECG Reason for Exam: sob Patient Location: E HR:126 bpm ECG Measurements Heart Rate 126 AXIS MT [id number] P [id number] QRSd 90 QRS 65 QT 397 T 69 QTc 575 Conclusion Physician: Sinus rhythm, no significant ST elevations or depressions, no evidence of STEMI. No evide nce of significant heart strain
--- NOTE | 2021-03-13 12:30 | DI.US_ITS ---
Exam(s) US EXTREMITY VENOUS BI EXAM: US EXTREMITY VENOUS BI CLINICAL HISTORY: bilateral swelling of lower ext, hx of clots. TECHNIQUE: Lower extremity venous ultrasound performed using grayscale, color-flow, and spectral Dop pler analysis. COMPARISON: No exams were available for comparison FINDINGS: The common femoral, femoral and popliteal veins demonstrate normal compressibility, augmentation, and color Doppler. The posterior tibial veins are patent. The saphenous vein appears free of thrombus. No Doll's cyst or hematoma is seen. Subcutaneous edema is is noted bilaterally. IMPRESSION: Edema. No evidence of DVT. DATA REPOSITORY:
[2021-03-13 12:55] VITALS: BP 147/94; PULSE 70; RESP 22; TEMP 37; O2SAT 99
[2021-03-13 13:11] VITALS: BP 151/101; PULSE 70; PULSE 71; RESP 13; O2SAT 96
[2021-03-13 13:12] VITALS: PULSE 70; RESP 14; O2SAT 96
[2021-03-13 13:20] VITALS: PULSE 69; RESP 12; O2SAT 95
[2021-03-13 13:28] LABS: Abs Immature Grans 0.03 10^3/uL (0.0-0.06); Absolute Basophil Count 0.05 10^3/uL (0.0-0.2); Absolute Eosinophil Count 0.36 10^3/uL (0.0-0.7); Absolute Lymphocyte Count 1.62 10^3/uL (1.2-3.4); Absolute Monocyte Count 0.83 10^3/uL (0.1-0.8); Absolute Neutrophil Count 2.96 10^3/uL (1.2-6.7); Basophils % 0.9; Eosinophils % 6.2; HCT 41.6 % (40.0-50.0); HGB 13.7 g/dL (13.5-17.5); Immature Grans % 0.5; Lymphocytes % 27.7; MCH 34.4 pg (27.0-33.0); MCHC 32.9 % (32.0-36.0); MCV 104.5 fL (80-95); MPV 9.1 fL (8.0-11.0); Monocytes % 14.2; Neutrophils % 50.5; Nucleated RBC 0 %; Platelet Count 172 10^3/uL (130-400); RBC 3.98 10^6/uL (4.36-5.78); RDW 13.4 % (11.8-14.1); RDW-SD 52.2 fL; WBC 5.85 10^3/uL (4.4-10.8)
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
[2021-03-13 13:48] LABS: ALT 17 U/L (16-63); AST 16 U/L (15-37); Alkaline Phosphatase 46 U/L (46-116); Anion Gap 5.3 mmol/L (3-11); BUN 6 mg/dL (7-18); Bilirubin, Total 0.5 mg/dL (0.2-1.0); CO2 30.7 mmol/L (21.0-32.0); CREATININE 0.7 mg/dL (0.70-1.30); Calcium 8.4 mg/dL (8.5-10.1); Chloride 102 mmol/L (98-107); Glucose 77 mg/dL (74-106); NT-proBNP 138 pg/mL (<300); Potassium 4.2 mmol/L (3.5-5.1); Sodium 138 mmol/L (136-145); Total Protein 7.1 g/dL (6.4-8.2)
[2021-03-13 13:49] LABS: Troponin I < 0.05 ng/mL (<0.06)
[2021-03-13 13:55] LABS: PTT Activated 25.9 sec (21.0-27.5); Prothrombin Time 10.3 sec (9.3-11.0)
[2021-03-13] MEDS: Normal Saline - Diluent 50 ML VIAL IV (14:56)
[2021-03-13] MEDS: Omnipaque 350 MG/ML 100 ML BTL IJ (14:57)
--- NOTE | 2021-03-13 15:04 | DI.CT_ITS ---
Exam(s) CT CHEST PE CTA EXAM: CT CHEST PE CTA CLINICAL HISTORY: r/o pe, hx of clots. TECHNIQUE: Imaging Protocol: Axial CT angiography was performed with multi-slice acquisition and mu lti-planar and/or 3D reconstructions. CONTRAST MATERIAL: Intravenous: Omnipaque 350 Contrast volume:structured data in ml COMPARISON: CT CT CHEST PE CTA from 01/28/2020 CR XR CHEST 2V PA LATERAL from 03/13/2021 CR XR CHEST 2V PA LATERAL from 03/13/2021 FINDINGS: There is no evidence of pulmonary emboli or aortic dissection. There are moderate to severe coronary artery calcifications. The heart size is normal. There are no pleural or pericardial effusions. T here is no adenopathy. Calcifications are again noted in the right upper lobe. Emphysematous change s are again noted. There is mild right upper lobe bronchiectasis. Mild dependent changes at the lilia g bases. There are old bilateral rib fractures. There is a stable compression fracture of T8. Spin al hardware the thoracal lumbar junction. Status post cholecystectomy. No acute abnormality in the upper abdomen. IMPRESSION: No evidence of pulmonary embolism or other acute abnormality. Emphysematous changes.. RADIATION DOSE DELIVERED: 359.07mGy.cm Total DLP DATA REPOSITORY: All CT scans at this facility are submitted to the National Radiology Data Registry (NRDR) Dose Index Registry (DIR) with the [employer] (ACR). RADIATION OPTIMIZATION: All CT scans at this facility use at least one of these dose optimization te chniques: automated exposure control; mA and/or kV adjustment per patient size (includes targeted exa ms where dose is matched to clinical indication); or iterative reconstruction.
[2021-03-13] MEDS: Furosemide 20 MG/2 ML VIAL IVP (15:41)
--- NOTE | 2021-03-14 11:12 | PDOC.ERCMPRO ---
- If Service Date Differs Date of service: 03/13/21 Time of Service: 15:45 Care Management Progress Note Errol is seen in the ED for lymphedema. Errol already has Home Health nursing services but ED provider requests that CM assist in increasing the frequency of the HH visits over the next couple of weeks. CM contacts Kelly at [facility] and leaves a message. Kelly returns the call on Friday morning. She states HH will do a reassessment of Errol's needs and she will review the ED provider's note and will increase frequency of services accordingly.
== END 2021-03-13 17:14 | disposition home or self-care (01) ==
PROVIDERS: Emergency Provider Student in an Organized Health Care Education/Training Program; PCP Physician Assistant
DX: I89.0 Lymphedema, not elsewhere classified (principal); R26.2 Difficulty in walking, not elsewhere classified; R06.02 Shortness of breath
CPT/HCPCS: 36415; 71275; 80053; 93005; 96374; 96375; 96376; 99285; 71046; 83880; 84484; 85025; 85610; 85730; 93010; 93970; J1941; J3490

== ENCOUNTER 2021-07-05 12:53 | Inpatient (IN) | payer OTHER, MEDICAID, SELFPAY ==
[2021-07-05] VITALS (42 sets, daily range): BP systolic 112–169; BP diastolic 75–97; PULSE 79–87; RESP 13–30; TEMP 35.7–36.4; O2SAT 94–99
--- NOTE | 2021-07-05 13:15 | DI.RAD_ITS ---
Exam(s) XR CHEST 2V PA LATERAL EXAM: XR CHEST 2V PA LATERAL CLINICAL HISTORY: PERIPHERAL EDEMA/SOB. TECHNIQUE: 2D digital imaging was performed. COMPARISON: CR XR CHEST 2V PA LATERAL from 03/13/2021 FINDINGS: Heart size is normal. The mediastinum is not widened. Lungs are clear. No infiltrates nor pleural effusions. Chronic fracture deformity of the right shoulder again noted. Also fusion hardware in the lumbar spine noted. IMPRESSION: No acute pulmonary findings. DATA REPOSITORY: RADIATION DOSE DELIVERED:
--- NOTE | 2021-07-05 13:15 | RT.EKG_ITS ---
APPROVED REPORT Exam: Resting ECG Reason for Exam: SHORTNESS OF BREATH Patient Location: E HR:80 bpm ECG Measurements Heart Rate 80 AXIS WY 160 P 81 QRSd 87 QRS 57 QT 407 T 72 QTc 469 Conclusion Sinus rhythm...normal P axis, V-rate 60- 99 Low voltage, precordial leads...precordial leads <1.0mV. Sinus. No STEMI. I have reviewed and interpreted ECG and agree with software generated interpretation.
[2021-07-05] MEDS: MORPHine 10 MG/ML VIAL 2 MG IVP (13:32)
[2021-07-05] MEDS: Furosemide 40 MG/4 ML VIAL IVP (13:32)
--- NOTE | 2021-07-05 13:55 | NUR.NOTE ---
1350-To DI per Trishaing Note:
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
--- NOTE | 2021-07-05 13:58 | NUR.NOTE ---
Nikkimal Ortiz, patient SO, Beacrrm Note:
[2021-07-05 14:01] LABS: Abs Immature Grans 0.05 10^3/uL (0.0-0.06); Absolute Basophil Count 0.07 10^3/uL (0.0-0.2); Absolute Eosinophil Count 0.42 10^3/uL (0.0-0.7); Absolute Lymphocyte Count 1.62 10^3/uL (1.2-3.4); Absolute Monocyte Count 0.93 10^3/uL (0.1-0.8); Basophils % 0.9; Eosinophils % 5.4; HCT 43.4 % (40.0-50.0); HGB 14.4 g/dL (13.5-17.5); Immature Grans % 0.6; Lymphocytes % 20.8; MCH 35.4 pg (27.0-33.0); MCHC 33.2 % (32.0-36.0); MCV 106.6 fL (80-95); MPV 9.1 fL (8.0-11.0); Monocytes % 11.9; Neutrophils % 60.4; Nucleated RBC 0 %; Platelet Count 230 10^3/uL (130-400); RBC 4.07 10^6/uL (4.36-5.78); RDW 13.1 % (11.8-14.1); RDW-SD 51.5 fL; WBC 7.79 10^3/uL (4.4-10.8)
[2021-07-05 14:14] LABS: ALT 27 U/L (16-63); AST 28 U/L (15-37); Albumin 3.7 g/dL (3.4-5.0); Alkaline Phosphatase 74 U/L (46-116); Anion Gap 8.1 mmol/L (3-11); BUN 10 mg/dL (7-18); Bilirubin, Total 0.4 mg/dL (0.2-1.0); CO2 31.9 mmol/L (21.0-32.0); Calcium 8.8 mg/dL (8.5-10.1); Chloride 101 mmol/L (98-107); Glucose 91 mg/dL (74-106); Potassium 3.6 mmol/L (3.5-5.1); Sodium 141 mmol/L (136-145); Total Protein 7.8 g/dL (6.4-8.2)
[2021-07-05 14:18] LABS: Diff Comment Diff Reviewed
[2021-07-05 14:19] LABS: Macrocytosis 1+
[2021-07-05 14:22] LABS: NT-proBNP 109 pg/mL (<300)
[2021-07-05 14:23] LABS: Troponin I < 0.05 ng/mL (<0.06)
[2021-07-05 14:30] LABS: Source Nasal/Nares
[2021-07-05] MEDS: Doxycycline Hyclate 100 MG CAP PO (15:24)
[2021-07-05 15:27] LABS: COVID-19 PCR Negative (Negative)
--- NOTE | 2021-07-05 16:52 | NUR.NOTE ---
Report to ANN-MARIE Salter, Med Surg. Room 225 Nursing Note:
--- NOTE | 2021-07-05 17:00 | NUR.NOTE ---
1700-Patient brief and bedding soaked with urine. Patient denies feeling need to void. Clean, dry chux and brief placed under patient, linens changed. Tolerates movement from side to side well. Skin breakdown noted to buttocks.Nursing Note:
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
[2021-07-05] MEDS: Enoxaparin 40 MG/0.4 ML SYR SC (18:51)
[2021-07-05] MEDS: LORazepam 0.5 MG TAB PO (20:15)
[2021-07-05] MEDS: Acetaminophen 325 MG TAB PO (20:16)
[2021-07-05] MEDS: levETIRAcetam 500 MG TAB PO (20:16)
[2021-07-05] MEDS: DULoxetine 30 MG CAP 60 MG PO (20:16)
[2021-07-05 20:43] LABS: Troponin I < 0.05 ng/mL (<0.06)
[2021-07-05] MEDS: traZODone 100 MG TAB PO (21:05)
[2021-07-05] MEDS: Zolpidem 10 MG TAB PO (21:05)
[2021-07-05] MEDS: Mirtazapine 15 MG TAB 45 MG PO (21:05)
[2021-07-05] MEDS: Nystatin CREAM 15 GM TUBE TP (21:06)
[2021-07-05] MEDS: Clotrimazole 1% 15 GM TUBE TP (21:06)
--- NOTE | 2021-07-06 | DI.US_ITS ---
Exam(s) US RENAL EXAM: US RENAL CLINICAL HISTORY: urinary retention. TECHNIQUE: Riley scale, color and spectral Doppler were used. COMPARISON: CT CHEST ABD PELVIS WO CONTRAST from 05/23/2017 FINDINGS: Renal size in cm: Right: 10.5 left: 11.6 Echogenicity: Normal Hydronephrosis: No Cyst or mass: No Nephrolithiasis: No Bladder:Donato catheter within the bladder. No visible bladder mass or stone. Prevoid vol:158 Postvoid vol:0 Right ureteral jet visualized. Left ureteral jet not visualized. IMPRESSION: Donato catheter within the bladder. No evidence of hydronephrosis. DATA REPOSITORY:
[2021-07-06 00:14] VITALS: BP 161/81; PULSE 86; RESP 17; TEMP 36.3; O2SAT 94
[2021-07-06] MEDS: oxyCODONE 5 MG TAB PO (05:20)
[2021-07-06] MEDS: Acetaminophen 325 MG TAB PO (05:20)
[2021-07-06 07:27] LABS: Anion Gap 6.5 mmol/L (3-11); BUN 12 mg/dL (7-18); CO2 30.5 mmol/L (21.0-32.0); CREATININE 0.8 mg/dL (0.70-1.30); Calcium 8.7 mg/dL (8.5-10.1); Chloride 103 mmol/L (98-107); Glucose 100 mg/dL (74-106); Potassium 3.6 mmol/L (3.5-5.1); Sodium 140 mmol/L (136-145)
[2021-07-06 07:35] LABS: Magnesium 1.9 mg/dL (1.8-2.4)
[2021-07-06 07:38] VITALS: BP 136/83; PULSE 80; RESP 17; TEMP 35.7; O2SAT 96
[2021-07-06] MEDS: Furosemide 100 MG/10 ML VIAL 80 MG IVP (09:18)
[2021-07-06] MEDS: DULoxetine 30 MG CAP 60 MG PO ×2 (09:18→19:43)
[2021-07-06] MEDS: Thiamine 100 MG TAB PO (09:19)
[2021-07-06] MEDS: levETIRAcetam 500 MG TAB PO ×2 (09:19→19:43)
[2021-07-06] MEDS: Tamsulosin 0.4 MG CAPCR PO (09:19)
[2021-07-06] MEDS: Gabapentin 600 MG TAB PO (09:19)
[2021-07-06] MEDS: Potassium Chloride 10 MEQ CAPCR PO (09:19)
[2021-07-06] MEDS: Normal Saline Flush 10 ML SYR IVP (09:21)
[2021-07-06 09:46] LABS: Bilirubin Negative (Negative); Blood Trace-intact (Negative); Clarity Clear (Clear); Glucose Negative (Negative); Ketones Negative (Negative); Leukocyte Esterase Negative (Negative); Nitrite Negative (Negative); pH 8.5 (5-8)
[2021-07-06 10:09] LABS: Bacteria Few HPF (Negative); C & S Indicated? No; Casts Negative LPF (Negative); Crystals Few Amorphous HPF (Negative); Epithelial Cells Negative HPF (Negative); Mucus Trace (Negative); Other Cells Rare Renal (Negative); WBC 0-2 HPF (0-5)
--- NOTE | 2021-07-06 10:44 | INITIAL_ITS ---
- If Service Date Differs Date of service: 07/06/21 Time of Service: 10:44 Care Management Initial Assess REASON FOR HOSPITALIZATION:: peripheral edema PAST MEDICAL HISTORY/PAST SURGICAL HISTORY:: Medical History. Abscess. Agoraphobia. Alcoholic dependence syndrome. Alcoholic hepatitis. Alcoholism. drinks 76 ounces of beer per day, sometimes more. Anxiety. Anxiety with depression. Apical lung scarring. BPH (benign prostatic hyperplasia). CAD ( coronary artery disease). Candidal intertrigo. Chronic back pain. Chronic pain syndrome. Closed fracture of right humerus. Compression fracture of lumbar vertebra. COPD (chronic obstructive pulmonary disease). Depression. Family estrangement. has 6 children from 2 different mothers; has not seen them in >40 years. Fatigue. Frequent falls. GERD (gastroesophageal reflux disease). Hand pain, right. Headache. History of myocardial infarction. History of seizures. Hx of deep venous thrombosis. Localized swelling of right lower leg. Osteoarthritis. Palliative care patient. multiple chronic diseases. not eligible for chronic pain tx from [facility]. Pedal edema. Polypharmacy. Prostatitis (06/04/17). Right shoulder pain. Skin ulcer. Thoracic compression fracture. Tobacco dependence. Tremor. Urinary incontinence. Venous insufficiency of right leg. [place] [employer]. [employer] [id number]. Surgical History . H/O bilateral inguinal hernia repair. History of bilateral knee replacement. History of cholecystectomy. Previous back surgery. S/P coronary artery stent placement. S/P tonsillectomy and adenoidectomy PREVIOUS FUNCTIONAL STATUS/SOCIAL/FAMILY SUPPORTS:: Errol [place]) is a 70 year old male that lives in an apartment [place], [place] with his girlfriend Nikki and another adult friend. He has 6 grown children that live out of the area - one son and five daughters. He states that he uses a wheelchair and walker for mobility. Gareth did have choices for care moderate need in the past however he fired most of them and is not able to enroll back in the program due to high risk behaviors [facility] staff. He has a history of multiple falls related to his alcohol use.Gareth has home health services for nursing and PT which just started yesterday. He also requires assistance with ADLs which his girlfriend provides. CURRENT FUNCTIONAL STATUS:: Gareth was sitting up in bed when CM met with him. He was preparing to go for an ultrasound of his kidneys at the time. Gareth was cooperative and polite and answered questions willingly. He shared that home health services were just initiated yesterday and that he hopes to have them resumed at discharge. ADVANCE DIRECTIVES:: On file. Nikki SPARROW Has patient been provided with info about the portal/API?: Yes Did the patient sign up for the portal?: No CODE STATUS:: Full Code INSURANCE COVERAGE / FINANCIAL ISSUES:: [facility] PPO (MCR replacement). Medicaid CURRENT HOME/COMMUNITY SERVICES/EQUIPMENT:: wheelchair and FWW PRIMARY CARE PHYSICIAN:: Dr. Harvey POTENTIAL DISCHARGE NEEDS:: Follow up with PCP and plan of care. may benefit from substance use program PATIENT/FAMILY EDUCATION NEEDS:: Dicharge instructions,medications, limitations and follow up plan of care including Ask Me Three and self management. TRANSPORTATION:: via private vehicle with family PLAN:: Gareth will likely be discharged home with a resumption of home health services for nursing and PT. He will follow up with his PCP and plan of care and transport with family. CM will continue to support patient and assess for discharge planning needs.
--- NOTE | 2021-07-06 11:10 | PT.INIE ---
Date of service: 07/06/21 Time of Service: 11:10 PT Notes Visit Reasons: Peripheral Edema ambulatory issue Physical Therapy Inpatient Initial Evaluation Date: 07/06/2021 Referring Doctor: Becki Crooks NP PT Orders: PT CONSULT: Eval/treat. Precautions: Fall. Standard. Activity as tolerated. Patient Profile/Admitting Diagnosis: Gareth is a 70-year-old male who presented to the ED on 07/05/2021 due to generalized weakness, ambulatory dysfunction, and increased swelling and redness to his right leg. Patient is diagnosed with ambulatory dysfunction, lymphedema, chronic back pain, venous insufficiency of right leg, and coronary artery disease. PMHX: Medical History Abscess Agoraphobia Alcoholic dependence syndrome Alcoholic hepatitis Alcoholism drinks 76 ounces of beer per day, sometimes more Anxiety Anxiety with depression Apical lung scarring BPH (benign prostatic hyperplasia) CAD (coronary artery disease) Candidal intertrigo Chronic back pain Chronic pain syndrome Closed fracture of right humerus Compression fracture of lumbar vertebra COPD (chronic obstructive pulmonary disease) Depression Family estrangement has 6 children from 2 different mothers; has not seen them in >40 years Fatigue Frequent falls GERD (gastroesophageal reflux disease) Hand pain, right Headache History of myocardial infarction History of seizures Hx of deep venous thrombosis Localized swelling of right lower leg Osteoarthritis Palliative care patient multiple chronic diseases not eligible for chronic pain tx from [facility] Pedal edema Polypharmacy Prostatitis (06/04/17) Right shoulder pain Skin ulcer Thoracic compression fracture Tobacco dependence Tremor Urinary incontinence Venous insufficiency of right leg of [employer] [id number] Surgical History H/O bilateral inguinal hernia repair History of bilateral knee replacement History of cholecystectomy Previous back surgery S/P coronary artery stent placement S/P tonsillectomy and adenoidectomy Social History/Home Situation: Lives with significant other [facility] apartment with 2 steps to enter. There is another set of 18 steps that patient has to his bedroom. Has a private caregiver who comes in regularly to help with bathing. Iris does the cooking and assists with anything that patient needs. Equipment Owned/DME: FWW, RWW, wheelchair, motorized wheelchair, reclining chair Subjective: Has been chronically in 7-8/10 pain in his back. Gareth states that he has not walked for the past two weeks and has only stayed on his recliner during said time. He feels weak and his legs feel significantly heavy. Patient is firm about not wanting to go to a care home facility. Reports that he has a lot of furnitures at home that prevent him and his significant other from making a makeshift bed on the main floor of the house. He was initially leary about standing up but was impressed with how good he did with littel assistance from PT and TESTING MANAGER Isis barron mobility assessment. Objective: General Observation: Donato catheter in place. IV access in R UE. Mental Status: Alert and oriented as to person, place, time, and purpose. Able to pay attention, focus, and respond appropriately. Pain: 8/10 in low back ROM: Right Upper Extremity: Shoulder Flexion less than 10 degrees. Shoulder abduction less than 10 degrees. Elbow flexion WFL. Wrist flexion WFL. Functional opening and closing of hand WFL. Left Upper Extremity: Shoulder Flexion WFL. Shoulder abduction WFL. Elbow flexion WFL. Wrist flexion WFL. Functional opening and closing of hand WFL. Right Lower Extremity: Hip flexion WFL. Hip abduction WFL. Knee flexion 20 degrees to 90 degrees. Knee extension -20 degrees. Ankle dorsiflexion to neutral only. Ankle plantarflexion WFL. Left Lower Extremity: Hip flexion WFL. Hip abduction WFL. Knee flexion 10 degrees to 90 degrees. Knee extension -10 degrees. Ankle dorsiflexion to neutral only. Ankle plantarflexion WFL. Strength: Right Upper Extremity: Shoulder flexors 1/5. Shoulder abductors 1/5. Elbow flexors 4-/5. Elbow extensors 4-/5. Hose Finisher strong. Left Upper Extremity: Shoulder flexors 1/5. Shoulder abductors 1/5. Elbow flexors 4-/5. Elbow extensors 4-/5. Hose Finisher strong. Right Lower Extremity: Hip flexors 4-/5. Hip abductors 4-/5. Knee flexors 3-/5. Knee extensors 3-/5. Ankle dorsiflexors 3-/5. Ankle plantarflexors 4/5. Left Lower Extremity: Hip flexors 4-/5. Hip abductors 4-/5. Knee flexors 3-/5. Knee extensors 3-/5. Ankle dorsiflexors 3-/5. Ankle plantarflexors 4/5. Bed Mobility/Transfers: Supine to sit minimal assist with HOB at 40 degrees Sit to stand contact-guard assist x2 Stand to sit standby assist Gait: Instructed patient with level surface ambulation of 5 steps forward, 5 steps backward, and 2 sidesteps to the right assist with contact-guard assist x2 for safety. Jimena decreased. Step height decreased bilaterally. Step length decreased bilaterally. Step to gait pattern. Balance: Static Sitting: Normal Dynamic Sitting: Good Static Standing: Fair Dynamic Standing: Fair Special Tests: Mobility Limitations Standardized Measure [facility] AM-PAC 6 clicks Basic Mobility Inpatient Short Form: Raw Score: 16 CMS Score: 54% deficit Informed Consent/Education: Patient was instructed in purpose of PT consult and plan of care. Agreeable to proceed with established PT POC to achieve personal goals. Assessment: Bill demonstrates significant functional mobility decline requiring the use of a front wheeled walker and contact-guard assist of 2 to initiate mobility performance for this session. Fatigue and bilateral lower extremity swelling limit patient mobility ADL participation. Patient presents with clinical signs and symptoms consistent with current/admitting diagnoses that have resulted to mobility limitations, gait instability, generalized weakness, and overall ADL decline as demonstrated by the following impairment level findings: 1. Decreased strength to B UE/LE major muscle groups 2. Impaired standing balance 3. Impaired activity tolerance 4. Limitation of joint range of motion in right shoulder and the knees right shoulder and B knees 5. Shortness of breath 6. Swelling in BLE Impairments are contributing to the following functional limitations: 1. Decline in bed mobility skills 2. Decline in transfer skills 3. Difficulty with ambulation without assistive device and physical assistance 4. Increased completion time for mobility ADL performance 5. Increased risk for falls 6. Difficulty with managing steps alone safely Patient is assessed as a [id number] moderate complexity based on the following: History: 70-year-old male with past medical history as indicated above Examination: Demonstrable impairment in strength, balance, and mobility level with underlying impairments and functional limitations as exhibited above as well as deficit score of 54% utilizing the [facility] Mobility Inpatient Short Form Presentation: Evolving Decision Makin moderate complexity Goals: Goals X1 week 1. Supine-Sit independent 2. Sit-Supine independent 3. Sit-Stand independent 4. Stand-Sit independent with FWW 5. Bed-Chair independent with FWW 6. Chair-Bed independent with FWW 7. Independent gait on level surface with use of FWW for at least 100 feet without report of pain nor dyspnea 8. Independent stair negotiation while holding onto B rails for at least 20 steps without report of pain nor dyspnea 9. Independent with home exercise program 10. Good static and dynamic standing balance/tolerance Plan of Care/Treatment Plan: 1-2x/day, 7 days/week x 1 week. Plan of care has been reviewed with the PERIPHERAL EQUIPMENT OPERATOR providing the service under Physical Therapy direction. Initiate Physical Therapy intervention for pain management as needed, strengthening, bed mobility, transfers, gait, stairs, balance training, and use of assistive device. DISCHARGE RECOMMENDATIONS: Patient will benefit from home health PT services in order to progress mobility level using least restrictive assistive ambulatory device, assess home safety, identify additional equipment needs, and establish a functional maintenance program that will increase ability of patient to remain at home. TREATMENT CODE/TIME: 9716 2 x 20 minutes, 39431 x 12 minutes beginning at 11:10 AM. Thank you for the opportunity to participate in the care of this patient. Na Ramirez PT, DPT, CLT [facility] [place], [place]
--- NOTE | 2021-07-06 11:56 | W.PM.PROGNOT ---
Date of Service Date of service: 07/06/21 Time of Service: 11:56 Subjective Subjective Patient reports: other Interval history since last seen: c/o pain, last palliative note suggest vicodin TID 5/325 1-2 tabs, will switch to this, he also endorses drinking daily 1 beer, will place on CIWA for hx of alcoholic sz. He will also had urinary retention overnight will get renal u/s and start on flomax despite having bph not currently on any medication and required shane overnight. Objective Last Vital Signs Temp 35.7 C L 07/06/21 07:38 Pulse 80 07/06/21 07:38 Resp 17 07/06/21 07:38 BP 136/83 07/06/21 07:38 Pulse Ox 96 07/06/21 07:38 Laboratory Results - last 24 hr 07/05/21 07/05/21 07/05/21 13:28 13:28 13:28 WBC RBC Hgb Hct MCV MCH MCHC RDW Plt Count MPV Immature Gran % Neutrophils % Lymphocytes % Monocytes % Eosinophils % Basophils % Nucleated RBC % Absolute Neutrophils Absolute Lymphocytes Absolute Monocytes Absolute Eosinophils Absolute Basophils RBC Morphology Macrocytosis Sodium 141 Potassium 3.6 Chloride 101 Carbon Dioxide 31.9 Anion Gap 8.1 BUN 10 Creatinine 1.0 Estimated GFR/1.73 m2 >= 60.00 Glucose 91 Calcium 8.8 Magnesium 2.0 Total Bilirubin 0.4 AST 28 ALT 27 Alkaline Phosphatase 74 Troponin I < 0.05 NT-Pro-B Natriuret Pep 109 Total Protein 7.8 Albumin 3.7 Urine Color Urine Clarity Urine pH Ur Specific [place] Urine Protein Urine Ketones Urine Blood Urine Nitrite Urine Bilirubin Urine Urobilinogen Ur Leukocyte Esterase Urine RBC Urine WBC Ur Epithelial Cells Urine Crystals Urine Bacteria Urine Casts Urine Mucus Urine Other Ur Culture Indicated? Urine Glucose COVID-19 Source SARS-CoV-2 (PCR) 07/05/21 07/05/21 07/05/21 13:28 14:25 16:06 WBC 7.79 RBC 4.07 L Hgb 14.4 Hct 43.4 MCV 106.6 H MCH 35.4 H MCHC 33.2 RDW 13.1 Plt Count 230 MPV 9.1 Immature Gran % 0.6 Neutrophils % 60.4 Lymphocytes % 20.8 Monocytes % 11.9 Eosinophils % 5.4 Basophils % 0.9 Nucleated RBC % 0 Absolute Neutrophils 4.70 Absolute Lymphocytes 1.62 Absolute Monocytes 0.93 H Absolute Eosinophils 0.42 Absolute Basophils 0.07 RBC Morphology See Below Macrocytosis 1+ Sodium Potassium Chloride Carbon Dioxide Anion Gap BUN Creatinine Estimated GFR/1.73 m2 Glucose Calcium Magnesium Total Bilirubin AST ALT Alkaline Phosphatase Troponin I NT-Pro-B Natriuret Pep Total Protein Albumin Urine Color Urine Clarity Urine pH Ur Specific [place] Urine Protein Urine Ketones Urine Blood Urine Nitrite Urine Bilirubin Urine Urobilinogen Ur Leukocyte Esterase Urine RBC Urine WBC Ur Epithelial Cells Urine Crystals Urine Bacteria Urine Casts Urine Mucus Urine Other Ur Culture Indicated? Urine Glucose COVID-19 Source Nasal/Nares Cancelled SARS-CoV-2 (PCR) Negative Cancelled 07/05/21 07/06/21 07/06/21 20:20 06:35 06:35 WBC RBC Hgb Hct MCV MCH MCHC RDW Plt Count MPV Immature Gran % Neutrophils % Lymphocytes % Monocytes % Eosinophils % Basophils % Nucleated RBC % Absolute Neutrophils Absolute Lymphocytes Absolute Monocytes Absolute Eosinophils Absolute Basophils RBC Morphology Macrocytosis Sodium 140 Potassium 3.6 Chloride 103 Carbon Dioxide 30.5 Anion Gap 6.5 BUN 12 Creatinine 0.8 Estimated GFR/1.73 m2 >= 60.00 Glucose 100 Calcium 8.7 Magnesium 1.9 Total Bilirubin AST ALT Alkaline Phosphatase Troponin I < 0.05 NT-Pro-B Natriuret Pep Total Protein Albumin Urine Color Urine Clarity Urine pH Ur Specific [place] Urine Protein Urine Ketones Urine Blood Urine Nitrite Urine Bilirubin Urine Urobilinogen Ur Leukocyte Esterase Urine RBC Urine WBC Ur Epithelial Cells Urine Crystals Urine Bacteria Urine Casts Urine Mucus Urine Other Ur Culture Indicated? Urine Glucose COVID-19 Source SARS-CoV-2 (PCR) 07/06/21 09:25 WBC RBC Hgb Hct MCV MCH MCHC RDW Plt Count MPV Immature Gran % Neutrophils % Lymphocytes % Monocytes % Eosinophils % Basophils % Nucleated RBC % Absolute Neutrophils Absolute Lymphocytes Absolute Monocytes Absolute Eosinophils Absolute Basophils RBC Morphology Macrocytosis Sodium Potassium Chloride Carbon Dioxide Anion Gap BUN Creatinine Estimated GFR/1.73 m2 Glucose Calcium Magnesium Total Bilirubin AST ALT Alkaline Phosphatase Troponin I NT-Pro-B Natriuret Pep Total Protein Albumin Urine Color Yellow Urine Clarity Clear Urine pH 8.5 H Ur Specific [place] 1.020 Urine Protein Negative Urine Ketones Negative Urine Blood Trace-intact H Urine Nitrite Negative Urine Bilirubin Negative Urine Urobilinogen 1.0 H Ur Leukocyte Esterase Negative Urine RBC 10-20 H Urine WBC 0-2 Ur Epithelial Cells Negative Urine Crystals Few Amorphous Urine Bacteria Few Urine Casts Negative Urine Mucus Trace Urine Other Rare Renal Ur Culture Indicated? No Urine Glucose Negative COVID-19 Source SARS-CoV-2 (PCR)
[2021-07-06] MEDS: Umeclidinium 7 CAP INHALER IH (12:02)
[2021-07-06] MEDS: Folic Acid 1 MG TAB PO (12:16)
[2021-07-06] MEDS: HYDROcodone 5/Acetaminophen 325 TAB PO ×2 (12:21→19:43)
--- NOTE | 2021-07-06 14:08 | CHAPLAIN ---
Errol was resting in bed when I visited. He told me that his legs are huge from excess water and he's taking medication to reduce the swelling. His hands had tremors in his hands while we were talking. He told me that he lives in [facility], on [address], with his significant other. Sometimes his exwife will help care for him along with his currently girlfriend. I explained my role and offered support.,
--- NOTE | 2021-07-06 15:23 | PT.INTREAT ---
Date of service: 07/06/21 Time of Service: 14:01 PT Notes Visit Reasons: Peripheral Edema ambulatory issue Inpatient Physical Therapy Treatment Note [facility] Date: 07/06/2021 PRECAUTIONS: Activity as tolerated SUBJECTIVE: Gareth states that he is doing better than he expected he'd do. He reports that he has done more today than he has been able to do in several weeks. OBJECTIVE: PAIN: Patient c/o pain in B feet due to edema BED MOBILITY/TRANSFERS Supine-sit: I with HOB at 40 degrees Sit-supine: I with HOB flat Sit-stand: SBA Stand-sit: SBA GAIT Assistive Device: FWW Weight bearing: Full Assist: CGA-SBA Distance: 20' + 5 side steps to R THEREX: Patient was instructed in a supine LE strengthening and stabilization program, as per flow sheet. He was also instructed in functional [id number] exercise from elevated bed surface. ASSESSMENT: Patient tolerated session well without complaint. He was able to tolerate a progression in gait distance with FWW support and CGA-SBA. He continues to demonstrate poor activity tolerance and global weakness. PLAN: Continue with global strengthening and general conditioning for improved mobility and activity tolerance. TREATMENT CODE/TIME: 23 minutes; 58016, 36045 (14:01)
--- NOTE | 2021-07-06 15:36 | PGE_ITS ---
Date of Service Date of service: 07/06/21 Time of Service: 08:30 Assessment and Plan Assessment and plan (1) Lymphedema: Start date: 07/06/21 Start time: 08:30 Status: Acute Assessment and plan: + 4 pitting edema. Will give IVP lasix, monitor renal function. Wrap with karen wraps until GUILLE stockings can fit c/o pain to bilateral lower extremity will treat with vicodin (see note) (2) Ambulatory dysfunction: Start date: 07/06/21 Start time: 08:30 Status: Acute Assessment and plan: PT eval (3) Alcoholism: Start date: 07/06/21 Start time: 08:30 Status: Chronic Assessment and plan: Patient drinks daily at least 1 beer hx of alcohol w/d seizures. Placed on CIWA protocol. (4) Chronic back pain: Start date: 07/06/21 Start time: 08:30 Status: Chronic Assessment and plan: on neurontin as above (5) Venous insufficiency of right leg: Start date: 07/06/21 Start time: 08:30 Status: Chronic Assessment and plan: as above (6) CAD (coronary artery disease), [place] coronary artery: Start date: 07/06/21 Start time: 08:30 Status: Chronic Assessment and plan: not in HF at this time, I do not see an KAREN or ARB on his list not even BB, will defer to PCP for further management of this or cardiology, though I don't see one listed, he would benefit from echo as an outpatient as well. (7) Depression: Start date: 07/06/21 Start time: 08:30 Status: Chronic Assessment and plan: on cymbalta continue as impatient (8) BPH (benign prostatic hyperplasia): Start date: 07/06/21 Start time: 08:30 Status: Chronic Assessment and plan: not currently on any medication for this at this time. wears depends (9) Urinary incontinence: Start date: 07/06/21 Start time: 08:30 Status: Chronic Assessment and plan: Patient was requiring shane insertion overnight. started on flomax. renal u/s done, no hydronephrosis or obstruction, he does have a hx of bph and urinary retention. Will keep shane for three days, then do voiding trial (10) DVT prophylaxis: Start date: 07/06/21 Start time: 08:30 Status: Acute Assessment and plan: enoxaparin subcu (11) Discharge planning issues: Start date: 07/06/21 Start time: 08:30 Status: Acute Assessment and plan: Work with PT and referral recommendations, patient does not leave bed, sits all day on bed, soils himself Subjective Subjective Patient reports: other Interval history since last seen: Patient states that he drinks daily 1 beer, concern that he drinks more, he also had urinary retention, requiring shane. Renal u/s negative for obstruction or hydronephrosis. After reading palliative note he was changed to vicodin TID 1-2 tabs prn for pain, tracy compound for bottom. He denies CP, SOB, N/v/d. Exam Const General: cooperative, comfortable and no acute distress Nutritional Appearance: obese Orientation: alert, awake and oriented x3 Eyes Eyelids: eyelids normal Pupils: PERRL EOM: EOM intact bilaterally Neck Neck: normal visual inspection and no JVD Lymphatic: no lymphadenopathy noted Resp Effort & Inspection: normal respiratory effort Auscultation: clear to auscultation bilaterally Cardio Jugular venous pressure: no JVD Rate: regular rate Rhythm: regular rhythm Heart Sounds: S1 normal GI Inspection: obesity Palpation: soft Auscultation: normal bowel sounds General: No CVA tenderness and deferred Skin Rashes: rashes noted (head and neck) Wounds: wounds noted (sacral wound ) Neuro General: patient alert, patient awake and patient oriented x3 Cognition: normal cognition Speech: speech normal Gait: normal gait Extrem General: normal to inspection, full ROM, clubbing, cyanosis or edema noted and edema Laterality: bilateral (+4) Objective Last Vital Signs Temp 35.7 C L 07/06/21 07:38 Pulse 80 07/06/21 07:38 Resp 17 07/06/21 07:38 BP 136/83 07/06/21 07:38 Pulse Ox 96 07/06/21 07:38 Laboratory Results - last 24 hr 07/05/21 07/05/21 07/06/21 16:06 20:20 06:35 Sodium 140 Potassium 3.6 Chloride 103 Carbon Dioxide 30.5 Anion Gap 6.5 BUN 12 Creatinine 0.8 Estimated GFR/1.73 m2 >= 60.00 Glucose 100 Calcium 8.7 Magnesium Troponin I < 0.05 Urine Color Urine Clarity Urine pH Ur Specific [place] Urine Protein Urine Ketones Urine Blood Urine Nitrite Urine Bilirubin Urine Urobilinogen Ur Leukocyte Esterase Urine RBC Urine WBC Ur Epithelial Cells Urine Crystals Urine Bacteria Urine Casts Urine Mucus Urine Other Ur Culture Indicated? Urine Glucose Ethyl Alcohol COVID-19 Source Cancelled SARS-CoV-2 (PCR) Cancelled 07/06/21 07/06/21 07/06/21 06:35 09:25 13:37 Sodium Potassium Chloride Carbon Dioxide Anion Gap BUN Creatinine Estimated GFR/1.73 m2 Glucose Calcium Magnesium 1.9 Troponin I Urine Color Yellow Urine Clarity Clear Urine pH 8.5 H Ur Specific [place] 1.020 Urine Protein Negative Urine Ketones Negative Urine Blood Trace-intact H Urine Nitrite Negative Urine Bilirubin Negative Urine Urobilinogen 1.0 H Ur Leukocyte Esterase Negative Urine RBC 10-20 H Urine WBC 0-2 Ur Epithelial Cells Negative Urine Crystals Few Amorphous Urine Bacteria Few Urine Casts Negative Urine Mucus Trace Urine Other Rare Renal Ur Culture Indicated? No Urine Glucose Negative Ethyl Alcohol Cancelled COVID-19 Source SARS-CoV-2 (PCR)
[2021-07-06] MEDS: Enoxaparin 40 MG/0.4 ML SYR SC (18:26)
[2021-07-06] MEDS: Clotrimazole 1% 15 GM TUBE TP (19:44)
[2021-07-06] MEDS: Nystatin CREAM 15 GM TUBE TP (19:44)
[2021-07-06] MEDS: Mirtazapine 15 MG TAB 45 MG PO (21:47)
[2021-07-06] MEDS: traZODone 100 MG TAB PO (21:48)
[2021-07-06] MEDS: Zolpidem 10 MG TAB PO (21:48)
[2021-07-06 23:40] VITALS: BP 136/83; PULSE 84; RESP 17; TEMP 36.7; O2SAT 96
[2021-07-07 03:01] VITALS: BP 129/84; PULSE 76; RESP 16; TEMP 36.3; O2SAT 92
[2021-07-07 07:50] VITALS: BP 110/72; PULSE 80; RESP 18; TEMP 36.4; O2SAT 100
[2021-07-07] MEDS: Umeclidinium 7 CAP INHALER IH (08:03)
[2021-07-07 08:09] LABS: Abs Immature Grans 0.03 10^3/uL (0.0-0.06); Absolute Basophil Count 0.04 10^3/uL (0.0-0.2); Absolute Eosinophil Count 0.41 10^3/uL (0.0-0.7); Absolute Lymphocyte Count 1.14 10^3/uL (1.2-3.4); Absolute Neutrophil Count 3.55 10^3/uL (1.2-6.7); Basophils % 0.7; Eosinophils % 6.9; HCT 42.2 % (40.0-50.0); HGB 14.3 g/dL (13.5-17.5); Immature Grans % 0.5; Lymphocytes % 19.1; MCH 35.2 pg (27.0-33.0); MCHC 33.9 % (32.0-36.0); MCV 103.9 fL (80-95); MPV 9.1 fL (8.0-11.0); Monocytes % 13.4; Neutrophils % 59.4; Nucleated RBC 0 %; Platelet Count 237 10^3/uL (130-400); RBC 4.06 10^6/uL (4.36-5.78); RDW-SD 49.9 fL; WBC 5.97 10^3/uL (4.4-10.8)
[2021-07-07] MEDS: Thiamine 100 MG TAB PO ×2 (08:13→08:14)
[2021-07-07] MEDS: Gabapentin 600 MG TAB PO (08:13)
[2021-07-07] MEDS: Tamsulosin 0.4 MG CAPCR PO (08:13)
[2021-07-07] MEDS: levETIRAcetam 500 MG TAB PO (08:14)
[2021-07-07] MEDS: Multivitamin TAB 1 TAB PO (08:15)
[2021-07-07] MEDS: HYDROcodone 5/Acetaminophen 325 TAB PO (08:15)
[2021-07-07] MEDS: DULoxetine 30 MG CAP 60 MG PO (08:15)
[2021-07-07] MEDS: Potassium Chloride 10 MEQ CAPCR PO (08:16)
[2021-07-07] MEDS: Folic Acid 1 MG TAB PO (08:19)
[2021-07-07] MEDS: Furosemide 40 MG/4 ML VIAL IVP (08:24)
[2021-07-07] MEDS: Normal Saline Flush 10 ML SYR IVP (08:25)
[2021-07-07 08:32] LABS: Anion Gap 5.4 mmol/L (3-11); BUN 11 mg/dL (7-18); CO2 32.6 mmol/L (21.0-32.0); CREATININE 0.9 mg/dL (0.70-1.30); Calcium 8.8 mg/dL (8.5-10.1); Chloride 100 mmol/L (98-107); Glucose 91 mg/dL (74-106); Potassium 3.4 mmol/L (3.5-5.1); Sodium 138 mmol/L (136-145)
--- NOTE | 2021-07-07 08:33 | PT.INTREAT ---
Date of service: 07/07/21 Time of Service: 07:12 PT Notes Visit Reasons: Peripheral Edema ambulatory issue Inpatient Physical Therapy Treatment Note [facility] Date: 07/07/2021 PRECAUTIONS: Fall, Activity as tolerated SUBJECTIVE: Errol states that he has not been out of the house in 10 years. He is pleasant and agreeable to participating in PT. He reports that he feels he is doing well, and is surprised at his functional progress in a short amount of time. OBJECTIVE: PAIN: No c/o pain BED MOBILITY/TRANSFERS Supine-sit: I with HOB at 20 degrees Sit-stand: SBA Stand-sit: SBA Bed-Chair: SBA GAIT Assistive Device: FWW Weight bearing: Full Assist: SBA Distance: ~30' + 10' Deviation: Short step length/height THEREX: Patient was instructed in a LE strengthening and stabilization program, completed in a supine position, as per flow sheet. ASSESSMENT: Patient tolerated session well without complaint. He continues to demonstrate limited activity tolerance at this time. He would benefit from continued global strengthening and general conditioning. PLAN: Continue with global strengthening and general conditioning for improved mobility and activity tolerance. TREATMENT CODE/TIME: 26 minutes; 29855, [id number] (07:12)
[2021-07-07] MEDS: Clotrimazole 1% 15 GM TUBE TP (09:21)
[2021-07-07] MEDS: Nystatin CREAM 15 GM TUBE TP (09:21)
[2021-07-07] MEDS: Potassium Chloride 20 MEQ TABCR 40 MEQ PO (09:44)
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
--- NOTE | 2021-07-07 12:42 | CMDISCH_ITS ---
- If Service Date Differs Date of service: 07/07/21 Time of Service: 12:42 LACE Index Scoring Tool - Questions: Length of Stay (in days): 1 Acuity (Admit via E.D.?): Yes Comorbidities: PVD, Congestive Heart Failure, Chronic Pulmonary Disease, Mild Liver/Renal Disease E.D. Visits: 3 - Answers: Total Score: 12 Risk of Readmission: High Risk Care Management Discharge Reason for Hospitalization: peripheral edema Discharge Plan: Errol will be discharged home with a resumption of home health services for nursing and PT. He will follow up with his PCP and plan of care and transport via [facility]. Transportation was arranged by [facility]. CM notified [facility] of his d ischarge and faxed discharged summary. Patient/Family Education Needs: Review of discharge instructions and plan to follow up with community providers. ask me three. Services Needed at Discharge: Home Health Care Services, Physical Therapy, Transportation
--- NOTE | 2021-07-08 12:25 | INDS_ITS ---
Date of service: 07/08/21 PT Notes Visit Reasons: Peripheral Edema ambulatory issue Physical Therapy Inpatient Discharge Summary Date: 07/08/2021 Dates of service: 07/06/2021 through 07/07/2021 This is a clinical summary of care provided for the duration of dates listed above. No charge was made in the completion of this documentation. Referring Doctor: Becki Crooks NP PT Orders: PT CONSULT: Eval/treat. Precautions: Fall. Standard. Activity as tolerated. Patient Profile/Admitting Diagnosis: Gareth is a 70-year-old male who presented to the ED on 07/05/2021 due to generalized weakness, ambulatory dysfunction, and increased swelling and redness to his right leg. Patient is diagnosed with ambulatory dysfunction, lymphedema, chronic back pain, venous insufficiency of right leg, and coronary artery disease. PMHX: Medical History Abscess Agoraphobia Alcoholic dependence syndrome Alcoholic hepatitis Alcoholism drinks 76 ounces of beer per day, sometimes more Anxiety Anxiety with depression Apical lung scarring BPH (benign prostatic hyperplasia) CAD (coronary artery disease) Candidal intertrigo Chronic back pain Chronic pain syndrome Closed fracture of right humerus Compression fracture of lumbar vertebra COPD (chronic obstructive pulmonary disease) Depression Family estrangement has 6 children from 2 different mothers; has not seen them in >40 years Fatigue Frequent falls GERD (gastroesophageal reflux disease) Hand pain, right Headache History of myocardial infarction History of seizures Hx of deep venous thrombosis Localized swelling of right lower leg Osteoarthritis Palliative care patient multiple chronic diseases not eligible for chronic pain tx from [facility] Pedal edema Polypharmacy Prostatitis (06/04/17) Right shoulder pain Skin ulcer Thoracic compression fracture Tobacco dependence Tremor Urinary incontinence Venous insufficiency of right leg of [employer] [id number] Surgical History H/O bilateral inguinal hernia repair History of bilateral knee replacement History of cholecystectomy Previous back surgery S/P coronary artery stent placement S/P tonsillectomy and adenoidectomy Social History/Home Situation: [facility] with 2 steps to enter. There is another set of 18 steps that patient has to his bedroom. Has a private caregiver who comes in regularly to help with bathing. Iris does the cooking and assists with anything that patient needs. Equipment Owned/DME: FWW, RWW, wheelchair, motorized wheelchair, reclining chair Subjective: NT. See most recent RADIO PROGRAM CHECKER notes. Objective: General Observation: NT. See most recent RADIO PROGRAM CHECKER notes. Mental Status: NT. See most recent RADIO PROGRAM CHECKER notes. Pain: NT. See most recent RADIO PROGRAM CHECKER notes. ROM: Right Upper Extremity: Shoulder Flexion less than 10 degrees. Shoulder abduction less than 10 degrees. Elbow flexion WFL. Wrist flexion WFL. Functional opening and closing of hand WFL. Left Upper Extremity: Shoulder Flexion WFL. Shoulder abduction WFL. Elbow flexion WFL. Wrist flexion WFL. Functional opening and closing of hand WFL. Right Lower Extremity: Hip flexion WFL. Hip abduction WFL. Knee flexion 20 degrees to 90 degrees. Knee extension -20 degrees. Ankle dorsiflexion to neutral only. Ankle plantarflexion WFL. Left Lower Extremity: Hip flexion WFL. Hip abduction WFL. Knee flexion 10 degrees to 90 degrees. Knee extension -10 degrees. Ankle dorsiflexion to neutral only. Ankle plantarflexion WFL. Strength: Right Upper Extremity: Shoulder flexors 1/5. Shoulder abductors 1/5. Elbow flexors 4-/5. Elbow extensors 4-/5. 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 Left Upper Extremity: Shoulder flexors 1/5. Shoulder abductors 1/5. Elbow flexors 4-/5. Elbow extensors 4-/5. 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 Right Lower Extremity: Hip flexors 4-/5. Hip abductors 4-/5. Knee flexors 3-/5. Knee extensors 3-/5. Ankle dorsiflexors 3-/5. Ankle plantarflexors 4/5. Left Lower Extremity: Hip flexors 4-/5. Hip abductors 4-/5. Knee flexors 3-/5. Knee extensors 3-/5. Ankle dorsiflexors 3-/5. Ankle plantarflexors 4/5. Bed Mobility/Transfers: Supine to sit standby assist Sit to stand standby assist Stand to sit standby assist Gait: Instructed patient with level surface ambulation of up to 30 feet +10 feet with standby assist carlos decreased. Step height decreased bilaterally. Step length decreased bilaterally. Step to gait pattern. Balance: Static Sitting: Normal Dynamic Sitting: Good Static Standing: Fair Dynamic Standing: Fair Assessment: Bill demonstrates significant functional improvement during this episode of care but will continue to require resumption of home health PT services to achieve highest functional mobility level and reduce fall risk at home. Patient presents with clinical signs and symptoms consistent with current/admitting diagnoses that have resulted to mobility limitations, gait instability, generalized weakness, and overall ADL decline as demonstrated by the following impairment level findings: 1. Decreased strength to B UE/LE major muscle groups 2. Impaired standing balance 3. Impaired activity tolerance 4. Limitation of joint range of motion in right shoulder and the knees right shoulder and B knees 5. Shortness of breath 6. Swelling in BLE Impairments are contributing to the following functional limitations: 1. Decline in bed mobility skills 2. Decline in transfer skills 3. Difficulty with ambulation without assistive device and physical assistance 4. Increased completion time for mobility ADL performance 5. Increased risk for falls 6. Difficulty with managing steps alone safely Goals: Goals X1 week 1. Supine-Sit independent NOT MET 2. Sit-Supine independent NOT MET 3. Sit-Stand independent NOT MET 4. Stand-Sit independent with FWW NOT MET 5. Bed-Chair independent with FWW NOT MET 6. Chair-Bed independent with FWW NOT MET 7. Independent gait on level surface with use of FWW for at least 100 feet without report of pain nor dyspnea NOT MET 8. Independent stair negotiation while holding onto B rails for at least 20 steps without report of pain nor dyspnea NOT MET 9. Independent with home exercise program NOT MET 10. Good static and dynamic standing balance/tolerance NOT MET DISCHARGE RECOMMENDATIONS: Patient will benefit from home health PT services in order to progress mobility level using least restrictive assistive ambulatory device, assess home safety, identify additional equipment needs, and establish a functional maintenance program that will increase ability of patient to remain at home. TREATMENT CODE/TIME: MI Thank you for the opportunity to participate in the care of this patient. Na Ramirez PT, DPT, CLT [facility] [place], [place]
== END 2021-07-07 13:03 | disposition home health service (06) | DRG 607 ==
LOC: ER 13:30 → MS 17:16
PROVIDERS: Nurse Practitioner Family; Admitting Provider Internal Medicine; Emergency Provider Physician Assistant; PCP Physician Assistant; Visit Provider Internal Medicine
DX: I89.0 Lymphedema, not elsewhere classified (principal); R26.2 Difficulty in walking, not elsewhere classified; F10.20 Alcohol dependence, uncomplicated; G89.29 Other chronic pain; M54.9 Dorsalgia, unspecified; I87.2 Venous insufficiency (chronic) (peripheral); I25.10 Atherosclerotic heart disease of native coronary artery without angina pectoris; N40.0 Benign prostatic hyperplasia without lower urinary tract symptoms; K70.10 Alcoholic hepatitis without ascites; F41.8 Other specified anxiety disorders; J44.9 Chronic obstructive pulmonary disease, unspecified; R29.6 Repeated falls; K21.9 Gastro-esophageal reflux disease without esophagitis; I25.2 Old myocardial infarction; F17.210 Nicotine dependence, cigarettes, uncomplicated; Z20.822 Contact with and (suspected) exposure to COVID-19; R32 Unspecified urinary incontinence
CPT/HCPCS: 36415; 76770; 80048; 80053; 87040; 87635; 93005; 94640; 96374; 96375; 97110; 97162; 97530; 99285; J1650; 71046; 80320; 81003; 81015; 83735; 83880; 84484; 85025; 93010; 99222; 99233; 99238; J1940; J2270; J3490

== ENCOUNTER 2021-09-17 23:35 | Emergency (ER) | payer MEDICARE, MEDICAID, SELFPAY ==
--- NOTE | 2021-09-17 23:30 | DI.RAD_ITS ---
Exam(s) XR CHEST 2V PA LATERAL EXAM: XR CHEST 2V PA LATERAL CLINICAL HISTORY: weakness, hx COPD TECHNIQUE: COMPARISON: CR XR CHEST 2V PA LATERAL from 07/05/2021 FINDINGS: There are probable mild changes of COPD and scarring. No focal consolidation. No pleural effusion. Old right shoulder injury again noted. Cardiac size is within normal limits. IMPRESSION: No evidence of acute process. RADIATION DOSE DELIVERED: Total DLP
[2021-09-17 23:39] VITALS: BP 124/80; PULSE 94; RESP 18; TEMP 36.6; O2SAT 96
[2021-09-17 23:41] VITALS: BP 124/80; PULSE 93; O2SAT 93
[2021-09-17 23:42] VITALS: O2SAT 96
[2021-09-17 23:45] VITALS: BP 111/70; PULSE 92; O2SAT 93
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
[2021-09-17 23:50] VITALS: O2SAT 94
[2021-09-17] MEDS: Normal Saline 1,000 ML 1000 ML IV (23:51)
[2021-09-17 23:53] LABS: Abs Immature Grans 0.07 10^3/uL (0.0-0.06); Absolute Basophil Count 0.07 10^3/uL (0.0-0.2); Absolute Eosinophil Count 0.14 10^3/uL (0.0-0.7); Absolute Lymphocyte Count 1.05 10^3/uL (1.2-3.4); Absolute Monocyte Count 1.09 10^3/uL (0.1-0.8); Absolute Neutrophil Count 4.44 10^3/uL (1.2-6.7); HCT 42.5 % (40.0-50.0); HGB 14.6 g/dL (13.5-17.5); Lymphocytes % 15.3; MCH 35.4 pg (27.0-33.0); MCHC 34.4 % (32.0-36.0); MCV 102.9 fL (80-95); MPV 8.5 fL (8.0-11.0); Monocytes % 15.9; Neutrophils % 64.8; Nucleated RBC 0 %; Platelet Count 159 10^3/uL (130-400); RBC 4.13 10^6/uL (4.36-5.78); RDW 13.6 % (11.8-14.1); RDW-SD 51.5 fL; WBC 6.86 10^3/uL (4.4-10.8)
[2021-09-18] VITALS (9 sets, daily range): BP systolic 100–112; BP diastolic 68–88; PULSE 82–88; O2SAT 95–100
[2021-09-18 00:07] LABS: ALT 61 U/L (16-63); AST 70 U/L (15-37); Albumin 3.3 g/dL (3.4-5.0); Alkaline Phosphatase 72 U/L (46-116); BUN 5 mg/dL (7-18); Bilirubin, Total 0.6 mg/dL (0.2-1.0); CREATININE 0.7 mg/dL (0.70-1.30); Calcium 8.7 mg/dL (8.5-10.1); Chloride 91 mmol/L (98-107); Glucose 109 mg/dL (74-106); Magnesium 1.9 mg/dL (1.8-2.4); Sodium 132 mmol/L (136-145); Total Protein 7.6 g/dL (6.4-8.2)
[2021-09-18 00:11] LABS: Ammonia < 10 umol/L (11-32)
[2021-09-18] MEDS: ACETAMINOPHEN 1,000 MG/100 ML BTL 400 MG IVPB (00:23)
[2021-09-18 00:29] LABS: Bilirubin Negative (Negative); Blood Trace-intact (Negative); Clarity Cloudy (Clear); Glucose Negative (Negative); Ketones Negative (Negative); Leukocyte Esterase Moderate (Negative); Nitrite Negative (Negative); pH 7.5 (5-8)
[2021-09-18 00:38] LABS: Bacteria Moderate HPF (Negative); C & S Indicated? Yes; Casts Negative LPF (Negative); Crystals Negative HPF (Negative); Epithelial Cells Few HPF (Negative); Mucus Negative (Negative)
--- NOTE | 2021-09-18 01:07 | DI.VRAD_ITS ---
PROCEDURE INFORMATION: Exam: XR Chest Exam date and time: 09/17/2021 11:46 PM Age: 71 years old Clinical indication: Prior surgery; Surgery date: 6+ months; Surgery type: Back surgery; Patient HX: Weakness, HX of copd TECHNIQUE: Imaging protocol: XR of the chest. Views: 2 views. COMPARISON: CR XR CHEST 2V PA LATERAL 07/05/2021 2:04 PM FINDINGS: Lungs: Mild chronic interstitial prominence. No consolidation. Pleural spaces: No pleural effusion. No pneumothorax. Heart/Mediastinum: Grossly stable. Bones/joints: Grossly stable IMPRESSION: No acute findings. Dictated and Authenticated by: Hank Cook MD. Ordering:SOPHIA Omalley MD
[2021-09-18] MEDS: Potassium Chloride Liquid 20 MEQ PKT PO (01:18)
[2021-09-18] MEDS: oxyCODONE 5 MG TAB PO (01:18)
--- NOTE | 2021-09-18 01:24 | NUR.NOTE ---
Nursing Note: he is to follow up with dr. ring in 3-4 days and i faxed the referral to urology and care management
== END 2021-09-18 01:36 | disposition home or self-care (01) ==
PROVIDERS: Emergency Provider Emergency Medicine; PCP Physician Assistant
DX: N39.0 Urinary tract infection, site not specified (principal); B96.89 Other specified bacterial agents as the cause of diseases classified elsewhere; G89.4 Chronic pain syndrome; E87.6 Hypokalemia; R53.1 Weakness; J44.9 Chronic obstructive pulmonary disease, unspecified
CPT/HCPCS: 80053; 96361; 96374; 99284; 71046; 80320; 81003; 81015; 82140; 83735; 85025; 87086; J0131

== ENCOUNTER 2021-10-01 19:06 | Outpatient (REF) | payer MEDICARE, MEDICAID, SELFPAY ==
[2021-10-01 16:57] LABS: Bilirubin Negative (Negative); Blood Negative (Negative); Clarity Clear (Clear); Glucose Negative (Negative); Ketones Negative (Negative); Leukocyte Esterase Negative (Negative); Nitrite Positive (Negative); Specific Gravity 1.025 (1.005-1.025); Urobilinogen 0.2 EU/dL (Up TO 0.2)
[2021-10-01 17:31] LABS: Bacteria Few HPF (Negative); C & S Indicated? Yes; Casts Negative LPF (Negative); Crystals Negative HPF (Negative); Epithelial Cells Few HPF (Negative); Mucus Negative (Negative); RBC 0-2 HPF (0-2)
== END 2021-10-01 19:07 | disposition home or self-care (01) ==
LOC: LBN 19:06
PROVIDERS: PCP Physician Assistant; Visit Provider Physician Assistant
DX: N39.0 Urinary tract infection, site not specified (principal); R39.9 Unspecified symptoms and signs involving the genitourinary system
CPT/HCPCS: 81003; 81015; 87086

== ENCOUNTER 2021-10-02 05:39 | Emergency (ER) | payer MEDICARE, MEDICAID, SELFPAY ==
[2021-10-02 05:41] VITALS: BP 161/109; PULSE 118; RESP 24; TEMP 36.5; O2SAT 92
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
== END 2021-10-02 06:07 | disposition home or self-care (01) ==
PROVIDERS: Emergency Provider Student in an Organized Health Care Education/Training Program; PCP Physician Assistant
DX: T83.021A Displacement of indwelling urethral catheter, initial encounter (principal); R31.9 Hematuria, unspecified
CPT/HCPCS: 51702; 87077; 99283; 81003; 81015; 87086; 87186

== ENCOUNTER 2021-10-02 18:36 | Outpatient (REF) | payer MEDICARE, MEDICAID, SELFPAY ==
[2021-10-02 22:05] LABS: Bilirubin Negative (Negative); Blood Small (Negative); Clarity Cloudy (Clear); Glucose Negative (Negative); Ketones Negative (Negative); Leukocyte Esterase Large (Negative); Nitrite Positive (Negative); Urobilinogen 0.2 EU/dL (Up TO 0.2); pH 5.5 (5-8)
[2021-10-02 22:25] LABS: WBC >50 HPF (0-5)
[2021-10-02 22:26] LABS: C & S Indicated? Yes
== END 2021-10-02 18:37 | disposition home or self-care (01) ==
LOC: LBN 18:36
PROVIDERS: Student in an Organized Health Care Education/Training Program; PCP Physician Assistant; Visit Provider Physician Assistant
DX: R33.9 Retention of urine, unspecified (principal)
CPT/HCPCS: 87077; 81003; 81015; 87086; 87186

== ENCOUNTER 2021-10-15 16:23 | Emergency (ER) | payer MEDICARE, MEDICAID, SELFPAY ==
[2021-10-15] VITALS (27 sets, daily range): BP systolic 124–169; BP diastolic 77–110; PULSE 101–160; RESP 12–29; TEMP 36.3; O2SAT 87–95
--- NOTE | 2021-10-15 16:15 | RT.EKG_ITS ---
APPROVED REPORT Exam: Resting ECG Reason for Exam: vomiting blood Patient Location: E HR:122 bpm ECG Measurements Heart Rate 122 AXIS WA 148 P 83 QRSd 95 QRS 188 QT 339 T 60 QTc 483 Conclusion Sinus tachycardia Probable left atrial enlargement Probable anterolateral infarct, old...Q>35mS, abnrm ST-T, V2-V6,I,aVL
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
[2021-10-15 16:49] LABS: Abs Immature Grans 0.09 10^3/uL (0.0-0.06); Absolute Eosinophil Count 0.48 10^3/uL (0.0-0.7); Absolute Lymphocyte Count 1.27 10^3/uL (1.2-3.4); Absolute Neutrophil Count 13.04 10^3/uL (1.2-6.7); Basophils % 0.4; Eosinophils % 3.1; HCT 48.9 % (40.0-50.0); HGB 16.2 g/dL (13.5-17.5); Immature Grans % 0.6; Lymphocytes % 8.1; MCH 34.9 pg (27.0-33.0); MCHC 33.1 % (32.0-36.0); MCV 105.4 fL (80-95); MPV 9.3 fL (8.0-11.0); Monocytes % 4.4; Neutrophils % 83.4; Nucleated RBC 0 %; Platelet Count 205 10^3/uL (130-400); RBC 4.64 10^6/uL (4.36-5.78); RDW 13.1 % (11.8-14.1); RDW-SD 50.5 fL; WBC 15.63 10^3/uL (4.4-10.8)
[2021-10-15] MEDS: Normal Saline 1,000 ML 125 ML IV (16:53)
[2021-10-15] MEDS: HYDROmorphone 2 MG/ML VIAL 1 MG IVP (16:53)
[2021-10-15] MEDS: Pantoprazole 40 MG VIAL 80 MG IVP (16:54)
[2021-10-15] MEDS: Ondansetron 4 MG/2 ML VIAL IVP (16:54)
[2021-10-15 16:57] LABS: Absolute Basophil Count 0.06 10^3/uL (0.0-0.2); Absolute Monocyte Count 0.69 10^3/uL (0.1-0.8)
[2021-10-15 17:01] LABS: Lipase 41 U/L (73-393); Magnesium 2.1 mg/dL (1.8-2.4)
[2021-10-15 17:02] LABS: INR 1.1 (0.9-1.1); Prothrombin Time 10.9 sec (9.3-11.0)
[2021-10-15 17:06] LABS: ALT 43 U/L (16-63); AST 33 U/L (15-37); Alkaline Phosphatase 81 U/L (46-116); Anion Gap 9.1 mmol/L (3-11); BUN 7 mg/dL (7-18); Bilirubin, Total 0.6 mg/dL (0.2-1.0); CO2 29.9 mmol/L (21.0-32.0); CREATININE 0.8 mg/dL (0.70-1.30); Calcium 9.4 mg/dL (8.5-10.1); Chloride 96 mmol/L (98-107); Glucose 126 mg/dL (74-106); Sodium 135 mmol/L (136-145); Total Protein 8.4 g/dL (6.4-8.2)
[2021-10-15 17:08] LABS: Diff Comment RBC Morph Reviewed; Macrocytosis 1+
[2021-10-15 17:35] LABS: ETHANOL BLOOD < 3.0 mg/dL (<10)
--- NOTE | 2021-10-15 18:07 | DI.CT_ITS ---
Exam(s) CT ABDOMEN PELVIS W EXAM: CT ABDOMEN PELVIS W CLINICAL HISTORY: epigastric pain vomiting TECHNIQUE: Imaging Protocol: Axial computed tomography images with coronal and sagittal reformatted images were created and reviewed CONTRAST MATERIAL: Intravenous: Omnipaque 350 Contrast volume:100 mL Oral: No COMPARISON: CT CHEST ABD PELVIS WITH CONTRAST from 08/28/2017 CT CHEST ABD PELVIS WITH CONTRAST from 08/28/[address] CHEST PE CTA from 03/13/2021 FINDINGS: ABDOMEN: Lung Bases: There is a hiatal hernia. There is dependent atelectasis or scarring in the lung bases. Liver: Normal density. There is a stable cyst in the caudal aspect of the right lobe of the liver. N o new hepatic masses are present. Portal, Superior Mesenteric, and Splenic Veins: Unremarkable. Gallbladder and Biliary Tract: Status post cholecystectomy. There is unchanged intra and extrahepati c biliary ductal dilatation. This likely reflects the post cholecystectomy state. Pancreas: Normal density, no abnormal calcifications or inflammatory process. Spleen: Normal. Adrenals: No masses seen. Kidneys: Normal size, contour and axis. No radiodense stones or obstructive uropathy. There is a stab le simple cyst in the inferior pole of the left kidney. No follow-up is recommended. Abdominal Aorta: Abdominal portion non-dilated. Atherosclerosis. Bowel: No obstruction or bowel wall thickening. No evidence of appendicitis. Peritoneal Cavity: No ascites, collection or mesenteric inflammatory response. No free air. Lymph Nodes: Within normal limits. Bones: Within normal limits for the patient's age. Old healed bilateral rib fractures. Status post lumbar spine surgery. Old stable L1 compression fracture deformity. Soft Tissues: Unremarkable. PELVIS: Bladder: There is a Donato catheter in the urinary bladder decompressing it. Reproductive Organs: Unremarkable as visualized. Lymph Nodes: Within normal limits. Bones: Within normal limits for the patient's age. IMPRESSION: No acute abdominal or pelvic process. RADIATION DOSE DELIVERED: 1,149.52mGy.cm Total DLP DATA REPOSITORY: All CT scans at this facility are submitted to the National Radiology Data Registry (NRDR) Dose Index Registry (DIR) with the [employer] (ACR). RADIATION OPTIMIZATION: All CT scans at this facility use at least one of these dose optimization te chniques: automated exposure control; mA and/or kV adjustment per patient size (includes targeted exa ms where dose is matched to clinical indication); or iterative reconstruction.
[2021-10-15] MEDS: Omnipaque 350 MG/ML 100 ML BTL IJ (18:09)
--- NOTE | 2021-10-15 18:30 | NUR.NOTE ---
Nursing Note: Nikki Ortiz significant other [phone]
--- NOTE | 2021-10-15 19:08 | DI.VRAD_ITS ---
PROCEDURE INFORMATION: Exam: CT Abdomen And Pelvis With Contrast Exam date and time: 10/15/2021 4:32 PM Age: 71 years old Clinical indication: Abdominal pain; Patient HX: Epigastric pain, vomiting TECHNIQUE: Imaging protocol: Computed tomography of the abdomen and pelvis with contrast. Radiation optimization: All CT scans at this facility use at least one of these dose optimization techniques: automated exposure control; mA and/or kV adjustment per patient size (includes targeted exams where dose is matched to clinical indication); or iterative reconstruction. Contrast material: OMNI-PAQUE 350; Contrast volume: 100 ml; Contrast route: INTRAVENOUS (IV); COMPARISON: CT CHEST ABD PELVIS WITH CONTRAST 08/28/2017 11:41 AM FINDINGS: Tubes, catheters and devices: Donato catheter in place. Lungs: Bibasilar linear opacities of atelectasis and/or fibrosis. Mediastinal space: Cannot rule out mild mucosal thickening within distal esophagus. Diaphragm: Mild elevation of the left hemidiaphragm, nonspecific. Liver: 7 mm cyst within hepatic segment . Gallbladder and bile ducts: Status post cholecystectomy. CBD is dilated, up to 9 mm, no filling defect identified. Pancreas: Unremarkable. No ductal dilation. Spleen: Unremarkable. No splenomegaly. Adrenal glands: Normal. No mass. Kidneys and ureters: 7 mm left renal cortical hypodensity, likely a cyst. Stomach and bowel: Unremarkable. No obstruction. No mucosal thickening. Appendix: No evidence of appendicitis. Intraperitoneal space: No free air. No significant fluid collection. Vasculature: Multifocal atherosclerotic disease within the abdominal aorta and branches. Lymph nodes: Calcified peripancreatic lymph nodes, main decay stigmata of prior granulomatous disease exposure. Urinary bladder: Unremarkable as visualized. Reproductive: Unremarkable as visualized. Bones/joints: Status post posterior spinal instrumentation and fusion with hardware T12 and L2. Chronic compression fracture of L1 vertebral body, posterior propulsion with narrowing of the canal, seen on the prior study. Deformities of healed fractures of the bilateral ribs. Deformity of healed fracture involving left ischial bone. Soft tissues: Unremarkable. IMPRESSION: No evidence for mechanical bowel obstruction. No evidence for bowel perforation. No evidence for colitis or diverticulitis. Dictated and Authenticated by: Shahab Garcia MD. Ordering:SOPHIA Omalley MD
[2021-10-15] MEDS: HYDROcodone 5/Acetaminophen 325 TAB PO (19:24)
== END 2021-10-15 19:38 | disposition home or self-care (01) ==
LOC: ER 19:26
PROVIDERS: Emergency Provider Emergency Medicine; PCP Physician Assistant
DX: K20.80 Other esophagitis without bleeding (principal); R10.13 Epigastric pain; B02.9 Zoster without complications; R26.89 Other abnormalities of gait and mobility; K92.0 Hematemesis; F10.20 Alcohol dependence, uncomplicated
CPT/HCPCS: 80053; 83690; 93005; 96374; 96375; 99285; 74177; 80320; 83735; 85025; 85610; 93010; 99284; J2405; J3490

== ENCOUNTER 2021-11-16 15:13 | Outpatient (REF) | payer MEDICARE, MEDICAID, SELFPAY ==
[2021-11-16 13:46] LABS: Bilirubin Negative (Negative); Blood Trace-lysed (Negative); Clarity Clear (Clear); Glucose Negative (Negative); Ketones Negative (Negative); Leukocyte Esterase Small (Negative); Nitrite Negative (Negative); Urobilinogen 0.2 EU/dL (Up TO 0.2); pH 5.5 (5-8)
[2021-11-16 13:58] LABS: Bacteria Moderate HPF (Negative); C & S Indicated? C&S Done As Ordered; Casts 0-2 Hyaline LPF (Negative); Crystals Negative HPF (Negative); Epithelial Cells Few HPF (Negative); Mucus Negative (Negative); RBC 0-2 HPF (0-2)
== END 2021-11-16 15:14 | disposition home or self-care (01) ==
LOC: LBN 15:13
PROVIDERS: PCP Physician Assistant; Visit Provider Physician Assistant
DX: R33.9 Retention of urine, unspecified (principal); N40.1 Benign prostatic hyperplasia with lower urinary tract symptoms; Z46.6 Encounter for fitting and adjustment of urinary device
CPT/HCPCS: 87077; 81003; 81015; 87086; 87186

== ENCOUNTER 2021-12-14 14:06 | Inpatient (IN) | payer OTHER, SELFPAY ==
[2021-12-14] MEDS: Scopolamine 1 MG/3 DAYS PATCH TD (16:56)
[2021-12-14] MEDS: MORPHine Oral Concentrate 20 MG/ML PO (16:56)
[2021-12-14] MEDS: LORazepam 2 MG/1 ML Oral Concentrate 1 MG PO ×2 (16:57→20:26)
[2021-12-14 17:08] LABS: Source Nasal/Nares
[2021-12-14 17:32] VITALS: BP 148/72; PULSE 89; RESP 22; TEMP 36.6; O2SAT 96
--- NOTE | 2021-12-14 17:51 | CHAPLAIN ---
Esequiel, a hospice patient, was admitted late this afternoon. Jc RN, said the plan is for Esequiel to be here for the weekend and be admitted to [facility] for [facility] life care. He is not likely to have visitors while he is here, according to Jc. I brought in a prayer shawl for Will. He was sleeping soundly. I didn't wake him, but let Jc know that if Will would like to see a oven attendant this weekend, we are receiving distribution station operator.
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
[2021-12-14] MEDS: levETIRAcetam 500 MG TAB PO (20:26)
[2021-12-14 21:03] LABS: COVID-19 PCR Negative (Negative)
[2021-12-15] MEDS: LORazepam 2 MG/1 ML Oral Concentrate 1 MG PO ×5 (00:45→20:46)
--- NOTE | 2021-12-15 10:13 | CMPROGNOTE_ITS ---
- If Service Date Differs Date of service: 12/15/21 Time of Service: 10:13 Care Management Progress Note Per Dr. Crawley, Hospice , Errol has an established discharge plan to transition to [facility] on 12/17/21, he will continue to be treated and monitored through the weekend at [facility].
--- NOTE | 2021-12-15 12:40 | NUR.NOTE ---
Nursing Note: Reviewed Patients HIPPA with the patient. He confirmed with me with Alejandro Thompson present as a witness, he wanted to continue to give the information out to the parties listed on the HIPPA that the patient filled out with me on July [id number]
[2021-12-15] MEDS: levETIRAcetam Oral Solution 100 MG/ML 500 MG PO ×2 (13:03→20:47)
[2021-12-16] MEDS: LORazepam 2 MG/1 ML Oral Concentrate 1 MG PO ×4 (00:30→21:41)
[2021-12-16] MEDS: MORPHine Oral Concentrate 20 MG/ML PO ×2 (02:19→07:44)
[2021-12-16] MEDS: levETIRAcetam Oral Solution 100 MG/ML 500 MG PO ×2 (07:45→21:42)
--- NOTE | 2021-12-16 19:09 | W.PM.PROGNOT ---
Date of Service Date of service: 12/16/21 Time of Service: 17:30 Subjective Subjective Interval history since last seen: Nursing reported to me that Gareth has used very little morphine since admission. His caregiver/SO at home was giving him 20 mg qid of morphine; he has had <20 mg per day since admission. Given this, I changed his morphine dosing to 5 mg tid scheduled for his transition to [facility]. He also has not needed lorazepam 1 mg q4 hrs as ordered. He has had about 3 doses per day, only. I was concerned that he might withdraw from alcohol during his first 72 hrs. It is now more than 55 hrs since he last drink and he is not having any obvious signs of withdrawal. HOWEVER, I will continue with lorazepam 1 mg tid scheduled starting tonight and to continue once he transfers to Rehab. Dr Carreon will be seeing Gareth tomorrow and will write his discharge orders. Objective Last Vital Signs Temp 97.9 F 12/14/21 17:32 Pulse 89 12/14/21 17:32 Resp 22 12/14/21 17:32 BP 148/72 H 12/14/21 17:32 Pulse Ox 96 12/14/21 17:32 PAWSS Have you Been Recently Intoxicated or Drunk Within the Last 30 days?: Yes Have you Ever Experienced Previous Episodes of Alcohol Withdrawal?: Yes Have you ever Experienced Withdrawal Seizures?: No Have you ever Experienced Delirium Tremens(DT)s?: No Have you ever undergone Alcohol Rehabilitation Treatment (i.e, inpt ot outpatient treatment programs)?: No Have you ever Experienced Blackouts?: No Have you ever Combined Alcohol with other Downers within the last 90 days?: No Have you ever Combined Alcohol with any other Substance of Abuse during the last 90 days?: No Positive Blood Alcohol level on Presentation? [PCS.BAL]: Unable to Obtain Evidence of Increased Autonomic Activity (i.e. HR>120, tremor, sweating, agitation, nausea)?: Yes Result: 3
[2021-12-16] MEDS: MORPHine Oral Concentrate 20 MG/ML 5 MG PO (21:40)
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
[2021-12-17] MEDS: MORPHine Oral Concentrate 20 MG/ML 5 MG PO (08:43)
[2021-12-17] MEDS: LORazepam 2 MG/1 ML Oral Concentrate 1 MG PO (08:44)
[2021-12-17] MEDS: levETIRAcetam Oral Solution 100 MG/ML 500 MG PO (08:47)
[2021-12-17 10:25] LABS: Source Nasal/Nares
[2021-12-17 11:12] LABS: COVID-19 PCR Negative (Negative)
--- NOTE | 2021-12-17 11:24 | PDOC.CMDIS ---
- If Service Date Differs Date of service: 12/17/21 Time of Service: 11:24 LACE Index Scoring Tool - Questions: Length of Stay (in days): 3 Acuity (Admit via E.D.?): Yes Comorbidities: Chronic Pulmonary Disease, Any Tumor E.D. Visits: 5 - Answers: Total Score: 15 Risk of Readmission: High Risk Care Management Discharge Reason for Hospitalization: esophageal CA, weight loss Discharge Plan: Errol will discharge to [facility], [facility]. Patient/Family Education Needs: Review discharge instructions, discuss Ask Me Three. Services Needed at Discharge: Home Health Care Services (Hospice ), Transportation ([facility])
== END 2021-12-17 11:56 | disposition skilled nursing facility (03) | DRG 376 ==
PROVIDERS: Admitting Provider Family Medicine; PCP Physician Assistant; Visit Provider Family Medicine
DX: C15.5 Malignant neoplasm of lower third of esophagus (principal); Z51.5 Encounter for palliative care; Z74.01 Bed confinement status; K70.11 Alcoholic hepatitis with ascites; J44.9 Chronic obstructive pulmonary disease, unspecified; F10.20 Alcohol dependence, uncomplicated; R63.4 Abnormal weight loss; R26.2 Difficulty in walking, not elsewhere classified; R32 Unspecified urinary incontinence; G89.4 Chronic pain syndrome; R15.9 Full incontinence of feces; F17.210 Nicotine dependence, cigarettes, uncomplicated; I25.10 Atherosclerotic heart disease of native coronary artery without angina pectoris; N40.0 Benign prostatic hyperplasia without lower urinary tract symptoms; I87.2 Venous insufficiency (chronic) (peripheral); I89.0 Lymphedema, not elsewhere classified; F41.8 Other specified anxiety disorders; K21.9 Gastro-esophageal reflux disease without esophagitis
CPT/HCPCS: 87635; J3490